=== PATIENT | female | born 1945 | race Caucasian/White ===

== ENCOUNTER → 2016-10-10 | Outpatient (REF) | payer MEDICARE, MEDICAID ==
[~2016-10-10] MED LIST: /ALEN70TA OR; /WARF25TA OR; ACET65TA OR; AMLO2.5T PO; ASPI1TAB PO; ASPI81TA83 OR; CELE40TA OR; CITA40TA4 PO; CRES40TA OR; CRES40TA PO; FOLI1TAB86 PO; IBUP800T23 PO; INFLIXIMAB IV; LEVA750T PO; LISI-538 PO; LOPR50TA OR; MAGN500T2 OR; MILKSUS OR; MIRALEX PO; MULTIVIT OR; NABU500T OR; NITR0.4S SL; NITR4TASL SL; OTEZ1TAB3 PO; PERC5TAB8 OR; PRIL20CA OR; PRIN10TA PO; SENN8.6T5 OR; TAB-TAB PO; TOPR50TA PO; WELCHOL OR; [UNRECOGNIZED DRUG - CODE] OR; [UNRECOGNIZED DRUG - OTHER] TD; [UNRECOGNIZED DRUG - OTHER] TD
[2016-10-10 14:09] LABS: ALBUMIN 3.5 GM/DL (3.2-5.2); ALBUMIN/GLOBULIN RATIO 0.73 (1.00-1.93); ALKALINE PHOSPHATASE 131 U/L (45-117); ALT/SGPT 34 U/L (12-78); ANION GAP 7 MEQ/L (8-16); AST/SGOT 46 U/L (15-37); BILIRUBIN,TOTAL 0.4 MG/DL (0.2-1.0); BLOOD UREA NITROGEN 15 MG/DL (7-18); CALCIUM LEVEL 9.3 MG/DL (8.8-10.2); CARBON DIOXIDE LEVEL 30 MEQ/L (21-32); CHLORIDE LEVEL 106 MEQ/L (98-107); GLOMERULAR FILTRATION RATE > 60.0 (>45); GLUCOSE, FASTING 125 MG/DL (80-110); POTASSIUM SERUM 4.4 MEQ/L (3.5-5.1); SODIUM LEVEL 143 MEQ/L (136-145); TOTAL PROTEIN 8.3 GM/DL (6.4-8.2)
== END ==
LOC: M SFHCPLAZ 10:41
PROVIDERS: ATTEND Family Medicine
DX: R73.01 Impaired fasting glucose (principal)
CPT/HCPCS: 36415; 80053; 82043; 83036; G0463

== ENCOUNTER → 2017-01-14 | Outpatient (REF) | payer MEDICARE, MEDICAID ==
[~2017-01-14] MED LIST changes: +CETI10TA; +IBUP1TAB7 PO; -IBUP800T23 PO; -LEVA750T PO; +LEVA750T7 PO; +PERC5TAB12 PO
== END ==
LOC: M SFHCPLAZ 13:42
PROVIDERS: ATTEND Family Medicine
DX: E11.9 Type 2 diabetes mellitus without complications (principal)

== ENCOUNTER 2017-03-20 13:01 | Emergency (ER) | payer MEDICARE, MEDICAID ==
[~2017-03-20] VITALS: Ht 167.6 cm; Wt 72.7 kg
[~2017-03-20 13:01] MED LIST changes: -CETI10TA; -PERC5TAB12 PO
[2017-03-20] MEDS ORDERED: CETI10TA (13:42)
[2017-03-20] MEDS ORDERED: PERCOCET 5MG/325MG TAB PO ONE (15:00)
--- NOTE | 2017-03-20 15:38 | REP ---
PELVIS AND LEFT HIP: AP view of the pelvis and two additional views of the left hip are performed. There is a compression screw, side plate, and multiple metallic screws in the proximal left femur for an old fracture. No acute fracture or dislocation is seen. Severe arthritic changes are seen at the left hip joint with joint space narrowing, subchondral sclerosis and spurring. IMPRESSION: No acute fracture or dislocation. Old fracture proximal left femur with severe degenerative changes at the left hip joint. Signed by Ho López MD 03/21/2017 05:34 P
[2017-03-20] MEDS ORDERED: PERC5TAB12 PO (17:21)
[2017-03-20 17:29] VITALS: BP 146/84
== END 2017-03-20 17:32 | disposition home or self-care (01) ==
LOC: M ED 13:01
DX: M16.12 Unilateral primary osteoarthritis, left hip (principal); I25.10 Atherosclerotic heart disease of native coronary artery without angina pectoris; I25.2 Old myocardial infarction; I10 Essential (primary) hypertension; R73.03 Prediabetes; F41.9 Anxiety disorder, unspecified; R51 Headache; E78.5 Hyperlipidemia, unspecified; K21.9 Gastro-esophageal reflux disease without esophagitis; K75.81 Nonalcoholic steatohepatitis (NASH); Z95.5 Presence of coronary angioplasty implant and graft; F17.200 Nicotine dependence, unspecified, uncomplicated; Z87.81 Personal history of (healed) traumatic fracture; Z79.82 Long term (current) use of aspirin; Z79.899 Other long term (current) drug therapy

== ENCOUNTER → 2017-10-02 | Outpatient (REF) | payer MEDICARE, MEDICAID ==
[2017-10-02 13:09] LABS: HEMOGLOBIN 13.8 g/dl (12.0-15.5); MEAN CORPUSCULAR HEMOGLOBIN 29.2 pg (27.0-33.0); MEAN CORPUSCULAR HGB CONC 32.1 g/dl (32.0-36.5); MEAN CORPUSCULAR VOLUME 91.1 fl (80.0-96.0); PLATELET COUNT, AUTOMATED 116 10^3/uL (150-450); RED BLOOD COUNT 4.72 10^6/uL (4.00-5.40); RED CELL DISTRIBUTION WIDTH 14.7 % (11.5-14.5); WHITE BLOOD COUNT 6.5 10^3/uL (4.0-10.0)
[2017-10-02 13:32] LABS: TOTAL 25(OH) VITAMIN D 16.5 NG/ML (30.0-100.0)
== END ==
LOC: M SFHCPLAZ 11:06
DX: R45.89 Other symptoms and signs involving emotional state (principal); E55.9 Vitamin D deficiency, unspecified
CPT/HCPCS: 84443

== ENCOUNTER → 2017-10-23 | Outpatient (CLI) | payer MEDICARE, MEDICAID ==
[2017-10-23 10:53] LABS: HEMATOCRIT 42.3 % (36.0-47.0); HEMOGLOBIN 13.6 g/dl (12.0-15.5); MEAN CORPUSCULAR HEMOGLOBIN 29.3 pg (27.0-33.0); MEAN CORPUSCULAR HGB CONC 32.2 g/dl (32.0-36.5); MEAN CORPUSCULAR VOLUME 91.2 fl (80.0-96.0); PLATELET COUNT, AUTOMATED 127 10^3/uL (150-450); RED BLOOD COUNT 4.64 10^6/uL (4.00-5.40); RED CELL DISTRIBUTION WIDTH 14.8 % (11.5-14.5); WHITE BLOOD COUNT 5.1 10^3/uL (4.0-10.0)
[2017-10-23 11:04] LABS: INR 1.16
[2017-10-23 11:14] LABS: ALBUMIN 3.5 GM/DL (3.2-5.2); ALBUMIN/GLOBULIN RATIO 0.69 (1.00-1.93); ALKALINE PHOSPHATASE 123 U/L (45-117); ALT/SGPT 20 U/L (12-78); ANION GAP 6 MEQ/L (8-16); AST/SGOT 36 U/L (7-37); BILIRUBIN,TOTAL 0.5 MG/DL (0.2-1.0); BLOOD UREA NITROGEN 9 MG/DL (7-18); CALCIUM LEVEL 9.1 MG/DL (8.8-10.2); CARBON DIOXIDE LEVEL 27 MEQ/L (21-32); CHLORIDE LEVEL 110 MEQ/L (98-107); CREATININE FOR GFR 0.74 MG/DL (0.55-1.30); GLOMERULAR FILTRATION RATE > 60.0 (>45); GLUCOSE, FASTING 115 MG/DL (70-100); POTASSIUM SERUM 4.2 MEQ/L (3.5-5.1); SODIUM LEVEL 143 MEQ/L (136-145); TOTAL PROTEIN 8.6 GM/DL (6.4-8.2)
[2017-10-23 11:54] LABS: ERYTHROCYTE SEDIMENTATION RATE 65 mm/hr (0-30)
== END ==
LOC: M ADMPAT 09:01
DX: Z01.818 Encounter for other preprocedural examination (principal); M16.12 Unilateral primary osteoarthritis, left hip; E78.00 Pure hypercholesterolemia, unspecified; I10 Essential (primary) hypertension; I51.9 Heart disease, unspecified; F41.9 Anxiety disorder, unspecified; F32.9 Major depressive disorder, single episode, unspecified
CPT/HCPCS: 71046

== ENCOUNTER → 2017-11-11 | Outpatient (REF) | payer MEDICARE, MEDICAID ==
[2017-11-11 15:05] LABS: INR 3.84; PROTHROMBIN TIME 39.7 SECONDS (12.4-14.5)
== END ==
LOC: M SHH 14:34
DX: Z79.01 Long term (current) use of anticoagulants (principal)
CPT/HCPCS: 85610

== ENCOUNTER → 2017-11-14 | Outpatient (REF) | payer MEDICARE, MEDICAID ==
[2017-11-14 15:08] LABS: INR 1.89; PROTHROMBIN TIME 22.3 SECONDS (12.4-14.5)
== END ==
LOC: M SHH 13:12
DX: Z79.01 Long term (current) use of anticoagulants (principal)
CPT/HCPCS: 85610

== ENCOUNTER → 2017-11-18 | Outpatient (REF) | payer MEDICARE, MEDICAID ==
[2017-11-18 13:53] LABS: INR 1.23; PROTHROMBIN TIME 15.7 SECONDS (12.4-14.5)
== END ==
LOC: M SHH 13:18
DX: Z79.01 Long term (current) use of anticoagulants (principal)
CPT/HCPCS: 85610

== ENCOUNTER → 2017-11-21 | Outpatient (REF) | payer MEDICARE, MEDICAID ==
[2017-11-21 11:35] LABS: INR 1.27; PROTHROMBIN TIME 16.2 SECONDS (12.4-14.5)
== END ==
LOC: M SHH 11:05
DX: Z79.01 Long term (current) use of anticoagulants (principal)
CPT/HCPCS: 85610

== ENCOUNTER → 2017-11-26 | Outpatient (REF) | payer MEDICARE, MEDICAID ==
[2017-11-26 11:44] LABS: INR 1.43; PROTHROMBIN TIME 17.8 SECONDS (12.4-14.5)
== END ==
LOC: M SHH 11:18
DX: Z79.01 Long term (current) use of anticoagulants (principal)
CPT/HCPCS: 85610

== ENCOUNTER → 2017-11-28 | Outpatient (REF) | payer MEDICARE, MEDICAID ==
[2017-11-28 15:51] LABS: INR 1.73; PROTHROMBIN TIME 20.8 SECONDS (12.4-14.5)
== END ==
LOC: M SHH 14:38
DX: Z51.81 Encounter for therapeutic drug level monitoring (principal); Z79.01 Long term (current) use of anticoagulants
CPT/HCPCS: 85610

== ENCOUNTER → 2018-01-30 | Outpatient (REF) | payer MEDICARE, MEDICAID ==
[2018-01-30 18:53] LABS: ANION GAP 8 MEQ/L (8-16); BLOOD UREA NITROGEN 9 MG/DL (7-18); CALCIUM LEVEL 9.1 MG/DL (8.8-10.2); CARBON DIOXIDE LEVEL 27 MEQ/L (21-32); CHLORIDE LEVEL 108 MEQ/L (98-107); CREATININE FOR GFR 0.74 MG/DL (0.55-1.30); GLOMERULAR FILTRATION RATE > 60.0 (>39); GLUCOSE, FASTING 116 MG/DL (70-100); POTASSIUM SERUM 3.9 MEQ/L (3.5-5.1); SODIUM LEVEL 143 MEQ/L (136-145)
== END ==
LOC: M SFHCPLAZ 15:14
DX: R63.4 Abnormal weight loss (principal)
CPT/HCPCS: 80048

== ENCOUNTER → 2018-01-30 | Outpatient (REF) | payer MEDICARE, MEDICAID ==
[2018-01-30 19:17] LABS: AMORPHOUS SEDIMENT LARGE (NEGATIVE); APPEARANCE, URINE TURBID (CLEAR); BACTERIA, URINE AUTO NEGATIVE (NEGATIVE); BILIRUBIN, URINE AUTO NEGATIVE (NEGATIVE); BLOOD, URINE BLOOD NEGATIVE (NEGATIVE); CALCIUM OXALATE CRYSTALS MODERATE; COLOR, URINE AMBER (YELLOW); GLUCOSE, URINE (UA) AUTO NEGATIVE (NEGATIVE); KETONE, URINE AUTO NEGATIVE (NEGATIVE); LEUKOCYTE ESTERASE, URINE AUTO 2+ (NEGATIVE); MUCUS, URINE LARGE (NEGATIVE); NITRITE, URINE AUTO NEGATIVE (NEGATIVE); PROTEIN, URINE AUTO NEGATIVE (NEGATIVE); RBC, URINE AUTO 3 /HPF (0-3); SPECIFIC GRAVITY URINE AUTO 1.018 (1.002-1.035); SQUAMOUS EPITHELIAL CELL UR AU 4 /HPF (0-6); WBC, URINE AUTO 8 /HPF (0-3)
== END ==
LOC: M SFHCPLAZ 16:57
DX: M54.5 Low back pain (principal); R63.4 Abnormal weight loss; K21.9 Gastro-esophageal reflux disease without esophagitis; Z79.899 Other long term (current) drug therapy
CPT/HCPCS: 80048; 81001

== ENCOUNTER → 2018-02-06 | Outpatient (CLI) | payer MEDICARE, MEDICAID ==
[~2018-02-06] MED LIST changes: -/ALEN70TA OR; -/WARF25TA OR; -ACET65TA OR; -AMLO2.5T PO; -ASPI1TAB PO; -ASPI81TA83 OR; -CELE40TA OR; -CITA40TA4 PO; -CRES40TA OR; -CRES40TA PO; -FOLI1TAB86 PO; +GASTROGRAFIN SOLUTION 30ML (Q9963) As Ordered; -IBUP1TAB7 PO; -INFLIXIMAB IV; +ISOVUE-370 76% 100ML VIAL (Q9967) As Ordered; -LEVA750T7 PO; -LISI-538 PO; -LOPR50TA OR; -MAGN500T2 OR; -MILKSUS OR; -MIRALEX PO; -MULTIVIT OR; -NABU500T OR; -NITR0.4S SL; -NITR4TASL SL; -OTEZ1TAB3 PO; -PERC5TAB8 OR; -PRIL20CA OR; -PRIN10TA PO; -SENN8.6T5 OR; -TAB-TAB PO; -TOPR50TA PO; -WELCHOL OR; -[UNRECOGNIZED DRUG - CODE] OR; -[UNRECOGNIZED DRUG - OTHER] TD; -[UNRECOGNIZED DRUG - OTHER] TD
== END ==
LOC: M RAD 11:50
DX: M54.5 Low back pain (principal); R63.4 Abnormal weight loss; N28.1 Cyst of kidney, acquired; I77.811 Abdominal aortic ectasia; K74.60 Unspecified cirrhosis of liver; R16.1 Splenomegaly, not elsewhere classified; K44.9 Diaphragmatic hernia without obstruction or gangrene
CPT/HCPCS: Q9963

== ENCOUNTER → 2018-03-07 | Outpatient (CLI) | payer MEDICARE, MEDICAID | LOC: M WHC 11:15 | DX: Z13.820 Encounter for screening for osteoporosis (principal); Z78.0 Asymptomatic menopausal state | CPT/HCPCS: 77080 ==

== ENCOUNTER 2018-04-10 12:43 | Outpatient (RCR) | payer MEDICARE, MEDICAID | END 2018-04-30 | LOC: M PT 12:43 | DX: M54.5 Low back pain (principal) | CPT/HCPCS: G0283 ==

== ENCOUNTER 2018-05-05 22:22 | Emergency (ER) | payer MEDICARE, MEDICAID ==
[2018-05-05] MEDS: ASPIRIN 325 MG TAB PO (23:15)
[2018-05-05 23:19] LABS: BASO % 0.3 % (0.0-1.0); EOS # 0.1 10^3/uL (0.0-0.50); EOS % 3.2 % (0.0-3.0); HEMATOCRIT 27.6 % (36.0-47.0); HEMOGLOBIN 8.4 g/dl (12.0-15.5); IMMATURE GRANULOCYTE % 0.6 % (0-3.0); LYMPH # 1.1 10^3/uL (1.5-4.5); LYMPH % 32.3 % (24.0-44.0); MEAN CORPUSCULAR HEMOGLOBIN 24.2 pg (27.0-33.0); MEAN CORPUSCULAR HGB CONC 30.4 g/dl (32.0-36.5); MEAN CORPUSCULAR VOLUME 79.5 fl (80.0-96.0); MONO # 0.4 10^3/uL (0.0-0.8); MONO % 11.4 % (0.0-5.0); NEUTROPHILS # 1.8 10^3/uL (1.8-7.7); NEUTROPHILS % 52.2 % (36.0-66.0); PLATELET COUNT, AUTOMATED 101 10^3/uL (150-450); RED BLOOD COUNT 3.47 10^6/uL (4.00-5.40); RED CELL DISTRIBUTION WIDTH 17.9 % (11.5-14.5); WHITE BLOOD COUNT 3.4 10^3/uL (4.0-10.0)
[2018-05-05 23:50] LABS: INR 1.28; PARTIAL THROMBOPLASTIN TIME 33.6 SECONDS (25.4-37.6); PROTHROMBIN TIME 16.2 SECONDS (12.1-14.4)
[2018-05-05 23:54] LABS: ANION GAP 7 MEQ/L (8-16); BLOOD UREA NITROGEN 10 MG/DL (7-18); CALCIUM LEVEL 8.7 MG/DL (8.8-10.2); CARBON DIOXIDE LEVEL 28 MEQ/L (21-32); CHLORIDE LEVEL 109 MEQ/L (98-107); CK-MB VALUE MASS < 1.0 NG/ML (<3.6); CPK CREATINE PHOSPHOKINASE 42 U/L (26-192); GLOMERULAR FILTRATION RATE > 60.0 (>39); GLUCOSE, FASTING 113 MG/DL (70-100); MB/CK RELATIVE INDEX 2.38 (< OR =4); POTASSIUM SERUM 3.4 MEQ/L (3.5-5.1); SODIUM LEVEL 144 MEQ/L (136-145); TROPONIN I < 0.02 NG/ML (< 0.10)
[2018-05-06] MEDS ORDERED: ISOVUE-370 76% 100ML VIAL (Q9967) As Ordered (00:12)
[2018-05-06 03:22] LABS: CK-MB VALUE MASS < 1.0 NG/ML (<3.6); CPK CREATINE PHOSPHOKINASE 42 U/L (26-192); MB/CK RELATIVE INDEX 2.38 (< OR =4); TROPONIN I < 0.02 NG/ML (< 0.10)
== END 2018-05-06 03:55 | disposition home or self-care (01) ==
LOC: M ED 05-06 03:55
DX: R07.89 Other chest pain (principal); I10 Essential (primary) hypertension; E78.5 Hyperlipidemia, unspecified; I25.10 Atherosclerotic heart disease of native coronary artery without angina pectoris; K21.9 Gastro-esophageal reflux disease without esophagitis; F33.9 Major depressive disorder, recurrent, unspecified; D64.9 Anemia, unspecified; L40.9 Psoriasis, unspecified; Z79.899 Other long term (current) drug therapy
CPT/HCPCS: Q9967

== ENCOUNTER → 2018-05-07 | Outpatient (CLI) | payer MEDICARE, MEDICAID | LOC: M WHC 12:52 | DX: Z12.31 Encounter for screening mammogram for malignant neoplasm of breast (principal); Z01.419 Encounter for gynecological examination (general) (routine) without abnormal findings (principal); Z78.0 Asymptomatic menopausal state | CPT/HCPCS: 77067 ==

== ENCOUNTER → 2018-05-07 | Outpatient (REF) | payer MEDICARE, MEDICAID ==
[2018-05-09 14:35] LABS: HPV HYBRID CAPTURE II Negative (Negative)
== END ==
LOC: M SFHCWAGY 13:33
DX: Z01.419 Encounter for gynecological examination (general) (routine) without abnormal findings (principal); Z11.51 Encounter for screening for human papillomavirus (HPV); N95.2 Postmenopausal atrophic vaginitis
CPT/HCPCS: G0123

== ENCOUNTER → 2018-05-14 | Outpatient (REF) | payer MEDICARE, MEDICAID ==
[2018-05-14 16:24] LABS: BASO % 0.3 % (0.0-1.0); EOS # 0.1 10^3/uL (0.0-0.50); EOS % 2.6 % (0.0-3.0); HEMATOCRIT 33.9 % (36.0-47.0); HEMOGLOBIN 9.9 g/dl (12.0-15.5); IMMATURE GRANULOCYTE % 0.5 % (0-3.0); LYMPH # 1.2 10^3/uL (1.5-4.5); LYMPH % 30.6 % (24.0-44.0); MEAN CORPUSCULAR HGB CONC 29.2 g/dl (32.0-36.5); MEAN CORPUSCULAR VOLUME 82.1 fl (80.0-96.0); MONO # 0.5 10^3/uL (0.0-0.8); NEUTROPHILS # 2.1 10^3/uL (1.8-7.7); PLATELET COUNT, AUTOMATED 114 10^3/uL (150-450); RED BLOOD COUNT 4.13 10^6/uL (4.00-5.40); RED CELL DISTRIBUTION WIDTH 17.7 % (11.5-14.5); WHITE BLOOD COUNT 3.9 10^3/uL (4.0-10.0)
[2018-05-14 16:25] LABS: C REACTIVE PROTEIN QUANTITATIV 0.43 MG/DL (0.00-0.30)
[2018-05-14 16:25] LABS: RHEUMATOID FACTOR QUANT < 10.0 IU/ML (<15.0)
[2018-05-14 17:58] LABS: ERYTHROCYTE SEDIMENTATION RATE 100 mm/hr (0-30)
[2018-05-17 00:29] LABS: CYCLIC CITRULLINATED PEPTIDE 6 units (0-19)
== END ==
LOC: M SFHCPLAZ 13:02
DX: M25.50 Pain in unspecified joint (principal)
CPT/HCPCS: 86140

== ENCOUNTER → 2018-05-28 | Outpatient (CLI) | payer MEDICARE, MEDICAID ==
[2018-05-28 15:04] LABS: BASO % 0.3 % (0.0-1.0); EOS # 0.1 10^3/uL (0.0-0.50); EOS % 2.8 % (0.0-3.0); HEMATOCRIT 33.4 % (36.0-47.0); IMMATURE GRANULOCYTE % 0.8 % (0-3.0); LYMPH # 1.1 10^3/uL (1.5-4.5); LYMPH % 30.3 % (24.0-44.0); MEAN CORPUSCULAR HEMOGLOBIN 24.9 pg (27.0-33.0); MEAN CORPUSCULAR HGB CONC 29.9 g/dl (32.0-36.5); MEAN CORPUSCULAR VOLUME 83.1 fl (80.0-96.0); MONO # 0.3 10^3/uL (0.0-0.8); MONO % 9.2 % (0.0-5.0); NEUTROPHILS % 56.6 % (36.0-66.0); PLATELET COUNT, AUTOMATED 130 10^3/uL (150-450); RED BLOOD COUNT 4.02 10^6/uL (4.00-5.40); RED CELL DISTRIBUTION WIDTH 18.8 % (11.5-14.5); RETICULOCYTE % 2.8 % (0.5-1.5); WHITE BLOOD COUNT 3.6 10^3/uL (4.0-10.0)
[2018-05-28 15:07] LABS: SLIDE REVIEW Report; SOURCE PERIPHERAL SMEAR
[2018-05-28 15:20] LABS: INR 1.12; PROTHROMBIN TIME 14.6 SECONDS (12.1-14.4)
[2018-05-28 15:28] LABS: ALBUMIN 3.3 GM/DL (3.2-5.2); ALKALINE PHOSPHATASE 93 U/L (45-117); ALT/SGPT 24 U/L (12-78); ANION GAP 6 MEQ/L (8-16); AST/SGOT 35 U/L (7-37); BILIRUBIN,TOTAL 0.3 MG/DL (0.2-1.0); BLOOD UREA NITROGEN 14 MG/DL (7-18); C REACTIVE PROTEIN QUANTITATIV < 0.30 MG/DL (0.00-0.30); CALCIUM LEVEL 8.7 MG/DL (8.8-10.2); CARBON DIOXIDE LEVEL 29 MEQ/L (21-32); CHLORIDE LEVEL 108 MEQ/L (98-107); COMPLEMENT C3 84 MG/DL (90-180); COMPLEMENT C4 10 MG/DL (10-40); CREATININE FOR GFR 0.81 MG/DL (0.55-1.30); FERRITIN 48 NG/ML (8-252); GLOMERULAR FILTRATION RATE > 60.0 (>39); GLUCOSE, FASTING 169 MG/DL (70-100); IRON (FE) 319 UG/DL (50-170); LDH LACTATE DEHYDROGENASE 190 U/L (84-246); PERCENT SATURATION 79.2 % (13.2-45.0); POTASSIUM SERUM 3.7 MEQ/L (3.5-5.1); RHEUMATOID FACTOR QUANT < 10.0 IU/ML (<15.0); SODIUM LEVEL 143 MEQ/L (136-145); TOTAL IRON BINDING CAPACITY 403 UG/DL (250-450); URIC ACID 4.8 MG/DL (2.6-6.0)
[2018-05-28 15:33] LABS: ADD MORPHOLOGY? YES; ERYTHROCYTE SEDIMENTATION RATE 116 mm/hr (0-30); POSITIVE MORPH POS FLAG
[2018-05-28 15:34] LABS: PLATELET ESTIMATE DECREASED (NORMAL)
[2018-05-28 15:36] LABS: POLYCHROMASIA 1+
[2018-05-28 15:38] LABS: HYPOCHROMASIA 1+
[2018-05-31 00:58] LABS: ANA (HEP2) Positive (.); SSA SJOGRENS A <0.2 AI (0.0-0.9); SSB SJOGRENS B <0.2 AI (0.0-0.9); TRANSFERRIN 341 mg/dL (200-370)
== END ==
LOC: M LAB 14:07
DX: M19.041 Primary osteoarthritis, right hand (principal); M19.042 Primary osteoarthritis, left hand
CPT/HCPCS: 73130

== ENCOUNTER → 2018-06-04 | Outpatient (REF) | payer MEDICARE, MEDICAID ==
[2018-06-04 13:07] LABS: FERRITIN 64 NG/ML (8-252); FREE T4 1.31 NG/DL (0.76-1.46); IRON (FE) 51 UG/DL (50-170); PERCENT SATURATION 12.6 % (13.2-45.0); THYROID STIMULATING HORMONE 0.796 uIU/ML (0.358-3.740); TOTAL IRON BINDING CAPACITY 406 UG/DL (250-450); TOTAL PROTEIN 8.3 GM/DL (6.4-8.2)
[2018-06-04 13:09] LABS: TOTAL T3 116.6 NG/DL (60.0-181.0)
[2018-06-04 13:13] LABS: URINE TOTAL PROTEIN 29.2 MG/DL (0-12)
[2018-06-05 10:49] LABS: ALBUMIN 3.81 GM/DL (3.29-5.55); ALBUMIN % 45.9 % (55.8-66.1); ALPHA-1-GLOBULINS 0.33 GM/DL (0.17-0.41); ALPHA-2-GLOBULINS % 10.9 % (7.1-11.8); BETA-1-GLOBULINS 0.52 GM/DL (0.28-0.60); BETA-1-GLOBULINS % 6.3 % (4.7-7.2); BETA-2-GLOBULINS 0.48 GM/DL (0.19-0.55); BETA-2-GLOBULINS % 5.8 % (3.2-6.5); GAMMA GLOBULIN % 27.1 % (11.1-18.8); GAMMA GLOBULINS 2.25 GM/DL (0.65-1.58)
[2018-06-05 14:51] LABS: UPEP INTERPRETATION NO M-SPIKE NOTED; URINE VOLUME RANDOM ML
[2018-06-06 00:30] LABS: ANTI DOUBLE STRAND-DNA AB <1 IU/mL (0-9); CARDIOLIPIN IGA ANTIBODY <9 APL U/mL (0-11); CARDIOLIPIN IGG ANTIBODY <9 GPL U/mL (0-14); CARDIOLIPIN IGM ANTIBODY 128 MPL U/mL (0-12)
== END ==
LOC: M SFHCPLAZ 11:26
DX: R70.0 Elevated erythrocyte sedimentation rate (principal); D64.9 Anemia, unspecified; E04.1 Nontoxic single thyroid nodule
CPT/HCPCS: 83550

== ENCOUNTER → 2018-06-17 | Outpatient (CLI) | payer MEDICARE, MEDICAID ==
[~2018-06-17] MED LIST changes: +/ALEN70TA OR; +/WARF25TA OR; +ACET65TA OR; +AMLO-183 PO; +AMLO2.5T2 PO; +ASPI1TAB PO; +ASPI81TA83 OR; +CALC600T60 PO; +CELE40TA OR; +CETI10TA PO; +CITA40TA4 PO; +COUM2.5T17 PO; +CRES40TA OR; +CRES40TA PO; +FOLI1TAB86 PO; -GASTROGRAFIN SOLUTION 30ML (Q9963) As Ordered; +IBUP1TAB7 PO; +INFLIXIMAB IV; -ISOVUE-370 76% 100ML VIAL (Q9967) As Ordered; +LEVA750T7 PO; +LISI-538 PO; +LOPR50TA OR; +MAGN500T2 OR; +MELO7.5T7 PO; +MILKSUS OR; +MIRALEX PO; +MULTIVIT OR; +NABU500T OR; +NITR0.4S SL; +NITR4TASL SL; +OTEZ1TAB3 PO; +PERC5TAB12 PO; +PERC5TAB8 OR; +PRIL20CA OR; +PRIN10TA PO; +SENN8.6T5 OR; +TAB-TAB PO; +TOPR50TA23 PO; +TRAM50TA2 PO; +TYLE500T78 PO; +VITA2000 PO; +WELCHOL OR; +[UNRECOGNIZED DRUG - CODE] OR; +[UNRECOGNIZED DRUG - OTHER] TD; +[UNRECOGNIZED DRUG - OTHER] TD
--- NOTE | 2018-06-17 16:56 | REP ---
Thyroid sonography: History: Thyroid nodule. Comparison CT study of the chest is from May 06, 2018 . Findings: The thyroid isthmus is normal measuring 0.2 cm. Right thyroid dimensions are 4.9 x 1.5 x 2.0 cm. Left lobe measures 4.0 x 1.3 x 1.5 cm. There are numerous benign-appearing cystic and solid nodules in each lobe of the thyroid. The largest in the right gland is a predominately cystic nodule 1.2 cm in greatest diameter. The largest in the left gland measures 0.6 cm in greatest diameter. None of these appears more suspicious than any other. There are at least 12-13 different small nodules. Impression: Multinodular thyroid. No one nodule appears more suspicious than any other.
== END ==
LOC: M WHC 13:04
PROVIDERS: ATTEND Family Medicine
DX: E04.1 Nontoxic single thyroid nodule (principal)

== ENCOUNTER → 2018-07-16 | Outpatient (REF) | payer MEDICARE, MEDICAID ==
[~2018-07-16] MED LIST changes: -AMLO2.5T2 PO; +AMLO2.5T3 PO; +CELE1CAP4 PO; +IBUP200T45 PO
[2018-07-18 11:05] LABS: HEPATITIS B SURFACE ANTIBODY NEGATIVE (POSITIVE); HEPATITIS B SURFACE ANTIGEN NEGATIVE (NEGATIVE); HEPATITIS C VIRUS ABY INDEX 0.1 INDEX (<0.8)
== END ==
LOC: M SFHCPLAZ 15:02
PROVIDERS: ATTEND Family Medicine
DX: M25.50 Pain in unspecified joint (principal)

== ENCOUNTER → 2018-07-16 | Outpatient (REF) | payer MEDICARE, MEDICAID ==
[2018-07-16 18:51] LABS: BASO % 0.5 % (0.0-1.0); EOS # 0.1 10^3/uL (0.0-0.50); EOS % 2.3 % (0.0-3.0); HEMOGLOBIN 11.3 g/dl (12.0-15.5); LYMPH # 1.2 10^3/uL (1.5-4.5); LYMPH % 30.5 % (24.0-44.0); MEAN CORPUSCULAR HEMOGLOBIN 25.9 pg (27.0-33.0); MEAN CORPUSCULAR HGB CONC 30.5 g/dl (32.0-36.5); MEAN CORPUSCULAR VOLUME 84.9 fl (80.0-96.0); MONO # 0.4 10^3/uL (0.0-0.8); NEUTROPHILS # 2.2 10^3/uL (1.8-7.7); NEUTROPHILS % 57.2 % (36.0-66.0); RED BLOOD COUNT 4.36 10^6/uL (4.00-5.40); WHITE BLOOD COUNT 3.9 10^3/uL (4.0-10.0)
[2018-07-16 19:13] LABS: ALBUMIN 3.2 GM/DL (3.2-5.2); ALT/SGPT 19 U/L (12-78); BILIRUBIN,DIRECT 0.1 MG/DL (0.0-0.2); BILIRUBIN,TOTAL 0.3 MG/DL (0.2-1.0); BLOOD UREA NITROGEN 24 MG/DL (7-18); CREATININE FOR GFR 0.75 MG/DL (0.55-1.30); FERRITIN 16 NG/ML (8-252); GLOMERULAR FILTRATION RATE > 60.0 (>39); IRON (FE) 58 UG/DL (50-170); PERCENT SATURATION 14.3 % (13.2-45.0); TOTAL IRON BINDING CAPACITY 406 UG/DL (250-450)
[2018-07-16 19:14] LABS: VITAMIN B12 LEVEL 120 PG/ML
[2018-07-16 19:15] LABS: FOLATE 14.6 NG/ML; HEPATITIS B SURFACE ANTIBODY NEGATIVE (POSITIVE)
[2018-07-18 09:52] LABS: HEPATITIS B SURFACE ANTIGEN NEGATIVE (NEGATIVE)
[2018-07-18 10:19] LABS: HEPATITIS C VIRUS ABY INDEX 0.1 INDEX (<0.8)
[2018-07-22 00:07] LABS: ANCA-ATYPICAL <1:20 titer (Neg:<1:20); ANTI-MITOCHONDRIAL ANTIBODY 5.9 Units (0.0-20.0); ANTI-SMOOTH MUSCLE ANTIBODY 10 Units (0-19); ANTINUCLEAR ANTIBODIES DIRECT Negative (Negative); CYTOPLASMIC NEUTROP AB ANCA-C <1:20 titer (Neg:<1:20); HEPATITIS A IgG TOTAL Positive (Negative); PERINUCLEAR AB ANCA-P <1:20 titer (Neg:<1:20)
== END ==
LOC: M LABDRAWP 17:56
PROVIDERS: ATTEND Internal Medicine Gastroenterology
DX: D62 Acute posthemorrhagic anemia (principal); R93.3 Abnormal findings on diagnostic imaging of other parts of digestive tract; M25.50 Pain in unspecified joint

== ENCOUNTER → 2018-07-22 | Outpatient (REF) | payer MEDICARE, MEDICAID ==
[~2018-07-22] MED LIST changes: +B121000T PO
[2018-07-22 13:31] LABS: APPEARANCE, URINE CLEAR (CLEAR); BACTERIA, URINE AUTO NEGATIVE (NEGATIVE); BILIRUBIN, URINE AUTO NEGATIVE (NEGATIVE); BLOOD, URINE BLOOD NEGATIVE (NEGATIVE); COLOR, URINE AMBER (YELLOW); GLUCOSE, URINE (UA) AUTO NEGATIVE (NEGATIVE); KETONE, URINE AUTO NEGATIVE (NEGATIVE); LEUKOCYTE ESTERASE, URINE AUTO 1+ (NEGATIVE); MUCUS, URINE SMALL (NEGATIVE); NITRITE, URINE AUTO NEGATIVE (NEGATIVE); PROTEIN, URINE AUTO 1+ mg/dL (NEGATIVE); RBC, URINE AUTO 2 /HPF (0-3); SPECIFIC GRAVITY URINE AUTO 1.023 (1.002-1.035); SQUAMOUS EPITHELIAL CELL UR AU 4 /HPF (0-6); WBC, URINE AUTO 9 /HPF (0-3)
[2018-07-22 14:42] LABS: COMPLEMENT C3 106 MG/DL (90-180); COMPLEMENT C4 12 MG/DL (10-40); IMMUNOGLOBULIN G 871 MG/DL (681-1648); RHEUMATOID FACTOR QUANT < 10.0 IU/ML (<15.0)
[2018-07-23 09:10] LABS: TOTAL PROTEIN,RANDOM URINE 33.2 MG/DL (0.0-12.0)
[2018-07-25 14:43] LABS: ANA (HEP2) Positive (.); ANTI DOUBLE STRAND-DNA AB 1 IU/mL (0-9); CYCLIC CITRULLINATED PEPTIDE 6 units (0-19); HLA-B27 Negative (.); RNP ANTIBODY < 0.2 AI (0.0-0.9); SMITHS ANTIBODY < 0.2 AI (0.0-0.9); SSA SJOGRENS A <0.2 AI (0.0-0.9); SSB SJOGRENS B <0.2 AI (0.0-0.9)
[2018-07-29 10:34] LABS: DRVV SCREEN 44.3 SEC
[2018-07-29 10:35] LABS: PTT LUPUS TYPE ANTICOAG SCREEN 1.1 (0-1.2)
== END ==
LOC: M SFHCPLAZ 10:45
PROVIDERS: ATTEND Internal Medicine Rheumatology
DX: M25.50 Pain in unspecified joint (principal); D61.818 Other pancytopenia
CPT/HCPCS: 36415; 81001; 81374; 82570; 82784; 84156; 85652; 85730; 86038; 86140; 86160; 86200; 86225; 86235; 86255; 86431; 96372; G0463; J3420

== ENCOUNTER 2018-07-31 07:04 | Day surgery (SDC) | payer MEDICARE, MEDICAID ==
[~2018-07-31] VITALS: Ht 167.6 cm; Wt 72.6 kg
[~2018-07-31 07:04] MED LIST changes: -B121000T PO; +LIDOCAINE 2% INJ 100 MG/5 ML SDV (FOR ANES.) As Ordered ONE; +NS 1,000 ML IV ONE; +PROPOFOL 500 MG/50 ML VIAL As Ordered ONE
[2018-07-31] MEDS ORDERED: PROPOFOL 200 MG/20 ML VIAL As Ordered ONE (09:01)
--- NOTE | 2018-07-31 09:21 | ROOR ---
Patient Name: Shira Yuen Procedure Date: 07/31/2018 8:10 AM Date of : 1945 Age: 72 Room: [facility] Gender: Female Note Status: Finalized Procedure: Upper GI endoscopy Indications: Acute post hemorrhagic anemia, Cirrhosis rule out esophageal varices Providers: Surjit Donaldson MD Referring MD: Ramon Guerra DO Requesting Provider: Medicines: Monitored Anesthesia Care Complications: No immediate complications. Procedure: Pre-Anesthesia Assessment: - Prior to the procedure, a History and Physical was performed, and patient medications and allergies were reviewed. The patient is competent. The risks and benefits of the procedure and the sedation options and risks were discussed with the patient. All questions were answered and informed consent was obtained. Patient identification and proposed procedure were verified by the physician, the nurse and the anesthesiologist in the procedure room. Mental Status Examination: alert and oriented. Airway Examination: normal oropharyngeal airway and neck mobility. Respiratory Examination: clear to auscultation. CV Examination: normal. Prophylactic Antibiotics: The patient does not require prophylactic antibiotics. Prior Anticoagulants: The patient has taken no previous anticoagulant or antiplatelet agents. ASA Grade Assessment: III - A patient with severe systemic disease. After reviewing the risks and benefits, the patient was deemed in satisfactory condition to undergo the procedure. The anesthesia plan was to use monitored anesthesia care (MAC). Immediately prior to administration of medications, the patient was re-assessed for adequacy to receive sedatives. The heart rate, respiratory rate, oxygen saturations, blood pressure, adequacy of pulmonary ventilation, and response to care were monitored throughout the procedure. The physical status of the patient was re-assessed after the procedure. The Endoscope was introduced through the mouth, and advanced to the second part of duodenum. The upper GI endoscopy was accomplished without difficulty. The patient tolerated the procedure well. Findings: Three columns of non-bleeding grade II, small (< 5 mm) varices were found in the lower third of the esophagus,. No stigmata of recent bleeding were evident and no red amador signs were present. A large hiatal hernia was present. Diffuse severe inflammation characterized by congestion (edema), erythema, granularity and linear erosions was found in the gastric body and in the gastric antrum. Biopsies were taken with a cold forceps for Helicobacter pylori testing. Verification of patient identification for the specimen was done by the physician and nurse using the patient's name, date and medical record number. Estimated blood loss was minimal. Two 8 mm sessile polyps with no bleeding and no stigmata of recent bleeding were found in the gastric antrum. Biopsies were taken with a cold forceps for histology. No gross lesions were noted in the duodenal bulb and in the second portion of the duodenum. Biopsies for histology were taken with a cold forceps for evaluation of celiac disease. Impression: - Non-bleeding grade II and small (< 5 mm) esophageal varices. - Large hiatal hernia. - Gastritis. Biopsied. - Two gastric polyps. Biopsied. - No gross lesions in the duodenal bulb and in the second portion of the duodenum. Biopsied. Recommendation: - Patient has a contact number available for emergencies. The signs and symptoms of potential delayed complications were discussed with the patient. Return to normal activities tomorrow. Written discharge instructions were provided to the patient. - Low sodium diet. - Follow an antireflux regimen. - Continue present medications. - Use Protonix (pantoprazole) 40 mg PO twice daily - to be taken in morning (1/2 hour before breakfast) and at bedtime ( atleast 3 hours after last meal) for 8 weeks. - Await pathology results. - Based on the biopsy results you will receive a phone call from GI clinic in 2-3 weeks to review the pathology results AND/OR your results will be faxed to your Primary care physician. - Return to primary care physician. Surjit Donaldson MD Surjit Donaldson MD 07/31/2018 9:20:36 AM This report has been signed electronically. Number of Addenda: 0 Note Initiated On: 07/31/2018 8:10 AM Estimated Blood Loss: Estimated blood loss: none.
[2018-07-31 09:40] VITALS: BP 145/97
--- NOTE | 2018-07-31 09:57 | ROOR ---
Patient Name: Shira Yuen Procedure Date: 07/31/2018 8:11 AM Date of : 1945 Age: 72 Room: [facility] Gender: Female Note Status: Finalized Procedure: Colonoscopy Indications: Acute post hemorrhagic anemia Providers: Surjit Donaldson MD Referring MD: Ramon Guerra DO Requestamanda Provider: Medicines: Monitored Anesthesia Care Complications: No immediate complications. Procedure: Pre-Anesthesia Assessment: - Prior to the procedure, a History and Physical was performed, and patient medications and allergies were reviewed. The patient is competent. The risks and benefits of the procedure and the sedation options and risks were discussed with the patient. All questions were answered and informed consent was obtained. Patient identification and proposed procedure were verified by the physician, the nurse and the anesthesiologist in the procedure room. Mental Status Examination: alert and oriented. Airway Examination: normal oropharyngeal airway and neck mobility. Respiratory Examination: clear to auscultation. CV Examination: normal. Prophylactic Antibiotics: The patient does not require prophylactic antibiotics. Prior Anticoagulants: The patient has taken no previous anticoagulant or antiplatelet agents. ASA Grade Assessment: III - A patient with severe systemic disease. After reviewing the risks and benefits, the patient was deemed in satisfactory condition to undergo the procedure. The anesthesia plan was to use monitored anesthesia care (MAC). Immediately prior to administration of medications, the patient was re-assessed for adequacy to receive sedatives. The heart rate, respiratory rate, oxygen saturations, blood pressure, adequacy of pulmonary ventilation, and response to care were monitored throughout the procedure. The physical status of the patient was re-assessed after the procedure. The Colonoscope was introduced through the anus and advanced to the terminal ileum, with identification of the appendiceal orifice and IC valve. The colonoscopy was performed without difficulty. The patient tolerated the procedure well. The quality of the bowel preparation was poor and not adequate to identify polyps 6 mm and larger in size. The ileocecal valve, appendiceal orifice, and rectum were photographed. Scope insertion time was 4 minutes. Scope withdrawal time was 12 minutes. The total duration of the procedure was 16 minutes. Findings: The perianal and digital rectal examinations were normal. Four sessile polyps were found in the ascending colon. The polyps were 3 to 6 mm in size. These polyps were removed with a cold biopsy forceps. Resection and retrieval were complete. Verification of patient identification for the specimen was done by the physician and nurse using the patient's name, date and medical record number. Estimated blood loss was minimal. A 10 mm polyp was found in the transverse colon. The polyp was sessile. The polyp was removed with a cold snare. Resection and retrieval were complete. A few sessile polyps were found in the recto-sigmoid colon. The polyps were 3 to 6 mm in size. These polyps were removed with a jumbo cold forceps. Resection and retrieval were complete. Many small and large-mouthed diverticula were found from sigmoid to descending colon. There was no evidence of diverticular bleeding. Non-bleeding external and internal hemorrhoids were found during retroflexion. The hemorrhoids were medium-sized. Impression: - Preparation of the colon was poor. - Preparation of the colon was inadequate. - Four 3 to 6 mm polyps in the ascending colon, removed with a cold biopsy forceps. Resected and retrieved. - One 10 mm polyp in the transverse colon, removed with a cold snare. Resected and retrieved. - A few 3 to 6 mm polyps at the recto-sigmoid colon, removed with a jumbo cold forceps. Resected and retrieved. - Moderate diverticulosis from sigmoid to descending colon. There was no evidence of diverticular bleeding. - Non-bleeding external and internal hemorrhoids. Recommendation: - Patient has a contact number available for emergencies. The signs and symptoms of potential delayed complications were discussed with the patient. Return to normal activities tomorrow. Written discharge instructions were provided to the patient. - High fiber diet. - Continue present medications. - Await pathology results. - Repeat colonoscopy in 1 year because the bowel preparation was suboptimal and for surveillance based on pathology results. - Based on the biopsy results you will receive a phone call from GI clinic in 2-3 weeks to review the pathology results AND/OR your results will be faxed to your Primary care physician. - Return to primary care physician. Surjit Donaldson MD Surjit Donaldson MD 07/31/2018 9:57:24 AM This report has been signed electronically. Number of Addenda: 0 Note Initiated On: 07/31/2018 8:11 AM Estimated Blood Loss: Estimated blood loss was minimal.
== END 2018-07-31 10:09 | disposition home or self-care (01) ==
LOC: M OPP 07:04
PROVIDERS: ATTEND Internal Medicine Gastroenterology
DX: D62 Acute posthemorrhagic anemia (principal); D12.2 Benign neoplasm of ascending colon; D12.3 Benign neoplasm of transverse colon; D12.7 Benign neoplasm of rectosigmoid junction; K64.8 Other hemorrhoids; K57.30 Diverticulosis of large intestine without perforation or abscess without bleeding; K74.60 Unspecified cirrhosis of liver; I85.10 Secondary esophageal varices without bleeding; K44.9 Diaphragmatic hernia without obstruction or gangrene; K29.70 Gastritis, unspecified, without bleeding; K31.7 Polyp of stomach and duodenum

== ENCOUNTER → 2018-08-11 | Outpatient (REF) | payer MEDICARE, MEDICAID ==
[~2018-08-11] MED LIST changes: +B121000T PO; -LIDOCAINE 2% INJ 100 MG/5 ML SDV (FOR ANES.) As Ordered ONE; -NS 1,000 ML IV ONE; -PROPOFOL 500 MG/50 ML VIAL As Ordered ONE
== END ==
LOC: M SFHCPLAZ 13:34
PROVIDERS: ATTEND Family Medicine
DX: E53.8 Deficiency of other specified B group vitamins (principal)

== ENCOUNTER → 2018-08-27 | Outpatient (CLI) | payer MEDICARE, MEDICAID ==
[~2018-08-27] MED LIST changes: +CALCTAB89 PO; +FERR325T3 PO; +PANT40TA3 PO; +VITA500T PO
--- NOTE | 2018-08-27 13:52 | REP ---
Clinical: Knee pain. Technique: AP, lateral, bilateral oblique views of the right and left knee. Findings: Generalized age-related degenerative changes are appreciated bilaterally. No overt osteoarthritic degenerative changes are identified. No acute fracture dislocation. Impression: Generalized age-related degenerative changes. Electronically Signed by Sherman Cantu MD 08/27/2018 01:43 P
--- NOTE | 2018-08-27 15:25 | REP ---
Clinical: Pain. Technique: AP weightbearing view of the right and left knee. Findings: Left knee appears rotated. Minimal medial joint space narrowing is suggested bilaterally. Impression: Minimal medial joint space narrowing. Electronically Signed by Sherman Cantu MD 08/27/2018 03:17 P
== END ==
LOC: M WUC 13:07
PROVIDERS: ATTEND Internal Medicine Rheumatology
DX: M25.569 Pain in unspecified knee (principal)

== ENCOUNTER → 2018-09-16 | Outpatient (CLI) | payer MEDICARE, MEDICAID ==
[~2018-09-16] MED LIST changes: +ALPR2TAB3 PO; +CETI10CH PO; +PROP40TA62 PO
--- NOTE | 2018-09-16 13:38 | REP ---
Complete abdominal sonography: History: Hepatic cirrhosis. Evaluate for ascites and hepatocellular carcinoma. Assess spleen. Comparison sonography is from July 15, 2015. Comparison CT study February 06, 2018. Sonographic findings: Scanning through right upper quadrant of the abdomen demonstrates coarse liver texture with somewhat scalloped borders. There are multiple granulomatous foci casting acoustic shadowing corresponding with the CT findings. No hepatic mass lesion is seen. Common bile duct measures 0.8 cm in greatest diameter which is borderline. Scanning over the gallbladder shows folds in the gallbladder wall but no stone or polyp. No tenderness is seen. Spleen is mildly enlarged measuring 13.8 cm in greatest dimension. It also contains granulomatous calcifications. No focal splenic lesion is seen. There is no evidence of ascites. Normal caliber aorta is seen with some atherosclerotic change. There are bilateral renal cysts. The largest cyst on the right measures 2.8 cm in greatest diameter. The largest left renal cyst measures 3.9 cm in greatest diameter. The left kidney measures 12.6 x 4.6 x 5.2 cm. Right renal dimensions are 13.3 x 5.0 x 5.4 cm. No hydronephrosis is seen. There is no visible ascites. Renal cortical echogenicity pattern is normal. Impression: Splenomegaly. Hepatic and splenic granulomatous calcifications. No liver mass lesion. Coarse liver texture and scalp borders consistent with cirrhosis. There is no evidence of ascites. Bilateral renal cortical cysts are observed. Electronically Signed by Donnie Kwan MD 09/16/2018 07:47 P
== END ==
LOC: M RAD 07:31
PROVIDERS: ATTEND Internal Medicine Gastroenterology
DX: K74.60 Unspecified cirrhosis of liver (principal)

== ENCOUNTER → 2018-09-29 | Outpatient (CLI) | payer MEDICARE, MEDICAID ==
[~2018-09-29] MED LIST changes: +GASTROGRAFIN SOLUTION 30ML (Q9963) As Ordered ONE; +ISOVUE-370 76% 125ML VIAL (Q9967 PER ML) As Ordered ONE
--- NOTE | 2018-09-29 14:26 | REP ---
CT chest with IV contrast: History: Splenomegaly. Gammopathy. Rule out lymphoma. Comparison chest CT study: May 06, 2018. CT contrast dose: 100 mL of intravenous Isovue 370. CT findings: Preliminary digital junior loan processor radiograph shows a left hip prosthesis. Bowel gas pattern is normal. The lung bases demonstrate subsegmental atelectatic change in the lingula at the left lung base. No nodule is seen. There is a small to moderate size hiatal hernia. The spleen is enlarged and contains multiple granulomatous calcifications. Spleen measures 15.5 cm in greatest diameter, unchanged from the May 06, 2018 prior study. There is a macronodular contour to the liver. There are granulomatous calcifications scattered about the liver as well. The liver parenchymal pattern suggests cirrhosis. No adrenal lesion is seen. No pleural or pericardial effusion is noted. There is coronary artery vascular calcification versus stents. Scattered pretracheal normal-sized mediastinal lymph nodes are noted unchanged. The largest mediastinal lymph node is in the subcarinal region measuring 8.1 cm in short axis dimension. No definite adenopathy is seen. No bony abnormality is appreciated. Impression: Splenomegaly persists unchanged. Normal sized mediastinal lymph nodes. Hiatal hernia. Evidence of cirrhosis. Electronically Signed by Donnie Kwan MD 09/29/2018 02:43 P
--- NOTE | 2018-09-29 14:50 | REP ---
CT abdomen and pelvis with IV and oral contrast: History: Splenomegaly. Gammopathy. Rule out lymphoma. Comparison CT study February 06, 2018. CT contrast dose: 100 mL of intravenous Isovue 370. CT findings: There is mild to moderate splenomegaly again noted. The spleen measures up to 15.5 cm in greatest transverse dimension. A macro nodular liver contour is seen consistent with cirrhosis. Both the liver and the spleen contain granulomatous calcifications. Sliding-type hiatal hernia is again noted. No focal hepatic or splenic lesion is seen. A normal accessory splenule is noted. No pancreatic mass is seen. There are renal cortical cysts noted, the largest of which is at the lower pole of the left kidney measuring 3.4 cm in greatest diameter. This is unchanged. The abdominal aorta is somewhat ectatic unchanged. Small and large intestinal bowel loops are normal in appearance. There is no evidence of retroperitoneal adenopathy or mass lesion. No pelvic adenopathy is seen. No uterine or ovarian abnormality is observed. Left hip is replaced and cast some spray artifact on pelvic images. Impression: Evidence of cirrhosis. Splenomegaly. Bilateral renal cysts. No significant change from the comparison study of February 06, 2018. Electronically Signed by Donnie Kwan MD 09/29/2018 03:04 P
== END ==
LOC: M RAD 11:43
PROVIDERS: ATTEND Internal Medicine Medical Oncology
DX: R16.1 Splenomegaly, not elsewhere classified (principal); D47.2 Monoclonal gammopathy; K74.60 Unspecified cirrhosis of liver; N28.1 Cyst of kidney, acquired; K44.9 Diaphragmatic hernia without obstruction or gangrene
CPT/HCPCS: 71260; 74177; Q9963; Q9967

== ENCOUNTER → 2018-11-08 | Outpatient (CLI) | payer MEDICARE, MEDICAID ==
[~2018-11-08] MED LIST changes: -/WARF25TA OR; -ASPI1TAB PO; +ASPI81TA26 PO; +COUM1TAB18 OR; -GASTROGRAFIN SOLUTION 30ML (Q9963) As Ordered ONE; -ISOVUE-370 76% 125ML VIAL (Q9967 PER ML) As Ordered ONE; +TOPR50TA PO; -TOPR50TA23 PO
[2018-11-08 14:02] LABS: BASO % 0.4 % (0.0-1.0); EOS # 0.3 10^3/uL (0.0-0.50); EOS % 3.5 % (0.0-3.0); HEMATOCRIT 31.1 % (36.0-47.0); HEMOGLOBIN 9.4 g/dl (12.0-15.5); LYMPH # 1.2 10^3/uL (1.5-4.5); LYMPH % 16.3 % (24.0-44.0); MEAN CORPUSCULAR HEMOGLOBIN 29.7 pg (27.0-33.0); MEAN CORPUSCULAR HGB CONC 30.2 g/dl (32.0-36.5); MEAN CORPUSCULAR VOLUME 98.1 fl (80.0-96.0); MONO # 0.6 10^3/uL (0.0-0.8); MONO % 7.8 % (0.0-5.0); NEUTROPHILS # 5.1 10^3/uL (1.8-7.7); NEUTROPHILS % 70.9 % (36.0-66.0); PLATELET COUNT, AUTOMATED 299 10^3/uL (150-450); RED BLOOD COUNT 3.17 10^6/uL (4.00-5.40); WHITE BLOOD COUNT 7.2 10^3/uL (4.0-10.0)
--- NOTE | 2018-11-08 14:38 | REP ---
CHEST X-RAY: TWO VIEWS. HISTORY: Low grade fever. COMPARISON CHEST X-RAY: October 23, 2017 FINDINGS: In the interval since the prior study, the patient has undergone median sternotomy. There is platelike atelectasis versus linear fibrosis in the left base. There is no evidence of infiltrate or free pleural effusion. There are mild degenerative changes in the thoracic spine. Old healed rib fractures are noted on the left as before. Pulmonary vasculature is not increased. IMPRESSION: Linear platelike atelectasis versus fibrosis left base. Prior median sternotomy. Otherwise no acute disease. Electronically Signed by Donnie Kwan MD 11/08/2018 03:33 P
== END ==
LOC: M LAB 13:43
PROVIDERS: ATTEND Family Medicine
DX: R91.8 Other nonspecific abnormal finding of lung field (principal)

== ENCOUNTER → 2018-11-11 | Outpatient (REF) ==
--- NOTE | 2018-11-11 11:50 | REP ---
LEFT SHOULDER, TWO VIEWS: HISTORY: Shoulder pain. There is an old healed fracture of the proximal humerus. There is no acute fracture or dislocation. There is mild narrowing of the joint spaces. IMPRESSION: Degenerative change as described above. Electronically Signed by Ramon Olivo MD 11/11/2018 12:24 P
--- NOTE | 2018-11-11 11:51 | REP ---
LEFT SCAPULA, TWO VIEWS: HISTORY: Pain. There is an old healed fracture of the proximal humerus. There is no acute fracture or dislocation. There is mild narrowing of the joint spaces. IMPRESSION: Degenerative change as described above. Electronically Signed by Ramon Olivo MD 11/11/2018 12:24 P
== END ==
LOC: SKLAB7 10:58
PROVIDERS: ATTEND Family Medicine
DX: M25.512 Pain in left shoulder (principal)

== ENCOUNTER → 2018-12-03 | Outpatient (CLI) | payer MEDICARE, MEDICAID ==
[~2018-12-03] MED LIST changes: +ASPI1TAB20 PO; +B-1100TA2 PO; +DOCU100C16 PO; +MELA3TAB49 PO
--- NOTE | 2018-12-03 16:58 | REP ---
Right lower extremity duplex veins History: Leg pain There are no filling defects in the deep venous system. The deep venous system is patent. Impression: There is no deep venous thrombosis. Electronically Signed by Ramon Olivo MD 12/03/2018 04:49 P
== END ==
LOC: M RAD 15:50
PROVIDERS: ATTEND Nurse Practitioner
DX: M79.604 Pain in right leg (principal)

== ENCOUNTER → 2018-12-31 | Outpatient (CLI) | payer MEDICARE, MEDICAID ==
[~2018-12-31] MED LIST changes: +ASPI-524 PO; -ASPI1TAB20 PO
[2018-12-31 09:58] LABS: BASO % 0.6 % (0.0-1.0); EOS # 0.2 10^3/uL (0.0-0.50); EOS % 3.3 % (0.0-3.0); HEMATOCRIT 38.3 % (36.0-47.0); HEMOGLOBIN 12.2 g/dl (12.0-15.5); LYMPH # 1.1 10^3/uL (1.5-4.5); LYMPH % 21.7 % (24.0-44.0); MEAN CORPUSCULAR HEMOGLOBIN 30.4 pg (27.0-33.0); MEAN CORPUSCULAR HGB CONC 31.9 g/dl (32.0-36.5); MEAN CORPUSCULAR VOLUME 95.5 fl (80.0-96.0); MONO # 0.3 10^3/uL (0.0-0.8); MONO % 6.7 % (0.0-5.0); NEUTROPHILS # 3.4 10^3/uL (1.8-7.7); NEUTROPHILS % 67.3 % (36.0-66.0); PLATELET COUNT, AUTOMATED 111 10^3/uL (150-450); RED BLOOD COUNT 4.01 10^6/uL (4.00-5.40); WHITE BLOOD COUNT 5.1 10^3/uL (4.0-10.0)
[2018-12-31 10:04] LABS: INR 1.18; PROTHROMBIN TIME 14.7 SECONDS (11.8-14.0)
[2018-12-31 10:23] LABS: ALBUMIN 3.2 GM/DL (3.2-5.2); BILIRUBIN,DIRECT 0.1 MG/DL (0.0-0.2); BILIRUBIN,TOTAL 0.3 MG/DL (0.2-1.0); PERCENT SATURATION 34.5 % (13.2-45.0); TOTAL PROTEIN 7.8 GM/DL (6.4-8.2)
== END ==
LOC: M LAB 09:01
PROVIDERS: ATTEND Internal Medicine Gastroenterology
DX: K74.60 Unspecified cirrhosis of liver (principal)

== ENCOUNTER → 2019-03-31 | Outpatient (REF) | payer MEDICARE, MEDICAID ==
[~2019-03-31] MED LIST changes: -ASPI-524 PO; +ASPI325T57 PO; +CARB25TA18 PO
== END ==
LOC: M SFHCPLAZ 15:41
PROVIDERS: ATTEND Family Medicine
DX: R35.0 Frequency of micturition (principal); Z53.8 Procedure and treatment not carried out for other reasons

== ENCOUNTER → 2019-04-03 | Outpatient (CLI) | payer MEDICARE, MEDICAID ==
--- NOTE | 2019-04-03 14:15 | REP ---
REASON FOR EXAM: Hypoxia. COMPARISON: Multiple, the latest 11/08/2018. The curvilinear opacity seen previously in the left lower lobe has cleared. Note is again made of the previous median sternotomy and small hiatal hernia status quo. There is no significant change in the osseous structures. IMPRESSION: Cleared curvilinear left lower lobe opacity. No evidence of acute cardiopulmonary disease. Electronically Signed by Leandro Pisano DO 04/03/2019 04:31 P
== END ==
LOC: M RAD 11:39
PROVIDERS: ATTEND Family Medicine
DX: R09.02 Hypoxemia (principal); R35.0 Frequency of micturition

== ENCOUNTER → 2019-06-15 | Outpatient (REF) | payer MEDICARE, MEDICAID | LOC: M LAB REF 11:44 | PROVIDERS: ATTEND Internal Medicine Rheumatology | DX: L40.9 Psoriasis, unspecified (principal) ==

== ENCOUNTER → 2019-08-06 | Outpatient (CLI) | payer MEDICARE, MEDICAID ==
[~2019-08-06] MED LIST changes: +LISI-542 PO
[2019-08-06 14:52] LABS: HEMOGLOBIN A1c 9.7 %
[2019-08-06 15:15] LABS: BLOOD UREA NITROGEN 12 MG/DL (7-18); CALCIUM LEVEL 9.8 MG/DL (8.8-10.2); CARBON DIOXIDE LEVEL 29 MEQ/L (21-32); CHLORIDE LEVEL 106 MEQ/L (98-107); CHOLESTEROL LEVEL 120 MG/DL (<200); CHOLESTEROL RISK RATIO 3.529 (<5); CREATININE FOR GFR 0.95 MG/DL (0.55-1.30); FREE T4 1.51 NG/DL (0.76-1.46); GLOMERULAR FILTRATION RATE > 60.0 (>39); GLUCOSE, FASTING 196 MG/DL (70-100); HDL CHOLESTEROL 34 MG/DL (>40); LDL CHOLESTEROL 62 MG/DL (<100); NON-HDL-C 86 MG/DL; POTASSIUM SERUM 4.5 MEQ/L (3.5-5.1); SODIUM LEVEL 139 MEQ/L (136-145); THYROID STIMULATING HORMONE 0.897 uIU/ML (0.358-3.740); TRIGLYCERIDES LEVEL 119 MG/DL (<150)
[2019-08-07 11:27] LABS: VITAMIN B12 LEVEL 421 PG/ML (247-911)
== END ==
LOC: M PLALAB 10:27
PROVIDERS: ATTEND Family Medicine
DX: E11.9 Type 2 diabetes mellitus without complications (principal); E04.1 Nontoxic single thyroid nodule; E53.8 Deficiency of other specified B group vitamins; Z12.31 Encounter for screening mammogram for malignant neoplasm of breast

== ENCOUNTER → 2019-08-06 | Outpatient (CLI) | payer MEDICARE, MEDICAID ==
--- NOTE | 2019-08-06 10:36 | REPMRS ---
Patient History The patient states she has not had a clinical breast exam in over a year. No known family history of cancer. No Hormone Replacement Therapy Digital Woman Screen Mammo: August 06, 2019 - Exam #: [id number] Bilateral CC and MLO view(s) were taken. Technologist: Antoinette Brito, Technologist Prior study comparison: May 07, 2018, bilateral digital woman screen mammo performed at [facility]. February 18, 2015, digital woman screen mammo performed at [facility]. October 01, 2012, digital woman screen mammo performed at [facility]. FINDINGS: The breast tissue is heterogeneously dense. This may lower the sensitivity of mammography. There is a moderate amount of heterogeneously dense fibroglandular tissue which is fairly symmetric. There is no interval development of dominant mass, architectural distortion, or grouped microcalcification typical of malignancy. There has been no change in the appearance of the mammogram from the prior studies. 3-D tomosynthesis shows no additional findings. Assessment: BI-RADS/ACR category 1 mammogram. Negative Mammogram. Recommendation Routine screening mammogram of both breasts in 1 year (for women over age 40). This patient's Lifetime Breast Cancer RIsk is estimated at 3.3 %. This mammogram was interpreted with the aid of an FDA-approved computer-aided dectection system. Electronically Signed By: Cullen Kwan MD 08/06/19 8075
== END ==
LOC: M WHC 09:54
PROVIDERS: ATTEND Family Medicine
DX: Z12.31 Encounter for screening mammogram for malignant neoplasm of breast (principal)

== ENCOUNTER → 2019-10-26 | Outpatient (REF) | payer MEDICARE, MEDICAID ==
[~2019-10-26] MED LIST changes: +VITA-243 PO; -VITA500T PO
[2019-10-26 15:51] LABS: BLOOD UREA NITROGEN 17 MG/DL (7-18); CALCIUM LEVEL 9.2 MG/DL (8.8-10.2); CARBON DIOXIDE LEVEL 27 MEQ/L (21-32); CHLORIDE LEVEL 105 MEQ/L (98-107); GLOMERULAR FILTRATION RATE > 60.0 (>39); GLUCOSE, FASTING 341 MG/DL (70-100); POTASSIUM SERUM 4.5 MEQ/L (3.5-5.1); SODIUM LEVEL 139 MEQ/L (136-145)
[2019-10-26 17:43] LABS: APPEARANCE, URINE HAZY (CLEAR); BACTERIA, URINE AUTO NEGATIVE (NEGATIVE); BILIRUBIN, URINE AUTO NEGATIVE (NEGATIVE); BLOOD, URINE BLOOD NEGATIVE (NEGATIVE); COLOR, URINE YELLOW (YELLOW); GLUCOSE, URINE (UA) AUTO 3+ mg/dL (NEGATIVE); KETONE, URINE AUTO TRACE mg/dL (NEGATIVE); LEUKOCYTE ESTERASE, URINE AUTO 2+ (NEGATIVE); MUCUS, URINE SMALL (NEGATIVE); NITRITE, URINE AUTO NEGATIVE (NEGATIVE); PROTEIN, URINE AUTO NEGATIVE (NEGATIVE); RBC, URINE AUTO 1 /HPF (0-3); SPECIFIC GRAVITY URINE AUTO 1.031 (1.002-1.035); SQUAMOUS EPITHELIAL CELL UR AU 6 /HPF (0-6); WBC, URINE AUTO 18 /HPF (0-3)
== END ==
LOC: M SFHCPLAZ 14:08
PROVIDERS: ATTEND Family Medicine
DX: R39.9 Unspecified symptoms and signs involving the genitourinary system (principal); E11.9 Type 2 diabetes mellitus without complications
CPT/HCPCS: 36415; 80048; 81001; 83036; 87086; G0463

== ENCOUNTER → 2020-03-03 | Outpatient (CLI) | payer MEDICARE, MEDICAID ==
[~2020-03-03] MED LIST changes: +PANT40TA29 PO; -PANT40TA3 PO; -TAB-TAB PO; +TAB-TAB2 PO
[2020-03-03 16:04] LABS: BASO % 0.5 % (0.0-1.0); EOS # 0.1 10^3/uL (0.0-0.5); EOS % 1.4 % (0.0-3.0); HEMATOCRIT 40.3 % (36.0-47.0); HEMOGLOBIN 12.7 g/dl (12.0-15.5); LYMPH # 0.9 10^3/uL (1.5-5.0); MEAN CORPUSCULAR HEMOGLOBIN 29.3 pg (27.0-33.0); MEAN CORPUSCULAR HGB CONC 31.5 g/dl (32.0-36.5); MEAN CORPUSCULAR VOLUME 93.1 fl (80.0-96.0); MONO # 0.4 10^3/uL (0.0-0.8); MONO % 9.2 % (0.0-5.0); NEUTROPHILS # 2.8 10^3/uL (1.5-8.5); NEUTROPHILS % 66.7 % (36.0-66.0); RED BLOOD COUNT 4.33 10^6/uL (4.00-5.40); WHITE BLOOD COUNT 4.2 10^3/uL (4.0-10.0)
[2020-03-03 16:19] LABS: INR 1.23; PROTHROMBIN TIME 15.8 SECONDS (11.8-14.0)
[2020-03-03 16:27] LABS: ALBUMIN 4.2 GM/DL (3.2-5.2); CALCIUM LEVEL 9.6 MG/DL (8.8-10.2); CHOLESTEROL RISK RATIO 4.64 (<5); CREATININE FOR GFR 1.07 MG/DL (0.55-1.30); GLOMERULAR FILTRATION RATE 53.7 (>39); PERCENT SATURATION 28.9 % (13.2-45.0); POTASSIUM SERUM 4.6 MEQ/L (3.5-5.1); TOTAL PROTEIN 8.5 GM/DL (6.4-8.2)
[2020-03-03 17:00] LABS: PLATELET COUNT, AUTOMATED 98 10^3/uL (150-450)
[2020-03-03 18:49] LABS: APPEARANCE, URINE HAZY (CLEAR); BACTERIA, URINE AUTO NEGATIVE (NEGATIVE); BILIRUBIN, URINE AUTO NEGATIVE (NEGATIVE); BLOOD, URINE BLOOD NEGATIVE (NEGATIVE); COLOR, URINE YELLOW (YELLOW); GLUCOSE, URINE (UA) AUTO 3+ mg/dL (NEGATIVE); KETONE, URINE AUTO TRACE mg/dL (NEGATIVE); LEUKOCYTE ESTERASE, URINE AUTO NEGATIVE (NEGATIVE); MUCUS, URINE SMALL (NEGATIVE); NITRITE, URINE AUTO NEGATIVE (NEGATIVE); PROTEIN, URINE AUTO NEGATIVE (NEGATIVE); RBC, URINE AUTO 2 /HPF (0-3); SPECIFIC GRAVITY URINE AUTO 1.028 (1.002-1.035); SQUAMOUS EPITHELIAL CELL UR AU 3 /HPF (0-6); WBC, URINE AUTO 6 /HPF (0-3)
== END ==
LOC: M PLALAB 14:05
PROVIDERS: ATTEND Internal Medicine
DX: Z00.00 Encounter for general adult medical examination without abnormal findings (principal)

== ENCOUNTER → 2020-05-24 | Outpatient (REF) | payer MEDICARE, MEDICAID | LOC: M SFHCPLAZ 15:21 | PROVIDERS: ATTEND Family Medicine | DX: E11.9 Type 2 diabetes mellitus without complications (principal) ==

== ENCOUNTER → 2020-07-06 | Outpatient (REF) | payer MEDICARE, MEDICAID ==
[2020-07-06 14:00] LABS: HEMATOCRIT 40.8 % (36.0-47.0); HEMOGLOBIN 12.9 g/dl (12.0-15.5); MEAN CORPUSCULAR HEMOGLOBIN 29.7 pg (27.0-33.0); MEAN CORPUSCULAR HGB CONC 31.6 g/dl (32.0-36.5); RED BLOOD COUNT 4.34 10^6/uL (4.00-5.40); WHITE BLOOD COUNT 4.6 10^3/uL (4.0-10.0)
[2020-07-06 14:17] LABS: INR 1.17; PROTHROMBIN TIME 15.2 SECONDS (12.5-14.3)
[2020-07-06 14:18] LABS: HEMOGLOBIN A1c 9.1 %; PARTIAL THROMBOPLASTIN TIME 40.1 SECONDS (24.2-38.5)
[2020-07-06 14:20] LABS: PLATELET COUNT, AUTOMATED 77 10^3/uL (150-450)
[2020-07-06 14:36] LABS: ALBUMIN 3.5 GM/DL (3.2-5.2); ALT/SGPT 8 U/L (12-78); BILIRUBIN,TOTAL 0.9 MG/DL (0.2-1.0); BLOOD UREA NITROGEN 18 MG/DL (7-18); CALCIUM LEVEL 9.4 MG/DL (8.8-10.2); CARBON DIOXIDE LEVEL 26 MEQ/L (21-32); CHLORIDE LEVEL 110 MEQ/L (98-107); CREATININE FOR GFR 1.01 MG/DL (0.55-1.30); GLOMERULAR FILTRATION RATE 57.4 (>39); GLUCOSE, FASTING 147 MG/DL (70-100); MAU/CREAT RATIO 126.8 MCG/MG (0.0-30.0); POTASSIUM SERUM 4.5 MEQ/L (3.5-5.1); SODIUM LEVEL 141 MEQ/L (136-145); TOTAL PROTEIN 8.1 GM/DL (6.4-8.2)
[2020-07-06 15:15] LABS: HEPATITIS A ANTIBODY IGM NEGATIVE (NEGATIVE)
== END ==
LOC: M SFHCPLAZ 09:20
PROVIDERS: ATTEND Family Medicine
DX: K74.60 Unspecified cirrhosis of liver (principal); E11.9 Type 2 diabetes mellitus without complications

== ENCOUNTER 2020-07-14 13:57 | Emergency (ER) | payer MEDICARE, MEDICAID ==
[~2020-07-14] VITALS: Ht 167.6 cm; Wt 77.7 kg
[~2020-07-14 13:57] MED LIST changes: -LISI-538 PO; -LISI-542 PO; +LISI-898 PO; +LISI20TA33 PO
--- OUTSIDE RECORDS SUMMARY | 2020-07-14 14:11 | CCD | Continuity of Care Document ---
Author Author Ans/VSShira Organization Unknown Address [address] [place] [address] Phone [phone] Care Team Providers Care Stamps Or Coins Salesperson Name Role Phone Micheal MartinM [phone] Problems Active Problems Provider Date Tremor Blanca Lai M.D. Onset: 12/23/2018 Parkinson's disease Blanca Lai M.D. Onset: 07/16/2019 Social History Type Date Description Comments Sex Unknown Tobacco Use Start: Unknown End: Unknown Patient is a former smoker Allergies, Adverse Reactions, Alerts Description No Known Drug Allergies Medications Active Medications SIG Qnty Indications Ordering Provide r Date Carbidopa-Levodopa 25-100mg Tablet s take 1.5 tabs by mouth three times a day 5 hours apart 135tabs Blanca Lai M.D. 12/23/2018 Immunizations Description No Information Available Vital Signs Date Vital Result Comment 02/22/2020 1:46pm Respiratory Rate 12 /min Height 66 inches 5'6" Weight 155.00 lb BMI (Body Mass Index) 25.0 kg/m2 [place] Body Weight 130 lb 11/17/2019 10:43am Respiratory Rate 12 /min Height 66 inches 5'6" Weight 155.00 lb BMI (Body Mass Index) 25.0 kg/m2 [place] Body Weight 130 lb Results Description No Information Available Procedures Description No Information Available Medical Devices Description No Information Available Encounters Type Date Location Provider Dx Diagnosis Office Visit 02/22/2020 12:45p Main office - [place] Blanca hightower M.D. G20 Parkinson's disease Assessments Date Code Description Provider 02/22/2020 G20 Parkinson's disease Blanca hightower M.D. Plan of Treatment Future Appointment(s):* 06/02/2020 11:15 am - Blanca Lai M.D. at Main [facility] Functional Status Description No Information Available Mental Status Description No Information Available Referrals Refer to Dr Reason for Referral Status Appt Date Blanca Lai M.D. Created [address] [place] [address] [phone]
--- OUTSIDE RECORDS SUMMARY | 2020-07-14 14:11 | CCD | Continuity of Care Document ---
Author Author Ans/VSShira Organization Unknown Address [address] [place] [id number] Phone [phone] Care Team Providers Care Behavior Interventionist Name Role Phone Mciheal MartinM [phone] Problems Active Problems Provider Date Tremor Blanca [...] lb BMI (Body Mass Index) 25.0 kg/m2 [place] Body Weight 130 lb 11/17/2019 10:43am Respiratory Rate 12 /min Height 66 inches 5'6" Weight 155.00 lb BMI (Body Mass Index) 25.0 kg/m2 [place] Body Weight 130 lb Results Description No Information Available Procedures Date Code Description Status 05/25/2020 38733 Sympathetic Skin Responses Compl eted 05/25/2020 41464 Sympathetic Skin Responses Compl eted 05/25/2020 27322 Test Autonomic Nervous System, C ardiovagal Innervation Completed 05/25/2020 84100 Test Autonomic Nervous System, C ardiovagal Innervation Completed Medical Devices Description No Information Available Encounters Type Date Location Provider Dx Diagnosis Office Visit 02/22/2020 12:45p [facility] Blanca hightower M.D. G20 Parkinson's disease Assessments Date Code Description Provider 05/25/2020 G20 Parkinson's disease Blanca hightower M.D. 05/25/2020 G20 Parkinson's disease Ans/VS 02/22/2020 G20 Parkinson's disease Blanca hightower M.D. Plan of Treatment Future Appointment(s):* 06/02/2020 11:15 am - Blanca Lai M.D. at [facility] Functional Status Description No Information Available Mental Status Description No Information Available Referrals Refer to Dr Reason for Referral Status Appt Date Blanca Lai M.D. Created [address] [place] [address] [phone]
--- OUTSIDE RECORDS SUMMARY | 2020-07-14 14:11 | CCD ---
Author Author [facility] Organization [facility] Address Unknown Phone Unavailable Care Team Providers Care Web Search Evaluator Name Role Phone Micheal Martin Unavailable PROBLEMS Type Condition ICD9-CM Code [id number] Code Onset Dates Condition S tatus SNOMED Code Notes Problem Dysthymia F34.1 Active 30780258 Problem Macroglobulinemia C88.0 Active 090360898 Problem Other cirrhosis of liver K74.69 Active 5682573 7 Problem Age-related osteoporosis without current pathological fracture M81.0 Active 93584784 Problem History of alcohol abuse Z87.898 Active 3758584 05 Problem Parkinsons G20 Active 58928640 Problem Polyarthralgia M25.50 Active 02604911 Problem Pancytopenia D61.818 Active 975097521 Problem Vitamin D deficiency E55.9 Active 74376643 Problem Gastroesophageal reflux disease without esophagitis K21.9 Active 043890611 Problem Constipation, unspecified constipation type K59.00 Active 54398068 Problem Tobacco use disorder F17.200 Active 316107332 Problem Coronary artery disease, ang amaury presence unspecified, unspecified vessel or lesion type, unspecified whether elem or transplanted heart I25.10 Active 27274983 Problem Allergic rhinitis, unspecified seasonality, unspecifie d trigger J30.9 Active 25831077 Problem Other sinusitis, unspecified chronicity J32.9 Active 42208682 Problem Thyroid nodule E04.1 Active 710111325 Problem Skipped beats I45.9 Active 697997491 Problem Primary osteoarthritis of left knee M17.12 Acti ve [id number] Problem Primary osteoarthritis of right knee M17.11 Act miguel angel [id number] Problem Cirrhosis of liver without ascites, unsp ecified hepatic cirrhosis type K74.60 Active 85423225 Problem Essential (primary) hypertension I10 Active 34241913 Problem Osteoarthritis of both knees, unspecified osteoarthritis t ype M17.0 Active 678695856276465 Problem Psoriasis L40.9 Active 3919011 Problem Hypercholesterolemia E78.00 Active 90796993 Problem Antiphospholipid antibody positive R76.0 Activ e 532151658 Problem Cigarette nicotine dependence without complication F17.210 Active 95780250 Problem Mild depression F32.0 Active 016225826 Problem Type 2 diabetes mellitus wit hout complication, without long-term current use of insulin E11.9 Active 204294579 ALLERGIES No Known Allergies ENCOUNTERS from 1945 to 2020-07-09 Encounter Location Date Provider Diagnosis [address] [address] Jul, Micheal Martin IMMUNIZATIONS Vaccine Route Administration Date Status Influenza (18 yrs & older) Flublok IM Intramuscular Mar 31, 2019 Administered Vitamin B-12 1000mcg/1mL (Cyanocobalamin) IM Intramuscular Jul 022018 Administered Influenza (18 yrs & older) Flublok IM Intramuscular May 14, 2018 Administered Vitamin B-12 1000mcg/1mL (Cyanocobalamin) IM Intramuscular Aug Administered Influenza (6mo & up) Fluzone IM Intramuscular Jun 17, 2012 Ad ministered Influenza (High Dose 65 & up) Unknown May 01, 2017 Ad ministered Influenza (High Dose 65 & up) IM Intramuscular Apr 22, 2015 A dministered Influenza (High Dose 65 & up) IM Intramuscular May 07, 2014 A dministered Pneumococcal Adult 0.5mL (Pneumovax 23) IM Intramuscular Jul 07, 2012 Administered TDAP IM Intramuscular January 27, 2014 Administered Pneumococcal 0.5mL (Prevnar 13) IM Intramuscular Mar 31, 2019 Administered TD Adult 0.5mL (Tetanus) Unknown January 27, 2014 Pending Influenza (6mo & up) Fluzone IM Intramuscular May 04, 2013 Ad ministered SOCIAL HISTORY Tobacco Use: Social History Observation Description Date Details (start date - stop date) Former Smoker Sex Assigned At : Social History Observation Description Sex Assigned At Unknown Education: Question Answer Notes Level of Education: High School Audit Question Answer Notes Total Score: 0 Interpretation: Alcohol Education Language: Question Answer Notes Languages spoken: Yi Sexual Hx: Question Answer Notes Had sex in the last 12 months (vaginal, oral, or anal)? No LMP: post menopause Have you ever had an STD? No Drug and Alcohol Question Answer Notes Total Score: 0 Interpretation: No problems reported Alcohol Screening: Question Answer Notes Did you have a drink containing alcohol in the past year? No Points 0 Interpretation Negative BMI Care Goal Follow-Up Question Answer Notes Above Normal BMI Follow-Up Dietary management educatio n, guidance, and counseling Tobacco Use: Question Answer Notes Are you a: former smoker How long has it been since you last smoked? 6-12 months REASON FOR REFERRAL No Information VITAL SIGNS No information MEDICATIONS Medication SIG (Take, Route, Frequency, Duration) Notes Start Da te End Date Status Vitamin M72-Xttgy Acid 500-400 MCG 1 tab Orally Daily Active Carbidopa-Levodopa 25-100 MG 1.5 Orally three times a day Active Impoyz 0.025 % 1 application Externally Twice a day for 14 day( s) October, Active Propranolol HCl 40 MG 1 tablet on an empty stomach Orally twice daily Active [place]-Smoothe/FS Scalp 0.01 % 1 application to affecte d area Externally Daily to scalp at night with shower cap over top for 30 Active Vitamin B-1 100 MG 1 tablet Orally Once a day for 30 day(s) Active Otezla 30 MG 1 tab Orally bid for 90 Active Rosuvastatin Calcium 40 MG TAKE ONE TABLET BY MOUTH EVERY DAY Oral fo 30 Active Lisinopril 5 MG 1 tablet Orally Once a day for 30 Active Pantoprazole Sodium 40 MG TAKE ONE TABLET BY MOUTH TAIWO MORNING 1 2 HOUR BEFORE BREAKFAST Oral for 90 Active Vitamin B12 1000 MCG 1 tablet Orally Once a day Jul, Active Vitamin D3 2000 UNIT 1 capsule Orally Once a day Active SM Aspirin Adult Low Strength 81 MG TAKE ONE TABLET BY MOUTH TAIWO DAY for 30 Not-Taking Triamcinolone Acetonide 0.05 % 1 application Externally Twice a day for 10 Active Betamethasone Dipropionate Aug 0.05 % 1 application to affected area Externally Twice a day to areas on body with psoriasis for 30 day(s) Active Bactrim DS 800-160 MG 1 tablet Orally Twice a day for 3 days Mar, Not-Taking Quad Cane - as directed Dx=M05.9 , R26.86 , I25.10 , Z95.1 October, Not-Taking Aspirin 81 81 MG 1 tablet Orally Once a day for 90 days Not-Taking Taclonex 0.005-0.064 % 1 application Externally bid for 28 day(s) Active Iron 325 (65 Fe) MG 1 tablet Orally Once a day Active Nitroglycerin 0.4 MG 1 tablet under the tongue Sublingual every 5 min x 3 Active MetFORMIN HCl ER 500 MG 4 tablet with evening meal O rally Once a day for 30 day(s) October, Active Calcium 600 MG 1 tablet with meals Orally bid Active Cetirizine HCl 10 MG 1 tablet Orally Once a day Not-Taking Crestor 40 MG 1 tablet Orally Once a day for 30 Not-Taking Vitamin C 250 MG 1 tablet Orally Once a day for 30 day(s) October, Active Acetaminophen 500 MG 2 tablets Orally every 6 hours as needed (MDD 3000 mg) Active PROCEDURES No Information RESULTS No Results REASON FOR VISIT calcipotriene-betameth dip oint MEDICAL (GENERAL) HISTORY Type Description Date Medical History [place] in 1999 Medical History HTN, goal 140/90 Medical History Hyperlipidemia Medical History Depression Medical History Psoriasis Medical History Left ankle, broken Medical History CAD, stent x1 Medical History Parkinsons 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, oncology Medical History quadruple bypass 2018 Medical History DM, diet controlled Surgical History Stent placement after [place] 1999 Surgical History Hip fx repair 05/2010 Surgical History 8 pins 1 plate, left ankle 07/08/2013 Surgical History hardware removal L hip 05/2017 Surgical History Lt hip replacement 10/2017 Surgical History colonoscopy 07/20/2014 Surgical History upper and lower GI 08/2018 Surgical History quadruple bypass 10/24/18 Hospitalization History above surgeries Hospitalization History [facility] [place] 10/24/2018 quad Bypass Goals Section No Information Health Concerns No Information MEDICAL EQUIPMENT No Information MENTAL STATUS No Information FUNCTIONAL STATUS No Information ASSESSMENTS No Information PLAN OF TREATMENT Medication Medication Name Sig Start Date Stop Date [place]-Smoothe/FS Scalp 0.01 % 1 application to affecte d area Externally Daily to scalp at night with shower cap over top for 30 MetFORMIN HCl ER 500 MG 4 tablet with evening meal O rally Once a day for 30 day(s) October, Propranolol HCl 40 MG 1 tablet on an empty stomach Orally twice daily Taclonex 0.005-0.064 % 1 application Externally bid for 28 day(s ) Next Appt Details Provider Name:Micheal Martin, 2020-07-26 02 :45:00 PM, [address] [facility], [place], [address], Insurance Providers Payer Name Payer Address Payer Phone Insured Name Patient Relati onship to Insured Coverage Start Date Coverage End Date MEDICARE Part A and B [address] [facility] [address] [employer] [employer] self MEDICAID [employer] [address] [facility] [address] [place] self
--- OUTSIDE RECORDS SUMMARY | 2020-07-14 14:11 | CCD ---
Author Author [facility] Organization [facility] Address Unknown Phone Unavailable Care Team Providers Care Cook Frozen Dessert Name Role Phone Micheal Martin Unavailable PROBLEMS Type Condition ICD9-CM Code [id number] Code Onset Dates Condition S tatus SNOMED Code Notes Problem Dysthymia F34.1 Active 61270997 Problem Macroglobulinemia C88.0 Active 771467941 Problem Other cirrhosis of liver K74.69 Active 2654547 7 Problem Age-related osteoporosis without current pathological fracture M81.0 Active 08401946 Problem History of alcohol abuse Z87.898 Active 3543768 05 Problem Parkinsons G20 Active 76187434 Problem Polyarthralgia M25.50 Active 90140075 Problem Pancytopenia D61.818 Active 644080069 Problem Vitamin D deficiency E55.9 Active 22715131 Problem Gastroesophageal reflux disease without esophagitis K21.9 Active 650675077 Problem Constipation, unspecified constipation type K59.00 Active 22556585 Problem Tobacco use disorder F17.200 Active 016956072 Problem Coronary artery disease, ang amaury presence unspecified, unspecified vessel or lesion type, unspecified whether [place] or transplanted heart I25.10 Active 80714862 Problem Allergic rhinitis, unspecified seasonality, unspecifie d trigger J30.9 Active 31872025 Problem Other sinusitis, unspecified chronicity J32.9 Active 80647463 Problem Thyroid nodule E04.1 Active 930620569 Problem Skipped beats I45.9 Active 881214402 Problem Primary osteoarthritis of left knee M17.12 Acti ve 763344992511335 Problem Primary osteoarthritis of right knee M17.11 Act miguel angel 864228013303243 Problem Cirrhosis of liver without ascites, unsp ecified hepatic cirrhosis type K74.60 Active 25069241 Problem Essential (primary) hypertension I10 Active 47805101 Problem Osteoarthritis of both knees, unspecified osteoarthritis t ype M17.0 Active 664171380847699 Problem Psoriasis L40.9 Active 0307234 Problem Hypercholesterolemia E78.00 Active 90343033 Problem Antiphospholipid antibody positive R76.0 Activ e 967599623 Problem Cigarette nicotine dependence without complication F17.210 Active 49796511 Problem Mild depression F32.0 Active 991277277 Problem Type 2 diabetes mellitus wit hout complication, without long-term current use of insulin E11.9 Active 820247659 ALLERGIES No Known Allergies ENCOUNTERS from 1945 to 2020-05-31 Encounter Location Date Provider Diagnosis [address] [address] May, Micheal Martin IMMUNIZATIONS Vaccine Route Administration Date Status Influenza (18 yrs & older) Flublok IM Intramuscular Mar 31, 2019 Administered Influenza (18 yrs & older) Flublok IM Intramuscular May 14, 2018 Administered Vitamin B-12 1000mcg/1mL (Cyanocobalamin) IM Intramuscular Aug Administered Vitamin B-12 1000mcg/1mL (Cyanocobalamin) IM Intramuscular Jul 022018 Administered Influenza (6mo & up) Fluzone IM Intramuscular Jun 17, 2012 Ad ministered Influenza (High Dose 65 & up) IM Intramuscular Apr 22, 2015 A dministered Influenza (High Dose 65 & up) IM Intramuscular May 07, 2014 A dministered Pneumococcal Adult 0.5mL (Pneumovax 23) IM Intramuscular Jul 07, 2012 Administered Influenza (High Dose 65 & up) Unknown May 01, 2017 Ad ministered TDAP IM Intramuscular January 27, 2014 Administered [...] Education Language: Question Answer Notes Languages spoken: Kazakh Sexual Hx: Question Answer Notes Had sex [...] Notes Start Da te End Date Status Crestor 40 MG 1 tablet Orally Once a day for 30 Not-Taking Vitamin B-1 100 MG 1 tablet Orally Once a day for 30 day(s) Active Vitamin D3 2000 UNIT 1 capsule Orally Once a day Active Pantoprazole Sodium 40 MG TAKE ONE TABLET BY MOUTH TAIWO MORNING 1 2 HOUR BEFORE BREAKFAST Oral for 90 Active Acetaminophen 500 MG 2 tablets Orally every 6 hours as needed (MDD 3000 mg) Active Vitamin C 250 MG 1 tablet Orally Once a day for 30 day(s) October, Active Taclonex 0.005-0.064 % 1 application Externally bid for 28 day(s ) May, Active Cetirizine HCl 10 MG 1 tablet Orally Once a day Active Betamethasone Dipropionate Aug 0.05 % 1 application to affected area Externally Twice a day to areas on body with psoriasis for 30 day(s) Active Propranolol HCl 40 MG 1 tablet on an empty stomach Orally twice daily for 90 day(s) Active Aspirin 81 81 MG 1 tablet Orally Once a day for 90 days Active MetFORMIN HCl ER 500 MG 1 tablet with breakfast for 2 weeks, then 2 tablets for 2 weeks, then 3 tablets for 2 weeks, then 4 tablets Orally Once a day for 30 days October, Active Vitamin B12 1000 MCG 1 tablet Orally Once a day Jul, Active Lisinopril 5 MG 1 tablet Orally Once a day for 30 Active Triamcinolone Acetonide 0.05 % 1 application Externally Twice a day for 10 Active Nitroglycerin 0.4 MG 1 tablet under the tongue Sublingual every 5 min x 3 Active Rosuvastatin Calcium 40 MG TAKE ONE TABLET BY MOUTH EVERY DAY Oral fo r 30 Active Impoyz 0.025 % 1 application Externally Twice a day for 14 day( s) October, Active Iron 325 (65 Fe) MG 1 tablet Orally Once a day Active Carbidopa-Levodopa 25-100 MG 1.5 Orally three times a day Active Calcium 600 MG 1 tablet with meals Orally bid Active [place]-Smoothe/FS Scalp 0.01 % 1 application to affecte d area Externally Daily to scalp at night with shower cap over top for 30 Active Bactrim DS 800-160 MG 1 tablet Orally Twice a day for 3 days Mar, Not-Taking MetFORMIN HCl ER 500 MG 4 tablet with evening meal O rally Once a day for 30 day(s) October, Active Calcipotriene 0.005 % 1 application Externally Twice a day for 3 0 days May, Active Quad Cane - as directed Dx=M05.9 , R26.86 , I25.10 , Z95.1 October, Active Otezla 30 MG 1 tab Orally bid for 90 Active SM Aspirin Adult Low Strength 81 MG TAKE ONE TABLET BY MOUTH TAIWO RY DAY for 30 Not-Taking Vitamin G67-Qejgr Acid 500-400 MCG 1 tab Orally Daily Active PROCEDURES No Information RESULTS No Results REASON FOR VISIT Hold on Taclonex 0.005 MEDICAL (GENERAL) HISTORY Type Description Date Medical History [place] in 1999 Medical History HTN, goal 140/90 Medical History Hyperlipidemia Medical History Depression Medical History Psoriasis Medical History Left ankle, broken Medical History CAD, stent x1 Medical History Parkinsons 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, oncology Medical History quadruple bypass 2018 Medical History DM, diet controlled Surgical History Stent placement after [place] 1999 Surgical History Hip fx repair 05/2010 Surgical History 8 pins 1 plate, left ankle 07/08/2013 Surgical History hardware removal L hip 05/2017 Surgical History Lt hip replacement 10/2017 Surgical History colonoscopy 07/20/2014 Surgical History upper and lower GI 08/2018 Surgical History quadruple bypass 10/24/18 Hospitalization History above surgeries Hospitalization History [facility] [employer] 10/24/2018 quad Bypass Goals Section No Information Health Concerns No Information MEDICAL EQUIPMENT No Information MENTAL STATUS No Information FUNCTIONAL STATUS No Information ASSESSMENTS No Information PLAN OF TREATMENT Medication Medication Name Sig Start Date Stop Date Taclonex 0.005-0.064 % 1 application Externally bid for 28 day(s ) May, Calcipotriene 0.005 % 1 application Externally Twice a day f or 30 days 30 Nov, 2020 Next Appt Details Provider Name:Micheal Martin, 2020-06-28 02 :30:00 PM, [address] [facility], [place], [address], Insurance Providers Payer Name Payer Address Payer Phone Insured Name Patient Relati onship to Insured Coverage Start Date Coverage End Date MEDICARE Part A and B [address] [facility] [id number] [place] [employer] self MEDICAID [employer] [address] [facility] [id number] [place] [employer] self
--- OUTSIDE RECORDS SUMMARY | 2020-07-14 14:11 | CCD ---
Author Author [facility] Organization [facility] Address Unknown Phone Unavailable Care Team Providers Care Maintenance Electrician Name Role Phone Micheal Martin Unavailable PROBLEMS Type Condition ICD9-CM Code [id number] Code Onset Dates Condition S tatus SNOMED Code Notes Problem Dysthymia F34.1 Active 77624302 Problem Macroglobulinemia C88.0 Active 732396266 Problem Other cirrhosis of liver K74.69 Active 7052547 7 Problem Age-related osteoporosis without current pathological fracture M81.0 Active 69050232 Problem History of alcohol abuse Z87.898 Active 7572520 05 Problem Parkinsons G20 Active 60404833 Problem Polyarthralgia M25.50 Active 36172035 Problem Pancytopenia D61.818 Active 699892435 Problem Vitamin D deficiency E55.9 Active 08985302 Problem Gastroesophageal reflux disease without esophagitis K21.9 Active 312923709 Problem Constipation, unspecified constipation type K59.00 Active 94914820 Problem Tobacco use disorder F17.200 Active 889010598 Problem Coronary artery disease, ang amaury presence unspecified, unspecified vessel or lesion type, unspecified whether [place] or transplanted heart I25.10 Active 03499844 Problem Allergic rhinitis, unspecified seasonality, unspecifie d trigger J30.9 Active 52054179 Problem Other sinusitis, unspecified chronicity J32.9 Active 84386300 Problem Thyroid nodule E04.1 Active 828641004 Problem Skipped beats I45.9 Active 143300432 Problem Primary osteoarthritis of left knee M17.12 Acti ve 668191849190892 Problem Primary osteoarthritis of right knee M17.11 Act miguel angel [id number] Problem Cirrhosis of liver without ascites, unsp ecified hepatic cirrhosis type K74.60 Active 00968378 Problem Essential (primary) hypertension I10 Active 74832661 Problem Osteoarthritis of both knees, unspecified osteoarthritis t ype M17.0 Active 207076453445552 Problem Psoriasis L40.9 Active 8083699 Problem Hypercholesterolemia E78.00 Active 87138221 Problem Antiphospholipid antibody positive R76.0 Activ e 075099957 Problem Cigarette nicotine dependence without complication F17.210 Active 61738647 Problem Mild depression F32.0 Active 444474484 Problem Type 2 diabetes mellitus wit hout complication, without long-term current use of insulin E11.9 Active 866529541 ALLERGIES No Known Allergies ENCOUNTERS from 1945 to 2020-06-01 Encounter Location Date Provider Diagnosis [address] [address] May, Micheal Martin IMMUNIZATIONS Vaccine Route Administration [...] Education Language: Question Answer Notes Languages spoken: Mongolian Sexual Hx: Question Answer Notes Had sex [...] 1 tablet with meals Orally bid Active [place]-Smoothe/FS Scalp 0.01 % 1 application to affecte [...] BY MOUTH TAIWO DAY for 30 Not-Taking Vitamin U40-Fiaxq Acid 500-400 MCG 1 tab Orally Daily Active PROCEDURES No Information RESULTS No Results REASON FOR VISIT PA Calcipotriene 0.005% ointment MEDICAL (GENERAL) HISTORY Type Description Date Medical History [place] in 1999 Medical History HTN, goal 140/90 Medical History Hyperlipidemia Medical History Depression Medical History Psoriasis Medical History Left ankle, broken Medical History CAD, stent x1 Medical History Parkinsons 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, oncology Medical History quadruple bypass 2018 Medical History DM, diet controlled Surgical History Stent placement after [place] 1999 Surgical History Hip fx repair 05/2010 Surgical History 8 pins 1 plate, left ankle 07/08/2013 Surgical History hardware removal L hip 05/2017 Surgical History Lt hip replacement 10/2017 Surgical History colonoscopy 07/20/2014 Surgical History upper and lower GI 08/2018 Surgical History quadruple bypass 10/24/18 Hospitalization History above surgeries Hospitalization History [facility] [place] 10/24/2018 quad Bypass Goals Section No Information Health Concerns No Information MEDICAL EQUIPMENT No Information MENTAL STATUS No Information FUNCTIONAL STATUS No Information ASSESSMENTS No Information PLAN OF TREATMENT Medication Medication Name Sig Start Date Stop Date Taclonex 0.005-0.064 % 1 application Externally bid for 28 day(s ) May, Calcipotriene 0.005 % 1 application Externally Twice a day f or 30 days May, Next Appt Details Provider Name:Micheal Martin, 2020-06-28 02 :30:00 PM, [address] [place], [address], Insurance Providers Payer Name Payer Address Payer Phone Insured Name Patient Relati onship to Insured Coverage Start Date Coverage End Date MEDICARE Part A and B [address] [facility] [address] [place] [employer] self MEDICAID [facility] [address] [facility] [id number] [phone] [place] [employer] self
--- OUTSIDE RECORDS SUMMARY | 2020-07-14 14:11 | CCD ---
Author Author [facility] Organization [facility] Address Unknown Phone Unavailable Care Team Providers Care Floor Person Name Role Phone Micheal Martin Unavailable PROBLEMS Type Condition ICD9-CM Code [id number] Code Onset Dates Condition S tatus SNOMED Code Notes Problem Dysthymia F34.1 Active 74716925 Problem Macroglobulinemia C88.0 Active 635415248 Problem Other cirrhosis of liver K74.69 Active 8261148 7 Problem Age-related osteoporosis without current pathological fracture M81.0 Active 21560878 Problem History of alcohol abuse Z87.898 Active 3553115 05 Problem Parkinsons G20 Active 87477616 Problem Polyarthralgia M25.50 Active 95685790 Problem Pancytopenia D61.818 Active 332266056 Problem Vitamin D deficiency E55.9 Active 14449896 Problem Gastroesophageal reflux disease without esophagitis K21.9 Active 769735541 Problem Constipation, unspecified constipation type K59.00 Active 11834271 Problem Tobacco use disorder F17.200 Active 741945890 Problem Coronary artery disease, ang amaury presence unspecified, unspecified vessel or lesion type, unspecified whether [place] or transplanted heart I25.10 Active 74664179 Problem Allergic rhinitis, unspecified seasonality, unspecifie d trigger J30.9 Active 88206713 Problem Other sinusitis, unspecified chronicity J32.9 Active 45694626 Problem Thyroid nodule E04.1 Active 759807783 Problem Skipped beats I45.9 Active 764581683 Problem Primary osteoarthritis of left knee M17.12 Acti ve 511609702083700 Problem Primary osteoarthritis of right knee M17.11 Act miguel angel [id number] Problem Cirrhosis of liver without ascites, unsp ecified hepatic cirrhosis type K74.60 Active 17504030 Problem Essential (primary) hypertension I10 Active 90407007 Problem Osteoarthritis of both knees, unspecified osteoarthritis t ype M17.0 Active 785283067300614 Problem Psoriasis L40.9 Active 8703757 Problem Hypercholesterolemia E78.00 Active 28402969 Problem Antiphospholipid antibody positive R76.0 Activ e 558417866 Problem Cigarette nicotine dependence without complication F17.210 Active 48276232 Problem Mild depression F32.0 Active 771327477 Problem Type 2 diabetes mellitus wit hout complication, without long-term current use of insulin E11.9 Active 264620734 ALLERGIES No Known Allergies ENCOUNTERS from 1945 to 2020-07-04 Encounter Location Date Provider [place] [facility] [place] [address] [place] [address] May, Micheal Barkin Psoriasis L40.9 ; Type 2 jamir betes mellitus without complication, without long-term current use of insulin E11.9 ; Cirrhosis of liver without ascites, unspecified hepatic cirrhosis type K74.60 and Osteoa rthritis of both knees, unspecified osteoarthritis type M17.0 IMMUNIZATIONS Vaccine Route Administration Date Status Influenza [...] IM Intramuscular May 07, 2014 A dministered TDAP IM Intramuscular January 27, 2014 Administered Pneumococcal Adult 0.5mL (Pneumovax 23) IM Intramuscular Jul 07, 2012 Administered Influenza (High Dose 65 & up) Unknown May 01, 2017 Ad ministered Pneumococcal 0.5mL (Prevnar 13) IM Intramuscular Mar [...] Education Language: Question Answer Notes Languages spoken: Czech Sexual Hx: Question Answer Notes Had sex [...] REASON FOR REFERRAL No Information VITAL SIGNS Weight 168 lbs May, Height 65 in May, BMI 27.95 kg/m2 May, Heart Rate 72 /min May, Respiratory Rate 17 /min May, Temperature 98.2 degrees Fahrenheit May, Oximetry 93 May, Blood pressure systolic 110 mm Hg May, Blood pressure diastolic 58 mm Hg May, MEDICATIONS Medication SIG (Take, Route, Frequency, Duration) Notes Start Da te End Date Status Vitamin Y59-Wlnys Acid 500-400 MCG 1 tab Orally Daily Active Carbidopa-Levodopa 25-100 MG 1.5 Orally three times a day Active Impoyz 0.025 % 1 application Externally Twice a day for 14 day( s) October, Active Propranolol HCl 40 MG 1 tablet on an empty stomach Orally twice daily Active [place]-Smoothe/FS Scalp 0.01 % 1 application to affecte d area Externally Daily to scalp at night with shower cap over top for 30 Active Vitamin B-1 100 MG 1 tablet Orally Once a day for 30 day(s) Active Otezla 30 MG 1 tab Orally bid for 90 Active Rosuvastatin Calcium 40 MG TAKE ONE TABLET BY MOUTH EVERY DAY Oral fo r 30 Active Lisinopril 5 MG 1 tablet Orally Once a day for 30 Active Pantoprazole Sodium 40 MG TAKE ONE TABLET BY MOUTH TAIWO RY MORNING 1 2 HOUR BEFORE BREAKFAST Oral [...] Information RESULTS No Results REASON FOR VISIT refills on medications, psoriasis, covid vaccine questions MEDICAL (GENERAL) HISTORY Type Description Date Medical History [place] in 1999 Medical History HTN, goal 140/90 Medical History Hyperlipidemia Medical History Depression Medical History Psoriasis Medical History Left ankle, broken Medical History CAD, stent x1 Medical History Parkinsons 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, oncology Medical History quadruple bypass 2018 Medical History DM, diet controlled Surgical History Stent placement after [place] 1999 Surgical History Hip fx repair 05/2010 Surgical History 8 pins 1 plate, left ankle 07/08/2013 Surgical History hardware removal L hip 05/2017 Surgical History Lt hip replacement 10/2017 Surgical History colonoscopy 07/20/2014 Surgical History upper and lower GI 08/2018 Surgical History quadruple bypass 10/24/18 Hospitalization History above surgeries Hospitalization History [facility] 10/24/2018 quad Bypass Goals Section No Information Health Concerns No Information MEDICAL EQUIPMENT No Information MENTAL STATUS No Information FUNCTIONAL STATUS No Information ASSESSMENTS Encounter Date Diagnosis Assessment Notes Treatment Notes Treatm ent Clinical Notes May, Psoriasis (ICD-10 - L40.9) Calcipotriene ointment made little difference with her psoriasis, will attempt to prescribe taclonex again to see if it is covered. She has previsously been on betamethasone dipropionate aug ointment, [place]-Smooth/FS scalp oil, triamcinolone acetonide ointment, Otezla, clobetasol propionate gel, fluocinonide cream, Humira (failed), Enbrel (immunogenicity), Clobeta cream kit, Clobeta ointment kit, clobetasol propionate emulsion foam, Hydroxyura, halobetasol ointment, Impoyz cream, Olux, methotrexate, OTC aloe vera, OTC tree oil and OTC epsom salts. Patient was AGAIN advised to call and set up appointments with both rheumatology and dermatology. She stated she would do so as soon as she left and stated she would get the lab work done later this week. May, Type 2 diabetes mellitus wit hout complication, without long-term current use of insulin (ICD-10 - E11.9) Patient reports compliance with metformin, her diagnosis of diabetes is relatively recent and she is only slightly overweight this is somewhat of a strange presentation for type 2, will check ROSALINO-65 for type 1 diabetes. We discussed that given her last A1C she should BEGIN insulin therapy, but she would still like to wait and see what the blood work shows prior to proceeding with insulin therapy treatment. She seems VERY resistant to initiating therapy at this time. Advised her of the risks of not doing so including DKA, poor wound healing, kidney disease, neuropathy, limb amputation, increased risk of heart attacks/strokes and . May, Cirrhosis of liver without a scites, unspecified hepatic cirrhosis type (ICD-10 - K74.60) Patient previously with a heavy drinking history but states that she currently only drinks 2-3 beers/month and has done this for the last several years. Was again advised to not drink as she had known liver dysfunction and known esophageal varices that did not require banding at the time, will repeat RUQ U/S to look for advancements, will order labwork to assess risk and rule out possible other causes of her cirrhosis. CTA abdomen/pelvis from 07/2015 demonstrated first sign of liver cirrhosis CT abdomen/pelvis from 09/2018 showing, "macronodular liver consistent with cirrhosis". Other CT's showing evidence of portal hypertension. 07/2018- Dr. Donaldson performs EGD/colonoscopy demonstrated grade II esophageal varices. Patient already on propranolol. Patient is Hepatitis B and C negative. Checking hep A. Anti-AMA, Anti-smooth muscle Ab also negative Ferritin levels normal. Ordering [place] fibrosure as well as patient has previously had fatty liver infiltration on imaging as well. May, Osteoarthritis of both knees , unspecified osteoarthritis type (ICD- 10 - M17.0) Will defer knee injection of R-knee to 4 weeks from now. Patient in agreement with plan moving forward. She has a history of bilateral knee osteoarthiritis treated to good effect with knee injections with Dr. Marcos in the past. PLAN OF TREATMENT Medication Medication Name Sig Start Date Stop Date [place]-Smoothe/FS Scalp 0.01 % 1 application to affecte [...] application Externally bid for 28 day(s ) Treatment Notes Assessment Notes Clinical Notes Psoriasis Calcipotriene ointme nt made little difference with her psoriasis, will attempt to prescribe taclonex again to see if it is covered. She has previsously been on betamethasone dipropionate aug ointment, [place]-Smooth/FS scalp oil, triamcinolone acetonide ointment, Otezla, clobetasol propionate gel, fluocinonide cream, Humira (failed), Enbrel (immunogenicity), Clobeta cream kit, Clobeta ointment kit, clobetasol propionate emulsion foam, Hydroxyura, halobetasol ointment, Impoyz cream, Olux, methotrexate, OTC aloe vera, OTC tree oil and OTC epsom salts.Patient was AGAIN advised to call and set up appointm ents with both rheumatology and dermatology. She stated she would do so as soon as she left and stated she would get the lab work done later this week. Type 2 diabetes mellitus without complic ation, without long-term current use of insulin Patient reports compliance w ith metformin, her diagnosis of diabetes is relatively recent and she is only slightly overweight this is somewhat of a strange presentation for type 2, will check ROSALINO-65 for type 1 diabetes. We discussed that given her last A1C she should BEGIN insulin therapy, but she would still like to wait and see what the blood work shows prior to proceeding with insulin therapy treatment. She seems VERY resistant to initiating therapy at this time. Advised her of the risks of not doing so including DKA, poor wound healing, kidney disease, neuropathy, limb amputation, increased risk of heart attacks/strokes and . Cirrhosis of liver without ascites, unspecified hepatic cirr hosis type Patient previously with a heavy drinking history but states that she currently only drinks 2-3 beers/month and has done this for the last several years. Was again advised to not drink as she had known liver dysfunction and known esophageal varices that did not require banding at the time, will repeat RUQ U/S to look for advancements, will order labwork to assess risk and rule out possible other causes of her cirrhosis.CTA abdomen/pelvis from 07/2015 demonstrated first sign of liver cirrhosisCT abdomen/pelvis from 09/2018 showing, "macronodular liver consistent with cirrhosis". Other CT's showing evidence of portal hypertension.07/2018- Dr. Donaldson performs EGD/colonoscopy demonstrated grade II esophageal varices. Patient already on propranolol.Patient is Hepatitis B and C negative. Checking hep A.Anti-AMA, Anti-smooth muscle Ab also negativeFerritin levels normal.Ordering [place] fibrosure as well as patient has previously had fatty liver infiltration on imaging as well. Osteoarthritis of both knees, unspecified osteoarthritis typ e Will defer knee injection of R-knee to 4 weeks from now. Patient in agreement with plan moving forward. She has a history of bilateral knee osteoarthiritis treated to good effect with knee injections with Dr. Marcos in the past. Treatment Notes Test Name Order Date HEPATITIS A ANTIBODY IGM 2020-07-04 CBC - Complete Blood Count 2020-07-04 Comprehensive Metabolic Profile (CMP) 2020-07-04 INSULIN FREE & TOTAL 2020-07-04 OH Fibrosure [id number] 2020-07-04 PT & APTT 2020-07-04 Islet Cell Antibodies 2020-07-04 CERULOPLASMIN 2020-07-04 SMC LIVER US 2020-07-04 HEMOGLOBIN A1c 2020-07-04 MICROALBUMIN RANDOM 2020-07-04 ROSALINO-65 AUTOANTIBODY 2020-07-04 Next Appt Details 2 weeks R-knee injection, 4 weeks for la b work Reason:knee injection Provider Name:Micheal Martin, 2020-07-26 02 :45:00 PM, [address] [place], [address], Follow Up:2 weeks R-knee injection, 4 weeks for lab workknee injection Insurance Providers Payer Name Payer Address Payer Phone Insured Name Patient Relati onship to Insured Coverage Start Date Coverage End Date MEDICARE Part A and B [address] [facility] [id number] [place] self MEDICAID [facility] Tele[employer]arm [address] [facility] [id number] [place] self
--- OUTSIDE RECORDS SUMMARY | 2020-07-14 14:11 | CCD ---
Author Author [facility] Organization [facility] Address Unknown Phone Unavailable Care Team Providers Care Ball Assembler Name Role Phone Micheal Martin Unavailable PROBLEMS Type Condition ICD9-CM Code [id number] Code Onset Dates Condition S tatus SNOMED Code Notes Problem Dysthymia F34.1 Active 63782431 Problem Macroglobulinemia C88.0 Active 645436032 Problem Other cirrhosis of liver K74.69 Active 5214203 7 Problem Age-related osteoporosis without current pathological fracture M81.0 Active 02605992 Problem Thyroid nodule E04.1 Active 338774063 Problem Other sinusitis, unspecified chronicity J32.9 Active 95623635 Problem Hypercholesterolemia E78.00 Active 38272324 Problem Essential (primary) hypertension I10 Active 14686549 Problem Vitamin D deficiency E55.9 Active 79660167 Problem Gastroesophageal reflux disease without esophagitis K21.9 Active 559382375 Problem Constipation, unspecified constipation type K59.00 Active 77180537 Problem Tobacco use disorder F17.200 Active 595258782 Problem Allergic rhinitis, unspecified seasonality, unspecifie d trigger J30.9 Active 90966928 Problem Coronary artery disease, ang amaury presence unspecified, unspecified vessel or lesion type, unspecified whether [place] or transplanted heart I25.10 Active 18788329 Problem Pancytopenia D61.818 Active 060166511 Problem Polyarthralgia M25.50 Active 97696830 Problem Skipped beats I45.9 Active 029306731 Problem Mild depression F32.0 Active 310650001 Problem History of alcohol abuse Z87.898 Active 0425930 05 Problem Type 2 diabetes mellitus wit hout complication, without long-term current use of insulin E11.9 Active 500080066 Problem Parkinsons G20 Active 81451783 Problem Psoriasis L40.9 Active 6796578 Problem Primary osteoarthritis of left knee M17.12 Acti ve 698436259155891 Problem Primary osteoarthritis of right knee M17.11 Act miguel angel 690537469823355 Problem Antiphospholipid antibody positive R76.0 Activ e 859241593 Problem Cigarette nicotine dependence without complication F17.210 Active 46857896 ALLERGIES No Known Allergies ENCOUNTERS from 1945 to 2020-04-28 Encounter Location Date Provider Diagnosis [facility] [place] Resident [address] [facility] [place] [address] Mar, Micheal Nonaesmer IMMUNIZATIONS Vaccine Route Administration Date Status Influenza [...] Education Language: Question Answer Notes Languages spoken: Ukrainian Sexual Hx: Question Answer Notes Had sex [...] MEDICATIONS Medication SIG (Take, Route, Frequency, Duration) Start Date En d Date Status Calcium 600 MG 1 tablet with meals Orally bid Active Aspirin 81 81 MG 1 tablet Orally Once a day for 90 days Active Crestor 40 MG 1 tablet Orally Once a day for 30 Not-Taking Vitamin C 250 MG 1 tablet Orally Once a day for 30 day(s) October, 019 Active Rosuvastatin Calcium 40 MG TAKE ONE TABLET BY MOUTH EVERY DAY Oral for 30 Active Betamethasone Dipropionate Aug 0.05 % 1 application to affected area Externally Twice a day to areas on body with psoriasis for 30 day(s) Active Cetirizine HCl 10 MG 1 tablet Orally Once a day Active Triamcinolone Acetonide 0.05 % 1 application Externally Twic e a day for 14 days Sep, Active Pantoprazole Sodium 40 MG TAKE ONE TABLET BY MOUTH MORNING 1 2 HOUR BEFORE BREAKFAST Oral for 90 Active Otezla 30 MG 1 tab Orally bid for 90 Acti ve MetFORMIN HCl ER 500 MG 4 tablet with evening meal O rally Once a day for 30 day(s) October, Active Lisinopril 5 MG 1 tablet Orally Once a day for 30 Active Bactrim DS 800-160 MG 1 tablet Orally Twice a day for 3 days Mar Not-Taking Iron 325 (65 Fe) MG 1 tablet Orally Once a day Active Propranolol HCl 40 MG 1 tablet on an empty stomach Orally twice daily for 90 day(s) Active SM Aspirin Adult Low Strength 81 MG TAKE ONE TABLET BY MOUTH TAIWO DAY for 30 Not-Taking Acetaminophen 500 MG 2 tablets Orally every 6 hours as needed (MDD 3000 mg) Active Carbidopa-Levodopa 25-100 MG 1.5 Orally three times a day Active Vitamin B-1 100 MG 1 tablet Orally Once a day for 30 day(s) Active Nitroglycerin 0.4 MG 1 tablet under the tongue Sublingual every 5 m in x 3 Active Vitamin B12 1000 MCG 1 tablet Orally Once a day Jul, Active MetFORMIN HCl ER 500 MG 1 tablet with breakfast for 2 weeks, then 2 tablets for 2 weeks, then 3 tablets for 2 weeks, then 4 tablets Orally Once a day for 30 days October, Active Vitamin D3 2000 UNIT 1 capsule Orally Once a day Active Vitamin Y07-Xjzzb Acid 500-400 MCG 1 tab Orally Daily Active [place]-Smoothe/FS Scalp 0.01 % 1 application to affecte d area Externally Daily to scalp at night with shower cap over top for 30 Active Impoyz 0.025 % 1 application Externally Twice a day for 14 day( s) October, Active Quad Cane - as directed Dx=M05.9 , R26.86 , I25.10 , Z95.1 October, Active PROCEDURES No Information RESULTS No Results REASON FOR VISIT refill MEDICAL (GENERAL) HISTORY Type Description Date Medical History [place] in 1999 Medical History HTN, goal 140/90 Medical History Hyperlipidemia Medical History Depression Medical History Psoriasis Medical History Left ankle, broken Medical History CAD, stent x1 Medical History Parkinsons 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, oncology Medical History quadruple bypass 2018 Medical History DM, diet controlled Surgical History Stent placement after [place] 1999 Surgical History Hip fx repair 05/2010 Surgical History 8 pins 1 plate, left ankle 07/08/2013 Surgical History hardware removal L hip 05/2017 Surgical History Lt hip replacement 10/2017 Surgical History colonoscopy 07/20/2014 Surgical History upper and lower GI 08/2018 Surgical History quadruple bypass 10/24/18 Hospitalization History above surgeries Hospitalization History [facility] 10/24/2018 quad Bypass Goals Section No Information Health Concerns No Information MEDICAL EQUIPMENT No Information MENTAL STATUS No Information FUNCTIONAL STATUS No Information ASSESSMENTS No Information PLAN OF TREATMENT Medication Medication Name Sig Start Date Stop Date Otezla 30 MG 1 tab Orally bid for 90 Next Appt Details Provider Name:Micheal Martin 2020-05-24 03 :00:00 PM, [address] [facility], [place], [address], Insurance Providers Payer Name Payer Address Payer Phone Insured Name Patient Relati onship to Insured Coverage Start Date Coverage End Date MEDICAID [employer] [address] [facility] [id number] [place] self MEDICARE Part A and B [address] [facility] [id number] [phone] [place] self
--- OUTSIDE RECORDS SUMMARY | 2020-07-14 14:11 | CCD | Continuity of Care Document ---
Author Author Shira REAGAN M.D. Organization Unknown Address [address] [place] [address] Phone [phone] Care Team Providers Care Production Support Engineer Name Role Phone Micheal Martin DO AUTM [phone] Problems Active Problems Provider Date Tremor Blanca Reagan M.D. Onset: 12/23/2018 Parkinson's disease Blanca Reagan M.D. Onset: 07/16/2019 Social History Type Date Description Comments Sex Unknown Tobacco Use Start: Unknown End: Unknown Patient is a former smoker Allergies, Adverse Reactions, Alerts Description No Known Drug Allergies Medications Active Medications SIG Qnty Indications Ordering Provide r Date Carbidopa-Levodopa 25-100mg Tablet s take 1.5 tabs by mouth three times a day 5 hours apart 135tabs Blanca Reagan M.D. 12/23/2018 Immunizations Description No Information Available Vital Signs Date Vital Result Comment 06/02/2020 12:06pm Respiratory Rate 12 /min Height 66 inches 5'6" Weight 155.00 lb BMI (Body Mass Index) 25.0 kg/m2 [place] Body Weight 130 lb 02/22/2020 1:46pm Respiratory Rate 12 /min Height 66 inches 5'6" Weight 155.00 lb BMI (Body Mass Index) 25.0 kg/m2 [place] Body Weight 130 lb Results Description No Information Available Procedures Date Code Description Status 05/25/2020 85596 Sympathetic Skin Responses Compl eted 05/25/2020 39354 Sympathetic Skin Responses Compl eted 05/25/2020 46256 Test Autonomic Nervous System, C ardiovagal Innervation Completed 05/25/2020 24921 Test Autonomic Nervous System, C ardiovagal Innervation Completed Medical Devices Description No Information Available Encounters Type Date Location Provider Dx Diagnosis Office Visit 06/02/2020 11:15a Main office - [place] Blanca hightower M.D. G20 Parkinson's disease Office Visit 02/22/2020 12:45p [place] M.[place]. G20 Parkinson's disease Assessments Date Code Description Provider 06/02/2020 G20 Parkinson's disease Blanca hightower M.D. 05/25/2020 G20 Parkinson's disease Blanca hightower M.D. 05/25/2020 G20 Parkinson's disease Ans/VS 02/22/2020 G20 Parkinson's disease Blanca hightower M.D. Plan of Treatment No Information Available Functional Status Description No Information Available Mental Status Description No Information Available Referrals Refer to Reason for Referral Status Appt Date Blanca Reagan M.D. [facility] [address] [place] [address] [phone]
--- OUTSIDE RECORDS SUMMARY | 2020-07-14 14:12 | CCD ---
Author Author [facility] Organization [facility] Address Unknown Phone Unavailable Care Team Providers Care Bill Distributor Name Role Phone Cassidy Galvin MD Unavailable Unavailable Cassidy Galvin MD Unavailable Unavailable Cassidy Galvin MD Unavailable Unavailable Cassidy Galvin MD Unavailable Unavailable Cassidy Galvin MD Unavailable Unavailable Cassidy Galvin MD Unavailable Unavailable Cassidy Galvin MD Unavailable Unavailable Cassidy Galvin MD Unavailable Unavailable Cassidy Galvin MD Unavailable Unavailable Cassidy Galvin MD Unavailable Unavailable Cassidy Galvin MD Unavailable Unavailable Cassidy Galvin MD Unavailable Unavailable Cassidy Galvin MD Unavailable Unavailable Cassidy Galvin MD Unavailable Unavailable Cassidy Galvin MD Unavailable Unavailable Cassidy Galvin MD Unavailable Unavailable Cassidy Galvin MD Unavailable Unavailable Cassidy Galvin MD Unavailable Unavailable Cassidy Galvin MD Unavailable Unavailable Cassidy Galvin MD Unavailable Unavailable Cassidy Galvin MD Unavailable Unavailable Cassidy Galvin MD Unavailable Unavailable Cassidy Galvin MD Unavailable Unavailable Cassidy Galvin MD Unavailable Unavailable Cassidy Galvin MD Unavailable Unavailable Cassidy Galvin MD Unavailable Unavailable Cassidy Galvin MD Unavailable Unavailable Cassidy Galvin MD Unavailable Unavailable Cassidy Galvin MD Unavailable Unavailable Cassidy Galvin MD Unavailable Unavailable Cassidy Galvin MD Unavailable Unavailable SleCassidy smith MD Unavailable Unavailable Cassidy Galvin MD Unavailable Unavailable Cassidy Galvin MD Unavailable Unavailable Cassidy Galvin MD Unavailable Unavailable SleCassidy smith MD Unavailable Unavailable SleCassidy smith MD Unavailable Unavailable SleNabil smithtech Unavailable Unavailable SleCassidy smtih MD Unavailable Unavailable Cassidy Galvin MD Unavailable Unavailable Cassidy Galvin MD Unavailable Unavailable SleCassidy smith MD Unavailable Unavailable SleNabil smithtech Unavailable Unavailable Nabil Galvintech Unavailable Unavailable Cassidy Galvin MD Unavailable Unavailable Cassidy Galvin MD Unavailable Unavailable Cassidy Galvin MD Unavailable Unavailable Cassidy Galvin MD Unavailable Unavailable Cassidy Galvin MD Unavailable Unavailable Cassidy Galvin MD Unavailable Unavailable Cassidy Galvin MD Unavailable Unavailable Cassidy Galvin MD Unavailable Unavailable Cassidy Galvin MD Unavailable Unavailable Cassidy Galvin MD Unavailable Unavailable Cassidy Galvin MD Unavailable Unavailable Cassidy Galvin MD Unavailable Unavailable Cassidy Galvin MD Unavailable Unavailable Katja Lai MD Unavailable Unavailable Katja Lai MD Unavailable Unavailable Katja Lai MD Unavailable Unavailable Katja Lai MD Unavailable Unavailable Katja Lai MD Unavailable Unavailable Katja Lai MD Unavailable Unavailable Katja Lai MD Unavailable Unavailable Katja Lai MD Unavailable Unavailable Katja Lai MD Unavailable Unavailable Katja Lai MD Unavailable Unavailable Katja Lai MD Unavailable Unavailable Katja Lai MD Unavailable Unavailable Katja Lai MD Unavailable Unavailable Katja Lai MD Unavailable Unavailable Katja Lai MD Unavailable Unavailable Katja Lai MD Unavailable Unavailable Katja Lai MD Unavailable Unavailable Katja Lai MD Unavailable Unavailable Katja Lai MD Unavailable Unavailable Katja Lai MD Unavailable Unavailable Katja Lai MD Unavailable Unavailable Katja Lai MD Unavailable Unavailable Katja Lai MD Unavailable Unavailable Katja Lai MD Unavailable Unavailable Katja Lai MD Unavailable Unavailable Katja Lai MD Unavailable Unavailable Katja Lai MD Unavailable Unavailable Katja Lai MD Unavailable Unavailable Katja Lai MD Unavailable Unavailable Katja Lai MD Unavailable Unavailable Katja Lai MD Unavailable Unavailable Katja Lai MD Unavailable Unavailable Katja Lai MD Unavailable Unavailable Katja Lai MD Unavailable Unavailable Katja Lai MD Unavailable Unavailable Katja Lai MD Unavailable Unavailable Katja Lai MD Unavailable Unavailable Katja Lai MD Unavailable Unavailable Katja Lai MD Unavailable Unavailable Katja Lai MD Unavailable Unavailable Katja Lai MD Unavailable Unavailable Katja Lai MD Unavailable Unavailable Katja Lai MD Unavailable Unavailable Katja Lai MD Unavailable Unavailable Katja Lai MD Unavailable Unavailable Katja Lai MD Unavailable Unavailable Katja Lai MD Unavailable Unavailable Katja Lai MD Unavailable Unavailable Katja Lai MD Unavailable Unavailable Katja Lai MD Unavailable Unavailable Katja Lai MD Unavailable Unavailable Katja Lai MD Unavailable Unavailable Katja Lai MD Unavailable Unavailable Katja Lai MD Unavailable Unavailable Katja Lai MD Unavailable Unavailable Katja Lai MD Unavailable Unavailable Katja Lai MD Unavailable Unavailable Katja Lai MD Unavailable Unavailable Katja Lai MD Unavailable Unavailable Katja Lai MD Unavailable Unavailable Katja Lai MD Unavailable Unavailable Katja Lai MD Unavailable Unavailable Katja Lai MD Unavailable Unavailable Katja Lai MD Unavailable Unavailable Katja Lai MD Unavailable Unavailable Joelle, O Samah MD Unavailable Unavailable Joelle, O Samah MD Unavailable Unavailable Joelle, O Samah MD Unavailable Unavailable Joelle, O Samah MD Unavailable Unavailable Joelle, O Samah MD Unavailable Unavailable Joelle, O Samah MD Unavailable Unavailable Joelle, O Samah MD Unavailable Unavailable Joelle, O Samah MD Unavailable Unavailable Joelle, O Samah MD Unavailable Unavailable Joelle, O Samah MD Unavailable Unavailable Re-disclosure Warning The records that you are about to access may contain information from federally-assisted alcohol or drug abuse programs. If such information is present, then the following federally mandated warning applies: This information has been disclosed to you from records protected by federal confidentiality rules (42 CFR part 2). The federal rules prohibit you from making any further disclosure of this information unless further disclosure is expressly permitted by the written consent of the person to whom it pertains or as otherwise permitted by 42 CFR part 2. A general authorization for the release of medical or other information is NOT sufficient for this purpose. The Federal rules restrict any use of the information to criminally investigate or prosecute any alcohol or drug abuse patient.The records that you are about to access may contain highly sensitive health information, the redisclosure of which is protected by Article 27-F of the [facility] Public Health law. If you continue you may have access to information: Regarding HIV / AIDS; Provided by facilities licensed or operated by the [facility] Office of Mental Health; or Provided by the [facility] Office for People With Developmental Disabilities. If such information is present, then the following [facility] mandated warning applies: This information has been disclosed to you from confidential records which are protected by state law. State law prohibits you from making any further disclosure of this information without the specific written consent of the person to whom it pertains, or as otherwise permitted by law. Any unauthorized further disclosure in violation of state law may result in a fine or mcc sentence or both. A general authorization for the release of medical or other information is NOT sufficient authorization for further disc losure. Family History Family Member Name Family Member Gender Family Member Status Date o f Status Description Data Source(s) Unknown Unknown [facility] Unknown Unknown Problem [facility] ([facility]) Unknown Unknown Problem [facility] ([facility] Encounters Encounter Providers Location Date Indications Data Source(s ) Unknown [address] [facility] [place] [address] 07/04/2020 12:00:00 AM EST eCW1 ([facility]) Outpatient [address] [facility] [place] [address] 06/28/2020 12:00:00 AM EST eCW1 ([facility]) Office Visit Attender: Blanca Lai MD [facility] office - [facility] 06/02/2020 10:15:00 AM EST MEDENT ([facility]) Unknown [address] [facility] [place] [address] 05/30/2020 12:00:00 AM EST eCW1 ([facility]) Unknown [address] [facility] [place] [address] 05/25/2020 12:00:00 AM EST eCW1 ([facility]) Unknown [address] [facility] [place] [address] 04/27/2020 12:00:00 AM EDT eCW1 ([facility]) Office Visit Attender: Blanca Lai MD [facility] 02/22/2020 12:45:00 PM EDT MEDENT ([facility]) [facility] Dermatology [address] [place] [address] 01/20/2020 12:00:00 AM EDT eCW1 ([facility]) [facility] Rheumatology [address] [place] [address] 12/15/2019 12:00:00 AM EDT eCW1 ([facility]) [facility] Rheumatology Center [address] [place] [phone] 12/14/2019 12:00:00 AM EDT eCW1 ([facility] [address] [facility] [address] 11/10/2019 12:00:00 AM EDT eCW1 ([facility]) [facility] [address] [place] [address] 11/09/2019 12:00:00 AM EDT eCW1 (Critical access hospital) [facility] Res[facility] [address] [place] [address] 10/26/2019 12:00:00 AM EDT eCW1 (Critical access hospital) [facility] [address] [facility] [address] 09/07/2019 12:00:00 AM EDT eCW1 (Critical access hospital) [facility] [address] [place] [address] 09/04/2019 12:00:00 AM EST eCW1 (Critical access hospital) Outpatient 08/13/2019 12:19:00 PM EST [facility] Resident [address] [place] [phone] 07/21/2019 12:00:00 AM EST eCW1 (Critical access hospital) Outpatient Attender: Blanca Lai MD Main office - [facility] 07/16/2019 12:30:00 PM EST MEDENT ([facility], ) Outpatient Attender: Cassidy Galvin MD [email or web address] 07/01 12:00:00 AM EST [facility] Rheumatology [address] [place] [address] 06/15/2019 12:00:00 AM EST eCW1 (Critical access hospital) [facility] Resident [address] [place] [phone] 06/05/2019 12:00:00 AM EST eCW1 (Critical access hospital) Immunizations Vaccine Date Status Description Data Source(s) INFLUENZA VACCINE QUADRIVALENT 2019- (65 YR UP)/MF59 C.1/PF 03/30/2020 12:00:00 AM EDT completed [facility] Medications Medication Brand Name Start Date Product Form Dose Route Admi nistrative Instructions Pharmacy Instructions Status Indications Reaction Description Data Source(s) 25-100 mg 07/02/2020 12:00:00 AM EST tablet 135 TAKE 1 & 1/2 TABLETS BY MOUTH THREE TIMES A DAY 5 HOURS APART TAKE 1 & 1/2 TABLETS BY MOUTH THREE TIME S A DAY 5 HOURS APART SOLD: 07/04/2020 [facility] 0.01 % 06/30/2020 12:00:00 AM EST oil 118 APPLY TO AFFECTED AREA DAILY TO THE SCALP AT NIGHT WITH SHOWER CAP OVER TOP APPLY TO AFFECTED AREA DAILY TO THE SCALP AT NIGHT WITH SHOWER CAP OVER TOP SOLD: 06/30/2020 [facility] 500 mg 06/30/2020 12:00:00 AM EST tablet extended release 24 hr 120 TAKE 4 TABLET BY MOUTH WITH EVENING MEAL TAKE 4 TABLET BY MOUTH WITH EVENING MEAL SOLD: 06/30/2020 [facility] 0.005 % 05/31/2020 12:00:00 AM EST ointment 120 APPLY TO AFFECTED AREA(S) TWO TIMES A DAY APPLY TO AFFECTED AREA(S) TWO TIMES A DAY SOLD: 06/02/2020 [facility] calcipotriene 0.09008 MG/MG Topical Ointment Calcipotr iene 0.005 % Calcipotriene 0.005 % 05/30/2020 12:00:00 AM EST 1.0 {application} active Calcipotriene 0.005 % eCW1 ([facility]) calcipotriene 0.57931 MG/MG Topical Ointment Calcipotr iene 0.005 % Calcipotriene 0.005 % 05/30/2020 12:00:00 AM EST 1.0 {application} active Calcipotriene 0.005 % eCW1 ([facility]) Betamethasone 0.0005 MG/MG / calcipotrie ne 0.40018 MG/MG Topical Ointment [Taclonex] Taclonex 0.005-0.064 % Taclonex 0.005-0.064 % 05/24/2020 12:00:00 AM EST 1.0 {application} active Taclon ex 0.005-0.064 % eCW1 ([facility]) Betamethasone 0.0005 MG/MG / calcipotrie ne 0.51035 MG/MG Topical Ointment [Taclonex] Taclonex 0.005-0.064 % Taclonex 0.005-0.064 % 05/24/2020 12:00:00 AM EST 1.0 {application} active Taclon ex 0.005-0.064 % eCW1 ([facility]) 0.5 % 05/14/2020 12:00:00 AM EST ointment 15 APPLY TWO TIMES A DAY EXTERNALLY APPLY TWO TIMES A DAY EXTERNALLY SOLD: 05/15/2020 [facility] 40 mg 03/24/2020 12:00:00 AM EDT tablet 30 TAKE ONE TABLET BY MOUTH EVERY DAY DIRECTED TAKE ONE TABLET BY MOUTH EVERY DAY DIRECTED SOLD: 020 [facility] Rosuvastatin calcium 40 MG Oral Tablet ROSUVASTATIN CALCIUM 03/24/2020 12:00:00 AM EDT tablet 90 TAKE ONE TABLET BY MOUTH TAIWO DAY TAKE ONE TABLET BY MOUTH EVERY DAY SOLD: 03/27/2020 [facility] 25-100 mg 03/16/2020 12:00:00 AM EDT tablet 135 TAKE 1 & 1/2 TABLETS BY MOUTH THREE TIMES A DAY 5 HOURS APART TAKE 1 & 1/2 TABLETS BY MOUTH THREE TIME S A DAY 5 HOURS APART SOLD: 05/15/2020 [facility] 25-100 mg 03/16/2020 12:00:00 AM EDT tablet 135 TAKE 1 & 1/2 TABLETS BY MOUTH THREE TIMES A DAY 5 HOURS APART TAKE 1 & 1/2 TABLETS BY MOUTH THREE TIME S A DAY 5 HOURS APART SOLD: 06/11/2020 [facility] 25-100 mg 03/16/2020 12:00:00 AM EDT tablet 135 TAKE 1 & 1/2 TABLETS BY MOUTH THREE TIMES A DAY 5 HOURS APART TAKE 1 & 1/2 TABLETS BY MOUTH THREE TIME S A DAY 5 HOURS APART SOLD: 03/18/2020 [facility] 25-100 mg 03/16/2020 12:00:00 AM EDT tablet 135 TAKE 1 & 1/2 TABLETS BY MOUTH THREE TIMES A DAY 5 HOURS APART TAKE 1 & 1/2 TABLETS BY MOUTH THREE TIME S A DAY 5 HOURS APART SOLD: 04/16/2020 [facility] pantoprazole 40 MG Delayed Release Oral Tablet PANTOPRAZOLE SODIUM 02/14/2020 12:00:00 AM EDT tablet,delayed release (DR/EC) 90 T DI ONE TABLET BY MOUTH EVERY MORNING 1/2 HOUR BEFORE BREAKFAST TAKE ONE TABLET BY MOUTH EVERY MORNING 1/2 HOUR BEFORE BREAKFAST SOLD: 06/30/2020 [facility] pantoprazole 40 MG Delayed Release Oral Tablet PANTOPRAZOLE SODIUM 02/14/2020 12:00:00 AM EDT tablet,delayed release (DR/EC) 90 T DI ONE TABLET BY MOUTH EVERY MORNING 1/2 HOUR BEFORE BREAKFAST TAKE ONE TABLET BY MOUTH EVERY MORNING 1/2 HOUR BEFORE BREAKFAST SOLD: 02/15/2020 [facility] 5 mg 01/04/2020 12:00:00 AM EDT tablet 30 TAKE ONE TABLET BY MOUTH EVERY DAY TAKE ONE TABLET BY MOUTH EVERY DAY SOLD: 01/07/2020 [facility] 5 mg 01/04/2020 12:00:00 AM EDT tablet 30 TAKE ONE TABLET BY MOUTH EVERY DAY TAKE ONE TABLET BY MOUTH EVERY DAY SOLD: 03/27/2020 [facility] 0.01 % 01/04/2020 12:00:00 AM EDT oil 118 APPLY TO AFFECTED AREA(S) DAILY TO SCALP EVERY EVENING WITH SHOWER CAP OVER TOP APPLY TO AFFECTED AREA(S) DAILY TO SCALP EVERY EVENING WITH SHOWER CAP OVER TOP SOLD: 01/07/2020 [facility] 0.025 % 01/04/2020 12:00:00 AM EDT cream 100 USE 1 APPLICATION TWICE A DAY USE EXTERNALLY FOR 14 DAYS USE 1 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 SOLD: 01/07/2020 [facility] 5 mg 01/04/2020 12:00:00 AM EDT tablet 30 TAKE ONE TABLET BY MOUTH EVERY DAY TAKE ONE TABLET BY MOUTH EVERY DAY SOLD: 07/04/2020 [facility] 5 mg 01/04/2020 12:00:00 AM EDT tablet 30 TAKE ONE TABLET BY MOUTH EVERY DAY TAKE ONE TABLET BY MOUTH EVERY DAY SOLD: 06/11/2020 [facility] 5 mg 01/04/2020 12:00:00 AM EDT tablet 30 TAKE ONE TABLET BY MOUTH EVERY DAY TAKE ONE TABLET BY MOUTH EVERY DAY SOLD: 03/03/2020 [facility] 25-100 mg 11/16/2019 12:00:00 AM EDT tablet 135 TAKE 1 & 1/2 TABLETS BY MOUTH THREE TIMES A DAY 5 HOURS APART TAKE 1 & 1/2 TABLETS BY MOUTH THREE TIME S A DAY 5 HOURS APART SOLD: 02/15/2020 [facility] 25-100 mg 11/16/2019 12:00:00 AM EDT tablet 135 TAKE 1 & 1/2 TABLETS BY MOUTH THREE TIMES A DAY 5 HOURS APART TAKE 1 & 1/2 TABLETS BY MOUTH THREE TIME S A DAY 5 HOURS APART SOLD: 12/12/2019 [facility] 25-100 mg 11/16/2019 12:00:00 AM EDT tablet 135 TAKE 1 & 1/2 TABLETS BY MOUTH THREE TIMES A DAY 5 HOURS APART TAKE 1 & 1/2 TABLETS BY MOUTH THREE TIME S A DAY 5 HOURS APART SOLD: 11/16/2019 [facility] 25-100 mg 11/16/2019 12:00:00 AM EDT tablet 135 TAKE 1 & 1/2 TABLETS BY MOUTH THREE TIMES A DAY 5 HOURS APART TAKE 1 & 1/2 TABLETS BY MOUTH THREE TIME S A DAY 5 HOURS APART SOLD: 01/13/2020 [facility] 0.025 % 11/11/2019 12:00:00 AM EDT cream 100 APPLY TO AFFECTED AREA(S) TWO TIMES A DAY FOR 14 DAYS APPLY TO AFFECTED AREA(S) TWO TIMES A DAY FOR 14 DAYS SOLD: 11/11/2019 [facility] Impoyz 0.025 % [facility]oy[facility] 0.025 % 11/09/2019 12:00:00 AM EDT 1.0 {application} active Impoyz 0.025 % eCW1 ([facility]) MetFORMIN HCl ER 500 MG MetFORMIN HCl ER 500 MG 11/09/2019 12:00:00 A M EDT active MetFORMIN HCl ER 500 MG eCW1 ([facility]) Impoyz 0.025 % [facility] 0.025 % 11/09/2019 12:00:00 AM EDT 1.0 {application} active Impoyz 0.025 % eCW1 ([facility]) 500 mg 11/09/2019 12:00:00 AM EDT tablet extended release 24 hr 140 TAKE ONE TABLET BY MOUTH EVERY MORNING WITH BREAKFAST FOR 2 WEEKS THEN 2 ONCE DAILY FOR 2 WEEKS THEN 3 ONCE DAILY FOR 2 WEEKS THEN 4 ONCE DAILY TAKE ONE TABLET BY MOUTH EVERY MORNING WITH BREAKFAST FOR 2 WEEKS THEN 2 ONCE DAILY FOR 2 WEEKS THEN 3 ONCE DAILY FOR 2 WEEKS THEN 4 ONCE DAILY SOLD: 11/11/2019 [facility] MetFORMIN HCl ER 500 MG MetFORMIN HCl ER 500 MG 11/09/2019 12:00:00 A M EDT active 4 tablet with evenin g meal eCW1 ([facility]) Impoyz 0.025 % [facility] 0.025 % 11/09/2019 12:00:00 AM EDT 1.0 {application} active Impoyz 0.025 % eCW1 ([facility]) 24 HR Metformin hydrochloride 500 MG Ext ended Release Oral Tablet MetFORMIN HCl ER 500 MG MetFORMIN HCl ER 500 MG 11/09/2019 12:00:00 AM EDT active MetFORMIN HCl ER 500 MG eCW1 ([facility]) 24 HR Metformin hydrochloride 500 MG Ext ended Release Oral Tablet MetFORMIN HCl ER 500 MG MetFORMIN HCl ER 500 MG 11/09/2019 12:00:00 AM EDT active MetFORMIN HCl ER 500 MG eCW1 (Critical access hospital) Impoyz 0.025 % [facility] 0.025 % 11/09/2019 12:00:00 AM EDT active 1 application eCW1 ([facility]) 24 HR Metformin hydrochloride 500 MG Ext ended Release Oral Tablet MetFORMIN HCl ER 500 MG MetFORMIN HCl ER 500 MG 11/09/2019 12:00:00 AM EDT 4.0 {tablet_with_evening_meal} active MetFO RMIN HCl ER 500 MG eCW1 ([facility]) Impoyz 0.025 % [facility] 0.025 % 11/09/2019 12:00:00 AM EDT 1.0 {application} active Impoyz 0.025 % eCW1 ([facility]) Impoyz 0.025 % [facility] 0.025 % 11/09/2019 12:00:00 AM EDT 1.0 {application} active Impoyz 0.025 % eCW1 ([facility]) 24 HR Metformin hydrochloride 500 MG Ext ended Release Oral Tablet MetFORMIN HCl ER 500 MG MetFORMIN HCl ER 500 MG 11/09/2019 12:00:00 AM EDT 4.0 {tablet_with_evening_meal} active MetFO RMIN HCl ER 500 MG eCW1 ([facility]) 24 HR Metformin hydrochloride 500 MG Ext ended Release Oral Tablet MetFORMIN HCl ER 500 MG MetFORMIN HCl ER 500 MG 11/09/2019 12:00:00 AM EDT 4.0 {tablet_with_evening_meal} active MetFO RMIN HCl ER 500 MG eCW1 ([facility]) MetFORMIN HCl ER 500 MG MetFORMIN HCl ER 500 MG 11/09/2019 12:00:00 A M EDT active 1 tablet with breakfast for 2 weeks, then 2 tablets for 2 weeks, then 3 tablets for 2 weeks, then 4 tablets eCW1 ([facility]) 24 HR Metformin hydrochloride 500 MG Ext ended Release Oral Tablet MetFORMIN HCl ER 500 MG MetFORMIN HCl ER 500 MG 11/09/2019 12:00:00 AM EDT 4.0 {tablet_with_evening_meal} active MetFO RMIN HCl ER 500 MG eCW1 ([facility]) MetFORMIN HCl ER 500 MG MetFORMIN HCl ER 500 MG 11/09/2019 12:00:00 AM EDT 4.0 {tablet_with_evening_meal} active MetF ORMIN HCl ER 500 MG eCW1 ([facility]) 800-160 mg 10/27/2019 12:00:00 AM EDT tablet 10 TAKE ONE TABLET BY MOUTH TWICE A DAY FOR 5 DAYS TAKE ONE TABLET BY MOUTH TWICE A DAY FOR 5 DAYS SOLD: 10/27/2019 [facility] 0.01 % 10/27/2019 12:00:00 AM EDT oil 118 APPLY TO AFFECTED AREA(S) ON SCALP AT NIGHT WITH SHOWER CAP OVER TOP DIRECTED APPLY TO AFFECTED AREA(S) ON SCALP AT NIGHT WITH SHOWER CAP OVER TOP DIRECTED SOLD: 10/27/2019 [facility] 0.5 % 10/27/2019 12:00:00 AM EDT ointment 15 APPLY TO AFFECTED AREA(S) TWO TIMES A DAY FOR 14 DAYS APPLY TO AFFECTED AREA(S) TWO TIMES A DAY FOR 14 DAYS SOLD: 10/27/2019 [facility] 0.05 % 10/27/2019 12:00:00 AM EDT ointment 90 APPLY TO AFFECTED AREA(S) OF PSORIASIS TWO TIMES A DAY APPLY TO AFFECTED AREA(S) OF PSORIASIS T WO TIMES A DAY SOLD: 10/27/2019 [facility] 0.05 % 10/27/2019 12:00:00 AM EDT ointment 45 APPLY TO AFFECTED AREA(S) OF PSORIASIS TWO TIMES A DAY APPLY TO AFFECTED AREA(S) OF PSORIASIS T WO TIMES A DAY SOLD: 05/21/2020 [facility] Sulfamethoxazole 800 MG / Trimethoprim 1 60 MG Oral Tablet [Bactrim] Bactrim DS 800-160 MG Bactrim DS 800-160 MG 10/26/2019 12:00:00 AM EDT active 1 tablet eCW1 (Critical access hospital) Triamcinolone Acetonide 0.0005 MG/MG Top ical Ointment Triamcinolone Acetonide 0.05 % Triamcinolone Acetonide 0.05 % 10/26/2019 12:00:00 AM EDT active 1 application eCW1 ([facility]) Triamcinolone Acetonide 0.0005 MG/MG Top ical Ointment Triamcinolone Acetonide 0.05 % Triamcinolone Acetonide 0.05 % 10/26/2019 12:00:00 AM EDT active 1 application eCW1 ([facility]) Triamcinolone Acetonide 0.0005 MG/MG Top ical Ointment Triamcinolone Acetonide 0.05 % Triamcinolone Acetonide 0.05 % 10/26/2019 12:00:00 AM EDT 1.0 {application} active Triamcinolone Acet onide 0.05 % eCW1 ([facility]) 81 mg 10/16/2019 12:00:00 AM EDT tablet,delayed release (DR/EC) 90 TAKE ONE TABLET BY MOUTH EVERY DAY TAKE ONE TABLET BY MOUTH EVERY DAY SOLD: 10/19/2019 [facility] 81 mg 10/16/2019 12:00:00 AM EDT tablet,delayed release (DR/EC) 90 TAKE ONE TABLET BY MOUTH EVERY DAY TAKE ONE TABLET BY MOUTH EVERY DAY SOLD: 02/15/2020 [facility] 81 mg 09/09/2019 12:00:00 AM EDT tablet,delayed release (DR/EC) 30 TAKE ONE TABLET BY MOUTH EVERY DAY TAKE ONE TABLET BY MOUTH EVERY DAY SOLD: 09/09/2019 [facility] 25-100 mg 07/17/2019 12:00:00 AM EST tablet 135 TAKE ONE AND ONE-HALF TABLETS BY MOUTH THREE TIMES A DAY 5 HOURS APART TAKE ONE AND ONE-HALF TABLETS BY MOUTH THREE TIMES A DAY 5 HOURS APART SOLD: 08/17/2019 [facility] 25-100 mg 07/17/2019 12:00:00 AM EST tablet 135 TAKE ONE AND ONE-HALF TABLETS BY MOUTH THREE TIMES A DAY 5 HOURS APART TAKE ONE AND ONE-HALF TABLETS BY MOUTH THREE TIMES A DAY 5 HOURS APART SOLD: 09/15/2019 [facility] 25-100 mg 07/17/2019 12:00:00 AM EST tablet 135 TAKE ONE AND ONE-HALF TABLETS BY MOUTH THREE TIMES A DAY 5 HOURS APART TAKE ONE AND ONE-HALF TABLETS BY MOUTH THREE TIMES A DAY 5 HOURS APART SOLD: 07/17/2019 [facility] 81 mg 06/19/2019 12:00:00 AM EST tablet,delayed release (DR/EC) 30 TAKE ONE TABLET BY MOUTH EVERY DAY TAKE ONE TABLET BY MOUTH EVERY DAY SOLD: 06/21/2019 [facility] 81 mg 06/19/2019 12:00:00 AM EST tablet,delayed release (DR/EC) 30 TAKE ONE TABLET BY MOUTH EVERY DAY TAKE ONE TABLET BY MOUTH EVERY DAY SOLD: 07/24/2019 [facility] 40 mg 06/16/2019 12:00:00 AM EST tablet 30 TAKE ONE TABLET BY MOUTH EVERY DAY TAKE ONE TABLET BY MOUTH EVERY DAY SOLD: 01/07/2020 [facility] 40 mg 06/16/2019 12:00:00 AM EST tablet 30 TAKE ONE TABLET BY MOUTH EVERY DAY TAKE ONE TABLET BY MOUTH EVERY DAY SOLD: 09/04/2019 [facility] 40 mg 06/16/2019 12:00:00 AM EST tablet 30 TAKE ONE TABLET BY MOUTH EVERY DAY TAKE ONE TABLET BY MOUTH EVERY DAY SOLD: 06/17/2019 [facility] 40 mg 06/16/2019 12:00:00 AM EST tablet 30 TAKE ONE TABLET BY MOUTH EVERY DAY TAKE ONE TABLET BY MOUTH EVERY DAY SOLD: 12/12/2019 [facility] 40 mg 06/16/2019 12:00:00 AM EST tablet 30 TAKE ONE TABLET BY MOUTH EVERY DAY TAKE ONE TABLET BY MOUTH EVERY DAY SOLD: 10/19/2019 [facility] 40 mg 06/16/2019 12:00:00 AM EST tablet 30 TAKE ONE TABLET BY MOUTH EVERY DAY TAKE ONE TABLET BY MOUTH EVERY DAY SOLD: 07/24/2019 [facility] 40 mg 05/15/2019 12:00:00 AM EST tablet,delayed release (DR/EC) 90 TAKE ONE TABLET BY MOUTH EVERY MORNING 1/2 HOUR BEFORE BREAKFAST TAKE ONE TABLET BY MOUTH EVERY MORNING 1/2 HOUR BEFORE BREAKFAST SOLD: 09/04/2019 [facility] 40 mg 05/15/2019 12:00:00 AM EST tablet,delayed release (DR/EC) 90 TAKE ONE TABLET BY MOUTH EVERY MORNING 1/2 HOUR BEFORE BREAKFAST TAKE ONE TABLET BY MOUTH EVERY MORNING 1/2 HOUR BEFORE BREAKFAST SOLD: 05/17/2019 [facility] 5 mg 05/13/2019 12:00:00 AM EST tablet 30 TAKE ONE TABLET BY MOUTH EVERY DAY TAKE ONE TABLET BY MOUTH EVERY DAY SOLD: 07/24/2019 [facility] 5 mg 05/13/2019 12:00:00 AM EST tablet 30 TAKE ONE TABLET BY MOUTH EVERY DAY TAKE ONE TABLET BY MOUTH EVERY DAY SOLD: 05/15/2019 [facility] 5 mg 05/13/2019 12:00:00 AM EST tablet 30 TAKE ONE TABLET BY MOUTH EVERY DAY TAKE ONE TABLET BY MOUTH EVERY DAY SOLD: 12/12/2019 [facility] 5 mg 05/13/2019 12:00:00 AM EST tablet 30 TAKE ONE TABLET BY MOUTH EVERY DAY TAKE ONE TABLET BY MOUTH EVERY DAY SOLD: 09/04/2019 [facility] 5 mg 05/13/2019 12:00:00 AM EST tablet 30 TAKE ONE TABLET BY MOUTH EVERY DAY TAKE ONE TABLET BY MOUTH EVERY DAY SOLD: 06/17/2019 [facility] 5 mg 05/13/2019 12:00:00 AM EST tablet 30 TAKE ONE TABLET BY MOUTH EVERY DAY TAKE ONE TABLET BY MOUTH EVERY DAY SOLD: 10/19/2019 [facility] 81 mg 03/21/2019 12:00:00 AM EDT tablet,delayed release (DR/EC) 30 TAKE ONE TABLET BY MOUTH EVERY DAY TAKE ONE TABLET BY MOUTH EVERY DAY SOLD: 05/15/2019 [facility] 25-100 mg 03/11/2019 12:00:00 AM EDT tablet 135 TAKE 1 & 1/2 TABLETS BY MOUTH THREE TIMES A DAY 4 HOURS APART TAKE 1 & 1/2 TABLETS BY MOUTH THREE TIME S A DAY 4 HOURS APART SOLD: 06/17/2019 [facility] 25-100 mg 03/11/2019 12:00:00 AM EDT tablet 135 TAKE 1 & 1/2 TABLETS BY MOUTH THREE TIMES A DAY 4 HOURS APART TAKE 1 & 1/2 TABLETS BY MOUTH THREE TIME S A DAY 4 HOURS APART SOLD: 05/15/2019 [facility] 40 mg 02/12/2019 12:00:00 AM EDT tablet 180 TAKE ONE TABLET BY MOUTH TWICE A DAY TAKE ONE TABLET BY MOUTH TWICE A DAY SOLD: 09/04/2019 [facility] 40 mg 11/07/2018 12:00:00 AM EDT tablet 30 TAKE ONE TABLET BY MOUTH EVERY DAY TAKE ONE TABLET BY MOUTH EVERY DAY SOLD: 05/15/2019 [facility] Insurance Providers Payer name Policy type / Coverage type Policy ID Covered constitution party ID Covered constitution party's relationship to lopez Policy Lopez Plan Information EMEDNY [id number] SP [id number] MEDICARE [id number] SP [id number] EMEDNY [id number] SP [id number] MEDICARE [id number] SP [id number] MEDICAID [id number] SP [id number] MEDICARE C [id number] S [id number] MEDICAID [id number] S [id number] MEDICAID [id number] SP [id number] MEDICAID [id number] Latisha [id number] MEDICARE [id number] Latisha [id number] Y40 MEDICAID [id number] SP [id number] ANSI-Medicaid [id number] ANSI-Medicare Part B [id number] [place] [id number] Self [id number] [place] Primary [id number] Self [id number] ANSI-Medicaid [id number] ANSI-Medicare Part B [id number] ANSI-Medicaid [id number] ANSI-Medicare Part B [id number] SELF PAY ANSI-Medicaid [id number] ANSI-Medicare Part B [id number] [place] [id number] Self [id number] [place] Primary [id number] Self [id number] ANSI-Medicaid [id number] ANSI-Medicare Part B [id number] ANSI-Medicare Part B [id number] ANSI-Medicaid [id number] ANSI-Medicaid [id number] ANSI-Medicare Part B [id number] ANSI-Medicare Part B [id number] ANSI-Medicaid [id number] MEDICAID [id number] Latisha [id number] MEDICARE [id number] Latisha [id number] [id number] ANSI-Medicaid [id number] ANSI-Medicare Part B [id number] ANSI-Medicaid [id number] ANSI-Medicare Part B [id number] ANSI-Medicare Part B [id number] ANSI-Medicaid [id number] MEDICARE PI PI MEDICAID PI PI ANSI-Medicare Part B [id number] ANSI-Medicaid [id number] [place] [id number] Self [id number] [place] Primary [id number] Self [id number] MEDICAID M [id number] Self [id number] MEDICARE A [id number] Self [id number] ANSI-Medicaid [id number] ANSI-Medicare Part B [id number] ANSI-Medicaid [id number] ANSI-Medicare Part B [id number] ANSI-Medicare Part B [id number] ANSI-Medicaid [id number] ANSI-Medicaid [id number] ANSI-Medicare Part B [id number] ANSI-Medicaid [id number] ANSI-Medicare Part B [id number] [place] [id number] Self [id number] Medicare [facility] Medicare Primary [id number] Self [id number] ANSI-Medicare Part B [id number] ANSI-Medicaid [id number] ANSI-Medicaid [id number] ANSI-Medicare Part B [id number] ANSI-Medicare Part B [id number] ANSI-Medicaid [id number] ANSI-Medicaid [id number] ANSI-Medicare Part B [id number] ANSI-Medicaid [id number] ANSI-Medicare Part B [id number] MEDICAID [id number] ANSI-Medicaid [id number] ANSI-Medicare Part B [id number] ANSI-Medicare Part B [id number] ANSI-Medicaid [id number] ANSI-Medicare Part B [id number] ANSI-Medicaid [id number] ANSI-Medicare Part B [id number] ANSI-Medicaid [id number] ANSI-Medicaid [id number] ANSI-Medicare Part B [id number] ANSI-Medicare Part B [id number] ANSI-Medicaid [id number] ANSI-Medicaid [id number] ANSI-Medicare Part B [id number] [place] [id number] Self [id number] [place] [id number] Self [id number] [place] [id number] Self [id number] [place] Medicare Primary [id number] Self [id number] ANSI-Medicaid [id number] ANSI-Medicare Part B [id number] ANSI-Medicare Part B [id number] ANSI-Medicaid [id number] MEDICAID [id number] ANSI-Medicare Part B [id number] ANSI-Medicaid [id number] ANSI-Medicaid [id number] ANSI-Medicare Part B [id number] ANSI-Medicare Part B [id number] ANSI-Medicaid [id number] ANSI-Medicaid [id number] ANSI-Medicare Part B [id number] ANSI-Medicaid [id number] ANSI-Medicare Part B [id number] [place] PART B C [id number] ANSI-Medicaid [id number] ANSI-Medicare Part B [id number] ANSI-Medicaid [id number] ANSI-Medicare Part B [id number] MEDICARE [id number] ANSI-Medicaid [id number] ANSI-Medicare Part B [id number] ANSI-Medicare Part B [id number] ANSI-Medicaid [id number] ANSI-Medicare Part B [id number] ANSI-Medicaid [id number] ANSI-Medicare Part B [id number] ANSI-Medicaid [id number] ANS-Medicare Part B [id number] ANSI-Medicaid [id number] MEDICARE [id number] SP [id number] MEDICAID [id number] SP [id number] ANS-Medicare Part B [id number] ANSI-Medicaid [id number] ANSI-Medicare Part B [id number] ANSI-Medicaid [id number] [place] [id number] Self [id number] [place] Primary [id number] Self [id number] MEDICARE [id number] S [id number] [place] Primary [id number] Self [id number] [place] Primary [id number] Self [id number] [place] Primary [id number] Self [id number] [place] Primary [id number] Self [id number] [place] Primary [id number] Self [id number] MEDICAID UNAVAILABLE UNA[place] BLE [place] Self [place] Self [place] Primary Self [id number] Problems, Conditions, and Diagnoses Code Display Name Description Problem Type Effective Dates Data Source(s) M17.0 [id number] Osteoarthritis of winter th knees, unspecified osteoarthritis type Problem 05/24/2020 12:00:00 AM EST eCW1 ([facility]) K74.60 [id number] Cirrhosis of liver w [facility] ascites, unspecified hepatic cirrhosis type Problem 05/24/2020 12:00:00 AM EST eCW1 ([facility]) E11.9 955094933 Type 2 diabetes cristiana itus without complication, without long-term current use of insulin Problem 09/04/2019 12:00:00 AM EST eCW1 ([facility]) E11.9 546011723 Type 2 diabetes cristiana itus without complication, without long-term current use of insulin Problem 09/04/2019 12:00:00 AM EST eCW1 ([facility]) 39576946 Parkinson's disease Parkinson's disease Problem 0 07/16/2019 12:00:00 AM EST MEDENT ([facility], ) F32.0 680907899 Mild depression Problem 06/05/2019 12:00:00 AM EST eCW1 ([facility]) F32.0 [id number] Mild depression Problem 06/05/2019 12:00:00 AM EST eCW1 ([facility]) D64.9 Anemia, unspecified Anemia, unspecified Diagnosis 0 07/13/2019 10:32:34 AM EST [facility] F17.200 Nicotine dependence, unspecified, uncomp licated Nicotine dependence, unspecified, uncomp Diagnosis 07/13/2019 10:32:34 AM EST [facility] 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 Occlusion and stenosis of bilateral bailey Diagnosis 07/13/2019 10:32:34 AM EST [facility] E78.2 Mixed hyperlipidemia Mixed hyperlipidemia Diagnosis 07/13/2019 10:32:34 AM EST [facility] I10 Essential (primary) hypertension Essential (primary) h ypertension Diagnosis 07/13/2019 10:32:34 AM EST [facility] I25.10 Atherosclerotic heart diseas e of [place] coronary artery without angina pectoris Atherosclerotic heart disease of [place] Diagnosis 07/13/2019 10:32:34 AM EST [facility] Surgeries/Procedures Procedure Description Date Indications Data Source(s) TSTG ANS FUNCJ CARDIOVAGAL INNERVAJ PARASYMP 0 12:00:00 AM EST MEDENT ([facility], ) TSTG ANS FUNCJ CARDIOVAGAL INNERVAJ PARASYMP 0 12:00:00 AM EST [facility] ([facility], ) TESTING AUTONOMIC NERVOUS SYSTEM FUNCTION 05/25/2020 1 2:00:00 AM EST [facility] ([facility], ) TESTING AUTONOMIC NERVOUS SYSTEM FUNCTION 05/25/2020 1 2:00:00 AM EST MED[facility] ([facility], ) Office Visit, Est Pt., Level 3 PC 11/09/2019 12:00:00 AM EDT eCW1 ([facility]) Office Visit, Est Pt., Level 2 FC 11/09/2019 12:00:00 AM EDT eCW1 ([facility]) Results ID Date Data Source UA URINALYSIS 10/26/2019 12:00:00 AM EDT eCW1 ([facility]) Name Value Range Interpretation Code Description Data Kamilla rce(s) Supporting Document(s) Laboratory studies (set) UA URINALYS IS eCW1 ([facility]) URINALYSIS eCW1 ([facility]) 5 PH eCW1 (Pending sale to [facility]) trace LEUKOCYTE ESTERASE eCW1 ([facility]) 1.020 SPECIFIC GRAVITY URINE eCW1 ([facility]) UAP eCW1 (Pending sale to [facility]) 2+ KETONE eCW1 (Pending sale to [facility]) 1000 GLUCOSE eCW1 (Pending sale to [facility]) neg PROTEIN eCW1 (Pending sale to [facility]) neg NITRITE eCW1 (Pending sale to [facility]) neg BLOOD URINE eCW1 ([facility]) 2+ BILIRUBIN URINE eCW1 (Pending sale to [facility]) 8 UROBILINOGEN eCW1 ([facility]) RBC, URINE eCW1 ([facility]) WBC, URINE eCW1 ([facility]) MICROSCOPIC, URINE AUTO eCW1 ( [facility]) hazy APPEARANCE eCW1 ([facility]) dark COLOR URINE eCW1 ([facility]) HYALINE CAST eCW1 ([facility]) BACTERIA eCW1 (Pending sale to [facility]) SQUAMOUS CELLS eCW1 ([facility]) Procedure Social History Code Duration Value Status Description Data Source(s ) Smoking 06/30/2020 12:00:00 AM EST Former Smoker completed Former Smoker eCW1 ([facility]) Smoking 06/30/2020 12:00:00 AM EST Former Smoker completed Former Smoker eCW1 ([facility]) Smoking 05/24/2020 12:00:00 AM EST Former Smoker completed Former Smoker eCW1 ([facility]) Smoking 05/24/2020 12:00:00 AM EST Former Smoker completed Former Smoker eCW1 ([facility]) Smoking 04/20/2020 12:00:00 AM EDT Former Smoker completed Former Smoker eCW1 ([facility]) Vital Signs ID Date Data Source UNK Name Value Range Interpretation Code Description Data Source(s) Diastolic blood pressure 58 mm[Hg] 58 mm[Hg] eCW1 ([facility]) Systolic blood pressure 110 mm[Hg] 110 mm[Hg] e CW1 ([facility]) Body temperature 98.2 [degF] 98.2 [degF] eCW1 ( [facility]) Respiratory rate 17 /min 17 /min eCW1 ([facility]) Heart rate 72 /min 72 /min eCW1 (Pending sale to [facility]) Body mass index (BMI) [Ratio] 27.95 kg/m2 27.95 kg/m2 eCW1 ([facility]) Body height 65 [in_i] 65 [in_i] eCW1 ([facility]) Body weight 168 [lb_av] 168 [lb_av] eCW1 ([facility]) [place] body weight 130 [lb_av] 130 [lb_av] MEDEN T ([facility]) Body mass index (BMI) [Ratio] 25.0 kg/m2 25.0 k g/m2 MEDENT ([facility], ) Body weight 155.00 [lb_av] 155.00 [lb_av] MEDEN T ([facility]) Body height 66 [in_i] 66 [in_i] MEDENT ([facility], ) 5'6" Respiratory rate 12 /min 12 /min MEDENT ( [facility]) [place] body weight 130 [lb_av] 130 [lb_av] MEDEN T ([facility], ) Body mass index (BMI) [Ratio] 25.0 kg/m2 25.0 k g/m2 MEDENT ([facility], ) Body weight 155.00 [lb_av] 155.00 [lb_av] MEDEN T ([facility]) Body height 66 [in_i] 66 [in_i] MEDENT ([facility], ) 5'6" Respiratory rate 12 /min 12 /min MEDENT ( [facility], ) [place] body weight 130 [lb_av] 130 [lb_av] MEDEN T ([facility]) Body mass index (BMI) [Ratio] 25.0 kg/m2 25.0 k g/m2 MEDENT ([facility]) Body weight 155.00 [lb_av] 155.00 [lb_av] MEDEN T ([facility]) Body height 66 [in_i] 66 [in_i] MEDENT ([facility]) 5'6" Respiratory rate 12 /min 12 /min MEDENT ( [facility]) Diastolic blood pressure 72 mm[Hg] 72 mm[Hg] eCW1 ([facility]) Systolic blood pressure 114 mm[Hg] 114 mm[Hg] e CW1 ([facility]) Body temperature 99.2 [degF] 99.2 [degF] eCW1 ( [facility]) Respiratory rate 20 /min 20 /min eCW1 ([facility]) Heart rate 71 /min 71 /min eCW1 ([facility]ending sale to [facility]) Body mass index (BMI) [Ratio] 28.35 kg/m2 28.35 kg/m2 eCW1 ([facility]) Body height 65 [in_us] 65 [in_us] eCW1 ([facility]) Body weight Measured 170.4 [lb_av] 170.4 [lb_av ] eCW1 ([facility]) Diastolic blood pressure 72 mm[Hg] 72 mm[Hg] eCW1 ([facility]) Systolic blood pressure 126 mm[Hg] 126 mm[Hg] e CW1 ([facility]) Body temperature 98.5 [degF] 98.5 [degF] eCW1 ( [facility]) Respiratory rate 20 /min 20 /min eCW1 ([facility]) Heart rate 71 /min 71 /min eCW1 ([facility]ending [facility] to [facility]) Body mass index (BMI) [Ratio] 28.15 kg/m2 28.15 kg/m2 eCW1 ([facility]) Body height 65 [in_us] 65 [in_us] eCW1 ([facility]) Body weight Measured 169.2 [lb_av] 169.2 [lb_av ] eCW1 ([facility]) Body mass index (BMI) [Ratio] 28.19 kg/m2 28.19 kg/m2 eCW1 ([facility]) Body height 65 [in_us] 65 [in_us] eCW1 ([facility]) Body weight Measured 169.4 [lb_av] 169.4 [lb_av ] eCW1 ([facility]) Diastolic blood pressure 74 mm[Hg] 74 mm[Hg] eCW1 ([facility]) Systolic blood pressure 120 mm[Hg] 120 mm[Hg] e CW1 ([facility]) Body temperature 98.1 [degF] 98.1 [degF] eCW1 ( [facility]) Respiratory rate 18 /min 18 /min eCW1 ([facility]) Heart rate 70 /min 70 /min eCW1 (Pending sale to [facility]) Body mass index (BMI) [Ratio] 25.0 kg/m2 25.0 k g/m2 MEDENT ([facility], ) Body weight 155.00 [lb_av] 155.00 [lb_av] MEDEN T ([facility], ) Body height 66 [in_i] 66 [in_i] MEDENT ([facility], ) 5'6" Respiratory rate 12 /min 12 /min MEDENT ( [facility], ) Heart rate 64 /min 64 /min MEDENT ([facility], ) Diastolic blood pressure 72 mm[Hg] 72 mm[Hg] MEDENT ([facility], ) Systolic blood pressure 110 mm[Hg] 110 mm[Hg] M EDENT ([facility], ) Diastolic blood pressure 64 mm[Hg] 64 mm[Hg] eCW1 ([facility]) Systolic blood pressure 116 mm[Hg] 116 mm[Hg] e CW1 ([facility]) Body temperature 98.4 [degF] 98.4 [degF] eCW1 ( [facility]) Respiratory rate 18 /min 18 /min eCW1 ([facility]) Heart rate 73 /min 73 /min eCW1 (Pending sale to [facility]) Body mass index (BMI) [Ratio] 27.69 kg/m2 27.69 kg/m2 eCW1 ([facility]) Body height 65 [in_us] 65 [in_us] eCW1 ([facility]) Body weight Measured 166.4 [lb_av] 166.4 [lb_av ] eCW1 ([facility]) Diastolic blood pressure 80 mm[Hg] 80 mm[Hg] eCW1 ([facility]) Systolic blood pressure 130 mm[Hg] 130 mm[Hg] e CW1 ([facility]) Body temperature 97.5 [degF] 97.5 [degF] eCW1 ( [facility]) Respiratory rate 20 /min 20 /min eCW1 ([facility]) Heart rate 70 /min 70 /min eCW1 (Pending sale to [facility]) Body mass index (BMI) [Ratio] 27.79 kg/m2 27.79 kg/m2 eCW1 ([facility]) Body height 65 [in_us] 65 [in_us] eCW1 ([facility]) Body weight Measured 167 [lb_av] 167 [lb_av] eC W1 ([facility]) Patient Treatment Plan of Care Planned Activity Planned Date Details Description Data Source (s) calcipotriene 0.83364 MG/MG Topical Ointment 05/30/2020 12:00:00 AM EST eCW1 ([facility]) calcipotriene 0.72319 MG/MG Topical Ointment 05/30/2020 12:00:00 AM EST eCW1 ([facility]) Betamethasone 0.0005 MG/MG / calcipotrie ne 0.71237 MG/MG Topical Ointment [Taclonex] 05/24/2020 12:00:00 AM EST eCW1 ([facility]) Betamethasone 0.0005 MG/MG / calcipotrie ne 0.31359 MG/MG Topical Ointment [Taclonex] 05/24/2020 12:00:00 AM EST eCW1 ([facility]) 24 HR Metformin hydrochloride 500 MG Extended Release Oral Tablet 11/09/2019 12:00:00 AM EDT eCW1 ([facility]ending sale to [facility]) 24 HR Metformin hydrochloride 500 MG Extended Release Oral Tablet 11/09/2019 12:00:00 AM EDT eCW1 (Pending sale to [facility]) MetFORMIN HCl ER 500 MG 11/09/2019 12:00:00 AM EDT eCW1 ([facility]) Impoyz 0.025 % 11/09/2019 12:00:00 AM EDT eCW1 ([facility]) MetFORMIN HCl ER 500 MG 11/09/2019 12:00:00 AM EDT eCW1 ([facility]) Triamcinolone Acetonide 0.0005 MG/MG Topical Ointment 10/26/2019 12:00:00 AM EDT eCW1 (Pending sale to [facility]) Sulfamethoxazole 800 MG / Trimethoprim 160 MG Oral Tab let [Bactrim] 10/26/2019 12:00:00 AM EDT eCW1 (Pending sale to [facility])
--- NOTE | 2020-07-14 15:23 | REP ---
INDICATION: CHEST PAIN COMPARISON: 04/03/2019 TECHNIQUE: Portable AP view of the chest FINDINGS: Mediastinum and cardiac silhouette stable with sternotomy and CABG again noted. Lung castro demonstrate chronic appearing interstitial changes. No focal consolidation, effusion, or pneumothorax. Skeletal structures intact. IMPRESSION: Chronic stable changes. No obvious acute process. <Electronically signed by Sherman Cantu > 07/14/20 0706
[2020-07-14 15:55] LABS: BASO % 0.4 % (0.0-1.0); EOS # 0.1 10^3/uL (0.0-0.5); EOS % 1.6 % (0.0-3.0); HEMATOCRIT 41.7 % (36.0-47.0); HEMOGLOBIN 13.1 g/dl (12.0-15.5); LYMPH # 1.1 10^3/uL (1.5-5.0); LYMPH % 23.5 % (24.0-44.0); MEAN CORPUSCULAR HEMOGLOBIN 29.8 pg (27.0-33.0); MEAN CORPUSCULAR HGB CONC 31.4 g/dl (32.0-36.5); MEAN CORPUSCULAR VOLUME 94.8 fl (80.0-96.0); MONO # 0.5 10^3/uL (0.0-0.8); MONO % 11.2 % (0.0-5.0); NEUTROPHILS # 2.8 10^3/uL (1.5-8.5); NEUTROPHILS % 62.9 % (36.0-66.0); WHITE BLOOD COUNT 4.5 10^3/uL (4.0-10.0)
[2020-07-14 15:56] LABS: PLATELET COUNT, AUTOMATED 99 10^3/uL (150-450)
[2020-07-14 16:42] LABS: ALBUMIN 3.4 GM/DL (3.2-5.2); BILIRUBIN,DIRECT 0.2 MG/DL (0.0-0.2); BILIRUBIN,TOTAL 0.7 MG/DL (0.2-1.0); THYROID STIMULATING HORMONE 0.852 uIU/ML (0.358-3.740); TOTAL PROTEIN 8.2 GM/DL (6.4-8.2)
--- NOTE | 2020-07-14 16:45 | ECGEPIP ---
[facility] - ED Test Date: 2020-07-14 Pat Name: LISSETT EUCEDA Department: Room: - Gender: Female [employer] Feeder: robbin : 1945 Requested By: Dorothea Kenny Order Number: [id number] Reading MD: Mervin Burger Measurements Intervals [place] Rate: 77 P: 42 DC: 175 QRS: 3 QRSD: 89 T: 32 QT: 411 QTc: 467 Interpretive Statements SINUS RHYTHM POSSIBLE LEFT ATRIAL ENLARGEMENT INFERIOR MYOCARDIAL INFARCTION, PROBABLY OLD SIMILAR TO 05/06/18 Electronically Signed on 07-14-2020 16:44:51 EST by Mervin Burger
[2020-07-14 17:30] VITALS: BP 174/84
== END 2020-07-14 17:38 | disposition home or self-care (01) ==
LOC: M ED 13:57
DX: R53.1 Weakness (principal); R51.9 Headache, unspecified; M79.10 Myalgia, unspecified site; R53.81 Other malaise; I25.10 Atherosclerotic heart disease of native coronary artery without angina pectoris; E11.9 Type 2 diabetes mellitus without complications; I10 Essential (primary) hypertension; I25.2 Old myocardial infarction; E78.5 Hyperlipidemia, unspecified; Z95.5 Presence of coronary angioplasty implant and graft; G20 Parkinson's disease; L40.9 Psoriasis, unspecified; F33.9 Major depressive disorder, recurrent, unspecified; Z87.891 Personal history of nicotine dependence; Z79.899 Other long term (current) drug therapy

== ENCOUNTER → 2020-07-27 | Outpatient (CLI) | payer MEDICARE, MEDICAID ==
[~2020-07-27] MED LIST changes: +LISI-538 PO; +LISI-542 PO; -LISI-898 PO; -LISI20TA33 PO
--- NOTE | 2020-07-27 09:57 | REP ---
INDICATION: CIRRHOSIS OF LIVER W/O ASCITES COMPARISON: 09/16/2018 TECHNIQUE: Real time mcdowell scale ultrasound examination using curved array transducer. FINDINGS: Liver demonstrates coarsened heterogeneous echotexture and measures 18.7 cm in craniocaudal length. No focal hepatic lesion identified. The pancreas is incompletely evaluated due to interposed bowel gas but visualized portions appear normal. The gallbladder is is mildly distended but without wall thickening, pericholecystic fluid, or cholelithiasis. No biliary ductal dilatation is appreciated and the common bile duct measures 6 mm diameter. Right kidney is normal in reniform shape without hydronephrosis and measures 12.7 x 5.0 x 6.8 cm with a 3.8 x 2.7 x 2.4 cm complex anechoic lesion in the midpole essentially unchanged when compared with CT dated 09/29/2018 and consistent with complex cyst. No ascites in the visualized right upper quadrant. IMPRESSION: 1. Heterogeneous liver consistent with cirrhosis. No focal hepatic lesion. <Electronically signed by Sherman Cantu > 07/27/20 0954
== END ==
LOC: M RAD 08:43
PROVIDERS: ATTEND Family Medicine
DX: K74.60 Unspecified cirrhosis of liver (principal)

== ENCOUNTER → 2020-08-23 | Outpatient (REF) | payer MEDICARE, MEDICAID ==
[~2020-08-23] MED LIST changes: -LISI-538 PO; -LISI-542 PO; +LISI-898 PO; +LISI20TA33 PO
== END ==
LOC: M SFHCPLAZ 09:45
PROVIDERS: ATTEND Family Medicine
DX: M17.12 Unilateral primary osteoarthritis, left knee (principal)

== ENCOUNTER → 2020-09-01 | Outpatient (REF) | payer MEDICARE, MEDICAID ==
[2020-09-01 13:46] LABS: HEMOGLOBIN 12.8 g/dl (12.0-15.5); MEAN CORPUSCULAR HEMOGLOBIN 29.9 pg (27.0-33.0); MEAN CORPUSCULAR HGB CONC 31.2 g/dl (32.0-36.5); MEAN CORPUSCULAR VOLUME 95.8 fl (80.0-96.0); PLATELET COUNT, AUTOMATED 103 10^3/uL (150-450); RED BLOOD COUNT 4.28 10^6/uL (4.00-5.40); WHITE BLOOD COUNT 5.8 10^3/uL (4.0-10.0)
== END ==
LOC: M SFHCPLAZ 11:01
PROVIDERS: ATTEND Family Medicine
DX: M17.12 Unilateral primary osteoarthritis, left knee (principal)

== ENCOUNTER → 2020-09-06 | Outpatient (REF) | payer MEDICARE, MEDICAID | LOC: M SFHCPLAZ 15:14 | PROVIDERS: ATTEND Family Medicine | DX: E11.9 Type 2 diabetes mellitus without complications (principal) ==

== ENCOUNTER → 2020-09-27 | Outpatient (REF) | payer MEDICARE, MEDICAID ==
[2020-09-27 13:12] LABS: HEMOGLOBIN A1c 7.1 %
[2020-09-27 13:24] LABS: BLOOD UREA NITROGEN 16 MG/DL (7-18); CALCIUM LEVEL 9.4 MG/DL (8.8-10.2); CARBON DIOXIDE LEVEL 28 MEQ/L (21-32); CHLORIDE LEVEL 111 MEQ/L (98-107); CHOLESTEROL LEVEL 171 MG/DL (<200); CHOLESTEROL RISK RATIO 3.638 (<5); CREATININE FOR GFR 0.89 MG/DL (0.55-1.30); GLOMERULAR FILTRATION RATE > 60.0 (>39); GLUCOSE, FASTING 145 MG/DL (70-100); HDL CHOLESTEROL 47 MG/DL (>40); LDL CHOLESTEROL 99 MG/DL (<100); NON-HDL-C 124 MG/DL; POTASSIUM SERUM 4.5 MEQ/L (3.5-5.1); SODIUM LEVEL 142 MEQ/L (136-145); TRIGLYCERIDES LEVEL 123 MG/DL (<150)
== END ==
LOC: M SFHCPLAZ 09:31
PROVIDERS: ATTEND Family Medicine
DX: E11.9 Type 2 diabetes mellitus without complications (principal)

== ENCOUNTER → 2020-12-22 | Outpatient (CLI) | payer MEDICARE, MEDICAID ==
[~2020-12-22] MED LIST changes: +CARB25TA16; +CYCL-707 PO; +JARD1TAB; +NAPR-885 PO
== END ==
LOC: M LABSMTC 10:59
PROVIDERS: ATTEND Anesthesiology
DX: Z01.818 Encounter for other preprocedural examination (principal); Z11.52 Encounter for screening for COVID-19

== ENCOUNTER 2020-12-27 09:07 | Day surgery (SDC) | payer MEDICARE, MEDICAID ==
[~2020-12-27] VITALS: Ht 167.6 cm; Wt 68.5 kg
[~2020-12-27 09:07] MED LIST changes: +NS 1,000 ML IV ONE
[2020-12-27] MEDS ORDERED: CALCCHW4 PO (10:05)
[2020-12-27] MEDS ORDERED: NOXI1TAB PO (10:05)
[2020-12-27] MEDS ORDERED: NITR4TASL SL (10:05)
[2020-12-27] MEDS ORDERED: CETI10CH PO (10:05)
[2020-12-27] MEDS ORDERED: LIDOCAINE 2% 100MG/5ML SDV (FOR ANES.) As Ordered ONE (10:52)
[2020-12-27] MEDS ORDERED: propofoL 200 MG/20 ML VIAL As Ordered ONE ×2 (10:52→11:59)
[2020-12-27] MEDS ORDERED: fentaNYL 100 MCG/2 ML INJECTION (J3010) As Ordered ONE (10:52)
[2020-12-27] MEDS ORDERED: ONDANSETRON 4MG/2ML VIAL As Ordered ONE (12:07)
--- NOTE | 2020-12-27 12:22 | ROOR ---
Patient Name: Shira Yuen Procedure Date: 12/27/2020 11:05 AM Date of : 1945 Age: 75 Room: [facility] Gender: Female Note Status: Finalized Procedure: Upper GI endoscopy Indications: For therapy of esophageal varices Providers: Surjit Donaldson MD Referring MD: Micheal Martin Do Requesting Provider: Medicines: Monitored Anesthesia Care Complications: No immediate complications. Procedure: Pre-Anesthesia Assessment: - Prior to the procedure, a History and Physical was performed, and patient medications and allergies were reviewed. The patient is competent. The risks and benefits of the procedure and the sedation options and risks were discussed with the patient. All questions were answered and informed consent was obtained. Patient identification and proposed procedure were verified by the physician, the nurse and the anesthesiologist in the procedure room. Mental Status Examination: alert and oriented. Airway Examination: normal oropharyngeal airway and neck mobility. Respiratory Examination: clear to auscultation. CV Examination: normal. Prophylactic Antibiotics: The patient does not require prophylactic antibiotics. Prior Anticoagulants: The patient has taken no previous anticoagulant or antiplatelet agents. ASA Grade Assessment: III - A patient with severe systemic disease. After reviewing the risks and benefits, the patient was deemed in satisfactory condition to undergo the procedure. The anesthesia plan was to use monitored anesthesia care (MAC). Immediately prior to administration of medications, the patient was re-assessed for adequacy to receive sedatives. The heart rate, respiratory rate, oxygen saturations, blood pressure, adequacy of pulmonary ventilation, and response to care were monitored throughout the procedure. The physical status of the patient was re-assessed after the procedure. The Endoscope was introduced through the mouth, and advanced to the second part of duodenum. The upper GI endoscopy was accomplished without difficulty. The patient tolerated the procedure well. Findings: Grade II, large (> 5 mm) varices were found in the middle third of the esophagus and in the lower third of the esophagus. Four bands were successfully placed with incomplete eradication of varices. There was no bleeding during and at the end of the procedure. A medium-sized hiatal hernia was present. Severe portal hypertensive gastropathy was found in the gastric body and in the gastric antrum. Biopsies were taken with a cold forceps for Helicobacter pylori testing. Verification of patient identification for the specimen was done by the physician and nurse using the patient's name, date and medical record number. Estimated blood loss was minimal. The duodenal bulb and second portion of the duodenum were normal. Impression: - Grade II and large (> 5 mm) esophageal varices. Incompletely eradicated. Banded. - Medium-sized hiatal hernia. - Portal hypertensive gastropathy. Biopsied. - Normal duodenal bulb and second portion of the duodenum. Recommendation: - Patient has a contact number available for emergencies. The signs and symptoms of potential delayed complications were discussed with the patient. Return to normal activities tomorrow. Written discharge instructions were provided to the patient. - Clear liquid diet for 1 day, then advance as tolerated to mechanical soft diet, high fiber diet and low sodium diet. - Continue present medications. - Await pathology results. - Repeat upper endoscopy in 3 months to evaluate the response to therapy and for retreatment. - Return to GI clinic in [facility] (address [address], [address], [place] [address]) in 4 -- 6 weeks. Please call GI clinic @ [phone] for apppointment date and time. - Return to primary care physician. Procedure Code(s): --- Professional --- 99169, Esophagogastroduodenoscopy, flexible, transoral; with band ligation of esophageal/gastric varices 40301, Esophagogastroduodenoscopy, flexible, transoral; with biopsy, single or multiple Diagnosis Code(s): --- Professional --- I85.00, Esophageal varices without bleeding K44.9, Diaphragmatic hernia without obstruction or gangrene K76.6, Portal hypertension K31.89, Other diseases of stomach and duodenum CPT copyright 2019 [employer]. All rights reserved. The codes documented in this report are preliminary and upon hims coder review may be revised to meet current compliance requirements. Surjit Donaldson MD Surjit Donaldson MD 12/27/2020 12:21:39 PM Electronically signed by Surjit Donaldson MD Number of Addenda: 0 Note Initiated On: 12/27/2020 11:05 AM Estimated Blood Loss: Estimated blood loss was minimal.
--- NOTE | 2020-12-27 12:26 | ROOR ---
Patient Name: Shira Yuen Procedure Date: 12/27/2020 11:06 AM Date of : 1945 Age: 75 Room: [facility] Gender: Female Note Status: Finalized Procedure: Colonoscopy Indications: High risk colon cancer surveillance: Personal history of colonic polyps Providers: Surjit Donaldson MD Referring MD: Micheal Martin Do Requesting Provider: Medicines: Monitored Anesthesia Care Complications: No immediate complications. Procedure: Pre-Anesthesia Assessment: - Prior to the procedure, a History and Physical was performed, and patient medications and allergies were reviewed. The patient is competent. The risks and benefits of the procedure and the sedation options and risks were discussed with the patient. All questions were answered and informed consent was obtained. Patient identification and proposed procedure were verified by the physician, the nurse and the anesthesiologist in the procedure room. Mental Status Examination: alert and oriented. Airway Examination: normal oropharyngeal airway and neck mobility. Respiratory Examination: clear to auscultation. CV Examination: normal. Prophylactic Antibiotics: The patient does not require prophylactic antibiotics. Prior Anticoagulants: The patient has taken no previous anticoagulant or antiplatelet agents. ASA Grade Assessment: III - A patient with severe systemic disease. After reviewing the risks and benefits, the patient was deemed in satisfactory condition to undergo the procedure. The anesthesia plan was to use monitored anesthesia care (MAC). Immediately prior to administration of medications, the patient was re-assessed for adequacy to receive sedatives. The heart rate, respiratory rate, oxygen saturations, blood pressure, adequacy of pulmonary ventilation, and response to care were monitored throughout the procedure. The physical status of the patient was re-assessed after the procedure. The Colonoscope was introduced through the anus and advanced to the terminal ileum, with identification of the appendiceal orifice and IC valve. The colonoscopy was performed without difficulty. The patient tolerated the procedure well. The quality of the bowel preparation was good. The terminal ileum, ileocecal valve, appendiceal orifice, and rectum were photographed. Scope insertion time was 2 minutes. Scope withdrawal time was 9 minutes. The total duration of the procedure was 12 minutes. Findings: The perianal and digital rectal examinations were normal. Five sessile polyps were found in the sigmoid colon, transverse colon and ascending colon. The polyps were 5 to 15 mm in size. These polyps were removed with a hot snare. Resection and retrieval were complete. To close a defect after polypectomy, three hemostatic clips were successfully placed. There was no bleeding at the end of the procedure. Non-bleeding external and internal hemorrhoids were found during retroflexion. The hemorrhoids were medium-sized. An area of significantly congested mucosa was found in the entire colon. ( likely from portal hypertension). Impression: - Five 5 to 15 mm polyps in the sigmoid colon, in the transverse colon and in the ascending colon, removed with a hot snare. Resected and retrieved. Clips were placed. - Non-bleeding external and internal hemorrhoids. - Congested mucosa in the entire examined colon. Recommendation: - Patient has a contact number available for emergencies. The signs and symptoms of potential delayed complications were discussed with the patient. Return to normal activities tomorrow. Written discharge instructions were provided to the patient. - Clear liquid diet for 1 day, then advance as tolerated to mechanical soft diet, high fiber diet and low sodium diet. - Continue present medications. - Await pathology results. - Repeat colonoscopy in 3 - 5 years for surveillance based on pathology results. - Return to GI clinic in [facility] (address [address], [address], [place] [address]) in 4 -- 6 weeks. Please call GI clinic @ [phone] for apppointment date and time. - Return to primary care physician. Procedure Code(s): --- Professional --- 43800, Colonoscopy, flexible; with removal of tumor(s), polyp(s), or other lesion(s) by snare technique Diagnosis Code(s): --- Professional --- Z86.010, Personal history of colonic polyps K63.5, Polyp of colon K64.8, Other hemorrhoids K63.89, Other specified diseases of intestine CPT copyright 2019 [employer]. All rights reserved. The codes documented in this report are preliminary and upon shirt presser review may be revised to meet current compliance requirements. Surjit Donaldson MD Surjit Donaldson MD 12/27/2020 12:25:59 PM Electronically signed by Surjit Doanldson MD Number of Addenda: 0 Note Initiated On: 12/27/2020 11:06 AM Estimated Blood Loss: Estimated blood loss was minimal.
[2020-12-27 12:40] VITALS: BP 174/93
== END 2020-12-27 12:44 | disposition home or self-care (01) ==
LOC: M OPP 09:07
PROVIDERS: ATTEND Internal Medicine Gastroenterology
DX: Z12.11 Encounter for screening for malignant neoplasm of colon (principal); Z86.010 Personal history of colon polyps; K63.5 Polyp of colon; K64.8 Other hemorrhoids; K63.89 Other specified diseases of intestine; I85.00 Esophageal varices without bleeding; K76.6 Portal hypertension; K31.89 Other diseases of stomach and duodenum; K44.9 Diaphragmatic hernia without obstruction or gangrene; Z79.84 Long term (current) use of oral hypoglycemic drugs; Z79.899 Other long term (current) drug therapy; Z95.5 Presence of coronary angioplasty implant and graft
CPT/HCPCS: 43239; 43244; 45385; 88305; J2405; J3010

== ENCOUNTER → 2021-01-16 | Outpatient (CLI) | payer MEDICARE, MEDICAID ==
[~2021-01-16] MED LIST changes: +CALCCHW4 PO; +NOXI1TAB PO; -NS 1,000 ML IV ONE
--- NOTE | 2021-01-16 11:34 | REP ---
INDICATION: ASCITES. COMPARISON: 07/27/2020. TECHNIQUE: Real-time sonographic evaluation of right upper quadrant performed. FINDINGS: There is a gallstone in the gallbladder without gallbladder wall thickening or pericholecystic fluid.. There is no intrahepatic or extrahepatic biliary dilatation, common bile duct measures 7 mm in maximum diameter. The liver demonstrates homogeneous echotexture with no gross mass. The visualized pancreas is grossly unremarkable, not well seen due to overlying bowel gas. The right kidney demonstrates no hydronephrosis, with a normal size of 13.7 cm in length. There is a cyst of the right kidney 2.6 x 3.3 x 2.0 cm.No free fluid is seen. IMPRESSION: Gallstone in the gallbladder. No gallbladder wall thickening, pericholecystic fluid or biliary dilatation. No liver mass. Right renal cyst. <Electronically signed by Ho López > 01/16/21 [id number]
== END ==
LOC: M RAD 09:36
PROVIDERS: ATTEND Internal Medicine Gastroenterology
DX: K70.30 Alcoholic cirrhosis of liver without ascites (principal); K80.20 Calculus of gallbladder without cholecystitis without obstruction; N28.1 Cyst of kidney, acquired

== ENCOUNTER 2021-01-29 12:09 | Observation (INO) | payer MEDICARE, MEDICAID ==
[~2021-01-29] VITALS: Ht 167.6 cm; Wt 64.9 kg
[~2021-01-29 12:09] MED LIST changes: -CARB25TA16; +CARB25TA16 PO; -CITA40TA4 PO; +CITA40TA7 PO; -IBUP200T45 PO; +IBUP200T46 PO; -JARD1TAB; +JARD1TAB PO; -LISI-898 PO; +LISI5TAB11 PO
[2021-01-29] MEDS ORDERED: SINEMET 25-100 MG TAB PO STA ×2 (13:00→17:46)
[2021-01-29 13:20] LABS: VENOUS BASE EXCESS -5.6 (-2.0-2.0); VENOUS HCO3 19.7 MEQ/L (23.0-27.0); VENOUS O2 SATURATION 86.6 % (60.0-80.0); VENOUS PARTIAL PRESSURE CO2 38.2 mmHg (38.0-50.0); VENOUS PH 7.331 UNITS (7.330-7.430); VENOUS STANDARD HCO3 19.7 MEQ/L; VENOUS TOTAL CO2 20.9 MEQ/L (24.0-28.0)
[2021-01-29 13:26] LABS: BASO % 0.6 % (0.0-1.0); EOS # 0.1 10^3/uL (0.0-0.5); EOS % 1.2 % (0.0-3.0); HEMOGLOBIN 15.3 g/dl (12.0-15.5); LYMPH # 1.5 10^3/uL (1.5-5.0); MEAN CORPUSCULAR HEMOGLOBIN 30.2 pg (27.0-33.0); MEAN CORPUSCULAR HGB CONC 32.6 g/dl (32.0-36.5); MEAN CORPUSCULAR VOLUME 92.7 fl (80.0-96.0); MONO # 0.6 10^3/uL (0.0-0.8); MONO % 8.6 % (2.0-8.0); NEUTROPHILS # 4.7 10^3/uL (1.5-8.5); PLATELET COUNT, AUTOMATED 171 10^3/uL (150-450); RED BLOOD COUNT 5.07 10^6/uL (4.00-5.40)
[2021-01-29 13:53] LABS: OSMOLALITY SERUM 292 MOSM/KG (280-301)
[2021-01-29 14:08] LABS: ALBUMIN 3.7 GM/DL (3.2-5.2); ALT/SGPT 9 U/L (12-78); BILIRUBIN,DIRECT 0.3 MG/DL (0.0-0.2); BILIRUBIN,TOTAL 0.8 MG/DL (0.2-1.0); BLOOD UREA NITROGEN 26 MG/DL (7-18); CALCIUM LEVEL 9.8 MG/DL (8.8-10.2); CARBON DIOXIDE LEVEL 21 MEQ/L (21-32); CHLORIDE LEVEL 106 MEQ/L (98-107); CK-MB VALUE MASS < 1.0 NG/ML (<3.6); CPK CREATINE PHOSPHOKINASE 52 U/L (26-192); CREATININE FOR GFR 0.97 MG/DL (0.55-1.30); GLOMERULAR FILTRATION RATE 59.9 (>39); GLUCOSE, FASTING 96 MG/DL (70-100); MB/CK RELATIVE INDEX 1.92 (< OR =4); POTASSIUM SERUM 3.8 MEQ/L (3.5-5.1); SODIUM LEVEL 137 MEQ/L (136-145); THYROID STIMULATING HORMONE 0.881 uIU/ML (0.358-3.740); TOTAL PROTEIN 8.5 GM/DL (6.4-8.2); TROPONIN I < 0.02 NG/ML (< 0.10)
[2021-01-29] MEDS ORDERED: NS 500 ML IV ONE ×2 (15:30→18:25)
[2021-01-29] MEDS ORDERED: ONDANSETRON 4MG/2ML VIAL IV PRN (16:30)
[2021-01-29] MEDS ORDERED: DEXTROSE 50% 50 ML SYRINGE IV PRN (16:30)
[2021-01-29] MEDS ORDERED: GLUCAGON INJ 1MG VIAL SC PRN (16:30)
[2021-01-29] MEDS ORDERED: GLUCOSE 4GM CHEW TABLET PO PRN (16:30)
[2021-01-29] MEDS ORDERED: DONE10TA90 PO (16:37)
[2021-01-29] MEDS ORDERED: ZONI25CA13 PO (16:37)
[2021-01-29 16:51] LABS: RSV AMPLIFICATION NEGATIVE (NEGATIVE)
[2021-01-29] MEDS ORDERED: D31000TA2 PO (17:38)
[2021-01-29] MEDS ORDERED: LORA-674 PO (17:39)
[2021-01-29] MEDS ORDERED: HOME MED LIST COMPLETE! XX SCH (17:40)
[2021-01-29] MEDS ORDERED: CYCLOBENZAPRINE 10MG TABLET PO PRN (18:15)
[2021-01-29] MEDS ORDERED: NITROGLYCERIN 0.4 MG SUBL TABLET SL PRN (18:15)
[2021-01-29] MEDS: SUCRALFATE SUSP 1GM/10ML UD PO SCH ×2 (20:22→21:00)
[2021-01-29] MEDS: HumaLOG INSULIN (NovoLOG) PER UNIT SC SCH (20:23)
[2021-01-29] MEDS: DONEPEZIL 5 MG TAB PO SCH (21:00)
[2021-01-29] MEDS ORDERED: SINEMET**CR** 25/100 TABCR PO SCH (21:00)
[2021-01-29] MEDS ORDERED: HumaLOG INSULIN (NovoLOG) PER UNIT SC SCH (21:00)
[2021-01-29 21:10] VITALS: BP 119/65
[2021-01-30] MEDS: DONEPEZIL 5 MG TAB PO SCH (02:12)
[2021-01-30 06:00] VITALS: BP 120/78
[2021-01-30 06:08] LABS: HEMATOCRIT 41.9 % (36.0-47.0); HEMOGLOBIN 13.8 g/dl (12.0-15.5); MEAN CORPUSCULAR HEMOGLOBIN 30.1 pg (27.0-33.0); MEAN CORPUSCULAR HGB CONC 32.9 g/dl (32.0-36.5); MEAN CORPUSCULAR VOLUME 91.3 fl (80.0-96.0); PLATELET COUNT, AUTOMATED 125 10^3/uL (150-450); RED BLOOD COUNT 4.59 10^6/uL (4.00-5.40)
[2021-01-30 06:24] LABS: BLOOD UREA NITROGEN 16 MG/DL (7-18); CALCIUM LEVEL 9.4 MG/DL (8.8-10.2); CARBON DIOXIDE LEVEL 22 MEQ/L (21-32); CHLORIDE LEVEL 112 MEQ/L (98-107); CREATININE FOR GFR 0.78 MG/DL (0.55-1.30); GLOMERULAR FILTRATION RATE > 60.0 (>39); GLUCOSE, FASTING 93 MG/DL (70-100); POTASSIUM SERUM 3.2 MEQ/L (3.5-5.1); SODIUM LEVEL 142 MEQ/L (136-145)
[2021-01-30] MEDS: HumaLOG INSULIN (NovoLOG) PER UNIT SC SCH ×2 (07:30→11:58)
[2021-01-30] MEDS ORDERED: POTASSIUM CHLORIDE 10MEQ SR TABLET PO ONE (08:00)
[2021-01-30 08:15] VITALS: BP 120/78
[2021-01-30] MEDS: SUCRALFATE SUSP 1GM/10ML UD PO SCH ×2 (08:15→11:58)
[2021-01-30] MEDS: SINEMET 25-100 MG TAB PO SCH ×3 (08:15→14:37)
[2021-01-30] MEDS ORDERED: LORATADINE 10 MG TAB PO SCH (09:00)
[2021-01-30] MEDS ORDERED: VITAMIN D 1,000 INTERNATIONAL UNITS TABLET PO SCH (09:00)
[2021-01-30] MEDS ORDERED: PANTOPRAZOLE 40MG TAB (PROTONIX) PO SCH (09:00)
[2021-01-30] MEDS ORDERED: lisinopriL 5 MG TAB PO SCH (09:00)
[2021-01-30] MEDS ORDERED: ENOXAPARIN 40MG/0.4ML SYRINGE (J1650 PER 10MG) SC SCH (09:00)
[2021-03-07] MEDS ORDERED: CARB25TA9 PO (08:04)
== END 2021-01-30 15:16 | disposition home or self-care (01) ==
LOC: M ED 12:09 → M ED INP 16:28 → ENRESERVTM 19:40 → ENRESERVDT 19:40 → M MSPAV 21:10
PROVIDERS: ADMIT Internal Medicine; ATTEND Internal Medicine
DX: E86.0 Dehydration (principal); T50.905A Adverse effect of unspecified drugs, medicaments and biological substances, initial encounter; G20 Parkinson's disease; I10 Essential (primary) hypertension; E11.9 Type 2 diabetes mellitus without complications; R53.83 Other fatigue; M62.81 Muscle weakness (generalized); N39.0 Urinary tract infection, site not specified; I25.10 Atherosclerotic heart disease of native coronary artery without angina pectoris; Z95.1 Presence of aortocoronary bypass graft; Z98.61 Coronary angioplasty status; L40.8 Other psoriasis; K70.30 Alcoholic cirrhosis of liver without ascites; Z87.891 Personal history of nicotine dependence; K21.9 Gastro-esophageal reflux disease without esophagitis; F32.9 Major depressive disorder, single episode, unspecified; C88.0 Waldenstrom macroglobulinemia
CPT/HCPCS: 36415; 70450; 71045; 80048; 80076; 81001; 82140; 82550; 82553; 82803; 83930; 84443; 84484; 85025; 85027; 87186; 87631; 93005; 93041; 96360; 96361; 97161; 97165; 97530; 99285; G0378

== ENCOUNTER → 2021-02-15 | Outpatient (REF) | payer MEDICARE, MEDICAID ==
[~2021-02-15] MED LIST changes: +CARB25TA9; +CITA40TA4 PO; -CITA40TA7 PO; +D31000TA2 PO; +DONE10TA90 PO; +IBUP200T45 PO; -IBUP200T46 PO; +LASI20TA3 PO; +LISI-898 PO; -LISI5TAB11 PO; +LORA-674 PO; +ZONI25CA13 PO
== END ==
LOC: M SFHCPLAZ 10:42
PROVIDERS: ATTEND Internal Medicine
DX: R53.83 Other fatigue (principal)
CPT/HCPCS: 93005; G0463

== ENCOUNTER → 2021-02-21 | Outpatient (REF) | payer MEDICARE, MEDICAID ==
[~2021-02-21] MED LIST changes: -CARB25TA9; -LASI20TA3 PO
[2021-02-21 15:19] LABS: APPEARANCE, URINE HAZY (CLEAR); BACTERIA, URINE AUTO NEGATIVE (NEGATIVE); BILIRUBIN, URINE AUTO NEGATIVE (NEGATIVE); BLOOD, URINE BLOOD NEGATIVE (NEGATIVE); COLOR, URINE YELLOW (YELLOW); GLUCOSE, URINE (UA) AUTO 3+ mg/dL (NEGATIVE); KETONE, URINE AUTO NEGATIVE (NEGATIVE); LEUKOCYTE ESTERASE, URINE AUTO NEGATIVE (NEGATIVE); NITRITE, URINE AUTO NEGATIVE (NEGATIVE); PROTEIN, URINE AUTO 1+ mg/dL (NEGATIVE); RBC, URINE AUTO 1 /HPF (0-3); SPECIFIC GRAVITY URINE AUTO 1.026 (1.002-1.035); SQUAMOUS EPITHELIAL CELL UR AU 0 /HPF (0-6); WBC, URINE AUTO 2 /HPF (0-3)
[2021-02-21 15:58] LABS: FREE T4 1.77 NG/DL (0.76-1.46); THYROID STIMULATING HORMONE 0.461 uIU/ML (0.358-3.740)
[2021-02-21 16:22] LABS: HEMOGLOBIN A1c 5.9 %
== END ==
LOC: M SHH 14:37
PROVIDERS: ATTEND Student in an Organized Health Care Education/Training Program
DX: R53.83 Other fatigue (principal); R30.0 Dysuria

== ENCOUNTER → 2021-03-01 | Outpatient (REF) | payer MEDICARE, MEDICAID ==
[~2021-03-01] MED LIST changes: +CARB25TA9; +LASI20TA3 PO
[2021-03-01 13:36] LABS: BASO % 0.6 % (0.0-1.0); EOS # 0.1 10^3/uL (0.0-0.5); HEMATOCRIT 48.3 % (36.0-47.0); HEMOGLOBIN 15.3 g/dl (12.0-15.5); LYMPH % 20.3 % (24.0-44.0); MEAN CORPUSCULAR HEMOGLOBIN 30.6 pg (27.0-33.0); MEAN CORPUSCULAR HGB CONC 31.7 g/dl (32.0-36.5); MEAN CORPUSCULAR VOLUME 96.6 fl (80.0-96.0); MONO # 0.6 10^3/uL (0.0-0.8); MONO % 11.6 % (2.0-8.0); NEUTROPHILS # 3.2 10^3/uL (1.5-8.5); NEUTROPHILS % 65.7 % (36.0-66.0); WHITE BLOOD COUNT 4.8 10^3/uL (4.0-10.0)
[2021-03-01 13:47] LABS: PLATELET COUNT, AUTOMATED 93 10^3/uL (150-450)
[2021-03-01 14:36] LABS: ALBUMIN 3.5 GM/DL (3.2-5.2); ALT/SGPT 11 U/L (12-78); BILIRUBIN,DIRECT 0.2 MG/DL (0.0-0.2); BILIRUBIN,TOTAL 0.8 MG/DL (0.2-1.0); BLOOD UREA NITROGEN 15 MG/DL (7-18); CALCIUM LEVEL 9.6 MG/DL (8.8-10.2); CARBON DIOXIDE LEVEL 25 MEQ/L (21-32); CHLORIDE LEVEL 109 MEQ/L (98-107); CREATININE FOR GFR 0.74 MG/DL (0.55-1.30); GLOMERULAR FILTRATION RATE > 60.0 (>39); GLUCOSE, FASTING 87 MG/DL (70-100); IRON (FE) 88 UG/DL (50-170); PERCENT SATURATION 24.8 % (13.2-45.0); POTASSIUM SERUM 3.7 MEQ/L (3.5-5.1); SODIUM LEVEL 142 MEQ/L (136-145); TOTAL IRON BINDING CAPACITY 355 UG/DL (250-450)
== END ==
LOC: M SHH 13:06
PROVIDERS: ATTEND Internal Medicine Gastroenterology
DX: K70.30 Alcoholic cirrhosis of liver without ascites (principal); I85.00 Esophageal varices without bleeding; Z79.899 Other long term (current) drug therapy; R53.83 Other fatigue

== ENCOUNTER → 2021-03-01 | Outpatient (REF) | payer MEDICARE, MEDICAID ==
[2021-03-01 14:41] LABS: FREE T4 1.85 NG/DL (0.76-1.46); THYROID STIMULATING HORMONE 1.16 uIU/ML (0.358-3.740)
[2021-03-01 15:16] LABS: HEMOGLOBIN A1c 5.9 %
== END ==
LOC: M SHH 13:09
PROVIDERS: ATTEND Student in an Organized Health Care Education/Training Program
DX: R53.83 Other fatigue (principal)

== ENCOUNTER 2021-03-07 05:14 | Emergency (ER) | payer MEDICARE, MEDICAID ==
[~2021-03-07] VITALS: Ht 167.6 cm; Wt 61.8 kg
[~2021-03-07 05:14] MED LIST changes: -CARB25TA9; -LASI20TA3 PO
[2021-03-07 06:13] LABS: BASO % 0.6 % (0.0-1.0); EOS # 0.1 10^3/uL (0.0-0.5); EOS % 1.7 % (0.0-3.0); HEMATOCRIT 46.9 % (36.0-47.0); HEMOGLOBIN 15.4 g/dl (12.0-15.5); LYMPH # 0.9 10^3/uL (1.5-5.0); LYMPH % 23.7 % (24.0-44.0); MEAN CORPUSCULAR HGB CONC 32.8 g/dl (32.0-36.5); MEAN CORPUSCULAR VOLUME 94.6 fl (80.0-96.0); MONO # 0.4 10^3/uL (0.0-0.8); MONO % 11.4 % (2.0-8.0); NEUTROPHILS # 2.2 10^3/uL (1.5-8.5); NEUTROPHILS % 62.3 % (36.0-66.0); PLATELET COUNT, AUTOMATED 98 10^3/uL (150-450); RED BLOOD COUNT 4.96 10^6/uL (4.00-5.40); WHITE BLOOD COUNT 3.6 10^3/uL (4.0-10.0)
--- NOTE | 2021-03-07 06:17 | REPVR ---
PROCEDURE INFORMATION: Exam: XR Chest Exam date and time: 03/07/2021 5:55 AM Age: 75 years old Clinical indication: Cough and dyspnea; Additional info: Dyspnea/cough TECHNIQUE: Imaging protocol: XR of the chest. Views: 1 view. COMPARISON: CR Chest, 1 view 01/29/2021 1:06 PM FINDINGS: Tubes, catheters and devices: The patient is status post sternotomy with grossly intact sternal wires. Lungs: There is subtle prominent interstitial markings. Pleural spaces: Unremarkable. No pleural effusion. No pneumothorax. Heart/Mediastinum: Unremarkable. No cardiomegaly. Bones/joints: Old left proximal humeral shaft fracture seen. Old left-sided rib fracture seen. IMPRESSION: No focal consolidation. Nonspecific subtle prominent interstitial markings possibly exacerbated by the portable technique. Underlying subtle interstitial process cannot be completely excluded. Electronically signed by: Teja Lucas On 03/07/2021 06:16:31 AM
[2021-03-07 06:48] LABS: ALBUMIN 3.3 GM/DL (3.2-5.2); ALT/SGPT 11 U/L (12-78); BILIRUBIN,DIRECT < 0.1 MG/DL (0.0-0.2); BILIRUBIN,TOTAL 0.7 MG/DL (0.2-1.0); BLOOD UREA NITROGEN 13 MG/DL (7-18); CALCIUM LEVEL 9.5 MG/DL (8.8-10.2); CARBON DIOXIDE LEVEL 25 MEQ/L (21-32); CHLORIDE LEVEL 109 MEQ/L (98-107); CK-MB VALUE MASS < 1.0 NG/ML (<3.6); CPK CREATINE PHOSPHOKINASE 107 U/L (26-192); CREATININE FOR GFR 0.74 MG/DL (0.55-1.30); GLOMERULAR FILTRATION RATE > 60.0 (>39); GLUCOSE, FASTING 99 MG/DL (70-100); MB/CK RELATIVE INDEX 0.93 (< OR =4); POTASSIUM SERUM 5.6 MEQ/L (3.5-5.1); SODIUM LEVEL 140 MEQ/L (136-145); TOTAL PROTEIN 8.2 GM/DL (6.4-8.2); TROPONIN I < 0.02 NG/ML (< 0.10)
[2021-03-07 07:22] LABS: NT-PRO BNP 194 PG/ML (<125)
[2021-03-07] MEDS ORDERED: FUROSEMIDE 20MG/2ML VIAL (J1940) IV ONE (07:30)
[2021-03-07] MEDS ORDERED: CARB25TA9 (08:04)
[2021-03-07] MEDS ORDERED: LASI20TA3 PO (10:15)
[2021-03-07 10:49] VITALS: BP 153/86
--- NOTE | 2021-03-07 17:55 | ECGEPIP ---
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
== END 2021-03-07 11:01 | disposition home or self-care (01) ==
LOC: M ED 05:14
DX: R06.01 Orthopnea (principal); E87.6 Hypokalemia
CPT/HCPCS: 71045; 80048; 80076; 82550; 82553; 83880; 84484; 85025; 85049; 85055; 87798; 93005; 93041; 94760; 96374; 99285; J1940

== ENCOUNTER → 2021-03-13 | Outpatient (REF) | payer MEDICARE, MEDICAID ==
[~2021-03-13] MED LIST changes: +CARB25TA9; +LASI20TA3 PO
[2021-03-13 16:54] LABS: ALBUMIN 3.3 GM/DL (3.2-5.2); ALT/SGPT 15 U/L (12-78); BILIRUBIN,TOTAL 0.6 MG/DL (0.2-1.0); BLOOD UREA NITROGEN 10 MG/DL (7-18); CARBON DIOXIDE LEVEL 26 MEQ/L (21-32); CHLORIDE LEVEL 108 MEQ/L (98-107); CREATININE FOR GFR 0.64 MG/DL (0.55-1.30); GLOMERULAR FILTRATION RATE > 60.0 (>39); GLUCOSE, FASTING 66 MG/DL (70-100); POTASSIUM SERUM 3.6 MEQ/L (3.5-5.1); SODIUM LEVEL 143 MEQ/L (136-145); TOTAL PROTEIN 7.4 GM/DL (6.4-8.2)
== END ==
LOC: M SHH 15:33
PROVIDERS: ATTEND Physician Assistant Medical
DX: E87.5 Hyperkalemia (principal)

== ENCOUNTER → 2021-04-06 | Outpatient (CLI) | payer MEDICARE, MEDICAID | LOC: M LABSMTC 10:31 | PROVIDERS: ATTEND Anesthesiology | DX: Z01.818 Encounter for other preprocedural examination (principal); Z11.52 Encounter for screening for COVID-19 ==

== ENCOUNTER → 2021-05-16 | Outpatient (CLI) | payer MEDICARE, MEDICAID ==
[~2021-05-16] MED LIST changes: -IBUP200T45 PO; +IBUP200T46 PO
[2021-05-16 13:50] LABS: BASO % 0.2 % (0.0-1.0); EOS # 0.1 10^3/uL (0.0-0.5); EOS % 1.9 % (0.0-3.0); HEMATOCRIT 39.4 % (36.0-47.0); HEMOGLOBIN 12.3 g/dl (12.0-15.5); LYMPH % 23.5 % (24.0-44.0); MEAN CORPUSCULAR HEMOGLOBIN 30.8 pg (27.0-33.0); MEAN CORPUSCULAR HGB CONC 31.2 g/dl (32.0-36.5); MEAN CORPUSCULAR VOLUME 98.5 fl (80.0-96.0); MONO # 0.4 10^3/uL (0.0-0.8); MONO % 9.2 % (2.0-8.0); NEUTROPHILS # 2.7 10^3/uL (1.5-8.5); NEUTROPHILS % 64.5 % (36.0-66.0); WHITE BLOOD COUNT 4.1 10^3/uL (4.0-10.0)
[2021-05-16 13:57] LABS: PLATELET COUNT, AUTOMATED 87 10^3/uL (150-450)
[2021-05-16 14:14] LABS: ALBUMIN 3.1 GM/DL (3.2-5.2); ALT/SGPT 12 U/L (12-78); BILIRUBIN,DIRECT 0.2 MG/DL (0.0-0.2); BILIRUBIN,TOTAL 0.6 MG/DL (0.2-1.0); BLOOD UREA NITROGEN 18 MG/DL (7-18); CALCIUM LEVEL 9.4 MG/DL (8.8-10.2); CARBON DIOXIDE LEVEL 24 MEQ/L (21-32); CHLORIDE LEVEL 113 MEQ/L (98-107); CREATININE FOR GFR 0.79 MG/DL (0.55-1.30); GLOMERULAR FILTRATION RATE > 60.0 (>39); GLUCOSE, FASTING 149 MG/DL (70-100); POTASSIUM SERUM 4.1 MEQ/L (3.5-5.1); SODIUM LEVEL 145 MEQ/L (136-145); TOTAL PROTEIN 7.3 GM/DL (6.4-8.2)
== END ==
LOC: M WUC 10:30
PROVIDERS: ATTEND Internal Medicine Gastroenterology
DX: K70.30 Alcoholic cirrhosis of liver without ascites (principal); I85.00 Esophageal varices without bleeding

== ENCOUNTER → 2021-05-24 | Outpatient (CLI) | payer MEDICARE, MEDICAID ==
--- NOTE | 2021-05-24 10:27 | REP ---
INDICATION: CIRRHOSIS EVAL FOR CYST, HCC COMPARISON: None. TECHNIQUE: Real time mcdowell scale ultrasound examination using curved array transducer. FINDINGS: Liver demonstrates nodular contour and coarsened echotexture. Small chronic appearing parenchymal calcification is identified in the right lobe and is insignificant. Color Doppler evaluation demonstrates dilated main portal vein to 18.5 mm with normal flow characteristics and direction. Pancreas is incompletely evaluated due to interposed bowel gas. The gallbladder includes small echogenic focus without shadowing suggesting 5 mm polyp. No gallstones or wall thickening. No biliary ductal dilatation is appreciated and the common bile duct measures 7.4 mm diameter. Right kidney is normal in reniform shape without hydronephrosis and measures 12.9 x 5.7 x 4.0 cm including 1.3 cm, 3.8 cm, and 1.2 cm cysts. No ascites in the visualized right upper quadrant. IMPRESSION: 1. Cirrhosis. 2. Small benign appearing gallbladder polyp. 3. Relatively benign appearing renal cysts. <Electronically signed by Sherman Cantu > 05/24/21 102
== END ==
LOC: M RAD 09:15
PROVIDERS: ATTEND Internal Medicine Gastroenterology
DX: K70.30 Alcoholic cirrhosis of liver without ascites (principal); I85.00 Esophageal varices without bleeding; K76.6 Portal hypertension

== ENCOUNTER 2021-06-09 11:59 | Emergency (ER) | payer MEDICARE, MEDICAID ==
[~2021-06-09] VITALS: Ht 167.6 cm; Wt 71.7 kg
[2021-06-09 12:04] VITALS: BP 150/71
--- OUTSIDE RECORDS SUMMARY | 2021-06-09 12:13 | CCD ---
Author Author [facility] Organization [facility] Address Unknown Phone Unavailable Care Team Providers Care Physical Therapist Name Role Phone Micheal Martin Unavailable PROBLEMS Type Condition ICD9-CM Code SZQ50-RO Code Onset Dates Condition S tatus W/U Status Risk SNOMED Code Notes Problem Constipation, unspecified constipation type K59.00 Active confirmed 89871293 Problem Allergic rhinitis, unspecified seasonality, unspecifie d trigger J30.9 Active confirmed 20062124 Problem Coronary artery disease, ang amaury presence unspecified, unspecified vessel or lesion type, unspecified whether lummi or transplanted heart I25.10 Active confirmed 31587272 Problem Other sinusitis, unspecified chronicity J32.9 Active confirmed 78531866 Problem Thyroid nodule E04.1 Active confirmed 38496 5005 Problem Polyarthralgia M25.50 Active confirmed 36430 005 Problem Pancytopenia D61.818 Active confirmed 806287 005 Problem 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 Active confirmed 64496 01 Problem Hypercholesterolemia E78.00 Active confirmed 17086422 Problem Melanocytic nevus of right lower extremity D22.71 Active confirmed 034101554353297 Problem Psoriasis L40.9 Active confirmed 2373387 Problem Vitamin D deficiency E55.9 Active confirmed 46184534 Problem Gastroesophageal reflux disease without esophagitis K21.9 Active confirmed 601248878 Problem Cigarette nicotine dependence without complication F17.210 Active confirmed 33030367 Problem Antiphospholipid antibody positive R76.0 Activ e confirmed 408888530 Problem Type 2 diabetes mellitus wit hout complication, without long-term current use of insulin E11.9 Active confirmed 506574594 Problem Macroglobulinemia C88.0 Active confirmed 19 9686212 Problem Mild depression F32.0 Active confirmed 3104 93725 Problem History of alcohol abuse Z87.898 Active confirmed 216068179 Problem Cirrhosis of liver without ascites, unsp ecified hepatic cirrhosis type K74.60 Active confirmed 80379751 Problem Age-related osteoporosis without current pathological fracture M81.0 Active confirmed 66546417 Problem Osteoarthritis of both knees, unspecified osteoarthritis t ype M17.0 Active confirmed 558607888817304 Problem Dysthymia F34.1 Active confirmed 70146224 Problem Melanocytic nevus of left lower extremity D22.72 Active confirmed 179532880431489 Problem Essential (primary) hypertension I10 Active conf irmed 45969658 Problem Pitting of nails L60.8 Active confirmed 897 51856 Problem Other cirrhosis of liver K74.69 Active confirmed 33515309 Problem Lentigines L81.4 Active confirmed 344300123 Problem Melanocytic nevi of trunk D22.5 Active confirmed 201489120 Problem Seborrheic keratoses L82.1 Active confirmed 363388617 Problem Migraine without aura and without status migrain osus, not intractable G43.009 Active confirmed 659308329 Problem Primary osteoarthritis of left knee M17.12 Acti ve confirmed 437561422055989 Problem Depression, unspecified depression type F32.9 Active confirmed 45089348 Problem Skipped beats I45.9 Active confirmed 797011 008 Problem Primary osteoarthritis of right knee M17.11 Act miguel angel confirmed 448140336102098 Problem Melanocytic nevi of face D22.30 Active confirmed 730165538 Problem Smoking F17.200 Active confirmed 64863223 Problem Parkinsons G20 Active confirmed 35881836 Problem Osteoarthritis of knee, unilateral M17.10 Activ e confirmed 458466543 Problem Other chronic pain G89.29 Active confirmed 8 5298084 ALLERGIES No Known Allergies ENCOUNTERS from 1945 to 2021-04-20 Encounter Location Date Provider Diagnosis [place] [id number] [facility] [phone] [place] [address] Mar, Micheal Love G20 IMMUNIZATIONS Vaccine Route Administration Date Status Influenza 18 yrs & older Flublok IM Intramuscular Mar 31, 2019 Administered Vitamin B-12 1000mcg/1mL Cyanocobalamin IM Intramuscular Jul 22, 2018 Administered Vitamin B-12 1000mcg/1mL Cyanocobalamin IM Intramuscular Aug 05, 2018 Administered Influenza 18 yrs & older Flublok IM Intramuscular May 14, 2018 Administered Influenza 6mo & up Fluzone IM Intramuscular Jun 17, 2012 Admi nistered Influenza (High Dose 65 & up) Unknown May 01, 2017 Ad ministered Influenza (High Dose 65 & up) IM Intramuscular Apr 22, 2015 A dministered Influenza (High Dose 65 & up) IM Intramuscular May 07, 2014 A dministered Pneumococcal Adult 0.5mL Pneumovax 23 IM Intramuscular Jul 07 013 Administered TDAP IM Intramuscular January 27, 2014 Administered Pneumococcal 0.5mL Prevnar 13 IM Intramuscular Mar 31, 2019 A dministered TD PED 0.5mL Tetanus Unknown January 27, 2014 Pending Influenza 6mo & up Fluzone IM Intramuscular May 04, 2013 Admi nistered SOCIAL HISTORY Tobacco Use: Social History Observation Description Date Details (start date - stop date) Former Smoker Sex Assigned At : Social History Observation Description Sex Assigned At Unknown Education: Question Answer Notes Level of Education: High School Audit Question Answer Notes Total Score: 0 Interpretation: Alcohol Education Language: Question Answer Notes Languages spoken: Croatian Sexual Hx: Question Answer Notes Had sex [...] has it been since you last smoked? 1-5 years REASON FOR REFERRAL No Information VITAL SIGNS No information MEDICATIONS Medication SIG (Take, Route, Frequency, Duration) Notes Start Da te End Date Status Otezla 30 MG 1 tab Orally bid for 30 days Active Lisinopril 5 MG 1 tablet Orally Once a day for 30 days Active Pantoprazole Sodium 40 MG TAKE ONE TABLET BY MOUTH TAIWO RY MORNING 1 2 HOUR BEFORE BREAKFAST Oral Daily for 30 days Active OneTouch Verio - as directed In Vitro two times daily bef ore meals for 30 days Mar, Active Jardiance 10 MG 1 tablet Orally Once a day for 30 day(s) Active Glucometer as directed _ bid for 999 days Aug, Active Ramelteon 8 MG 1 tablet at bedtime as neede d Orally 1 hour before bed for 30 days Jan, Not-Taking Rosuvastatin Calcium 40 MG TAKE ONE TABLET BY MOUTH EV ERASMO DAY Oral Once a day for 90 day(s) Active Loratadine 10 MG 1 tablet Orally Once a day/prn Not-Taking Propranolol HCl 40 MG 1 tablet on an empty stomach Orally twice daily for 30 days Active Advocate Lancets - as directed subcutaneously t wo times daily before meals for 30 days Mar, Active Acetaminophen 500 MG 2 tablets Orally every 6 hours as needed (M DD 3000 mg) PRN Active Clobetasol Propionate 0.05 % 1 application to scalp Ex ternally Daily in the morning for 30 Days Active Donepezil HCl 10 MG 1 tablet at bedtime Orally Once a day for 30 day( s) Active [facility] Glucose Meter Test Strips - as directed In Vitro t wice daily before meals for 30 days Aug, Active Carbidopa-Levodopa 25-100 MG 1 tablet Orally qid 3 candelario rs apart, 0800, 1100, 1400, 1700 and 1 tab HS for 30 days Active Nitroglycerin 0.4 MG 1 tablet under the tongue Beltran blingual every 5 min x 3 for 30 days Active Cholecalciferol 25 MCG (1000 UT) 1 capsule Orally Once a day for 30 day(s) Active PROCEDURES No Information RESULTS No Results REASON FOR VISIT med clarification MEDICAL (GENERAL) HISTORY Type Description Date Medical History [place] in 1999 Medical History HTN, goal 140/90 Medical History Hyperlipidemia Medical History Depression Medical History Psoriasis Medical History Left ankle, broken Medical History CAD, stent x1 Medical History Parkinsons 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, oncology Medical History quadruple bypass 2018 Medical History DM, diet controlled Surgical History Stent placement after [place] 1999 Surgical History Hip fx repair 05/2010 Surgical History 8 pins 1 plate, left ankle 07/08/2013 Surgical History hardware removal L hip 05/2017 Surgical History Lt hip replacement 10/2017 Surgical History colonoscopy 07/20/2014 Surgical History upper and lower GI 08/2018 Surgical History quadruple bypass 10/24/18 Hospitalization History above surgeries Hospitalization History [facility] 10/24/2018 quad Bypass Hospitalization History fatiue 12/2020 Goals Section No Information Health Concerns No Information MEDICAL EQUIPMENT No Information MENTAL STATUS No Information FUNCTIONAL STATUS No Information ASSESSMENTS Encounter Date Diagnosis Assessment Notes Treatment Notes Treatm ent Clinical Notes Mar, Parkinsons (ICD-10 - G20) PLAN OF TREATMENT Medication Medication Name Sig Start Date Stop Date Rosuvastatin Calcium 40 MG TAKE ONE TABLET BY MOUTH EV ERASMO DAY Oral Once a day for 90 day(s) Carbidopa-Levodopa 25-100 MG 1 tablet Orally qid 3 candelario rs apart, 0800, 1100, 1400, 1700 and 1 tab HS for 30 days OneTouch Verio - as directed In Vitro two times daily bef ore meals for 30 days Mar, Donepezil HCl 10 MG 1 tablet at bedtime Orally Once a day for 30 day(s) Clobetasol Propionate 0.05 % 1 application to scalp Ex ternally Daily in the morning for 30 Days Advocate Lancets - as directed subcutaneously t wo times daily before meals for 30 days Mar, Jardiance 10 MG 1 tablet Orally Once a day for 30 day(s) Lisinopril 5 MG 1 tablet Orally Once a day for 30 days Next Appt Details Provider Name:Patricia Jeffries, 2021-04-20 01:00:00 PM, [address] [place] [address], , [place], [place], [facility], Insurance Providers Payer Name Payer Address Payer Phone Insured Name Patient Relati onship to Insured Coverage Start Date Coverage End Date MEDICARE Part A and B [address] [facility] [phone] [place] [employer] [facility] WalkMe [address] [facility] [address] [place]
--- OUTSIDE RECORDS SUMMARY | 2021-06-09 12:13 | CCD ---
Author Author [facility] Organization [facility] Address Unknown Phone Unavailable Care Team Providers Care Diplomatic Officer Name Role Phone Micheal Martin Unavailable PROBLEMS Type Condition ICD9-CM Code AHQ15-EY Code Onset Dates Condition S tatus W/U Status Risk SNOMED Code Notes Problem Constipation, unspecified constipation type K59.00 Active confirmed 46279812 Problem Allergic rhinitis, unspecified seasonality, unspecifie d trigger J30.9 Active confirmed 01977017 Problem Coronary artery disease, ang amaury presence unspecified, unspecified vessel or lesion type, unspecified whether marshall or transplanted heart I25.10 Active confirmed 87734719 Problem Other sinusitis, unspecified chronicity J32.9 Active confirmed 53876358 Problem Thyroid nodule E04.1 Active confirmed 01783 5005 Problem Polyarthralgia M25.50 Active confirmed 88054 005 Problem Pancytopenia D61.818 Active confirmed 061233 005 Problem 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 Active confirmed 64742 01 Problem Hypercholesterolemia E78.00 Active confirmed 63726859 Problem Melanocytic nevus of right lower extremity D22.71 Active confirmed 617820404954685 Problem Psoriasis L40.9 Active confirmed 7488485 Problem Vitamin D deficiency E55.9 Active confirmed 70212766 Problem Gastroesophageal reflux disease without esophagitis K21.9 Active confirmed 122680394 Problem Cigarette nicotine dependence without complication F17.210 Active confirmed 65121728 Problem Antiphospholipid antibody positive R76.0 Activ e confirmed 121636538 Problem Type 2 diabetes mellitus wit hout complication, without long-term current use of insulin E11.9 Active confirmed 342364460 Problem Macroglobulinemia C88.0 Active confirmed 19 7526472 Problem Mild depression F32.0 Active confirmed 3104 55133 Problem History of alcohol abuse Z87.898 Active confirmed 709601716 Problem Cirrhosis of liver without ascites, unsp ecified hepatic cirrhosis type K74.60 Active confirmed 25498763 Problem Age-related osteoporosis without current pathological fracture M81.0 Active confirmed 49697080 Problem Osteoarthritis of both knees, unspecified osteoarthritis t ype M17.0 Active confirmed 577298739226596 Problem Dysthymia F34.1 Active confirmed 19246761 Problem Melanocytic nevus of left lower extremity D22.72 Active confirmed 642661430130038 Problem Essential (primary) hypertension I10 Active conf irmed 92957828 Problem Pitting of nails L60.8 Active confirmed 89 57885 Problem Other cirrhosis of liver K74.69 Active confirmed 57538527 Problem Lentigines L81.4 Active confirmed 616019322 Problem Melanocytic nevi of trunk D22.5 Active confirmed 991355941 Problem Seborrheic keratoses L82.1 Active confirmed 649294343 Problem Migraine without aura and without status migrain osus, not intractable G43.009 Active confirmed 950360386 Problem Primary osteoarthritis of left knee M17.12 Acti ve confirmed 101479332903835 Problem Depression, unspecified depression type F32.9 Active confirmed 50269604 Problem Skipped beats I45.9 Active confirmed 482713 008 Problem Primary osteoarthritis of right knee M17.11 Act miguel angel confirmed 851324764021984 Problem Melanocytic nevi of face D22.30 Active confirmed 637504597 Problem Smoking F17.200 Active confirmed 66184719 Problem Parkinsons G20 Active confirmed 05533842 Problem Osteoarthritis of knee, unilateral M17.10 Activ e confirmed 937749598 Problem Other chronic pain G89.29 Active confirmed 8 6681560 ALLERGIES No Known Allergies ENCOUNTERS from 1945 to 2021-04-25 Encounter Location Date Provider Diagnosis [facility] Resident [address] [facility] [address] [phone] [place] [address] Mar, Micheal Martin Type 2 diabetes cristiana itus without complication, without long-term current use of insulin E11.9 ; Psoriasis L40.9 ; Left shoulder pain, unspecified chronicity M25.512 ; Other cirrhosis of liver K74.69 ; Coronary artery disease, angina presence unspecified, unspecified vessel or lesion type, unspecified whether marshall or transplanted heart I25.10 and Immunization due Z23 IMMUNIZATIONS Vaccine Route Administration Date Status Influenza 18 yrs & older Flublok IM Intramuscular Mar 31, 2019 Administered Influenza 18 yrs & older Flublok IM Intramuscular May 14, 2018 Administered Vitamin B-12 1000mcg/1mL Cyanocobalamin IM Intramuscular Aug 05, 2018 Administered Vitamin B-12 1000mcg/1mL Cyanocobalamin IM Intramuscular Jul 22, 2018 Administered Influenza 6mo & up Fluzone IM Intramuscular Jun 17, 2012 Admi nistered Influenza (High Dose 65 & up) IM Intramuscular Apr 22, 2015 A dministered Influenza (High Dose 65 & up) IM Intramuscular May 07, 2014 A dministered Pneumococcal Adult 0.5mL Pneumovax 23 IM Intramuscular Jul 07 013 Administered Influenza (High Dose 65 & up) [...] Education Language: Question Answer Notes Languages spoken: Armenian Sexual Hx: Question Answer Notes Had sex [...] FOR REFERRAL No Information VITAL SIGNS Weight 143 lbs Mar, Weight-kg 64.86 kg Mar, Height 65 in Mar, BMI 23.79 kg/m2 Mar, Heart Rate 75 /min Mar, Respiratory Rate 18 /min Mar, Temperature 4 degrees Fahrenheit Mar, Oximetry 75 Mar, Blood pressure systolic 130 mm Hg Mar, Blood pressure diastolic 70 mm Hg Mar, MEDICATIONS Medication SIG (Take, Route, Frequency, Duration) Notes Start Da te End Date Status [facility] Glucose Meter Test Strips - as directed In Vitro t wice daily before meals for 30 days Aug, Not-Taking Rosuvastatin Calcium 40 MG TAKE ONE TABLET BY MOUTH EV ERASMO DAY Oral Once a day for 90 day(s) Not-Taking OneTouch Verio - as directed In Vitro two times daily bef ore meals for 30 days Mar, Not-Taking Propranolol HCl 40 MG 1 tablet on an empty stomach Orally twice daily for 30 days Active Advocate Lancets - as directed subcutaneously t wo times daily before meals for 30 days Mar, Not-Taking Otezla 30 MG 1 tab Orally bid for 30 days Not-Taking Ramelteon 8 MG 1 tablet at bedtime as neede d Orally 1 hour before bed for 30 days Jan, Not-Taking Acetaminophen 500 MG 2 tablets Orally every 6 hours as needed (M DD 3000 mg) PRN Not-Taking Donepezil HCl 10 MG 1 tablet at bedtime Orally Once a day for 30 day( s) Not-Taking Nitroglycerin 0.4 MG 1 tablet under the tongue Beltran blingual every 5 min x 3 for 30 days Not-Taking Pantoprazole Sodium 40 MG TAKE ONE TABLET BY MOUTH TAIWO RY MORNING 1 2 HOUR BEFORE BREAKFAST Oral Daily for 30 days Active Jardiance 10 MG 1 tablet Orally Once a day for 30 day(s) Not-Taking Vitamin D3 25 MCG (1000 UT) 1 capsule Orally Once a day for 30 day(s) Active Clobetasol Propionate 0.05 % 1 application to scalp Ex ternally Daily in the morning for 30 Days Not-Taking Glucometer as directed _ bid for 999 days Aug, Not-Taking Lisinopril 5 MG 1 tablet Orally Once a day for 30 days Not-Taking Triamcinolone Acetonide 0.1 % 1 application Externally Once a day to psoriasis on trunk and extremities for 14 days Mar, Active Loratadine 10 MG 1 tablet Orally Once a day/prn Not-Taking Lactulose 10 GM 1 packet Orally Once a day for 30 day(s) Active Cholecalciferol 25 MCG (1000 UT) 1 capsule Orally Once a day for 30 day(s) Not-Taking Carbidopa-Levodopa 25-100 MG 1 tablet Orally qid 3 candelario rs apart, 0800, 1100, 1400, 1700 and 1 tab HS for 30 days Active PROCEDURES No Information RESULTS No Results REASON FOR VISIT fu dizziness MEDICAL (GENERAL) HISTORY Type Description Date Medical History [place] in 1999 Medical History HTN, goal 140/90 Medical History Hyperlipidemia Medical History Depression Medical History Psoriasis Medical History Left ankle, broken Medical History CAD, stent x1 Medical History Parkinsons 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, oncology Medical History quadruple bypass 2018 Medical History DM, diet controlled Surgical History Stent placement after [place] 1999 Surgical History Hip fx repair 05/2010 Surgical History 8 pins 1 plate, left ankle 07/08/2013 Surgical History hardware removal L hip 05/2017 Surgical History Lt hip replacement 10/2017 Surgical History colonoscopy 07/20/2014 Surgical History upper and lower GI 08/2018 Surgical History quadruple bypass 10/24/18 Hospitalization History above surgeries Hospitalization History [facility] 10/24/2018 quad Bypass Hospitalization History fatiue 12/2020 Goals Section No Information Health Concerns No Information MEDICAL EQUIPMENT No Information MENTAL STATUS No Information FUNCTIONAL STATUS No Information ASSESSMENTS Encounter Date Diagnosis Assessment Notes Treatment Notes Treatm ent Clinical Notes Mar, Type 2 diabetes mellitus wit hout complication, without long-term current use of insulin (ICD-10 - E11.9) Last A1C 5.9, will have her bring in at least 2 week blood sugar log Am and before last meal of the day, she has stopped the jardiance and I would advise her to continue holding off, I Suspect it was the cause of her symptoms, will defer starting a new treatment for the time being. Patient verbalized understanding and agreement with plan moving forward. Mar, Psoriasis (ICD-10 - L40.9) Stable on medication, no evidence of adverse effects, no contraindications to refill, okay to continue. Patient verbalized understanding and agreement with plan moving forward. Mar, Left shoulder pain, unspecified chronicity (ICD- 10 - M25.512) Suspect OA, patient would like XR, advised ongoing symptomatic treatment with tylenol. Patient verbalized understanding and agreement with plan moving forward. Mar, Other cirrhosis of liver (ICD-10 - K74.69) 2/2 alcohol abuse, scheduled for endoscopy on 04/13. Platelets 98 by last blood work on 03/07. Otezla safe in liver disease. Will schedule patient for twinrix at next visit. Hepatitis negative, hx of HepA ceruloplasmin neg Anti-AMA neg Anti smooth mm Ab neg iron, ferritin WNL SPEP positive-Heme/onc referral, they feel she has IgM gammopathy, but further work up for same has been benign ANCA neg CODI positive-referred to [facility] rheum; they do not believe she has inflammatory disease including psoriatic arthiritis GI has also worked patient up for secondary causes of cirrhosis in the past, requesting records from their office. Mar, Coronary artery disease, ang amaury presence unspecified, unspecified vessel or lesion type, unspecified whether marshall or transplanted heart (ICD-10 - I25.10) Unable to tolerate statin 2/2 myalgias. Unable to tolerate ASA due to hx of GI bleed in the past Mar, Immunization due (ICD-10 - Z23) Patient will need twinrix vaccine as next visit if she has not had this already PLAN OF TREATMENT Medication Medication Name Sig Start Date Stop Date Triamcinolone Acetonide 0.1 % 1 application Externally Once a day to psoriasis on trunk and extremities for 14 days Mar, Treatment Notes Assessment Notes Clinical Notes Type 2 diabetes mellitus without complic ation, without long-term current use of insulin Last A1C 5.9, will have her bring in at least 2 week blood sugar log Am and before last meal of the day, she has stopped the jardiance and I would advise her to continue holding off, I Suspect it was the cause of her symptoms, will defer starting a new treatment for the time being. Patient verbalized understanding and agreement with plan moving forward. Psoriasis Stable on medication , no evidence of adverse effects, no contraindications to refill, okay to continue. Patient verbalized understanding and agreement with plan moving forward. Left shoulder pain, unspecified chronicity Suspect OA, patient would like XR, advised ongoing symptomatic treatment with tylenol. Patient verbalized understanding and agreement with plan moving forward. Other cirrhosis of liver 2/2 alcohol abu se, scheduled for endoscopy on 04/13. Platelets 98 by last blood work on 03/07. Otezla safe in liver disease. Will schedule patient for twinrix at next visit.Hepatitis negative, hx of HepAc eruloplasmin negAnti-AMA negAnti smooth mm Ab negiron, ferritin WNLSPEP positive-Heme/onc referral, they feel she has IgM gammopathy, but further work up for same has been benignANCA negANA positive-referred to [facility] rheum; they do not believe she has inflammatory disease including psoriatic arthiritisGI has also worked patient up for secondary causes of cirrhosis in the past, requesting records from their office. Coronary artery disease, angina presence unspecified, unspecified vessel or lesion type, unspecified whether marshall or transplanted heart Unable to tolerate statin 2/2 myalgias.Unable to tolerate ASA due to hx of GI bleed in the past Immunization due Patient will need tw inrix vaccine as next visit if she has not had this already Treatment Notes Test Name Order Date PLZ SHOULDER COMPLETE 2021-03-24 Next Appt Details 4 weeks Reason:f/u diabetes Provider Name:Patricia Jeffries, 2021-06-29 01:45:00 PM, [address] [place] [address], , [place], [place], [facility], Follow Up:4 weeksf/u diabetes Insurance Providers Payer Name Payer Address Payer Phone Insured Name Patient Relati onship to Insured Coverage Start Date Coverage End Date MEDICARE Part A and B [address] [facility] [id number] [place] [employer] [address] [facility] [address] [phone] [place]
--- OUTSIDE RECORDS SUMMARY | 2021-06-09 12:13 | CCD ---
Author Author [facility] Organization [facility] Address Unknown Phone Unavailable Care Team Providers Care Customer Support Representative Name Role Phone Patricia Jeffries Unavailable PROBLEMS Type Condition ICD9-CM Code [id number] Code Onset Dates Condition S tatus W/U Status Risk SNOMED Code Notes Problem Constipation, unspecified constipation type K59.00 Active confirmed 35404309 Problem Allergic rhinitis, unspecified seasonality, unspecifie d trigger J30.9 Active confirmed 85775581 Problem Coronary artery disease, ang amaury presence unspecified, unspecified vessel or lesion type, unspecified whether [place] or transplanted heart I25.10 Active confirmed 36385557 Problem Other sinusitis, unspecified chronicity J32.9 Active confirmed 57191306 Problem Thyroid nodule E04.1 Active confirmed 64623 5005 Problem Polyarthralgia M25.50 Active confirmed 37718 005 Problem Pancytopenia D61.818 Active confirmed 939696 005 Problem 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 Active confirmed 60435 01 Problem Hypercholesterolemia E78.00 Active confirmed 30222132 Problem Melanocytic nevus of right lower extremity D22.71 Active confirmed 439149893755868 Problem Psoriasis L40.9 Active confirmed 8735908 Problem Vitamin D deficiency E55.9 Active confirmed 12477597 Problem Gastroesophageal reflux disease without esophagitis K21.9 Active confirmed 072317762 Problem Cigarette nicotine dependence without complication F17.210 Active confirmed 11481763 Problem Antiphospholipid antibody positive R76.0 Activ e confirmed 113680360 Problem Type 2 diabetes mellitus wit hout complication, without long-term current use of insulin E11.9 Active confirmed 116666636 Problem Macroglobulinemia C88.0 Active confirmed 19 8472375 Problem Mild depression F32.0 Active confirmed 3104 27222 Problem History of alcohol abuse Z87.898 Active confirmed 073785344 Problem Cirrhosis of liver without ascites, unsp ecified hepatic cirrhosis type K74.60 Active confirmed 91865382 Problem Age-related osteoporosis without current pathological fracture M81.0 Active confirmed 29294639 Problem Osteoarthritis of both knees, unspecified osteoarthritis t ype M17.0 Active confirmed 547025589480446 Problem Dysthymia F34.1 Active confirmed 06203725 Problem Melanocytic nevus of left lower extremity D22.72 Active confirmed 604797614703785 Problem Essential (primary) hypertension I10 Active conf irmed 31582704 Problem Pitting of nails L60.8 Active confirmed 897 53460 Problem Other cirrhosis of liver K74.69 Active confirmed 52674318 Problem Lentigines L81.4 Active confirmed 292425384 Problem Melanocytic nevi of trunk D22.5 Active confirmed 713800557 Problem Seborrheic keratoses L82.1 Active confirmed 373099066 Problem Migraine without aura and without status migrain osus, not intractable G43.009 Active confirmed 981961643 Problem Primary osteoarthritis of left knee M17.12 Acti ve confirmed 912164050082620 Problem Depression, unspecified depression type F32.9 Active confirmed 92569068 Problem Skipped beats I45.9 Active confirmed 053556 008 Problem Primary osteoarthritis of right knee M17.11 Act miguel angel confirmed 409747339749328 Problem Melanocytic nevi of face D22.30 Active confirmed 335109016 Problem Smoking F17.200 Active confirmed 78102099 Problem Parkinsons G20 Active confirmed 46204922 Problem Osteoarthritis of knee, unilateral M17.10 Activ e confirmed 771224863 Problem Other chronic pain G89.29 Active confirmed 8 [id number] ALLERGIES No Known Allergies ENCOUNTERS from 1945 to 2021-04-25 Encounter Location Date Provider Diagnosis [facility] Dermatology [address] [place] [address] [place] [address] Mar, Patricia Mervin Psoriasis L40.9 IMMUNIZATIONS Vaccine Route Administration Date Status Influenza [...] IM Intramuscular May 07, 2014 A dministered Influenza (High Dose 65 & up) Unknown May 01, 2017 Ad ministered Pneumococcal Adult 0.5mL Pneumovax 23 IM Intramuscular [...] Education Language: Question Answer Notes Languages spoken: Arabic Sexual Hx: Question Answer Notes Had sex [...] FOR REFERRAL No Information VITAL SIGNS Weight 152.6 lbs Mar, Weight-kg 69.22 kg Mar, Height 65 in Mar, BMI 25.39 kg/m2 Mar, Blood pressure systolic 138 mm Hg Mar, Blood pressure diastolic 76 mm Hg Mar, MEDICATIONS Medication SIG (Take, [...] Information RESULTS No Results REASON FOR VISIT psoriasis flare MEDICAL (GENERAL) HISTORY Type Description Date Medical History [place] in 1999 Medical History HTN, goal 140/90 Medical History Hyperlipidemia Medical History Depression Medical History Psoriasis Medical History Left ankle, broken Medical History CAD, stent x1 Medical History Parkinsons 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, oncology Medical History quadruple bypass 2018 Medical History DM, diet controlled Surgical History Stent placement after [place] 1999 Surgical History Hip fx repair 05/2010 Surgical History 8 pins 1 plate, left ankle 07/08/2013 Surgical History hardware removal L hip 05/2017 Surgical History Lt hip replacement 10/2017 Surgical History colonoscopy 07/20/2014 Surgical History upper and lower GI 08/2018 Surgical History quadruple bypass 10/24/18 Hospitalization History above surgeries Hospitalization History [facility] 10/24/2018 quad Bypass Hospitalization History fatiue 12/2020 Goals Section No Information Health Concerns No Information MEDICAL EQUIPMENT No Information MENTAL STATUS No Information FUNCTIONAL STATUS No Information ASSESSMENTS Encounter Date Diagnosis Assessment Notes Treatment Notes Treatm ent Clinical Notes Mar, Psoriasis (ICD-10 - L40.9) Will plan to treat with TMC ointment for now with plans to switch over to calcipotriene at next appointment. PLAN OF TREATMENT Medication Medication Name Sig Start Date Stop Date Triamcinolone Acetonide 0.1 % 1 application Externally Once a day to psoriasis on trunk and extremities for 14 days Mar, Treatment Notes Assessment Notes Clinical Notes Psoriasis Will plan to treat w ith TMC ointment for now with plans to switch over to calcipotriene at next appointment. Next Appt Details 6-8 weeks Reason:psoriasis f/u Provider Name:Patricia Jeffries, 2021-06-29 01:45:00 PM, [address] [place] [address], [place], [address], Follow Up:6-8 weekspsoriasis f/u Insurance Providers Payer Name Payer Address Payer Phone Insured Name Patient Relati onship to Insured Coverage Start Date Coverage End Date MEDICAID [employer] [address] [facility] [address] [place] [employer] MEDICARE Part A and B [address] [facility] [id number] [place] [employer]
--- OUTSIDE RECORDS SUMMARY | 2021-06-09 12:13 | CCD | Continuity of Care Document ---
Author Author Shira REAGAN M.D. Organization Unknown Address [address] [place] [address] Phone [phone] Care Team Providers Care Plate Mill Mill Hand Name Role Phone Micheal Martin DO AUTM [phone] Problems Active Problems Provider Date Tremor Blanca Reagan M.D. Onset: 12/23/2018 Parkinson's disease Blanca Reagan M.D. Onset: 07/16/2019 Social History Type Date Description Comments Sex Unknown Tobacco Use Start: Unknown End: Unknown Patient is a former smoker Allergies and adverse reactions Description No Known Drug Allergies Medications Active Medications SIG Qnty Indications Ordering Provide r Date Carbidopa-Levodopa 25-100mg Tablet s take 1 tab by mouth 5 times a day 3 hours apart at 6Am, 9Am, 12PM, 3PM, 6PM 540sonia Reagan M.D. 12/23/2018 History Medications Donepezil HCL 10mg Tablets Take one tablet by mouth daily. 30tamassiel Reagan M.D. 12/21/2020 - 02/28/2021 Immunizations Description No Information Available Vital Signs Date Vital Result Comment 05/09/2021 1:40pm Respiratory Rate 12 /min Height 66 inches 5'6" Weight 155.00 lb BMI (Body Mass Index) 25.0 kg/m2 [place] Body Weight 130 lb 03/16/2021 10:52am Respiratory Rate 12 /min Height 66 inches 5'6" Weight 155.00 lb BMI (Body Mass Index) 25.0 kg/m2 [place] Body Weight 130 lb Results Description No Information Available Procedures Date Code Description Status 05/09/2021 08552 Office/Outpatient Established Mo d MDM 30-39 Min Completed 03/16/2021 82896 Office/Outpatient Established Mo d MDM 30-39 Min Completed 03/08/2021 25399 EEG Recording Awake & Asleep Com pleted 03/08/2021 01514 EEG Recording Awake & Asleep Com pleted 01/31/2021 83037 Office/Outpatient Established Mo d MDM 30-39 Min Completed 12/21/2020 91056 Office/Outpatient Established Mo d MDM 30-39 Min Completed Medical Devices Description No Information Available Encounters Type Date Location Provider Dx Diagnosis Office Visit 05/09/2021 1:30p Main office - [place] Blanca hightower M.D. G20 Parkinson's disease R41.82 Altered mental status, unspe cified Office Visit 03/16/2021 10:45a Main office - [place] Blanca hightower M.D. G20 Parkinson's disease Office Visit 01/31/2021 2:15p Main office - [place] Blanca hightower M.D. G20 Parkinson's disease Office Visit 12/21/2020 3:00p Main office - [place] Blanca hightower M.D. G20 Parkinson's disease Assessments Date Code Description Provider 05/09/2021 G20 Parkinson's disease Blanca hightower M.D. 05/09/2021 R41.82 Altered mental status, unspecifi ed Blanca Reagan M.D. 03/16/2021 G20 Parkinson's disease Blanca hightower M.D. 03/08/2021 R41.82 Altered mental status, unspecifi ed Jaida Huerta M.D. 03/08/2021 R41.82 Altered mental status, unspecifi ed EEG 01/31/2021 G20 Parkinson's disease Blanca hightower M.D. 12/21/2020 G20 Parkinson's disease Blanca hightower M.D. Plan of Treatment Future Appointment(s):* 08/25/2021 11:00 am - Blanca Reagan M.D. at Main office - [place] Functional Status Description No Information Available Mental Status Description No Information Available Referrals Refer to Reason for Referral Status Appt Date [facility] Movement Disorder PARKINSON'S DISEASE AND EVALUATION REQUEST FOR DBS Created Movement Disorder [address] [place] [address] [phone] [facility] Audiology & Physical Therapy BALANCE AND LE G STRENGTH FOR PHYSICAL THERAPY Created [address] [address] [phone]
--- OUTSIDE RECORDS SUMMARY | 2021-06-09 12:13 | CCD ---
Author Author [facility] Organization [facility] Address Unknown Phone Unavailable Care Team Providers Care Stone Banker Name Role Phone Micheal Martin Unavailable PROBLEMS Type Condition ICD9-CM Code XIC56-SB Code Onset Dates Condition S tatus W/U Status Risk SNOMED Code Notes Problem Constipation, unspecified constipation type K59.00 Active confirmed 44317547 Problem Allergic rhinitis, unspecified seasonality, unspecifie d trigger J30.9 Active confirmed 26293475 Problem Coronary artery disease, ang amaury presence unspecified, unspecified vessel or lesion type, unspecified whether [place] or transplanted heart I25.10 Active confirmed 94960938 Problem Other sinusitis, unspecified chronicity J32.9 Active confirmed 87557421 Problem Thyroid nodule E04.1 Active confirmed 87107 5005 Problem Polyarthralgia M25.50 Active confirmed 07122 005 Problem Pancytopenia D61.818 Active confirmed 130546 005 Problem 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 Active confirmed 89674 01 Problem Hypercholesterolemia E78.00 Active confirmed 07110426 Problem Melanocytic nevus of right lower extremity D22.71 Active confirmed 144725741190949 Problem Psoriasis L40.9 Active confirmed 7358127 Problem Vitamin D deficiency E55.9 Active confirmed 99387695 Problem Gastroesophageal reflux disease without esophagitis K21.9 Active confirmed 785301784 Problem Cigarette nicotine dependence without complication F17.210 Active confirmed 24758595 Problem Antiphospholipid antibody positive R76.0 Activ e confirmed 097645549 Problem Type 2 diabetes mellitus wit hout complication, without long-term current use of insulin E11.9 Active confirmed 565724579 Problem Macroglobulinemia C88.0 Active confirmed 19 8214105 Problem Mild depression F32.0 Active confirmed 3104 24919 Problem History of alcohol abuse Z87.898 Active confirmed 130880107 Problem Cirrhosis of liver without ascites, unsp ecified hepatic cirrhosis type K74.60 Active confirmed 97379866 Problem Age-related osteoporosis without current pathological fracture M81.0 Active confirmed 87962599 Problem Osteoarthritis of both knees, unspecified osteoarthritis t ype M17.0 Active confirmed 264189864870613 Problem Dysthymia F34.1 Active confirmed 37513896 Problem Melanocytic nevus of left lower extremity D22.72 Active confirmed 344474922095163 Problem Essential (primary) hypertension I10 Active conf irmed 56595749 Problem Pitting of nails L60.8 Active confirmed 89 53349 Problem Other cirrhosis of liver K74.69 Active confirmed 71448787 Problem Lentigines L81.4 Active confirmed 959610364 Problem Melanocytic nevi of trunk D22.5 Active confirmed 771257026 Problem Seborrheic keratoses L82.1 Active confirmed 388712651 Problem Migraine without aura and without status migrain osus, not intractable G43.009 Active confirmed 111799264 Problem Primary osteoarthritis of left knee M17.12 Acti ve confirmed 497465422715161 Problem Depression, unspecified depression type F32.9 Active confirmed 80189646 Problem Skipped beats I45.9 Active confirmed 762249 008 Problem Primary osteoarthritis of right knee M17.11 Act miguel angel confirmed 385251628155346 Problem Melanocytic nevi of face D22.30 Active confirmed 195184065 Problem Smoking F17.200 Active confirmed 88943402 Problem Parkinsons G20 Active confirmed 51696928 Problem Osteoarthritis of knee, unilateral M17.10 Activ e confirmed 380416011 Problem Other chronic pain G89.29 Active confirmed 8 0870600 ALLERGIES No Known Allergies ENCOUNTERS from 1945 to 2021-04-28 Encounter Location Date Provider Diagnosis [place] [address] [facility] [phone] [place] [address] Mar, Micheal Martin IMMUNIZATIONS Vaccine Route Administration Date [...] Education Language: Question Answer Notes Languages spoken: Guatemalan Sexual Hx: Question Answer Notes Had sex [...] Information RESULTS No Results REASON FOR VISIT call MEDICAL (GENERAL) HISTORY Type Description Date Medical History [place] in 1999 Medical History HTN, goal 140/90 Medical History Hyperlipidemia Medical History Depression Medical History Psoriasis Medical History Left ankle, broken Medical History CAD, stent x1 Medical History Parkinsons 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, oncology Medical History quadruple bypass 2018 Medical History DM, diet controlled Surgical History Stent placement after [place] 1999 Surgical History Hip fx repair 05/2010 Surgical History 8 pins 1 plate, left ankle 07/08/2013 Surgical History hardware removal L hip 05/2017 Surgical History Lt hip replacement 10/2017 Surgical History colonoscopy 07/20/2014 Surgical History upper and lower GI 08/2018 Surgical History quadruple bypass 10/24/18 Hospitalization History above surgeries Hospitalization History [facility] [place] 10/24/2018 quad Bypass Hospitalization History fatiue 12/2020 Goals Section No Information Health Concerns No Information MEDICAL EQUIPMENT No Information MENTAL STATUS No Information FUNCTIONAL STATUS No Information ASSESSMENTS No Information PLAN OF TREATMENT Medication Medication Name Sig Start Date Stop Date Triamcinolone Acetonide 0.1 % 1 application Externally Once a day to psoriasis on trunk and extremities for 14 days Mar, Next Appt Details Provider Name:Patricia Jeffries, 2021-06-29 01:45:00 PM, [address] [place] [address], [place], [place], [facility], Insurance Providers Payer Name Payer Address Payer Phone Insured Name Patient Relati onship to Insured Coverage Start Date Coverage End Date MEDICAID Your[employer] [address] [facility] [address] [phone] [employer] [employer] MEDICARE Part A and B [address] [facility] [phone] [employer]
--- OUTSIDE RECORDS SUMMARY | 2021-06-09 12:14 | CCD ---
Author Author [facility] Organization [facility] Address Unknown Phone Unavailable Care Team Providers Care Medical Billing Supervisor Name Role Phone Micheal Martin Unavailable PROBLEMS Type Condition ICD9-CM Code QFD16-JT Code Onset Dates Condition S tatus W/U Status Risk SNOMED Code Notes Problem Constipation, unspecified constipation type K59.00 Active confirmed 24338731 Problem Allergic rhinitis, unspecified seasonality, unspecifie d trigger J30.9 Active confirmed 75353971 Problem Coronary artery disease, ang amaury presence unspecified, unspecified vessel or lesion type, unspecified whether [place] or transplanted heart I25.10 Active confirmed 20042574 Problem Other sinusitis, unspecified chronicity J32.9 Active confirmed 20038909 Problem Thyroid nodule E04.1 Active confirmed 28518 5005 Problem Polyarthralgia M25.50 Active confirmed 14731 005 Problem Pancytopenia D61.818 Active confirmed 091613 005 Problem 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 Active confirmed 71845 01 Problem Hypercholesterolemia E78.00 Active confirmed 09434064 Problem Melanocytic nevus of right lower extremity D22.71 Active confirmed 298293113539459 Problem Psoriasis L40.9 Active confirmed 4186058 Problem Vitamin D deficiency E55.9 Active confirmed 39760214 Problem Gastroesophageal reflux disease without esophagitis K21.9 Active confirmed 527146420 Problem Cigarette nicotine dependence without complication F17.210 Active confirmed 48318541 Problem Antiphospholipid antibody positive R76.0 Activ e confirmed 737052631 Problem Type 2 diabetes mellitus wit hout complication, without long-term current use of insulin E11.9 Active confirmed 582835214 Problem Macroglobulinemia C88.0 Active confirmed 19 4674038 Problem Mild depression F32.0 Active confirmed 3104 84518 Problem History of alcohol abuse Z87.898 Active confirmed 963803876 Problem Cirrhosis of liver without ascites, unsp ecified hepatic cirrhosis type K74.60 Active confirmed 89170916 Problem Age-related osteoporosis without current pathological fracture M81.0 Active confirmed 10183794 Problem Osteoarthritis of both knees, unspecified osteoarthritis t ype M17.0 Active confirmed 016393554552078 Problem Dysthymia F34.1 Active confirmed 26914956 Problem Melanocytic nevus of left lower extremity D22.72 Active confirmed 931214945671286 Problem Essential (primary) hypertension I10 Active conf irmed 52355732 Problem Pitting of nails L60.8 Active confirmed 897 15351 Problem Other cirrhosis of liver K74.69 Active confirmed 41080485 Problem Lentigines L81.4 Active confirmed 964417976 Problem Melanocytic nevi of trunk D22.5 Active confirmed 869502418 Problem Seborrheic keratoses L82.1 Active confirmed 038880936 Problem Migraine without aura and without status migrain osus, not intractable G43.009 Active confirmed 607119477 Problem Primary osteoarthritis of left knee M17.12 Acti ve confirmed 595705924333152 Problem Depression, unspecified depression type F32.9 Active confirmed 00903726 Problem Skipped beats I45.9 Active confirmed 477758 008 Problem Primary osteoarthritis of right knee M17.11 Act miguel angel confirmed 912598532039079 Problem Melanocytic nevi of face D22.30 Active confirmed 828245363 Problem Smoking F17.200 Active confirmed 39321769 Problem Parkinsons G20 Active confirmed 21553072 Problem Osteoarthritis of knee, unilateral M17.10 Activ e confirmed 201940729 Problem Other chronic pain G89.29 Active confirmed 8 8455492 ALLERGIES No Known Allergies ENCOUNTERS from 1945 to 2021-04-18 Encounter Location Date Provider Diagnosis [place] [address] [facility] [phone] [place] [address] Mar, Micheal Love G20 IMMUNIZATIONS Vaccine Route [...] Education Language: Question Answer Notes Languages spoken: Argentine Sexual Hx: Question Answer Notes Had sex [...] (GENERAL) HISTORY Type Description Date Medical History [place] in 1999 Medical History HTN, goal 140/90 Medical History Hyperlipidemia Medical History Depression Medical History Psoriasis Medical History Left ankle, broken Medical History CAD, stent x1 Medical History Parkinsons 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, oncology Medical History quadruple bypass 2018 Medical History DM, diet controlled Surgical History Stent placement after [place] 1999 Surgical History Hip fx repair 05/2010 Surgical History 8 pins 1 plate, left ankle 07/08/2013 Surgical History hardware removal L hip 05/2017 Surgical History Lt hip replacement 10/2017 Surgical History colonoscopy 07/20/2014 Surgical History upper and lower GI 08/2018 Surgical History quadruple bypass 10/24/18 Hospitalization History above surgeries Hospitalization History [facility] 10/24/2018 quad Bypass Hospitalization History fatiue 12/2020 [...] Details Provider Name:Patricia Jeffries, 2021-04-20 01:00:00 PM, [address] [place] [address], , [place], [place], [facility], Insurance Providers Payer Name Payer Address Payer Phone Insured Name Patient Relati onship to Insured Coverage Start Date Coverage End Date MEDICARE Part A and B [address] [facility] [address] [place] [employer] [employer] [facility] [address] [facility] [address] [place]
--- OUTSIDE RECORDS SUMMARY | 2021-06-09 12:14 | CCD ---
Author Author [facility] Organization [facility] Address Unknown Phone Unavailable Care Team Providers Care Aluminum Sheet Cutter Name Role Phone Daniel Cabrera Unavailable PROBLEMS Type Condition ICD9-CM Code IMH17-KG Code Onset Dates Condition S tatus W/U Status Risk SNOMED Code Notes Problem Constipation, unspecified constipation type K59.00 Active confirmed 82011189 Problem Allergic rhinitis, unspecified seasonality, unspecifie d trigger J30.9 Active confirmed 01452856 Problem Coronary artery disease, ang amaury presence unspecified, unspecified vessel or lesion type, unspecified whether [place] or transplanted heart I25.10 Active confirmed 18085025 Problem Other sinusitis, unspecified chronicity J32.9 Active confirmed 78084979 Problem Thyroid nodule E04.1 Active confirmed 89586 5005 Problem Polyarthralgia M25.50 Active confirmed 93149 005 Problem Pancytopenia D61.818 Active confirmed 770143 005 Problem 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 Active confirmed 33413 01 Problem Hypercholesterolemia E78.00 Active confirmed 92221613 Problem Melanocytic nevus of right lower extremity D22.71 Active confirmed 879418266930750 Problem Psoriasis L40.9 Active confirmed 7015321 Problem Vitamin D deficiency E55.9 Active confirmed 22952112 Problem Gastroesophageal reflux disease without esophagitis K21.9 Active confirmed 080890958 Problem Cigarette nicotine dependence without complication F17.210 Active confirmed 57756668 Problem Antiphospholipid antibody positive R76.0 Activ e confirmed 073308203 Problem Type 2 diabetes mellitus wit hout complication, without long-term current use of insulin E11.9 Active confirmed 141539107 Problem Macroglobulinemia C88.0 Active confirmed 19 2770230 Problem Mild depression F32.0 Active confirmed 3104 00973 Problem History of alcohol abuse Z87.898 Active confirmed 471346138 Problem Cirrhosis of liver without ascites, unsp ecified hepatic cirrhosis type K74.60 Active confirmed 76349508 Problem Age-related osteoporosis without current pathological fracture M81.0 Active confirmed 42964271 Problem Osteoarthritis of both knees, unspecified osteoarthritis t ype M17.0 Active confirmed 243298096525170 Problem Dysthymia F34.1 Active confirmed 87181956 Problem Melanocytic nevus of left lower extremity D22.72 Active confirmed 634927952351462 Problem Essential (primary) hypertension I10 Active conf irmed 83455006 Problem Pitting of nails L60.8 Active confirmed 897 12476 Problem Other cirrhosis of liver K74.69 Active confirmed 69214122 Problem Lentigines L81.4 Active confirmed 962053764 Problem Melanocytic nevi of trunk D22.5 Active confirmed 089617369 Problem Seborrheic keratoses L82.1 Active confirmed 122943514 Problem Migraine without aura and without status migrain osus, not intractable G43.009 Active confirmed 782675344 Problem Primary osteoarthritis of left knee M17.12 Acti ve confirmed 163242075197697 Problem Depression, unspecified depression type F32.9 Active confirmed 48108419 Problem Skipped beats I45.9 Active confirmed 959323 008 Problem Primary osteoarthritis of right knee M17.11 Act miguel angel confirmed 868758439814610 Problem Melanocytic nevi of face D22.30 Active confirmed 773334010 Problem Smoking F17.200 Active confirmed 47629717 Problem Parkinsons G20 Active confirmed 70522831 Problem Osteoarthritis of knee, unilateral M17.10 Activ e confirmed 862487141 Problem Other chronic pain G89.29 Active confirmed 8 4304235 ALLERGIES No Known Allergies ENCOUNTERS from 1945 to 2021-03-13 Encounter Location Date Provider Diagnosis [facility] Resident [address] [phone] [place] [address] Jan, Daniel Cabrera Depression, unspecif ied depression type F32.9 ; Fatigue, unspecified type R53.83 and Left arm pain M79.602 IMMUNIZATIONS Vaccine Route Administration Date Status Influenza [...] Intramuscular Mar 31, 2019 A dministered TD Adult 0.5mL Tetanus Unknown January 27, 2014 Pending [...] Education Language: Question Answer Notes Languages spoken: Afghan Sexual Hx: Question Answer Notes Had sex [...] FOR REFERRAL No Information VITAL SIGNS Weight 146.8 lbs Jan, Weight-kg 66.59 kg Jan, Height 65 in Jan, BMI 24.43 kg/m2 Jan, Heart Rate 62 /min Jan, Respiratory Rate 18 /min Jan, Temperature 97.5 degrees Fahrenheit Jan, Oximetry 98 Jan, Blood pressure systolic 136 mm Hg Jan, Blood pressure diastolic 86 mm Hg Jan, MEDICATIONS Medication SIG (Take, Route, Frequency, Duration) Notes Start Da te End Date Status Jardiance 10 MG 1 tablet Orally Once a day for 30 day(s) Active Lisinopril 5 MG 1 tablet Orally Once a day for 30 days Active Pantoprazole Sodium 40 MG TAKE ONE TABLET BY MOUTH TAIWO RY MORNING 1 2 HOUR BEFORE BREAKFAST Oral Daily for 30 days Active Clobetasol Propionate 0.05 % 1 application to scalp Ex ternally Daily in the morning for 30 Days Active Propranolol HCl 40 MG 1 tablet on an empty stomach Orally twice daily for 30 days Active Ramelteon 8 MG 1 tablet at bedtime as neede d Orally 1 hour before bed for 30 days Jan, Not-Taking Loratadine 10 MG 1 tablet Orally Once a day/prn Not-Taking [facility] Glucose Meter Test Strips - as directed In Vitro t wice daily before meals for 30 days Aug, Active Donepezil HCl 10 MG 1 tablet at bedtime Orally Once a day for 30 day( s) Active Glucometer as directed _ bid for 999 days Aug, Active Acetaminophen 500 MG 2 tablets Orally every 6 hours as needed (M DD 3000 mg) PRN Active Nitroglycerin 0.4 MG 1 tablet under the tongue Beltran blingual every 5 min x 3 for 30 days Active Cholecalciferol 25 MCG (1000 UT) 1 capsule Orally Once a day for 30 day(s) Active Otezla 30 MG 1 tab Orally bid for 30 days Active Rosuvastatin Calcium 40 MG TAKE ONE TABLET BY MOUTH EV ERASMO DAY Oral Once a day for 90 day(s) Active Carbidopa-Levodopa 25-100 MG 1.5 tablets Orally qid 3 hours apart, 0800, 1100, 1400, 1700 and 1 tab HS for 30 days Active PROCEDURES No Information RESULTS Component Value Reference Range FREE T4 & TSH PANEL Reviewed date:02/27/2021 11:05:10 Interpretation: Performing Lab:[facility], [facility] [id number] , ,[place] [address] THYROID STIMULATING HORMONE 0.461 0.358-3.740 FREE T4 1.77 0.76-1.46 HEMOGLOBIN A1c Reviewed date:02/27/2021 11:05:16 Interpretation: Performing Lab:[facility], [facility] [address] [address] , ,[place] [address] HEMOGLOBIN A1c 5.9 ESTIMATED AVERAGE GLUCOSE 123 60-110 REASON FOR VISIT [facility] d/c 8/ dehydration, fatugue MEDICAL (GENERAL) HISTORY Type Description Date Medical History [place] in 1999 Medical History HTN, goal 140/90 Medical History Hyperlipidemia Medical History Depression Medical History Psoriasis Medical History Left ankle, broken Medical History CAD, stent x1 Medical History Parkinsons 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, oncology Medical History quadruple bypass 2018 Medical History DM, diet controlled Surgical History Stent placement after [place] 1999 Surgical History Hip fx repair 05/2010 Surgical History 8 pins 1 plate, left ankle 07/08/2013 Surgical History hardware removal L hip 05/2017 Surgical History Lt hip replacement 10/2017 Surgical History colonoscopy 07/20/2014 Surgical History upper and lower GI 08/2018 Surgical History quadruple bypass 10/24/18 Hospitalization History above surgeries Hospitalization History [facility] 10/24/2018 quad Bypass Hospitalization History fatiue 12/2020 Goals Section No Information Health Concerns No Information MEDICAL EQUIPMENT No Information MENTAL STATUS No Information FUNCTIONAL STATUS No Information ASSESSMENTS Encounter Date Diagnosis Assessment Notes Treatment Notes Treatm ent Clinical Notes Jan, Depression, unspecified depression type (ICD-10 - F32.9) Patient's PHQ-9 elicits moderately severe depression. This is likely linked to Parkinson's disease. Patient was advised to follow-up with neurology. She was also advised to establish care with behavioral therapy. Patient verbalized understanding. Jan, Fatigue, unspecified type (ICD-10 - R53.83) Likely secondary to depression however organic causes cannot be ruled out at this time. Ordered CBC TSH panel and HbA1c. Patient has already been counseled on seeking behavioral therapy. Patient's fatigue comes in odd cycles including during office visit with talking to me she improved significantly. Jan, Left arm pain (ICD-10 - M79.602) Patient reports that her left arm pain is chronic and unchanged. However due to patient's extensive cardiac history EKG was done in the clinic. EKG did not show any acute changes compared to EKG done on August 05, 2018. PLAN OF TREATMENT Medication Medication Name Sig Start Date Stop Date Propranolol HCl 40 MG 1 tablet on an empty stomach Orally twice daily for 30 days Otezla 30 MG 1 tab Orally bid for 30 days Rosuvastatin Calcium 40 MG TAKE ONE TABLET BY MOUTH EV ERASMO DAY Oral Once a day for 90 day(s) Jardiance 10 MG 1 tablet Orally Once a day for 30 day(s) Clobetasol Propionate 0.05 % 1 application to scalp Ex ternally Daily in the morning for 30 Days Lisinopril 5 MG 1 tablet Orally Once a day for 30 days Carbidopa-Levodopa 25-100 MG 1.5 tablets Orally qid 3 hours apart, 0800, 1100, 1400, 1700 and 1 tab HS for 30 days Donepezil HCl 10 MG 1 tablet at bedtime Orally Once a day for 30 day(s) Pantoprazole Sodium 40 MG TAKE ONE TABLET BY MOUTH TAIWO RY MORNING 1 2 HOUR BEFORE BREAKFAST Oral Daily for 30 days Cholecalciferol 25 MCG (1000 UT) 1 capsule Orally Once a day for 30 day(s) [facility] Glucose Meter Test Strips - as directed In Vitro t wice daily before meals for 30 days Aug, Treatment Notes Assessment Notes Clinical Notes Depression, unspecified depression type Patient's PHQ-9 elicits moderately severe depression. This is likely linked to Parkinson's disease. Patient was advised to follow-up with neurology. She was also advised to establish care with behavioral therapy. Patient verbalized understanding. Fatigue, unspecified type Likely seconda ry to depression however organic causes cannot be ruled out at this time. Ordered CBC TSH panel and HbA1c. Patient has already been counseled on seeking behavioral therapy. Patient's fa tigue comes in odd cycles including during office visit with talking to me she improved significantly. Left arm pain Patient reports that her left arm pain is chronic and unchanged. However due to patient's extensive cardiac history EKG was done in the clinic. EKG did not show any acute changes compared to EKG done on August 05, 2018. Treatment Notes Test Name Order Date CBC - Complete Blood Count 2021-02-15 ELECTROCARDIOGRAM, COMPLETE EKG 2021-02-15 Next Appt Details 4 Weeks Reason:Follow-up with PCP Provider Name:Micheal Martin, 2021-03-24 03 :45:00 PM, [address] , , [place], [address], Provider Name:Patricia Jeffries, 2021-04-20 01:00:00 PM, [address], , [place], [place], [facility], Follow Up:4 WeeksFollow-up with PCP Insurance Providers Payer Name Payer Address Payer Phone Insured Name Patient Relati onship to Insured Coverage Start Date Coverage End Date MEDICARE Part A and B [address] [facility] [id number] [place] self MEDICAID [facility] [address] [facility] [id number] [place] self
--- OUTSIDE RECORDS SUMMARY | 2021-06-09 12:14 | CCD ---
Author Author [facility] Organization [facility] Address Unknown Phone Unavailable Care Team Providers Care Commissions Manager Name Role Phone Micheal Martin Unavailable PROBLEMS Type Condition ICD9-CM Code MDT79-UR Code Onset Dates Condition S tatus W/U Status Risk SNOMED Code Notes Problem Constipation, unspecified constipation type K59.00 Active confirmed 52779671 Problem Allergic rhinitis, unspecified seasonality, unspecifie d trigger J30.9 Active confirmed 96145918 Problem Coronary artery disease, ang amaury presence unspecified, unspecified vessel or lesion type, unspecified whether [place] or transplanted heart I25.10 Active confirmed 80881571 Problem Other sinusitis, unspecified chronicity J32.9 Active confirmed 26791828 Problem Thyroid nodule E04.1 Active confirmed 46852 5005 Problem Polyarthralgia M25.50 Active confirmed 63794 005 Problem Pancytopenia D61.818 Active confirmed 834701 005 Problem 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 Active confirmed 26125 01 Problem Hypercholesterolemia E78.00 Active confirmed 33671634 Problem Melanocytic nevus of right lower extremity D22.71 Active confirmed 523302366144755 Problem Psoriasis L40.9 Active confirmed 7434504 Problem Vitamin D deficiency E55.9 Active confirmed 21656681 Problem Gastroesophageal reflux disease without esophagitis K21.9 Active confirmed 667140352 Problem Cigarette nicotine dependence without complication F17.210 Active confirmed 00825125 Problem Antiphospholipid antibody positive R76.0 Activ e confirmed 922409161 Problem Type 2 diabetes mellitus wit hout complication, without long-term current use of insulin E11.9 Active confirmed 097178086 Problem Macroglobulinemia C88.0 Active confirmed 19 4401542 Problem Mild depression F32.0 Active confirmed 3104 70379 Problem History of alcohol abuse Z87.898 Active confirmed 265484438 Problem Cirrhosis of liver without ascites, unsp ecified hepatic cirrhosis type K74.60 Active confirmed 72829184 Problem Age-related osteoporosis without current pathological fracture M81.0 Active confirmed 79275073 Problem Osteoarthritis of both knees, unspecified osteoarthritis t ype M17.0 Active confirmed 335894385176329 Problem Dysthymia F34.1 Active confirmed 54253156 Problem Melanocytic nevus of left lower extremity D22.72 Active confirmed 724073367677179 Problem Essential (primary) hypertension I10 Active conf irmed 89523507 Problem Pitting of nails L60.8 Active confirmed 89 24262 Problem Other cirrhosis of liver K74.69 Active confirmed 79357609 Problem Lentigines L81.4 Active confirmed 821359445 Problem Melanocytic nevi of trunk D22.5 Active confirmed 030902839 Problem Seborrheic keratoses L82.1 Active confirmed 093398850 Problem Migraine without aura and without status migrain osus, not intractable G43.009 Active confirmed 239341388 Problem Primary osteoarthritis of left knee M17.12 Acti ve confirmed 484517504231603 Problem Depression, unspecified depression type F32.9 Active confirmed 32870295 Problem Skipped beats I45.9 Active confirmed 253511 008 Problem Primary osteoarthritis of right knee M17.11 Act miguel angel confirmed 579496862102731 Problem Melanocytic nevi of face D22.30 Active confirmed 318623262 Problem Smoking F17.200 Active confirmed 49552617 Problem Parkinsons G20 Active confirmed 69784638 Problem Osteoarthritis of knee, unilateral M17.10 Activ e confirmed 698707966 Problem Other chronic pain G89.29 Active confirmed 8 0624613 ALLERGIES No Known Allergies ENCOUNTERS from 1945 to 2021-04-04 Encounter Location Date Provider Diagnosis [address] [phone] [place] [address] Mar, Micheal Martin IMMUNIZATIONS Vaccine Route Administration [...] Education Language: Question Answer Notes Languages spoken: Yakut Sexual Hx: Question Answer Notes Had sex [...] Once a day for 30 days Active Cholecalciferol 25 MCG (1000 UT) 1 capsule Orally Once a day for 30 day(s) Active Propranolol HCl 40 MG 1 tablet on an empty stomach Orally twice daily for 30 days Active Jardiance 10 MG 1 tablet Orally Once a day for 30 day(s) Active Nitroglycerin 0.4 MG 1 tablet under the tongue Beltran blingual every 5 min x 3 for 30 days Active Rosuvastatin Calcium 40 MG TAKE ONE TABLET BY MOUTH EV ERASMO DAY Oral Once a day for 90 day(s) Active Carbidopa-Levodopa 25-100 MG 1.5 tablets Orally qid 3 hours apart, 0800, 1100, 1400, 1700 and 1 tab HS for 30 days Active Ramelteon 8 MG 1 tablet at bedtime as neede d Orally 1 hour before bed for 30 days Jan, Not-Taking OneTouch Verio - as directed In Vitro two times daily bef ore meals for 30 days Mar, Active Donepezil HCl 10 MG 1 tablet at bedtime Orally Once a day for 30 day( s) Active Acetaminophen 500 MG 2 tablets Orally every 6 hours as needed (M DD 3000 mg) PRN Active Clobetasol Propionate 0.05 % 1 application to scalp Ex ternally Daily in the morning for 30 Days Active [facility] Glucose Meter Test Strips - as directed In Vitro t wice daily before meals for 30 days Aug, Active Advocate Lancets - as directed subcutaneously t wo times daily before meals for 30 days Mar, Active Loratadine 10 MG 1 tablet Orally Once a day/prn Not-Taking Glucometer as directed _ bid for 999 days Aug, Active Pantoprazole Sodium 40 MG TAKE ONE TABLET BY MOUTH TAIWO RY MORNING 1 2 HOUR BEFORE BREAKFAST Oral Daily for 30 days Active PROCEDURES No Information RESULTS No Results REASON FOR VISIT clarification MEDICAL (GENERAL) HISTORY Type Description Date Medical History [place] in 1999 Medical History HTN, goal 140/90 Medical History Hyperlipidemia Medical History Depression Medical History Psoriasis Medical History Left ankle, broken Medical History CAD, stent x1 Medical History Parkinsons 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, oncology Medical History quadruple bypass 2018 Medical History DM, diet controlled Surgical History Stent placement after [place] 1999 Surgical History Hip fx repair 05/2010 Surgical History 8 pins 1 plate, left ankle 07/08/2013 Surgical History hardware removal L hip 05/2017 Surgical History Lt hip replacement 10/2017 Surgical History colonoscopy 07/20/2014 Surgical History upper and lower GI 08/2018 Surgical History quadruple bypass 10/24/18 Hospitalization History above surgeries Hospitalization History [facility] 10/24/2018 quad Bypass Hospitalization History fatiue 12/2020 Goals Section No Information Health Concerns No Information MEDICAL EQUIPMENT No Information MENTAL STATUS No Information FUNCTIONAL STATUS No Information ASSESSMENTS No Information PLAN OF TREATMENT Medication Medication Name Sig Start Date Stop Date Donepezil HCl 10 MG 1 tablet at bedtime Orally Once a day for 30 day(s) Rosuvastatin Calcium 40 MG TAKE ONE TABLET BY MOUTH EV ERASMO DAY Oral Once a day for 90 day(s) Advocate Lancets - as directed subcutaneously t wo times daily before meals for 30 days Mar, OneTouch Verio - as directed In Vitro two times daily bef ore meals for 30 days Mar, Lisinopril 5 MG 1 tablet Orally Once a day for 30 days Clobetasol Propionate 0.05 % 1 application to scalp Ex ternally Daily in the morning for 30 Days Jardiance 10 MG 1 tablet Orally Once a day for 30 day(s) Next Appt Details Provider Name:Patricia K Mervin, 2021-04-20 01:00:00 PM, [address] [place] [address], , [place], [place], [facility], Insurance Providers Payer Name Payer Address Payer Phone Insured Name Patient Relati onship to Insured Coverage Start Date Coverage End Date MEDICARE Part A and B [address] [facility] [phone] [place] self [facility] [facility] [employer] [address] [place] [address] [place]
--- OUTSIDE RECORDS SUMMARY | 2021-06-09 12:14 | CCD | Continuity of Care Document ---
Author Author Shira REAGAN M.D. Organization Unknown Address [address] [place] [address] Phone [phone] Care Team Providers Care Mems Process Engineer Name Role Phone Micheal Martin DO AUTM [phone] Problems Active Problems Provider Date Tremor Blanca [...] Available Vital Signs Date Vital Result Comment 03/16/2021 10:52am Respiratory Rate 12 /min Height 66 inches 5'6" Weight 155.00 lb BMI (Body Mass Index) 25.0 kg/m2 [place] Body Weight 130 lb 01/31/2021 2:49pm Respiratory Rate 12 /min Height 66 inches 5'6" Weight 155.00 lb BMI (Body Mass Index) 25.0 kg/m2 [place] Body Weight 130 lb Results Description No Information Available Procedures Date Code Description Status 03/16/2021 89016 Office/Outpatient Established Mo d MDM 30-39 Min Completed 03/08/2021 83076 EEG Recording Awake & Asleep Com pleted 03/08/2021 32713 EEG Recording Awake & Asleep Com pleted 01/31/2021 25908 Office/Outpatient Established Mo d MDM 30-39 Min Completed 12/21/2020 31956 Office/Outpatient Established Mo d MDM 30-39 Min Completed Medical Devices Description No Information Available Encounters Type Date Location Provider Dx Diagnosis Office Visit 03/16/2021 10:45a Main office - [place] Blanca hightower M.D. G20 Parkinson's disease Office Visit 01/31/2021 2:15p Main office - [place] Blanca hightower M.D. G20 Parkinson's disease Office Visit 12/21/2020 3:00p [facility] office - [place] Blanca hightower M.D. G20 Parkinson's disease Assessments Date Code Description Provider 03/16/2021 G20 Parkinson's disease Blanca hightower M.D. 03/08/2021 R41.82 Altered mental status, unspecifi ed Jaida Huerta M.D. 03/08/2021 R41.82 Altered mental status, unspecifi ed EEG 01/31/2021 G20 Parkinson's disease Blanca hightower M.D. 12/21/2020 G20 Parkinson's disease Blanca hightower M.D. Plan of Treatment Future Appointment(s):* 05/09/2021 1:30 pm - Blanca Reagan M.D. at [facility] Functional Status Description No Information Available Mental Status Description No Information Available Referrals Refer to Reason for Referral Status Appt Date [facility] Movement Disorder PARKINSON'S DISEASE AND EVALUATION REQUEST FOR DBS Created Movement Disorder [address] [facility] [address] [place] [address] [phone] [facility] Audiology & Physical Therapy BALANCE AND LE G STRENGTH FOR PHYSICAL THERAPY Created [place] [employer] [address] [address] [phone]
--- OUTSIDE RECORDS SUMMARY | 2021-06-09 12:14 | CCD ---
Author Author [facility] Organization [facility] Address Unknown Phone Unavailable Care Team Providers Care Residence Counselor Name Role Phone Micheal Martin Unavailable PROBLEMS Type Condition ICD9-CM Code [id number] Code Onset Dates Condition S tatus W/U Status Risk SNOMED Code Notes Problem Constipation, unspecified constipation type K59.00 Active confirmed 94958436 Problem Allergic rhinitis, unspecified seasonality, unspecifie d trigger J30.9 Active confirmed 25581763 Problem Coronary artery disease, ang amaury presence unspecified, unspecified vessel or lesion type, unspecified whether [place] or transplanted heart I25.10 Active confirmed 70671290 Problem Other sinusitis, unspecified chronicity J32.9 Active confirmed 58478323 Problem Thyroid nodule E04.1 Active confirmed 08052 5005 Problem Polyarthralgia M25.50 Active confirmed 81687 005 Problem Pancytopenia D61.818 Active confirmed 055509 005 Problem 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 Active confirmed 68189 01 Problem Hypercholesterolemia E78.00 Active confirmed 68780582 Problem Melanocytic nevus of right lower extremity D22.71 Active confirmed 473759715610066 Problem Psoriasis L40.9 Active confirmed 3311250 Problem Vitamin D deficiency E55.9 Active confirmed 34053409 Problem Gastroesophageal reflux disease without esophagitis K21.9 Active confirmed 649158786 Problem Cigarette nicotine dependence without complication F17.210 Active confirmed 43860524 Problem Antiphospholipid antibody positive R76.0 Activ e confirmed 920167978 Problem Type 2 diabetes mellitus wit hout complication, without long-term current use of insulin E11.9 Active confirmed 622104225 Problem Macroglobulinemia C88.0 Active confirmed 19 8027236 Problem Mild depression F32.0 Active confirmed 3104 99479 Problem History of alcohol abuse Z87.898 Active confirmed 274679895 Problem Cirrhosis of liver without ascites, unsp ecified hepatic cirrhosis type K74.60 Active confirmed 98501068 Problem Age-related osteoporosis without current pathological fracture M81.0 Active confirmed 32762019 Problem Osteoarthritis of both knees, unspecified osteoarthritis t ype M17.0 Active confirmed 854365146769473 Problem Dysthymia F34.1 Active confirmed 56451037 Problem Melanocytic nevus of left lower extremity D22.72 Active confirmed 761363879909969 Problem Essential (primary) hypertension I10 Active conf irmed 72113099 Problem Pitting of nails L60.8 Active confirmed 89 63416 Problem Other cirrhosis of liver K74.69 Active confirmed 96589247 Problem Lentigines L81.4 Active confirmed 991660677 Problem Melanocytic nevi of trunk D22.5 Active confirmed 422294854 Problem Seborrheic keratoses L82.1 Active confirmed 629545109 Problem Migraine without aura and without status migrain osus, not intractable G43.009 Active confirmed 238653656 Problem Primary osteoarthritis of left knee M17.12 Acti ve confirmed 887738385069614 Problem Depression, unspecified depression type F32.9 Active confirmed 60479206 Problem Skipped beats I45.9 Active confirmed 713997 008 Problem Primary osteoarthritis of right knee M17.11 Act miguel angel confirmed 577804609069837 Problem Melanocytic nevi of face D22.30 Active confirmed 762790971 Problem Smoking F17.200 Active confirmed 21628765 Problem Parkinsons G20 Active confirmed 62827726 Problem Osteoarthritis of knee, unilateral M17.10 Activ e confirmed 048671552 Problem Other chronic pain G89.29 Active confirmed 8 [id number] ALLERGIES No Known Allergies ENCOUNTERS from 1945 to 2021-04-14 Encounter Location Date Provider Diagnosis [address] [facility] [phone] [place] [address] Mar, Micheal Martin IMMUNIZATIONS Vaccine Route Administration [...] Education Language: Question Answer Notes Languages spoken: Chinese Sexual Hx: Question Answer Notes Had sex [...] Information RESULTS No Results REASON FOR VISIT confusion, weakness MEDICAL (GENERAL) HISTORY Type Description Date Medical History [place] in 1999 Medical History HTN, goal 140/90 Medical History Hyperlipidemia Medical History Depression Medical History Psoriasis Medical History Left ankle, broken Medical History CAD, stent x1 Medical History Parkinsons 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, oncology Medical History quadruple bypass 2018 Medical History DM, diet controlled Surgical History Stent placement after [place] 1999 Surgical History Hip fx repair 05/2010 Surgical History 8 pins 1 plate, left ankle 07/08/2013 Surgical History hardware removal L hip 05/2017 Surgical History Lt hip replacement 10/2017 Surgical History colonoscopy 07/20/2014 Surgical History upper and lower GI 08/2018 Surgical History quadruple bypass 10/24/18 Hospitalization History above surgeries Hospitalization History [facility] 10/24/2018 quad Bypass Hospitalization History fatiue 12/2020 [...] 30 day(s) Next Appt Details Provider Name:Patricia Jeffries, 2021-04-20 01:00:00 PM, [address] [place] [address], [place], [place], [facility], Insurance Providers Payer Name Payer Address Payer Phone Insured Name Patient Relati onship to Insured Coverage Start Date Coverage End Date MEDICARE Part A and B [address] [facility] [phone] [employer] [facility] [address] [place] [id number] [employer]
--- OUTSIDE RECORDS SUMMARY | 2021-06-09 12:14 | CCD ---
Author Author [facility] Organization [facility] Address Unknown Phone Unavailable Care Team Providers Care Motor Mechanic Name Role Phone Micheal Martin Unavailable PROBLEMS Type Condition ICD9-CM Code [id number] Code Onset Dates Condition S tatus W/U Status Risk SNOMED Code Notes Problem Constipation, unspecified constipation type K59.00 Active confirmed 92978155 Problem Allergic rhinitis, unspecified seasonality, unspecifie d trigger J30.9 Active confirmed 21977093 Problem Coronary artery disease, ang amaury presence unspecified, unspecified vessel or lesion type, unspecified whether [place] or transplanted heart I25.10 Active confirmed 52168924 Problem Other sinusitis, unspecified chronicity J32.9 Active confirmed 56648208 Problem Thyroid nodule E04.1 Active confirmed 62351 5005 Problem Polyarthralgia M25.50 Active confirmed 84791 005 Problem Pancytopenia D61.818 Active confirmed 303273 005 Problem 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 Active confirmed 85721 01 Problem Hypercholesterolemia E78.00 Active confirmed 63888146 Problem Melanocytic nevus of right lower extremity D22.71 Active confirmed 343599145981612 Problem Psoriasis L40.9 Active confirmed 9779268 Problem Vitamin D deficiency E55.9 Active confirmed 90705484 Problem Gastroesophageal reflux disease without esophagitis K21.9 Active confirmed 476630709 Problem Cigarette nicotine dependence without complication F17.210 Active confirmed 66957573 Problem Antiphospholipid antibody positive R76.0 Activ e confirmed 651107885 Problem Type 2 diabetes mellitus wit hout complication, without long-term current use of insulin E11.9 Active confirmed 545577696 Problem Macroglobulinemia C88.0 Active confirmed 19 4394800 Problem Mild depression F32.0 Active confirmed 3104 56729 Problem History of alcohol abuse Z87.898 Active confirmed 304295350 Problem Cirrhosis of liver without ascites, unsp ecified hepatic cirrhosis type K74.60 Active confirmed 50661830 Problem Age-related osteoporosis without current pathological fracture M81.0 Active confirmed 16658906 Problem Osteoarthritis of both knees, unspecified osteoarthritis t ype M17.0 Active confirmed 143636472097604 Problem Dysthymia F34.1 Active confirmed 93873295 Problem Melanocytic nevus of left lower extremity D22.72 Active confirmed 355867821469797 Problem Essential (primary) hypertension I10 Active conf irmed 84897098 Problem Pitting of nails L60.8 Active confirmed 897 06227 Problem Other cirrhosis of liver K74.69 Active confirmed 08797720 Problem Lentigines L81.4 Active confirmed 805278698 Problem Melanocytic nevi of trunk D22.5 Active confirmed 227770719 Problem Seborrheic keratoses L82.1 Active confirmed 545757313 Problem Migraine without aura and without status migrain osus, not intractable G43.009 Active confirmed 616553182 Problem Primary osteoarthritis of left knee M17.12 Acti ve confirmed 908038117461340 Problem Depression, unspecified depression type F32.9 Active confirmed 66943230 Problem Skipped beats I45.9 Active confirmed 499075 008 Problem Primary osteoarthritis of right knee M17.11 Act miguel angel confirmed 181599827343332 Problem Melanocytic nevi of face D22.30 Active confirmed 756771126 Problem Smoking F17.200 Active confirmed 85508298 Problem Parkinsons G20 Active confirmed 70972877 Problem Osteoarthritis of knee, unilateral M17.10 Activ e confirmed 133939022 Problem Other chronic pain G89.29 Active confirmed 8 [id number] ALLERGIES No Known Allergies ENCOUNTERS from 1945 to 2021-03-22 Encounter Location Date Provider Diagnosis [place] [address] [facility] [phone] [place] [address] Mar, Micheal Martin Type 2 diabetes mellitus wit hout complication, without long-term current use of insulin E11.9 IMMUNIZATIONS Vaccine Route Administration Date Status Influenza [...] Education Language: Question Answer Notes Languages spoken: Macedonian Sexual Hx: Question Answer Notes Had sex [...] before meals for 30 days Aug, Active Jardiance 10 MG 1 tablet Orally Once a day for 30 day(s) Active Pantoprazole Sodium 40 MG TAKE ONE [...] 1 tablet Orally Once a day/prn Not-Taking Cholecalciferol 25 MCG (1000 UT) 1 capsule Orally Once a day for 30 day(s) Active Donepezil HCl 10 MG 1 tablet at bedtime Orally Once a day for 30 day( s) Active Glucometer as directed _ bid for 999 days Aug, Active Carbidopa-Levodopa 25-100 MG 1.5 tablets Orally qid 3 hours apart, 0800, 1100, 1400, 1700 and 1 tab HS for 30 days Active Nitroglycerin 0.4 MG 1 tablet under the tongue Beltran blingual every 5 min x 3 for 30 days Active Acetaminophen 500 MG 2 tablets Orally every 6 hours as needed (M DD 3000 mg) PRN Active Otezla 30 MG 1 tab Orally bid for 30 days Active Rosuvastatin Calcium 40 MG TAKE ONE TABLET BY MOUTH EV ERASMO DAY Oral Once a day for 90 day(s) Active Lisinopril 5 MG 1 tablet Orally Once a day for 30 days Active PROCEDURES No Information RESULTS No Results REASON FOR VISIT Scripts MEDICAL (GENERAL) HISTORY Type Description Date Medical History [place] in 1999 Medical History HTN, goal 140/90 Medical History Hyperlipidemia Medical History Depression Medical History Psoriasis Medical History Left ankle, broken Medical History CAD, stent x1 Medical History Parkinsons 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, oncology Medical History quadruple bypass 2018 Medical History DM, diet controlled Surgical History Stent placement after [place] 1999 Surgical History Hip fx repair 05/2010 Surgical History 8 pins 1 plate, left ankle 07/08/2013 Surgical History hardware removal L hip 05/2017 Surgical History Lt hip replacement 10/2017 Surgical History colonoscopy 07/20/2014 Surgical History upper and lower GI 08/2018 Surgical History quadruple bypass 10/24/18 Hospitalization History above surgeries Hospitalization History [facility] 10/24/2018 quad Bypass Hospitalization History fatiue 12/2020 Goals Section No Information Health Concerns No Information MEDICAL EQUIPMENT No Information MENTAL STATUS No Information FUNCTIONAL STATUS No Information ASSESSMENTS Encounter Date Diagnosis Assessment Notes Treatment Notes Treatm ent Clinical Notes Mar, Type 2 diabetes mellitus wit hout complication, without long-term current use of insulin (ICD-10 - E11.9) PLAN OF TREATMENT Medication Medication Name Sig Start Date Stop Date Propranolol HCl 40 MG 1 tablet on an empty stomach Orally twice daily for 30 days Otezla 30 MG 1 tab Orally bid for 30 days Rosuvastatin Calcium 40 MG TAKE ONE TABLET BY MOUTH EV ERASMO DAY Oral Once a day for 90 day(s) [facility] Glucose Meter Test Strips - as directed In Vitro t wice daily before meals for 30 days Aug, Clobetasol Propionate 0.05 % 1 application to scalp Ex ternally Daily in the morning for 30 Days Jardiance 10 MG 1 tablet Orally Once a day for 30 day(s) Lisinopril 5 MG 1 tablet Orally Once a day for 30 days Donepezil HCl 10 MG 1 tablet at bedtime Orally Once a day for 30 day(s) Pantoprazole Sodium 40 MG TAKE ONE TABLET BY MOUTH TAIWO RY MORNING 1 2 HOUR BEFORE BREAKFAST Oral Daily for 30 days Carbidopa-Levodopa 25-100 MG 1.5 tablets Orally qid 3 hours apart, 0800, 1100, 1400, 1700 and 1 tab HS for 30 days Cholecalciferol 25 MCG (1000 UT) 1 capsule Orally Once a day for 30 day(s) Next Appt Details Provider Name:Micheal Mario, 2021-03-24 03 :45:00 PM, [address] [facility] [address] , , [place], [address], Provider Name:Patricia Jeffries, 2021-04-20 01:00:00 PM, [address] [facility], , [place], [address], Insurance Providers Payer Name Payer Address Payer Phone Insured Name Patient Relati onship to Insured Coverage Start Date Coverage End Date MEDICAID [employer] [address] [place] [address] [employer] MEDICARE Part A and B [address] [facility] [address] [employer]
--- OUTSIDE RECORDS SUMMARY | 2021-06-09 12:14 | CCD | Continuity of Care Document ---
Author Author Shira REAGAN M.D. Organization Unknown Address [address] [place] [address] Phone [phone] Care Team Providers Care Necktie Turner Name Role Phone Micheal Martin DO AUTM [phone] Problems Active Problems Provider Date Tremor Blanca [...] lb BMI (Body Mass Index) 25.0 kg/m2 [place] Body Weight 130 lb 01/31/2021 2:49pm Respiratory Rate 12 /min Height 66 inches 5'6" Weight 155.00 lb BMI (Body Mass Index) 25.0 kg/m2 [place] Body Weight 130 lb Results Description No Information Available Procedures Date Code Description Status 03/16/2021 50185 Office/Outpatient Established Mo d MDM 30-39 Min Completed 03/08/2021 40708 EEG Recording Awake & Asleep Com pleted 03/08/2021 25225 EEG Recording Awake & Asleep Com pleted 01/31/2021 41311 Office/Outpatient Established Mo d MDM 30-39 Min Completed 12/21/2020 77984 Office/Outpatient Established Mo d MDM 30-39 Min Completed Medical Devices Description No Information Available Encounters Type Date Location Provider Dx Diagnosis Office Visit 03/16/2021 10:45a Main office - [place] Blanca hightower M.D. G20 Parkinson's disease Office Visit 01/31/2021 2:15p Main office - [place] Blanca hightower M.D. G20 Parkinson's disease Office Visit 12/21/2020 3:00p [facility] office - [place] Blanca hightower M.D. G20 Parkinson's disease Assessments Date Code Description Provider 03/16/2021 G20 Parkinson's disease Blanca hightower M.D. 03/08/2021 R41.82 Altered mental status, unspecifi ed Jaida Huerta M.D. 03/08/2021 R41.82 Altered mental status, unspecifi ed EEG 01/31/2021 G20 Parkinson's disease Blanca hightower M.D. 12/21/2020 G20 Parkinson's disease Blanca hightower M.D. Plan of Treatment Future Appointment(s):* 05/09/2021 1:30 pm - Blanca Reagan M.D. at [facility] Functional Status Description No Information Available Mental Status Description No Information Available Referrals Refer to Reason for Referral Status Appt Date [facility] Movement Disorder PARKINSON'S DISEASE AND EVALUATION REQUEST FOR DBS Created Movement Disorder [address] [facility] [address] [place] [address] [phone] Formerly [facility] Audiology & Physical Therapy BALANCE AND LE G STRENGTH FOR PHYSICAL THERAPY Created Deloit [facility] [address] [address] [phone]
--- OUTSIDE RECORDS SUMMARY | 2021-06-09 12:15 | CCD ---
Author Author [facility] Organization [facility] Address Unknown Phone Unavailable Care Team Providers Care Repertoire Manager Name Role Phone Kim, Shahid PA Unavailable Unavailable Kim, Shahid PA Unavailable Unavailable Kim, Shahid PA Unavailable Unavailable Kim, Shahid PA Unavailable Unavailable Kim, Shahid PA Unavailable Unavailable Kim, Shahid PA Unavailable Unavailable Kim, Shahid PA Unavailable Unavailable Kim, Shahid PA Unavailable Unavailable Kim, Shahid PA Unavailable Unavailable Kim, Shahid PA Unavailable Unavailable Kim, Shahid PA Unavailable Unavailable Kim, Shahid PA Unavailable Unavailable Kim, Shhaid PA Unavailable [facility]available [facility] Unavailable Unavailable Barkin, G Micheal DO Unavailable Unavailable Barkin, G Micheal DO Unavailable Unavailable Barkin, G Micheal DO Unavailable Unavailable Barkin, G Micheal DO Unavailable Unavailable Barkin, G Micheal DO Unavailable Unavailable Barkin, G Micheal DO Unavailable Unavailable Barkin, G Micheal DO Unavailable Unavailable Barkin, G Micheal DO Unavailable Unavailable Barkin, G Micheal DO Unavailable Unavailable Barkin, G Micheal DO Unavailable Unavailable Barkin, G Micheal DO Unavailable Unavailable Barkin, G Micheal DO Unavailable Unavailable Barkin, G Micheal DO Unavailable Unavailable Barkin, G Micheal DO Unavailable Unavailable Barkin, G Micheal DO Unavailable Unavailable Barkin, G Micheal DO Unavailable Unavailable Barkin, G Micheal DO Unavailable Unavailable Barkin, G Micheal DO Unavailable Unavailable Barkin, G Micheal DO Unavailable Unavailable Barkin, G Micheal DO Unavailable Unavailable Barkin, G Micheal DO Unavailable Unavailable Barkin, G Micheal DO Unavailable Unavailable Katja Lai MD Unavailable Unavailable Joelle O Blanca OQUENDO Unavailable Unavailable Katja Lai MD Unavailable Unavailable Joelle O Blanca OQUENDO Unavailable Unavailable Joelle O Moiseah Unavailable Unavailable Katja Lai MD Unavailable Unavailable Katja Lai MD Unavailable Unavailable Katja Lai MD Unavailable Unavailable Katja Lai MD Unavailable Unavailable Katja Lai MD Unavailable Unavailable Joelle O Moiseah Unavailable Unavailable Katja Lai MD Unavailable Unavailable [...] Unavailable Katja Lai MD Unavailable Unavailable Katja Laiah Unavailable Unavailable Katja Lai MD Unavailable Unavailable Katja Lai MD Unavailable Unavailable Katja Lai MD Unavailable Unavailable Joelle O Blanca OQUENDO Unavailable Unavailable Katja Lai MD Unavailable Unavailable Ktaja Lai MD Unavailable Unavailable Katja Lai MD [...] Unavailable Joelle, O Samah MD Unavailable Unavailable Joelle O Samah MD Unavailable Unavailable Joelle, O Samah MD Unavailable Unavailable Joelle, O Samah MD Unavailable Unavailable Joelle O Samah MD Unavailable Unavailable Joelle O Samah MD Unavailable Unavailable Joelle O Moiseah MD Unavailable Unavailable Joelle O Samah MD Unavailable Unavailable Joelle O Samah Unavailable Unavailable Joelle, O Samah MD Unavailable Unavailable Joelle O Samah MD Unavailable Unavailable Joelle O Samah Unavailable Unavailable Joelle O Samah Unavailable Unavailable Joelle O Samah Unavailable Unavailable Joelle O Samah Unavailable Unavailable Joelle O Samah MD Unavailable Unavailable Joelle O Samah MD Unavailable Unavailable Joelle O Samah Unavailable Unavailable Joelle O Samah Unavailable Unavailable Jolele O Samah Unavailable Unavailable Joelle, O Samah MD Unavailable Unavailable Joelle, O Samah MD Unavailable Unavailable Joelle, O Samah MD Unavailable Unavailable Joelle, O Samah MD Unavailable Unavailable Olga, N Ramon REFERENCE SERVICES HEAD Unavailable Unavailable Olga, N Ramon REFERENCE SERVICES HEAD Unavailable Unavailable Olga, N Ramon REFERENCE SERVICES HEAD Unavailable Unavailable Golden, N Ramon REFERENCE SERVICES HEAD Unavailable Unavailable Golden, N Ramon REFERENCE SERVICES HEAD Unavailable Unavailable Golden, N Ramon REFERENCE SERVICES HEAD Unavailable Unavailable Olga, N Ramon REFERENCE SERVICES HEAD Unavailable Unavailable Golden, N Ramon REFERENCE SERVICES HEAD Unavailable Unavailable Olga, N Ramon REFERENCE SERVICES HEAD Unavailable Unavailable Golden, N Ramon REFERENCE SERVICES HEAD Unavailable Unavailable Golden, N Ramon REFERENCE SERVICES HEAD Unavailable Unavailable Golden, N Ramon REFERENCE SERVICES HEAD Unavailable Unavailable Olga, N Ramon REFERENCE SERVICES HEAD Unavailable Unavailable Golden, N Ramon REFERENCE SERVICES HEAD Unavailable Unavailable Golden, N Ramon REFERENCE SERVICES HEAD Unavailable Unavailable Golden, N Ramon REFERENCE SERVICES HEAD Unavailable Unavailable Loga, N Ramon REFERENCE SERVICES HEAD Unavailable Unavailable Golden, N Ramon REFERENCE SERVICES HEAD Unavailable Unavailable Olga, N Ramon REFERENCE SERVICES HEAD Unavailable Unavailable Golden, N Ramon REFERENCE SERVICES HEAD Unavailable Unavailable Olga, N Ramon REFERENCE SERVICES HEAD Unavailable Unavailable Golden, N Ramon REFERENCE SERVICES HEAD Unavailable Unavailable Golden, N Ramon REFERENCE SERVICES HEAD Unavailable Unavailable Golden, N Ramon REFERENCE SERVICES HEAD Unavailable Unavailable Golden, N Ramon REFERENCE SERVICES HEAD Unavailable Unavailable Olga, N Ramon REFERENCE SERVICES HEAD Unavailable Unavailable Olga, N Ramon REFERENCE SERVICES HEAD Unavailable Unavailable Olga, N Ramon REFERENCE SERVICES HEAD Unavailable Unavailable Golden, N Ramon REFERENCE SERVICES HEAD Unavailable Unavailable Olga, N Ramon REFERENCE SERVICES HEAD Unavailable Unavailable Golden, N Ramon REFERENCE SERVICES HEAD Unavailable Unavailable Olga, N Ramon REFERENCE SERVICES HEAD Unavailable Unavailable Olga, N Ramon REFERENCE SERVICES HEAD Unavailable Unavailable Cinthia MONDRAGON MD Unavailable Unavailable Cinthia MONDRAGON MD Unavailable Unavailable Cinthia MONDRAGON MD Unavailable Unavailable Cinthia MONDRAGON MD Unavailable Unavailable Cinthia MONDRAGON MD Unavailable Unavailable Cinthia MONDRAGON MD Unavailable Unavailable Cinthia MONDRAGON MD Unavailable Unavailable Cinthia MONDRAGON MD Unavailable Unavailable Cinthia MONDRAGON MD Unavailable Unavailable Cinthia MONDRAGON MD Unavailable Unavailable Cinthia MONDRAGON MD Unavailable Unavailable Cinthia MONDRAGON MD Unavailable Unavailable Cinthia MONDRAGON MD Unavailable Unavailable Cinthia MONDRAGON MD Unavailable Unavailable Cinthia MONDRAGON MD Unavailable Unavailable Cinthia MONDRAGON MD Unavailable Unavailable Cinthia MONDRAGON MD Unavailable Unavailable Cinthia MONDRAGON MD Unavailable Unavailable Cinthia MONDRAGON MD Unavailable Unavailable Cinthia MONDRAGON MD Unavailable Unavailable Cinthia MONDRAGON MD Unavailable Unavailable Cinthia MONDRAGON MD Unavailable Unavailable Cinthia MONDRAGON MD Unavailable Unavailable Cinthia MONDRAGON MD Unavailable Unavailable Cinthia MONDRAGON MD Unavailable Unavailable Cinthia MONDRAGON MD Unavailable Unavailable Cinthia MONDRAGON MD Unavailable Unavailable CHANDRALACinthia MD Unavailable Unavailable CHANDRALA, Cinthia GALARZA MD Unavailable Unavailable CHANDRALA, Cinthia GALARZA MD Unavailable Unavailable CHANDRALA, K MICHELL OQUENDO Unavailable Unavailable CHANDRALA, Cinthia GALARZA MD Unavailable Unavailable CHANDRALA, Cinthia GALARZA MD Unavailable Unavailable CHANDRALA, Cinthia GALARZA MD Unavailable Unavailable Kim, Shahid PA Unavailable Unavailable Kim, Shahid PA Unavailable Unavailable Kim, Shahid PA Unavailable Unavailable Kmi, Shahid PA Unavailable Unavailable Kim, Shahid PA Unavailable Unavailable Kim, Shahid PA Unavailable Unavailable Kim, Shahid PA Unavailable Unavailable Kim, Shahid PA Unavailable Unavailable Kim, Shahid PA Unavailable Unavailable Kim, Shahid PA Unavailable Unavailable Kim, Shahid PA Unavailable Unavailable Kim, Shahid PA Unavailable Unavailable Kim, Shahid PA Unavailable Unavailable Re-disclosure Warning The records that [...] is protected by Article 27-F of the [facility] Public Health law. If you continue you may have access to information: Regarding HIV / AIDS; Provided by facilities licensed or operated by the [facility] Office of Mental Health; or Provided by the [facility] Office for People With Developmental Disabilities. If such information is present, then the following [facility] mandated warning applies: This information has been [...] law may result in a fine or group home sentence or both. A general authorization for the release of medical or other information is NOT sufficient authorization for further disc losure. Family History Family Member Name Family Member Gender Family Member Status Date o f Status Description Data Source(s) Unknown Unknown Problem MEDENT ([facility], ) Unknown Unknown Problem MEDENT ([facility]) Unknown Unknown Problem MEDENT (Satya Osorio MD, ) Encounters Encounter Providers Location Date Indications Data Source(s ) Outpatient Attender: Blanca Lai MD Main office - [facility] 05/09/2021 12:30:00 PM EST MEDENT ([facility]) [place] [address] [facility] [address] 04/27/2021 12:00:00 AM EDT eCW1 ([facility]) [place] [address] [facility] [address] 04/20/2021 12:00:00 AM EDT eCW1 ([facility]) [place] [address] [facility] [address] 04/19/2021 12:00:00 AM EDT eCW1 ([facility]) [place] [address] [facility] [address] 04/18/2021 12:00:00 AM EDT eCW1 ([facility]) Outpatient Attender: Shahid Kim PAC[facility]ultant: [facility] [id number] 04/14/2021 05:20:00 PM EDT [facility] Emergency Attender: Shahid Kim PAReferrer: Micheal Martin EMERGENCY ROOM-ER 04/14/2021 03:47:00 PM EDT - 04/15/2021 12:22:00 PM EDT [facility] Patient discharged. [place] [address] [facility] [address] 04/14/2021 12:00:00 AM EDT eCW1 ([facility]) [place] [address] [facility] [address] 03/27/2021 12:00:00 AM EDT eCW1 ([facility]) [place] [address] [facility] [address] 03/24/2021 12:00:00 AM EDT [facility]CW1 ([facility]) [place] [address] [facility] [address] 03/20/2021 12:00:00 AM EDT [facility]) Outpatient Attender: Blanca Lai MD Main office [facility] 03/16/2021 10:45:00 AM EDT MEDENT ([facility], ) Outpatient Attender: Ramon WATERSP.[email or web address] 021 12:00:00 AM EDT - 03/14/2021 01:31:41 PM EDT [facility] [place] [address] [facility] [address] 03/08/2021 12:00:00 AM EDT [facility]CW1 ([facility]) [place] [address] [facility] [address] 03/08/2021 12:00:00 AM EDT eCW1 ([facility]) Outpatient Attender: Ramon Espinoza NP SJP.RAS-[email or web address].RAS 021 12:00:00 AM EDT - 02/28/2021 09:17:18 AM EDT [facility] [place] [address] [facility] [address] 02/28/2021 12:00:00 AM EDT [facility] [place] [address] [facility] [address] 02/27/2021 12:00:00 AM EDT eCW1 [facility]) Outpatient Attender: MICHELL Winkler/Sirena/Jasvir figueroa/Kelby 02/20/2021 02:10:00 PM EDT MEDENT ([facility]) [place] [address] [facility] [address] 02/20/2021 12:00:00 AM EDT eCW1 ([facility]) [place] [address] [facility] [address] 02/20/2021 12:00:00 AM EDT eCW1 ([facility]) (TCM) Transition of Care Visit [address] [place] [address] 02/15/2021 12:00:00 AM EDT eCW1 ([facility]) [place] [address] [facility] [address] 02/15/2021 12:00:00 AM EDT eCW1 ([facility]) Unknown [address] [facility] [address] 02/13/2021 12:00:00 AM EDT eCW1 ([facility]) [place] [address] [facility] [address] 02/09/2021 12:00:00 AM EDT eCW1 ([facility]) [place] [address] [facility] [address] 02/08/2021 12:00:00 AM EDT eCW1 ([facility]) Unknown [address] [facility] [address] 02/03/2021 12:00:00 AM EDT eCW1 ([facility]) Outpatient Attender: Blanca Lai MD [facility] office - [facility] 01/31/2021 02:15:00 PM EDT MEDENT ([facility]) [place] [address] [facility] [address] 01/31/2021 12:00:00 AM EDT eCW1 ([facility]) Outpatient [address] [facility] [place] [address] 01/24/2021 12:00:00 AM EDT eCW1 ([facility]) Outpatient Attender: Blanca Lai MD Main office [facility] 12/21/2020 03:00:00 PM EDT MEDENT ([facility]) [place] [address] [facility] [address] 12/14/2020 12:00:00 AM EDT [facility]) [place] [address] [facility] [address] 12/08/2020 12:00:00 AM EDT [facility]CW1 ([facility]) [place] [address] [facility] [address] 12/02/2020 12:00:00 AM EDT [facility]) [place] [address] [facility] [address] 11/14/2020 12:00:00 AM EDT eCW1 ([facility]) Outpatient Attender: MICHELL Winkler/Sirena/Jasvir figueroa/Kelby 11/10/2020 09:40:00 AM EDT MEDENT ([facility], ) [place] [address] [facility] [address] 10/11/2020 12:00:00 AM EDT eCW1 ([facility]) [place] [address] [facility] [address] 09/27/2020 12:00:00 AM EDT eCW1 ([facility]) [place] [address] [facility] [address] 09/23/2020 12:00:00 AM EDT eCW1 ([facility]) Office Visit Attender: Blanca Lai MD Main office - [facility] 09/06/2020 09:15:00 AM EST MEDENT ([facility], ) [place] [address] [facility] [address] 09/06/2020 12:00:00 AM EST eCW1 ([facility]) Office Visit, Est Pt., Level 4 [address] [place] [address] 08/25/2020 12:00:00 AM EST eCW1 ([facility]) [place] [address] [facility] [address] 08/23/2020 12:00:00 AM EST [facility]CW1 [facility] [place] [address] [facility] [address] 08/09/2020 12:00:00 AM EST [facility]CW1 ([facility]) [place] [address] [facility] [address] 08/04/2020 12:00:00 AM EST [facility]CW1 ([facility]) [place] [address] [facility] [address] 07/29/2020 12:00:00 AM EST [facility]CW1 ([facility]) [place] [address] [facility] [address] 07/04/2020 12:00:00 AM EST [facility]CW1 ([facility]) [place] [address] [facility] [address] 06/28/2020 12:00:00 AM EST eCW1 ([facility]) Office Visit Attender: Blanca Lai MD Main office - [facility] 06/02/2020 10:15:00 AM EST MEDENT ([facility]) [place] [address] [facility] [address] 05/30/2020 12:00:00 AM EST eCW1 ([facility]) [place] [address] [facility] [address] 05/25/2020 12:00:00 AM EST eCW1 ([facility]) [place] [address] [facility] [address] 04/27/2020 12:00:00 AM EDT eCW1 ([facility]) Immunizations Vaccine Date Status Description Data Source(s) COVID-19 VACCINE Moderna 08/29/2020 12:00:00 AM EST completed [facility] Vaccine Series Complete: YESThis Data wa s Submitted to [facility] Via [facility]. COVID-19 VACCINE Moderna 08/01/2020 12:00:00 AM EST completed [facility] Vaccine Series Complete: NOThis Data was Submitted to [facility] Via [employer]. Medications Medication Brand Name Start Date Product Form Dose Route Admi nistrative Instructions Pharmacy Instructions Status Indications Reaction Description Data Source(s) Triamcinolone Acetonide 0.001 MG/MG Topi demetris Ointment Triamcinolone Acetonide 0.1 % Triamcinolone Acetonide 0.1 % 04/20/2021 12:00:00 AM EDT 1.0 {application} active Triamcinolone Aceton logan 0.1 % eCW1 ([facility]) Triamcinolone Acetonide 0.001 MG/MG Topi demetris Ointment Triamcinolone Acetonide 0.1 % Triamcinolone Acetonide 0.1 % 04/20/2021 12:00:00 AM EDT 1.0 {application} active Triamcinolone Aceton logan 0.1 % eCW1 ([facility]) Triamcinolone Acetonide 0.001 MG/MG Topi demetris Ointment Triamcinolone Acetonide 0.1 % Triamcinolone Acetonide 0.1 % 04/20/2021 12:00:00 AM EDT 1.0 {application} active Triamcinolone Aceton logan 0.1 % eCW1 ([facility]) Ciprofloxacin 250 MG Oral Tablet CIPROFLOXACIN HCL 04/19/2021 12 :00:00 AM EDT tablet 14 TAKE ONE TABLET BY MOUTH TWO SINGH ES A DAY TAKE ONE TABLET BY MOUTH TWO TIMES A DAY SOLD: 04/19/2021 [facility] 10 gram/15 mL 04/15/2021 12:00:00 AM EDT solution 300 TAKE 15 ML BY MOUTH TWO TIMES A DAY TAKE 15 ML BY MOUTH TWO TIMES A DAY SOLD: 04/15/2021 [facility] Advocate Lancets - Advocate Lancets - 03/24/2021 12:00:00 AM EDT active Advocate Lancets - eCW1 ([facility]) OneTouch Verio - OneTouch Verio - 03/24/2021 12:00:00 AM EDT active OneTouch Verio - eCW1 ([facility]) Advocate Lancets - Advocate Lancets - 03/24/2021 12:00:00 AM EDT active Advocate Lancets - eCW1 ([facility]) Advocate Lancets - Advocate Lancets - 03/24/2021 12:00:00 AM EDT suspended Advocate Lancets - eCW1 ([facility]) Advocate Lancets - Advocate Lancets - 03/24/2021 12:00:00 AM EDT suspended Advocate Lancets - eCW1 ([facility]) OneTouch Verio - OneTouch Verio - 03/24/2021 12:00:00 AM EDT active OneTouch Verio - eCW1 ([facility]) Advocate Lancets - Advocate Lancets - 03/24/2021 12:00:00 AM EDT active Advocate Lancets - eCW1 ([facility]) Advocate Lancets - Advocate Lancets - 03/24/2021 12:00:00 AM EDT active Advocate Lancets - eCW1 ([facility]) OneTouch Verio - OneTouch Verio - 03/24/2021 12:00:00 AM EDT active OneTouch Verio - eCW1 ([facility]) OneTouch Verio - OneTouch Verio - 03/24/2021 12:00:00 AM EDT suspended OneTouch Verio - eCW1 ([facility]) OneTouch Verio - OneTouch Verio - 03/24/2021 12:00:00 AM EDT active OneTouch Verio - eCW1 ([facility]) OneTouch Verio - OneTouch Verio - 03/24/2021 12:00:00 AM EDT suspended OneTouch Verio - eCW1 ([facility]) Advocate Lancets - Advocate Lancets - 03/24/2021 12:00:00 AM EDT suspended Advocate Lancets - eCW1 ([facility]) OneTouch Verio - OneTouch Verio - 03/24/2021 12:00:00 AM EDT suspended OneTouch Verio - eCW1 ([facility]) 100 mg/mL 03/19/2021 12:00:00 AM EDT suspension 1260 TAKE 10ML BY MOUTH THREE TIMES A DAY 1/2 HOUR BEFORE MEALS AND AT BEDTIME TAKE 10ML BY MOUTH THREE TIMES A DAY 1/2 HOUR BEFORE MEALS AND AT BEDTIME SOLD: 03/21/2021 [facility] empagliflozin 10 MG Oral Tablet [Jardiance] Jardiance 10 MG TABS Jardiance 10 MG TABS 02/26/2021 12:00:[address] [facility] pantoprazole 40 MG Delayed Release Oral Tablet pantoprazole (PROTONIX) 40 MG tablet pantoprazole (PROTONIX) 40 MG tablet 02/22/2021 12:00:00 AM EDT active TAKE ONE TABLET BY MOUTH @8A M [facility] 10 gram/15 mL 02/20/2021 12:00:00 AM EDT solution 474 TAKE 15ML-30ML BY MOUTH ONCE DAILY IN THE MORNING OR AT NIGHT ADJUST TO HAVE AT LEAST 1 BOWEL MOVEMNT DAILY TAKE 15ML-30ML BY MOUTH ONCE DAILY IN E MORNING OR AT NIGHT ADJUST TO HAVE AT LEAST 1 BOWEL MOVEMNT DAILY SOLD: 02/21/2021 [facility] Lactulose 667 MG/ML Oral Solution [Constulose] Constul ose 10 GM/15ML solution Constulose 10 GM/15ML solution 02/20/2021 12:00:00 AM EDT active TAKE 15ML 30ML BY MOUTH ONCE DAILY IN THE MORNING OR AT NIGHT ADJUST TO HAVE AT LEAST [address] [facility] 10 gram/15 mL 02/20/2021 12:00:00 AM EDT solution 473 TAKE 15ML-30ML BY MOUTH ONCE DAILY IN THE MORNING OR AT NIGHT ADJUST TO HAVE AT LEAST 1 BOWEL MOVEMNT DAILY TAKE 15ML-30ML BY MOUTH ONCE DAILY IN TH E MORNING OR AT NIGHT ADJUST TO HAVE AT LEAST 1 BOWEL MOVEMNT DAILY SOLD: 05/26/2021 [facility] Lactulose 667 MG/ML Oral Solution Lactulose 02/20/2021 12:00:00 AM EDT ORAL active MEDENT ([facility]) 10 gram/15 mL 02/20/2021 12:00:00 AM EDT solution 473 TAKE 15ML-30ML BY MOUTH ONCE DAILY IN THE MORNING OR AT NIGHT ADJUST TO HAVE AT LEAST 1 BOWEL MOVEMNT DAILY TAKE 15ML-30ML BY MOUTH ONCE DAILY IN TH E MORNING OR AT NIGHT ADJUST TO HAVE AT LEAST 1 BOWEL MOVEMNT DAILY SOLD: 04/26/2021 [facility] ramelteon 8 MG Oral Tablet Ramelteon 8 MG Ramelteon 8 MG 02/10/2021 12:00:00 AM EDT 1.0 {tablet_at_bedtime_as_needed} suspended Ramelteon 8 MG eCW1 ([facility]) ramelteon 8 MG Oral Tablet Ramelteon 8 MG Ramelteon 8 MG 02/10/2021 12:00:00 AM EDT 1.0 {tablet_at_bedtime_as_needed} active Ramelteon 8 MG eCW1 ([facility]) ramelteon 8 MG Oral Tablet Ramelteon 8 MG Ramelteon 8 MG 02/10/2021 12:00:00 AM EDT 1.0 {tablet_at_bedtime_as_needed} active Ramelteon 8 MG eCW1 ([facility]) ramelteon 8 MG Oral Tablet Ramelteon 8 MG Ramelteon 8 MG 02/10/2021 12:00:00 AM EDT 1.0 {tablet_at_bedtime_as_needed} suspended Ramelteon 8 MG eCW1 ([facility]) ramelteon 8 MG Oral Tablet Ramelteon 8 MG Ramelteon 8 MG 02/10/2021 12:00:00 AM EDT 1.0 {tablet_at_bedtime_as_needed} suspended Ramelteon 8 MG eCW1 ([facility]) ramelteon 8 MG Oral Tablet Ramelteon 8 MG Ramelteon 8 MG 02/10/2021 12:00:00 AM EDT 1.0 {tablet_at_bedtime_as_needed} suspended Ramelteon 8 MG eCW1 ([facility]) ramelteon 8 MG Oral Tablet Ramelteon 8 MG Ramelteon 8 MG 02/10/2021 12:00:00 AM EDT 1.0 {tablet_at_bedtime_as_needed} suspended Ramelteon 8 MG eCW1 ([facility]) ramelteon 8 MG Oral Tablet Ramelteon 8 MG Ramelteon 8 MG 02/10/2021 12:00:00 AM EDT 1.0 {tablet_at_bedtime_as_needed} suspended Ramelteon 8 MG eCW1 ([facility]) ramelteon 8 MG Oral Tablet Ramelteon 8 MG Ramelteon 8 MG 02/10/2021 12:00:00 AM EDT 1.0 {tablet_at_bedtime_as_needed} suspended Ramelteon 8 MG eCW1 ([facility]) ramelteon 8 MG Oral Tablet Ramelteon 8 MG Ramelteon 8 MG 02/10/2021 12:00:00 AM EDT 1.0 {tablet_at_bedtime_as_needed} suspended Ramelteon 8 MG eCW1 ([facility]) ramelteon 8 MG Oral Tablet Ramelteon 8 MG Ramelteon 8 MG 02/10/2021 12:00:00 AM EDT 1.0 {tablet_at_bedtime_as_needed} active Ramelteon 8 MG eCW1 ([facility]) ramelteon 8 MG Oral Tablet Ramelteon 8 MG Ramelteon 8 MG 02/10/2021 12:00:00 AM EDT 1.0 {tablet_at_bedtime_as_needed} suspended Ramelteon 8 MG eCW1 ([facility]) ramelteon 8 MG Oral Tablet Ramelteon 8 MG Ramelteon 8 MG 02/10/2021 12:00:00 AM EDT 1.0 {tablet_at_bedtime_as_needed} suspended Ramelteon 8 MG eCW1 ([facility]) ramelteon 8 MG Oral Tablet Ramelteon 8 MG Ramelteon 8 MG 02/10/2021 12:00:00 AM EDT 1.0 {tablet_at_bedtime_as_needed} suspended Ramelteon 8 MG eCW1 ([facility]) ramelteon 8 MG Oral Tablet Ramelteon 8 MG Ramelteon 8 MG 02/10/2021 12:00:00 AM EDT 1.0 {tablet_at_bedtime_as_needed} suspended Ramelteon 8 MG eCW1 ([facility]) ramelteon 8 MG Oral Tablet Ramelteon 8 MG Ramelteon 8 MG 02/10/2021 12:00:00 AM EDT 1.0 {tablet_at_bedtime_as_needed} suspended Ramelteon 8 MG eCW1 ([facility]) ramelteon 8 MG Oral Tablet Ramelteon 8 MG Ramelteon 8 MG 02/10/2021 12:00:00 AM EDT 1.0 {tablet_at_bedtime_as_needed} suspended Ramelteon 8 MG eCW1 ([facility]) ramelteon 8 MG Oral Tablet Ramelteon 8 MG Ramelteon 8 MG 02/10/2021 12:00:00 AM EDT 1.0 {tablet_at_bedtime_as_needed} suspended Ramelteon 8 MG eCW1 ([facility]) ramelteon 8 MG Oral Tablet Ramelteon 8 MG Ramelteon 8 MG 02/10/2021 12:00:00 AM EDT 1.0 {tablet_at_bedtime_as_needed} suspended Ramelteon 8 MG eCW1 ([facility]) ramelteon 8 MG Oral Tablet Ramelteon 8 MG Ramelteon 8 MG 02/10/2021 12:00:00 AM EDT 1.0 {tablet_at_bedtime_as_needed} suspended Ramelteon 8 MG eCW1 ([facility]) Donepezil hydrochloride 10 MG Oral Tablet donepezil (A RICEPT) 10 MG tablet donepezil (ARICEPT) 10 MG tablet 02/08/2021 12:00:00 AM EDT active TAKE ONE HALF TABLET BY MOUTH AT BEDTIME FOR 2 WEEKS THEN INCREASE TO [address] [facility] [place] 40 mg 02/03/2021 12:00:00 AM EDT tablet 30 TAKE ONE TABLET BY MOUTH EVERY DAY DIRECTED TAKE ONE TABLET BY MOUTH EVERY DAY DIRECTED SOLD: 021 [facility] Nitroglycerin 0.4 MG Sublingual Tablet n itroglycerin (NITROSTAT) 0.4 MG SL tablet nitroglycerin (NITROSTAT) 0.4 MG SL tablet 02/01/2021 12:00:00 A M EDT active PLACE ONE TABLET UNDER THE TONGUE EVERY 5 MINUTES FOR UP TO 3 DOSES NEEDED FOR CHEST PAIN. IF CHEST PAIN STILL PERSISTS CONTACT [address] [facility] [place] 0.4 mg 02/01/2021 12:00:00 AM EDT tablet, sublingual 25 PLACE ONE TABLET UNDER THE TONGUE EVERY 5 MINUTES FOR UP TO 3 DOSES NEEDED FOR CHEST PAIN. IF CHEST PAIN STILL PERSISTS CONTACT [address] ONE TABLET UNDER THE TONGUE EVERY 5 MINUTES FOR UP TO 3 DOSES NEEDED FOR CHEST PAIN. IF CHEST PAIN STILL PERSISTS CONTACT 911 SOLD: 02/03/2021 [facility] 25 mg 01/25/2021 12:00:00 AM EDT capsule 120 TAKE TWO CAPSULES BY MOUTH TWICE A DAY TAKE TWO CAPSULES BY MOUTH TWICE A DAY SOLD: 01/25/2021 [facility] 25-100 mg 12/22/2020 12:00:00 AM EDT tablet 180 TAKE ONE AND ONE-HALF TABLETS BY MOUTH FOUR TIMES A DAY 3 HOURS APART (8AM, 11AM, 2'PM, AND 5PM) TAKE ONE AND ONE-HALF TABLETS BY MOUTH FOUR TIMES A DAY 3 HOURS APART (8AM, 11AM, 2'PM, AND 5PM) SOLD: 12/23/2020 [facility] 25-100 mg 12/22/2020 12:00:00 AM EDT tablet 180 TAKE ONE AND ONE-HALF TABLETS BY MOUTH FOUR TIMES A DAY 3 HOURS APART (8AM, 11AM, 2'PM, AND 5PM) TAKE ONE AND ONE-HALF TABLETS BY MOUTH FOUR TIMES A DAY 3 HOURS APART (8AM, 11AM, 2'PM, AND 5PM) SOLD: 02/06/2021 [facility] 10 mg 12/22/2020 12:00:00 AM EDT tablet 30 TAKE ONE-HALF TABLET BY MOUTH AT BEDTIME FOR 2 WEEKS THEN INCREASE TO 1 TABLET ONCE DAILY TAKE ONE-HALF TABLET BY MOUTH AT BEDTIME FOR 2 WEEKS THEN INCREASE TO 1 TABLET ONCE DAILY SOLD: 12/23/2020 [facility] 10 mg 12/22/2020 12:00:00 AM EDT tablet 30 TAKE ONE-HALF TABLET BY MOUTH AT BEDTIME FOR 2 WEEKS THEN INCREASE TO 1 TABLET ONCE DAILY TAKE ONE-HALF TABLET BY MOUTH AT BEDTIME FOR 2 WEEKS THEN INCREASE TO 1 TABLET ONCE DAILY SOLD: 02/09/2021 [facility] Donepezil hydrochloride 10 MG Oral Tablet Donepezil HCL 12/21/2020 12:00:00 AM EDT ORAL completed MEDENT ([facility]) 500 mg 12/20/2020 12:00:00 AM EDT tablet 14 TAKE ONE TABLET BY MOUTH EVERY 12 HOURS FOR 7 DAYS TAKE ONE TABLET BY MOUTH EVERY 12 HOURS FOR 7 DAYS AMAIRANI [facility] Nystatin [id number] UNT/ML Topical Cream nystatin (MYCOSTA TIN) cream nystatin (MYCOSTATIN) cream 12/20/2020 12:00:00 AM EDT active APPLY TO AFFECTED AREA S TWICE A DAY FOR [address] [facility] [place] 100,000 unit/gram 12/20/2020 12:00:00 AM EDT cream 30 APPLY TO AFFECTED AREA(S) TWICE A DAY FOR 7 DAYS APPLY TO AFFECTED AREA(S) TWICE A DAY FOR 7 DAYS SOLD: 12/20/2020 [facility] Cyclobenzaprine hydrochloride 10 MG Oral Tablet CYCLOBENZAPR INE HCL 12/20/2020 12:00:00 AM EDT tablet 21 TAKE ONE TABLET BY MOUTH THREE TIMES A DAY FOR 7 DAYS TAKE ONE TABLET BY MOUTH THREE TIMES A DAY FOR 7 DAYS SOLD: [facility] Rosuvastatin calcium 40 MG Oral Tablet ROSUVASTATIN CALCIUM 12/10/2020 12:00:00 AM EDT tablet 90 TAKE ONE TABLET BY MOUTH TAIWO TAKE ONE TABLET BY MOUTH EVERY DAY SOLD: 12/10/2020 [facility] 10 mg 12/03/2020 12:00:00 AM EDT tablet 30 TAKE ONE TABLET BY MOUTH EVERY DAY TAKE ONE TABLET BY MOUTH EVERY DAY SOLD: 12/03/2020 [facility] 10 mg 12/03/2020 12:00:00 AM EDT tablet 30 TAKE ONE TABLET BY MOUTH EVERY DAY TAKE ONE TABLET BY MOUTH EVERY DAY SOLD: 01/01/2021 [facility] 10 mg 12/03/2020 12:00:00 AM EDT tablet 30 TAKE ONE TABLET BY MOUTH EVERY DAY TAKE ONE TABLET BY MOUTH EVERY DAY SOLD: 02/03/2021 [facility] POLYETHYLENE GLYCOL 3350 105 MG/ML / Pot assium Chloride 0.44933 MEQ/ML / Sodium Bicarbonate 0.017 MEQ/ML / Sodium Chloride 0.0479 MEQ/ML Oral Solution [GaviLyte-N] Gavilyte-N With Flavor Pack 11/30/2020 12:00:00 AM EDT completed MEDENT ([facility] ) Clenpiq Clenpiq 11/30/2020 12:00:00 AM EDT complet ed MEDENT ([facility], ) Bisacodyl 5 MG Delayed Release Oral Tablet [Dulcolax] Dulcol ax 11/30/2020 12:00:00 AM EDT completed MEDENT ([facility], ) Sutab Sutab 11/30/2020 12:00:00 AM EDT completed MEDENT ([facility], ) 17 gram/dose 11/10/2020 12:00:00 AM EDT powder 238 USE 17 GM MIXED WITH 8 OUNCES OF WATER OR FLUID AND TO BE TAKEN 1-2 TIMES A DAY HOLD OR DECREASE DOSE IF HAVING DIARRHEA USE 17 GM MIXED WITH 8 OUNCES OF WATER O R FLUID AND TO BE TAKEN 1-2 TIMES A DAY HOLD OR DECREASE DOSE IF HAVING DIARRHEA SOLD: 12/07/2020 [facility] POLYETHYLENE GLYCOL 3350 142 MG/ML Oral Solution [Miralax] M iralax 11/10/2020 12:00:00 AM EDT active M EDENT ([facility], ) 17 gram/dose 11/10/2020 12:00:00 AM EDT powder 238 USE 17 GM MIXED WITH 8 OUNCES OF WATER OR FLUID AND TO BE TAKEN 1-2 TIMES A DAY HOLD OR DECREASE DOSE IF HAVING DIARRHEA USE 17 GM MIXED WITH 8 OUNCES OF WATER O R FLUID AND TO BE TAKEN 1-2 TIMES A DAY HOLD OR DECREASE DOSE IF HAVING DIARRHEA SOLD: 03/17/2021 [facility] 25-100 mg 10/26/2020 12:00:00 AM EDT tablet 135 TAKE 1 & 1/2 TABLETS BY MOUTH THREE TIMES A DAY 4 HOURS APART TAKE 1 & 1/2 TABLETS BY MOUTH THREE TIME S A DAY 4 HOURS APART SOLD: 11/21/2020 [facility] pantoprazole 40 MG Delayed Release Oral Tablet PANTOPRAZOLE SODIUM 10/12/2020 12:00:00 AM EDT tablet,delayed release (DR/EC) 90 T DI ONE TABLET BY MOUTH EVERY MORNING 1/2 HOUR BEFORE BREAKFAST TAKE ONE TABLET BY MOUTH EVERY MORNING 1/2 HOUR BEFORE BREAKFAST SOLD: 10/12/2020 [facility] 5 mg 10/12/2020 12:00:00 AM EDT tablet 30 TAKE ONE TABLET BY MOUTH EVERY DAY TAKE ONE TABLET BY MOUTH EVERY DAY SOLD: 11/21/2020 [facility] 5 mg 10/12/2020 12:00:00 AM EDT tablet 30 TAKE ONE TABLET BY MOUTH EVERY DAY TAKE ONE TABLET BY MOUTH EVERY DAY SOLD: 10/14/2020 [facility] 5 mg 10/12/2020 12:00:00 AM EDT tablet 30 TAKE ONE TABLET BY MOUTH EVERY DAY TAKE ONE TABLET BY MOUTH EVERY DAY SOLD: 01/25/2021 [facility] 5 mg 10/12/2020 12:00:00 AM EDT tablet 30 TAKE ONE TABLET BY MOUTH EVERY DAY TAKE ONE TABLET BY MOUTH EVERY DAY SOLD: 12/28/2020 [facility] empagliflozin 10 MG Oral Tablet [Jardiance] Jardiance 10 MG Jardiance 10 MG 09/27/2020 12:00:00 AM EDT 1.0 {tablet} active Jardiance 10 MG eCW1 ([facility]) 10 mg 09/27/2020 12:00:00 AM EDT tablet 30 TAKE ONE TABLET BY MOUTH EVERY DAY TAKE ONE TABLET BY MOUTH EVERY DAY SOLD: 09/28/2020 [facility] empagliflozin 10 MG Oral Tablet [Jardiance] Jardiance 10 MG Jardiance 10 MG 09/27/2020 12:00:00 AM EDT 1.0 {tablet} active Jardiance 10 MG eCW1 ([facility]) empagliflozin 10 MG Oral Tablet [Jardiance] Jardiance 10 MG Jardiance 10 MG 09/27/2020 12:00:00 AM EDT 1.0 {tablet} active Jardiance 10 MG eCW1 ([facility]) empagliflozin 10 MG Oral Tablet [Jardiance] Jardiance 10 MG Jardiance 10 MG 09/27/2020 12:00:00 AM EDT 1.0 {tablet} active Jardiance 10 MG eCW1 ([facility]) 25-100 mg 09/09/2020 12:00:00 AM EST tablet 135 TAKE ONE AND ONE-HALF TABLETS BY MOUTH THREE TIMES A DAY 5 HOURS APART TAKE ONE AND ONE-HALF TABLETS BY MOUTH THREE TIMES A DAY 5 HOURS APART SOLD: 09/09/2020 [facility] 25-100 mg 09/06/2020 12:00:00 AM EST tablet extended release 30 TAKE ONE TABLET BY MOUTH AT BEDTIME TAKE ONE TABLET BY MOUTH AT BEDTIME SOLD: 12/26/2020 [facility] 25-100 mg 09/06/2020 12:00:00 AM EST tablet extended release 30 TAKE ONE TABLET BY MOUTH AT BEDTIME TAKE ONE TABLET BY MOUTH AT BEDTIME SOLD: 12/02/2020 [facility] Carbidopa 25 MG / Levodopa 100 MG Extended Release Ora l Tablet Carbidopa- Levodopa ER 09/06/2020 12:00:00 AM EST ORAL completed MEDENT ([facility]) 25-100 mg 09/06/2020 12:00:00 AM EST tablet extended release 30 TAKE ONE TABLET BY MOUTH AT BEDTIME TAKE ONE TABLET BY MOUTH AT BEDTIME SOLD: 09/09/2020 [facility] 25-100 mg 09/06/2020 12:00:00 AM EST tablet extended release 30 TAKE ONE TABLET BY MOUTH AT BEDTIME TAKE ONE TABLET BY MOUTH AT BEDTIME SOLD: 10/05/2020 [facility] Clobetasol Propionate 0.5 MG/ML Topical Solution Clobe tasol Propionate 0.05 % Clobetasol Propionate 0.05 % 08/25/2020 12:00:00 AM EST 1.0 {application_to_scalp} active Clobetaso l Propionate 0.05 % eCW1 ([facility]) BLOOD SUGAR DIAGNOSTIC 08/25/2020 12:00:00 AM EST strip 50 USE DIRECTED TWO TIMES A DAY BEFORE MEALS USE DIRECTED TWO TIMES A DAY BEFORE MEALS SOLD: 08/27/2020 [facility] Clobetasol Propionate 0.5 MG/ML Topical Solution Clobe tasol Propionate 0.05 % Clobetasol Propionate 0.05 % 08/25/2020 12:00:00 AM EST 1.0 {application_to_scalp} active Clobetaso l Propionate 0.05 % eCW1 ([facility]) 0.05 % 08/25/2020 12:00:00 AM EST solution 25 APPLY TO SCALP ONCE DAILY IN THE MORNING APPLY TO SCALP ONCE DAILY IN THE MORNING SOLD: 08/27/2020 [facility] Dermasmoothe/FS 0.01% UNK 08/25/2020 12:00:00 AM EST active Dermasmoothe/FS 0.01% eCW1 ([facility]) Clobetasol Propionate 0.5 MG/ML Topical Solution Clobe tasol Propionate 0.05 % Clobetasol Propionate 0.05 % 08/25/2020 12:00:00 AM EST 1.0 {application_to_scalp} active Clobetaso l Propionate 0.05 % eCW1 ([facility]) Clobetasol Propionate 0.5 MG/ML Topical Solution Clobe tasol Propionate 0.05 % Clobetasol Propionate 0.05 % 08/25/2020 12:00:00 AM EST 1.0 {application_to_scalp} active Clobetaso l Propionate 0.05 % eCW1 ([facility]) Dermasmoothe/FS 0.01% UNK 08/25/2020 12:00:00 AM EST active Dermasmoothe/FS 0.01% eCW1 ([facility]) Clobetasol Propionate 0.5 MG/ML Topical Solution Clobe tasol Propionate 0.05 % Clobetasol Propionate 0.05 % 08/25/2020 12:00:00 AM EST 1.0 {application_to_scalp} active Clobetaso l Propionate 0.05 % eCW1 ([facility]) Dermasmoothe/FS 0.01% UNK 08/25/2020 12:00:00 AM EST active Dermasmoothe/FS 0.01% eCW1 ([facility]) Clobetasol Propionate 0.5 MG/ML Topical Solution Clobe tasol Propionate 0.05 % Clobetasol Propionate 0.05 % 08/25/2020 12:00:00 AM EST 1.0 {application_to_scalp} active Clobetaso l Propionate 0.05 % eCW1 ([facility]) Dermasmoothe/FS 0.01% UNK 08/25/2020 12:00:00 AM EST active Dermasmoothe/FS 0.01% eCW1 ([facility]) Dermasmoothe/FS 0.01% UNK 08/25/2020 12:00:00 AM EST active Dermasmoothe/FS 0.01% eCW1 ([facility]) Dermasmoothe/FS 0.01% UNK 08/25/2020 12:00:00 AM EST active Dermasmoothe/FS 0.01% eCW1 ([facility]) Dermasmoothe/FS 0.01% UNK 08/25/2020 12:00:00 AM EST active Dermasmoothe/FS 0.01% eCW1 ([facility]) BLOOD SUGAR DIAGNOSTIC 08/25/2020 12:00:00 AM EST strip 50 USE DIRECTED TWO TIMES A DAY BEFORE MEALS USE DIRECTED TWO TIMES A DAY BEFORE MEALS SOLD: 02/21/2021 [facility] Clobetasol Propionate 0.5 MG/ML Topical Solution Clobe tasol Propionate 0.05 % Clobetasol Propionate 0.05 % 08/25/2020 12:00:00 AM EST 1.0 {application_to_scalp} active Clobetaso l Propionate 0.05 % eCW1 ([facility]) Dermasmoothe/FS 0.01% UNK 08/25/2020 12:00:00 AM EST active Dermasmoothe/FS 0.01% eCW1 ([facility]) Clobetasol Propionate 0.5 MG/ML Topical Solution Clobe tasol Propionate 0.05 % Clobetasol Propionate 0.05 % 08/25/2020 12:00:00 AM EST 1.0 {application_to_scalp} active Clobetaso l Propionate 0.05 % eCW1 ([facility]) Clobetasol Propionate 0.5 MG/ML Topical Solution Clobe tasol Propionate 0.05 % Clobetasol Propionate 0.05 % 08/25/2020 12:00:00 AM EST 1.0 {application_to_scalp} active Clobetaso l Propionate 0.05 % eCW1 ([facility]) BLOOD-GLUCOSE METER 08/25/2020 12:00:00 AM EST misc 1 USE DIRECTED TWO TIMES A DAY USE DIRECTED TWO TIMES A DAY SOLD: 08/27/2020 [facility] Dermasmoothe/FS 0.01% UNK 08/25/2020 12:00:00 AM EST active Dermasmoothe/FS 0.01% eCW1 ([facility]) Glucometer UNK 08/24/2020 12:00:00 AM EST active Glucometer eCW1 ([facility]) [facility] Glucose Meter Test Strips - [facility] Glucose Meter Test Strip s 08/24/2020 12:00:00 AM EST active [facility] Gluc ose Meter Test Strips - eCW1 ([facility]) [facility] Glucose Meter Test Strips - [facility] Glucose Meter Test Strip s 08/24/2020 12:00:00 AM EST active [facility] Gluc ose Meter Test Strips - eCW1 ([facility]) Glucometer UNK 08/24/2020 12:00:00 AM EST active Glucometer eCW1 ([facility]) Glucometer UNK 08/24/2020 12:00:00 AM EST active Glucometer eCW1 ([facility]) Glucometer UNK 08/24/2020 12:00:00 AM EST active Glucometer eCW1 ([facility]) Glucometer UNK 08/24/2020 12:00:00 AM EST active Glucometer eCW1 ([facility]) [facility] Glucose Meter Test Strips - [facility] Glucose Meter Test Strip s 08/24/2020 12:00:00 AM EST active [facility]S Gluc ose Meter Test Strips - eCW1 ([facility]) Glucometer UNK 08/24/2020 12:00:00 AM EST active Glucometer eCW1 ([facility]) [facility] Glucose Meter Test Strips - [facility] Glucose Meter Test Strip s 08/24/2020 12:00:00 AM EST active [facility]S Gluc ose Meter Test Strips - eCW1 ([facility]) [facility] Glucose Meter Test Strips - [facility] Glucose Meter Test Strip s 08/24/2020 12:00:00 AM EST active [facility]S Gluc ose Meter Test Strips - eCW1 ([facility]) Glucometer UNK 08/24/2020 12:00:00 AM EST active Glucometer eCW1 ([facility]) [facility] Glucose Meter Test Strips - [facility] Glucose Meter Test Strip s 08/24/2020 12:00:00 AM EST active [facility]S Gluc ose Meter Test Strips - eCW1 ([facility]) [facility] Glucose Meter Test Strips - [facility] Glucose Meter Test Strip s 08/24/2020 12:00:00 AM EST active [facility]S Gluc ose Meter Test Strips - eCW1 ([facility]) Glucometer UNK 08/24/2020 12:00:00 AM EST active Glucometer eCW1 ([facility]) [facility] Glucose Meter Test Strips - [facility] Glucose Meter Test Strip s 08/24/2020 12:00:00 AM EST active [facility]S Gluc ose Meter Test Strips - eCW1 ([facility]) Glucometer UNK 08/24/2020 12:00:00 AM EST active Glucometer eCW1 ([facility]) [facility] Glucose Meter Test Strips - [facility] Glucose Meter Test Strip 08/24/2020 12:00:00 AM EST active [facility]S Gluc ose Meter Test Strips - eCW1 ([facility]) [facility] Glucose Meter Test Strips - [facility] Glucose Meter Test Strip 08/24/2020 12:00:00 AM EST active [facility]S Gluc ose Meter Test Strips - eCW1 ([facility]) [facility] Glucose Meter Test Strips - [facility] Glucose Meter Test Strip s 08/24/2020 12:00:00 AM EST active [facility]S Gluc ose Meter Test Strips - eCW1 ([facility]) [facility] Glucose Meter Test Strips - [facility] Glucose Meter Test Strip s 08/24/2020 12:00:00 AM EST active [facility]S Gluc ose Meter Test Strips - eCW1 ([facility]) [facility] Glucose Meter Test Strips - [facility] Glucose Meter Test Strip s 08/24/2020 12:00:00 AM EST active [facility]S Gluc ose Meter Test Strips - eCW1 ([facility]) Glucometer UNK 08/24/2020 12:00:00 AM EST active Glucometer eCW1 ([facility]) [facility] Glucose Meter Test Strips - [facility] Glucose Meter Test Strip 08/24/2020 12:00:00 AM EST active [facility]S Gluc ose Meter Test Strips - eCW1 ([facility]) [facility] Glucose Meter Test Strips - [facility] Glucose Meter Test Strip s 08/24/2020 12:00:00 AM EST suspended [facility] G lucose Meter Test Strips - eCW1 ([facility]) [facility] Glucose Meter Test Strips - [facility] Glucose Meter Test Strip 08/24/2020 12:00:00 AM EST active [facility]S Gluc ose Meter Test Strips - eCW1 ([facility]) [facility] Glucose Meter Test Strips - [facility] Glucose Meter Test Strip 08/24/2020 12:00:00 AM EST suspended [facility]S G lucose Meter Test Strips - eCW1 ([facility]) [facility] Glucose Meter Test Strips - [facility] Glucose Meter Test Strip 08/24/2020 12:00:00 AM EST active [facility]S Gluc ose Meter Test Strips - eCW1 ([facility]) Glucometer UNK 08/24/2020 12:00:00 AM EST active Glucometer eCW1 ([facility]) [facility] Glucose Meter Test Strips - [facility] Glucose Meter Test Strip 08/24/2020 12:00:00 AM EST active [facility]S Gluc ose Meter Test Strips - eCW1 ([facility]) [facility] Glucose Meter Test Strips - [facility] Glucose Meter Test Strip 08/24/2020 12:00:00 AM EST active [facility]S Gluc ose Meter Test Strips - eCW1 ([facility]) Glucometer UNK 08/24/2020 12:00:00 AM EST active Glucometer eCW1 ([facility]) Glucometer UNK 08/24/2020 12:00:00 AM EST active Glucometer eCW1 ([facility]) Glucometer UNK 08/24/2020 12:00:00 AM EST active Glucometer eCW1 ([facility]) Glucometer UNK 08/24/2020 12:00:00 AM EST active Glucometer eCW1 ([facility]) [facility]S Glucose Meter Test Strips - [facility] Glucose Meter Test Strip 08/24/2020 12:00:00 AM EST active [facility]S Gluc ose Meter Test Strips - eCW1 ([facility]) [facility]S Glucose Meter Test Strips - [facility] Glucose Meter Test Strip s - 08/24/2020 12:00:00 AM EST active [facility]S Gluc ose Meter Test Strips - eCW1 ([facility]) [facility]S Glucose Meter Test Strips - [facility] Glucose Meter Test Strip s - 08/24/2020 12:00:00 AM EST active [facility]S Gluc ose Meter Test Strips - eCW1 ([facility]) [facility]S Glucose Meter Test Strips - [facility] Glucose Meter Test Strip s - 08/24/2020 12:00:00 AM EST active [facility]S Gluc ose Meter Test Strips - eCW1 ([facility]) Glucometer UNK 08/24/2020 12:00:00 AM EST active Glucometer eCW1 ([facility]) Glucometer UNK 08/24/2020 12:00:00 AM EST active Glucometer eCW1 ([facility]) Glucometer UNK 08/24/2020 12:00:00 AM EST active Glucometer eCW1 ([facility]) Glucometer UNK 08/24/2020 12:00:00 AM EST active Glucometer eCW1 ([facility]) Glucometer UNK 08/24/2020 12:00:00 AM EST active Glucometer eCW1 ([facility]) Glucometer UNK 08/24/2020 12:00:00 AM EST active Glucometer eCW1 ([facility]) [facility]S Glucose Meter Test Strips - [facility] Glucose Meter Test Strip s 08/24/2020 12:00:00 AM EST active [facility]S Gluc ose Meter Test Strips - eCW1 ([facility]) Glucometer UNK 08/24/2020 12:00:00 AM EST active Glucometer eCW1 ([facility]) Glucometer UNK 08/24/2020 12:00:00 AM EST suspend ed Glucometer eCW1 ([facility]) Glucometer UNK 08/24/2020 12:00:00 AM EST active Glucometer eCW1 ([facility]) Glucometer UNK 08/24/2020 12:00:00 AM EST suspend ed Glucometer eCW1 ([facility]) [facility]S Glucose Meter Test Strips - [facility] Glucose Meter Test Strip s 08/24/2020 12:00:00 AM EST active [facility]S Gluc ose Meter Test Strips - eCW1 ([facility]) [facility]S Glucose Meter Test Strips - [facility] Glucose Meter Test Strip s 08/24/2020 12:00:00 AM EST active [facility]S Gluc ose Meter Test Strips - eCW1 ([facility]) [facility]S Glucose Meter Test Strips - [facility] Glucose Meter Test Strip s 08/24/2020 12:00:00 AM EST active [facility]S Gluc ose Meter Test Strips - eCW1 ([facility]) [facility]S Glucose Meter Test Strips - [facility] Glucose Meter Test Strip 08/24/2020 12:00:00 AM EST active [facility]S Gluc ose Meter Test Strips - eCW1 ([facility]) [facility]S Glucose Meter Test Strips - [facility] Glucose Meter Test Strip 08/24/2020 12:00:00 AM EST suspended [facility]S G lucose Meter Test Strips - eCW1 ([facility]) [facility]S Glucose Meter Test Strips - [facility] Glucose Meter Test Strip s 08/24/2020 12:00:00 AM EST active [facility]S Gluc ose Meter Test Strips - eCW1 ([facility]) Glucometer UNK 08/24/2020 12:00:00 AM EST active Glucometer eCW1 ([facility]) [facility]S Glucose Meter Test Strips - [facility] Glucose Meter Test Strip s 08/24/2020 12:00:00 AM EST active [facility]S Gluc ose Meter Test Strips - eCW1 ([facility]) Glucometer UNK 08/24/2020 12:00:00 AM EST active Glucometer eCW1 ([facility]) Glucometer UNK 08/24/2020 12:00:00 AM EST active Glucometer eCW1 ([facility]) Glucometer UNK 08/24/2020 12:00:00 AM EST active Glucometer eCW1 ([facility]) Glucometer UNK 08/24/2020 12:00:00 AM EST active Glucometer eCW1 ([facility]) Glucometer UNK 08/24/2020 12:00:00 AM EST active Glucometer eCW1 ([facility]) Glucometer UNK 08/24/2020 12:00:00 AM EST active Glucometer eCW1 ([facility]) Glucometer UNK 08/24/2020 12:00:00 AM EST active Glucometer eCW1 ([facility]) CVS Glucose Meter Test Strips - [facility] Glucose Meter Test Strip s - 08/24/2020 12:00:00 AM EST active [facility]S Gluc ose Meter Test Strips - eCW1 ([facility]) [facility]S Glucose Meter Test Strips - [facility] Glucose Meter Test Strip s - 08/24/2020 12:00:00 AM EST active [facility]S Gluc ose Meter Test Strips - eCW1 ([facility]) Glucometer UNK 08/24/2020 12:00:00 AM EST suspend ed Glucometer eCW1 ([facility]) 25-100 mg 07/02/2020 12:00:00 AM EST tablet 135 TAKE 1 & 1/2 TABLETS BY MOUTH THREE TIMES A DAY 5 HOURS APART TAKE 1 & 1/2 TABLETS BY MOUTH THREE TIME S A DAY 5 HOURS APART SOLD: 07/04/2020 [facility] 25-100 mg 07/02/2020 12:00:00 AM EST tablet 135 TAKE 1 & 1/2 TABLETS BY MOUTH THREE TIMES A DAY 5 HOURS APART TAKE 1 & 1/2 TABLETS BY MOUTH THREE TIME S A DAY 5 HOURS APART SOLD: 08/18/2020 [facility] 25-100 mg 07/02/2020 12:00:00 AM EST tablet 135 TAKE 1 & 1/2 TABLETS BY MOUTH THREE TIMES A DAY 5 HOURS APART TAKE 1 & 1/2 TABLETS BY MOUTH THREE TIME S A DAY 5 HOURS APART SOLD: 07/26/2020 [facility] 25-100 mg 07/02/2020 12:00:00 AM EST tablet 135 TAKE 1 & 1/2 TABLETS BY MOUTH THREE TIMES A DAY 5 HOURS APART TAKE 1 & 1/2 TABLETS BY MOUTH THREE TIME S A DAY 5 HOURS APART SOLD: 10/03/2020 [facility] 500 mg 06/30/2020 12:00:00 AM EST tablet extended release 24 hr 120 TAKE 4 TABLET BY MOUTH WITH EVENING MEAL TAKE 4 TABLET BY MOUTH WITH EVENING MEAL SOLD: 08/25/2020 [facility] 500 mg 06/30/2020 12:00:00 AM EST tablet extended release 24 hr 120 TAKE 4 TABLET BY MOUTH WITH EVENING MEAL TAKE 4 TABLET BY MOUTH WITH EVENING MEAL SOLD: 06/30/2020 [facility] 0.01 % 06/30/2020 12:00:00 AM EST oil 118 APPLY TO AFFECTED AREA DAILY TO THE SCALP AT NIGHT WITH SHOWER CAP OVER TOP APPLY TO AFFECTED AREA DAILY TO THE SCALP AT NIGHT WITH SHOWER CAP OVER TOP SOLD: 06/30/2020 [facility] 0.005 % 05/31/2020 12:00:00 AM EST ointment 120 APPLY TO AFFECTED AREA(S) TWO TIMES A DAY APPLY TO AFFECTED AREA(S) TWO TIMES A DAY SOLD: 06/02/2020 [facility] calcipotriene 0.17673 MG/MG Topical Ointment Calcipotr iene 0.005 % Calcipotriene 0.005 % 05/30/2020 12:00:00 AM EST 1.0 {application} active Calcipotriene 0.005 % eCW1 ([facility]) calcipotriene 0.07354 MG/MG Topical Ointment Calcipotr iene 0.005 % Calcipotriene 0.005 % 05/30/2020 12:00:00 AM EST 1.0 {application} active Calcipotriene 0.005 % eCW1 ([facility]) Betamethasone 0.0005 MG/MG / calcipotrie ne 0.34904 MG/MG Topical Ointment [Taclonex] Taclonex 0.005-0.064 % Taclonex 0.005-0.064 % 05/24/2020 12:00:00 AM EST 1.0 {application} active Taclon ex 0.005-0.064 % eCW1 ([facility]) Betamethasone 0.0005 MG/MG / calcipotrie ne 0.09910 MG/MG Topical Ointment [Taclonex] Taclonex 0.005-0.064 % Taclonex 0.005-0.064 % 05/24/2020 12:00:00 AM EST 1.0 {application} active Taclon ex 0.005-0.064 % eCW1 ([facility]) 0.5 % 05/14/2020 12:00:00 AM EST ointment 15 APPLY TWO TIMES A DAY EXTERNALLY APPLY TWO TIMES A DAY EXTERNALLY SOLD: 05/15/2020 [facility] 40 mg 03/24/2020 12:00:00 AM EDT tablet 30 TAKE ONE TABLET BY MOUTH EVERY DAY DIRECTED TAKE ONE TABLET BY MOUTH EVERY DAY DIRECTED SOLD: [facility] Rosuvastatin calcium 40 MG Oral Tablet ROSUVASTATIN CALCIUM 03/24/2020 12:00:00 AM EDT tablet 90 TAKE ONE TABLET BY MOUTH TAIWO TAKE ONE TABLET BY MOUTH EVERY DAY SOLD: 08/18/2020 [facility] 40 mg 03/24/2020 12:00:00 AM EDT tablet 30 TAKE ONE TABLET BY MOUTH EVERY DAY DIRECTED TAKE ONE TABLET BY MOUTH EVERY DAY DIRECTED SOLD: [facility] 40 mg 03/24/2020 12:00:00 AM EDT tablet 30 TAKE ONE TABLET BY MOUTH EVERY DAY DIRECTED TAKE ONE TABLET BY MOUTH EVERY DAY DIRECTED SOLD: [facility] 25-100 mg 03/16/2020 12:00:00 AM EDT [...] A DAY 5 HOURS APART SOLD: 05/15/2020 [facility] 25-100 mg 03/16/2020 12:00:00 AM EDT tablet 135 TAKE 1 & 1/2 TABLETS BY MOUTH THREE TIMES A DAY 5 HOURS APART TAKE 1 & 1/2 TABLETS BY MOUTH THREE TIME S A DAY 5 HOURS APART SOLD: 04/16/2020 [facility] pantoprazole 40 MG Delayed Release Oral Tablet PANTOPRAZOLE SODIUM 02/14/2020 12:00:00 AM EDT tablet,delayed release (DR/EC) 90 T DI ONE TABLET BY MOUTH EVERY MORNING 1/2 HOUR BEFORE BREAKFAST TAKE ONE TABLET BY MOUTH EVERY MORNING 1/2 HOUR BEFORE BREAKFAST SOLD: 06/30/2020 [facility] 5 mg 01/04/2020 12:00:00 AM EDT tablet 30 TAKE ONE TABLET BY MOUTH EVERY DAY TAKE ONE TABLET BY MOUTH EVERY DAY SOLD: 09/09/2020 [facility] 5 mg 01/04/2020 12:00:00 AM EDT tablet 30 TAKE ONE TABLET BY MOUTH EVERY DAY TAKE ONE TABLET BY MOUTH EVERY DAY SOLD: 07/04/2020 [facility] 5 mg 01/04/2020 12:00:00 AM EDT tablet 30 TAKE ONE TABLET BY MOUTH EVERY DAY TAKE ONE TABLET BY MOUTH EVERY DAY SOLD: 06/11/2020 [facility] 0.01 % 10/27/2019 12:00:00 AM EDT oil 118 APPLY TO AFFECTED AREA(S) ON SCALP AT NIGHT WITH SHOWER CAP OVER TOP DIRECTED APPLY TO AFFECTED AREA(S) ON SCALP AT NIGHT WITH SHOWER CAP OVER TOP DIRECTED SOLD: 09/02/2020 [facility] 0.05 % 10/27/2019 12:00:00 AM EDT ointment 90 APPLY TO AFFECTED AREA(S) OF PSORIASIS TWO TIMES A DAY APPLY TO AFFECTED AREA(S) OF PSORIASIS T WO TIMES A DAY SOLD: 08/25/2020 [facility] 0.05 % 10/27/2019 12:00:00 AM EDT ointment 45 APPLY TO AFFECTED AREA(S) OF PSORIASIS TWO TIMES A DAY APPLY TO AFFECTED AREA(S) OF PSORIASIS T WO TIMES A DAY SOLD: 05/21/2020 [facility] Ascorbic Acid 100 MG Oral Tablet Ascorbic Acid (VITAMI N C) 100 MG tablet Ascorbic Acid (VITAMIN C) 100 MG tablet 500 mg Oral aborted Take 500 [address] mouth [address] [facility] [place] Cholecalciferol 2000 UNT Oral Tablet Cho lecalciferol (VITAMIN D3) 2000 units TABS Cholecalciferol (VITAMIN D3) 2000 units TABS 2000 U Oral aborted Take 2,000 Units by mouth daily [facility] FERROUS SULFATE PO drug or medication 65 mg Oral aborted Take 65 mg by mouth daily with breakfast [facility] [place] Calcium Carbonate (CALCIUM 600 PO) drug or medication 1 {tbl} Oral aborted Take 1 tablet by mouth daily [facility] Vitamin B 12 0.5 MG Oral Tablet vitamin B-12 (CYANOCOB ALAMIN) 500 MCG tablet vitamin B-12 (CYANOCOBALAMIN) 500 MCG tablet 500 ug Oral aborted Take 500 mcg by mouth 2 (two) times a day [facility] [place] Insurance Providers Payer name Policy type / Coverage type Policy ID Covered alliance party ID Covered alliance party's relationship to hough Policy Hough Plan Information MEDICARE [id number] Latisha [id number] Y40 [employer] [employer] [id number] S [id number] MEDICARE A [id number] Self [id number] MEDICARE [id number] MEDICARE [id number] SP [id number] MEDICARE [place] [id number] S [id number] MEDICARE [id number] SP [id number] MEDICARE [id number] Latisha [id number] [place] [id number] Self [id number] Medicare [place] Medicare [place] [id number] Self [id number] [place] [id number] Self [id number] [place] Medicare Primary [id number] Self [id number] [place] Primary [id number] Self [id number] [place] Primary [id number] Self [id number] [place] Primary [id number] Self [id number] [place] Medicare Primary [id number] Self [id number] Medicare [place] Medicare Primary [id number] Self [id number] MEDICAID [id number] SP [id number] MEDICAID [id number] SP [id number] MEDICAID [id number] SP [id number] MEDICAID [id number] SP [id number] EMED[place] [id number] SP [id number] MEDICAID [id number] MEDICAID [id number] Latisha [id number] MEDICAID [id number] Latisha [id number] MEDICAID M [id number] Self [id number] ANS-Medicaid [id number] ANS-Medicaid [id number] ANS-Medicare Part B [id number] ANS-Medicare Part B [id number] ANS-Medicaid [id number] [facility] [place]-Medicaid [id number] [facility]-Medicare Part B [id number] ANSI-Medicaid [id number] ANSI-Medicare Part [place] [id number] ANSI-Medicare Part B [id number] ANSI-Medicaid [id number] MEDICARE PI PI MEDICAID PI PI ANSI-Medicare Part B [id number] ANSI-Medicaid [id number] [place] [id number] [id number] Self [id number] Medicare [place] Medicare Primary [id number] Self [id number] ANSI-Medicaid [id number] ANSI-Medicare Part B [id number] ANSI-Medicaid [id number] ANSI-Medicare Part B [id number] ANSI-Medicare Part B [id number] ANSI-Medicaid [id number] ANSI-Medicaid [id number] ANSI-Medicare Part B [id number] ANSI-Medicaid [id number] ANSI-Medicare Part B [id number] [place] [id number] .8646.389669.0 Self [id number] [place] Primary [id number] Self [id number] ANSI-Medicare Part B [id number] ANSI-Medicaid [id number] ANSI-Medicaid [id number] ANSI-Medicare Part B [id number] ANSI-Medicare Part B [id number] ANSI-Medicaid [id number] ANSI-Medicaid [id number] ANSI-Medicare Part B [id number] ANSI-Medicaid [id number] ANSI-Medicare Part B [id number] ANSI-Medicaid [id number] ANSI-Medicare Part B [id number] ANSI-Medicare Part B [id number] ANSI-Medicaid [id number] ANSI-Medicare Part B [id number] ANSI-Medicaid [id number] ANSI-Medicare Part B [id number] ANSI-Medicaid [id number] ANSI-Medicaid [id number] ANSI-Medicare Part B [id number] ANSI-Medicare Part B [id number] ANSI-Medicaid [id number] ANSI-Medicaid [id number] ANSI-Medicare Part B [id number] [place] [id number] .[id number] Self [id number] Medicare [place]/[facility] Medicare Primary [id number] Self [id number] ANSI-Medicaid [id number] ANSI-Medicare Part B [id number] ANSI-Medicare Part B [id number] ANSI-Medicaid [id number] ANSI-Medicare Part B [id number] ANSI-Medicaid [id number] ANSI-Medicaid [id number] ANSI-Medicare Part B [id number] ANSI-Medicare Part B [id number] ANSI-Medicaid [id number] ANSI-Medicaid [id number] ANSI-Medicare Part B [id number] ANSI-Medicaid [id number] ANSI-Medicare Part B [id number] [place] PART B C [id number] S [id number] ANSI-Medicaid [id number] ANSI-Medicare Part B [id number] ANSI-Medicaid [id number] ANSI-Medicare Part B [id number] MEDICARE [id number] SP [id number] ANSI-Medicaid [id number] ANSI-Medicare Part B [id number] ANSI-Medicare Part B [id number] ANSI-Medicaid [id number] ANSI-Medicare Part B [id number] ANSI-Medicaid [id number] ANSI-Medicare Part B [id number] ANSI-Medicaid [id number] ANS-Medicare Part B [id number] ANS-Medicaid [id number] ANS-Medicare Part B [id number] [facility] [place]-Medicaid [id number] [facility] [place]-Medicare Part B [id number] ANS-Medicaid [id number] MEDICARE C [id number] S [id number] MEDICAID UNAVAILABLE UNA[place]LE [place] [id number] Self [place] [id number] [place] Med[place] Part B [id number] Self [place] [id number] [place] [id number] SP [id number] MEDICARE [id number] SP [id number] [place]ICAID [id number] S [id number] [place] [id number] SP [id number] EMEDNY [id number] SP [id number] MEDICAID [id number] SP [id number] MEDICARE C [id number] S [id number] MEDICAID M [id number] S [id number] MEDICAID [id number] SP [id number] ANSI-Medicaid [id number] ANSI-Medicare Part B [id number] [place] [id number] Self [id number] Medicare [place]/[facility] Medicare Primary [id number] Self [id number] ANSI-Medicaid [id number] ANSI-Medicare Part B [id number] ANSI-Medicaid [id number] ANSI-Medicare Part B [id number] SELF PAY ANSI-Medicaid [id number] ANSI-Medicare Part B [id number] Medicaid [place] [facility] Part B [id number] Self [id number] Medicare [place]/[facility] Medicare Primary [id number] Self [id number] ANS-Medicaid [id number] ANSI-Medicare Part B [id number] ANSI-Medicare Part B [id number] Problems, Conditions, and Diagnoses Code Display Name Description Problem Type Effective Dates Data Source(s) Z87.891 Personal history of nicotine dependence PERSONAL HISTORY OF NICOTINE DEPENDENCE Diagnosis 04/14/2021 03:47:00 PM [facility] Z79.899 Other longterm (current) drug therapy O THER [facility] (CURRENT) DRUG THERAPY Diagnosis 04/14/2021 03:47:00 PM [facility] G20 Parkinson's disease PARKINSON'S DISEASE Diagnosis 1 03:47:00 PM [facility] I10 Essential (primary) hypertension ESSENTIAL (PRIMARY) H YPERTENSION Diagnosis 04/14/2021 03:47:00 PM [facility] K72.00 Acute and subacute hepatic failure witho ut coma ACUTE AND SUBACUTE HEPATIC FAILURE WITHOUT COMA Diagnosis 04/14/2021 03:47:00 PM [facility] I25.10 Atherosclerotic heart diseas e of [place] coronary artery without angina pectoris ATHSCL HEART DISEASE OF [place] CORONARY ARTERY W/O Diagnosis 04/14/2021 03:47:00 PM [facility] K74.60 Unspecified cirrhosis of liver UNSPECIFIED CIRRHOSIS O F LIVER Diagnosis 04/14/2021 03:47:00 PM [facility] N30.90 Cystitis, unspecified without hematuria CYSTITIS, UNSPECIFIED WITHOUT HEMATURIA Diagnosis 04/14/2021 03:47:00 PM [facility] R41.82 Altered mental status, unspecified ALTERED MENTA L STATUS, UNSPECIFIED Diagnosis 04/14/2021 03:47:00 PM [facility] I10 Essential (primary) hypertension Essential (primary) h ypertension Diagnosis 03/14/2021 01:00:[address] [facility] [place] E78.2 Mixed hyperlipidemia Mixed hyperlipidemia Diagnosis 03/14/2021 01:00:[address] [facility] [place] I25.10 Atherosclerotic heart diseas e of black[place] coronary artery without angina pectoris Atherosclerotic heart disease of blackfeet Diagnosis 03/14/2021 01:00:[address] [facility] [place] R06.00 Dyspnea, unspecified Dyspnea, unspecified Diagnosis 03/14/2021 01:00:[address] [facility] [place] R06.00 Shortness of breath Shortness of breath [id number] 0 03/14/2021 12:00:[address] [facility] [place] F32.9 [id number] Depression, unspecified depression type P roblem 02/15/2021 12:00:00 AM EDT [facility] ([facility]) G43.009 [id number] Migraine without aur a and without status migrainosus, not intractable Problem 01/24/2021 12:00:00 AM EDT eCW1 ([facility]) G89.29 [id number] Other chronic pain Problem 10/02/2020 12:00: 00 AM EDT eCW1 ([facility]) D22.30 [id number] Melanocytic nevi of face Problem 08/25/2020 12:00:00 AM EST eCW1 ([facility]) L82.1 [id number] Seborrheic keratoses Problem 08/25/2020 12:0 0:00 AM EST eCW1 ([facility]) D22.5 [id number] Melanocytic nevi of trunk Problem 08/25/2020 12:00:00 AM EST eCW1 ([facility]) L81.4 [id number] Lentigines Problem 08/25/2020 12:00:00 AM ES T eCW1 ([facility]) L60.8 52847156 Pitting of nails Problem 08/25/2020 12:00:00 AM EST eCW1 ([facility]) D22.72 [id number] Melanocytic nevus of left lower extrem ity Problem 08/25/2020 12:00:00 AM EST eCW1 ([facility]) D22.71 [id number] Melanocytic nevus of right lower extre mity Problem 08/25/2020 12:00:00 AM EST eCW1 ([facility]) D18.01 4149634 Pots angioma Problem 08/25/2020 12:00:00 A M EST eCW1 ([facility]) M17.10 [id number] Osteoarthritis of knee, unilateral Proble m 08/04/2020 12:00:00 AM EST eCW1 ([facility]) F17.200 37195845 Smoking Problem 07/29/2020 12:00:00 AM ES T eCW1 ([facility]) M17.0 [id number] Osteoarthritis of winter th knees, unspecified osteoarthritis type Problem 05/24/2020 12:00:00 AM EST eCW1 ([facility]) K74.60 [id number] Cirrhosis of liver w [facility] ascites, unspecified hepatic cirrhosis type Problem 05/24/2020 12:00:00 AM EST eCW1 ([facility]) Surgeries/Procedures Procedure Description Date Indications Data Source(s) OFFICE OUTPATIENT VISIT 25 MINUTES 05/09/2021 12:00:00 AM EST [facility] ([facility], ) OFFICE OUTPATIENT VISIT 25 MINUTES 03/16/2021 12:00:00 AM EDT [facility] ([facility], ) ELECTROENCEPHALOGRAM W/REC AWAKE&ASLEEP 03/08/2021 12: 00:00 AM EDT [facility] ([facility], ) ELECTROENCEPHALOGRAM W/REC AWAKE&ASLEEP 03/08/2021 12: 00:00 AM EDT [facility] ([facility], ) POCT AMB EKG <td>POCT AMB EKG</td><td>Rou milad</td><td>02/28/2021 8:48 AM EDT</td><td> Coronary artery disease involving blackfeet coronary artery of blackfeet heart without angina pectoris</td><td> </td> 02/28/2021 08:48:00 AM EDT Coronary artery disease involving blackfeet coronary artery of blackfeet heart without angina pectoris [facility] [place] Coronary artery disease involving blackfeet coronary artery of blackfeet heart without angina pectoris OFFICE OUTPATIENT VISIT 25 MINUTES 02/20/2021 12:00:00 AM EDT [facility] ([facility], ) OFFICE OUTPATIENT VISIT 25 MINUTES 01/31/2021 12:00:00 AM EDT [facility] ([facility], ) Endoscopy Upper GI Biopsy 12/27/2020 12:00:00 AM EDT [facility] ([facility], ) Endoscopy Upper GI W/Band Ligation Of Varices 12/28/19 12:00:00 AM EDT [facility] ([facility], ) Colonoscopy W/ Poly 12/27/2020 12:00:00 AM EDT [facility] ([facility], ) OFFICE OUTPATIENT VISIT 25 MINUTES 12/21/2020 12:00:00 AM EDT [facility] ([facility], ) OFFICE OUTPATIENT VISIT 25 MINUTES 11/10/2020 12:00:00 AM EDT [facility] ([facility], ) PHYSICIAN TELEPHONE EVALUATION 11-20 MIN 09/06/2020 12 :00:00 AM EST [facility] ([facility], ) Med: Rheum Kenalog 40mg/1mL IA Triamcinolone 12:00:00 AM EST eCW1 ([facility]) Medication: 1% Lidocaine Dilutent (xylocaine) 09/07/19 12:00:00 AM EST eCW1 ([facility]) Medication: 1% Lidocaine Dilutent (xylocaine) 02/04/20 21 12:00:00 AM EST eCW1 ([facility]) Medication: Kenalog 40mg/1mL IA (Triamcinolone) 2020 12:00:00 AM EST eCW1 ([facility]) Medication: Ethyl Chloride 100% topical spray 021 12:00:00 AM EST eCW1 ([facility]) TSTG ANS FUNCJ CARDIOVAGAL INNERVAJ PARASYMP 0 12:00:00 AM EST [facility] ([facility]) TSTG ANS FUNCJ CARDIOVAGAL INNERVAJ PARASYMP 0 12:00:00 AM EST [facility] ([facility] ) TESTING AUTONOMIC NERVOUS SYSTEM FUNCTION 05/25/2020 1 2:00:00 AM EST [facility] ([facility], ) TESTING AUTONOMIC NERVOUS SYSTEM FUNCTION 05/25/2020 1 2:00:00 AM EST [facility] ([facility], ) Results ID Date Data Source [id number] 04/15/2021 06:44:00 AM EDT [facility] l TSYSORDER [id number] Name Value Range Interpretation Code Description Data Kamilla rce(s) Supporting Document(s) GLUCOSE 107 mg/dL 74-106 H [facility] BLOOD UREA NITROGEN 9 mg/dL 7-18 [facility] CREATININE 0.63 mg/dl 0.55-1.02 [facility] SODIUM 146 mmol/L 136-145 H [facility] POTASSIUM 3.7 mmol/L 3.5-5.1 [facility] CHLORIDE 109 mmol/L 98-107 H [facility] CO2 25 mmol/L 21-32 [facility] CALCIUM 8.9 mg/dL 8.5-10.1 [facility] ANION GAP 12.0 mmol/L 5-12 [facility] GLOMERULAR FILTRATION RATE >90 mL/min [facility] GFR IS CALCULATED IN mL/min/1.73m2 JET L FUNCTION: >90MILDLY DECREASED: 60-89MILDY TO MODERATELY DECREASED: 45-59 MODERATELY TO SEVERELY DECREASED: 30-44SEVERELY DECREASED: 15-29RENAL FAILURE: <15 AST 23 U/L 15-37 [facility] ALT 28 U/L 14-59 [facility] ALKALINE PHOSPHATASE 71 U/L 46-116 [facility] pital TOTAL BILIRUBIN 0.7 mg/dL 0.2-1.0 [facility] TOTAL PROTEIN 7.8 g/dL 6.4-8.2 [facility] ALBUMIN 3.2 gm/dL 3.4-5.0 [facility] ID Date Data Source [id number] 04/14/2021 05:40:00 PM T [facility] DATE OF EXAMINATION: 04/14/2021 15:33 ED T CHEST 2 VIEWS HISTORY: Altered mental status TECHNIQUE: PA and lateral radiographs of the chest COMPARISON: None. FINDINGS: Mediastinum and cardiac silhouette are within normal limits. Evidence for priorsternotomy. Lung castro demonstrate diffuse increased interstitial markings withpulmonary vascular prominence raising the possibility of interstitial edema andCHF. No focal consolidation or effusion. No pneumothorax. Skeletal structuresare intact. IMPRESSION: Cannot exclude CHF/interstitial edema.No focal consolidation or effusion. Electronically signed in [id number] by: Sherman Cantu M.D. 04/14/2021 17:34 EDT Name Value Range Interpretation Code Description Data Kamilla rce(s) Supporting Document(s) ID Date Data Source [id number] 04/14/2021 05:35:00 PM T [facility] DATE OF EXAMINATION: 04/14/2021 15:33 E DT BRAIN W/O CONTRAST HISTORY: Altered mental status TECHNIQUE: This CT exam was performed using the following dose reduction techniques:automatic exposure control, adjustment of mA and/or kV according to thepatient's size, and use of iterative reconstruction technique. Standard contiguous axial spiral imaging was obtained from the skull basethrough the vertex without contrast administration and with coronalreformatting. FINDINGS: BRAIN: Basilar cisterns and ventricles appear normal. No space occupyinglesions, intracerebral edema, or any signs of mass effects are noted. Base ofthe skull appears normal. Age-related atrophic changes noted. IMPRESSION: No acute intracranial pathology or trauma/injury. Electronically signed in [id number] by: Sherman Cantu M.D. 04/14/2021 17:30 EDT Name Value Range Interpretation Code Description Data Kamilla rce(s) Supporting Document(s) ID Date Data Source [id number] 04/14/2021 05:11:00 PM EDT [facility] TSYSORDER [id number] Name Value Range Interpretation Code Description Data Kamilla rce(s) Supporting Document(s) URINE RBC 1-3 /hpf 0-3 [facility] URINE WBC 10-15 /hpf 0-5 H [facility] URINE EPITHELIAL CELLS 1+ /hpf 0 [facility] URINE TRANSITIONAL EPI CELLS 1+ /hpf R [facility] URINE BACTERIA 1+ NONE SEEN H [facility] URINE MUCUS 1+ NEGATIVE H [facility] ID Date Data Source [id number] 04/14/2021 05:11:00 PM EDT [facility] TSYSORDER [id number] Name Value Range Interpretation Code Description Data Kamilla rce(s) Supporting Document(s) URINE COLOR. [facility] URINE APPEARANCE CLEAR [facility] l URINE GLUCOSE (UA) NEGATIVE mg/dL NEGATIVE [facility] URINE BILIRUBIN NEGATIVE NEGATIVE [facility] URINE KETONE NEGATIVE mg/dL [facility]IVE [facility] SPECIFIC GRAVITY,URINE 1.020 1.005-1.030 [facility] URINE BLOOD NEGATIVE NEGATIVE [facility] PH,URINE 7.5 5.0-9.0 [facility] URINE PROTEIN NEGATIVE mg/dL NEGATIVE [facility] UR[facility] UROBILINOGEN 8 mg/dL 0-1 H [facility] sandrita URINE NITRATE NEGATIVE NEGATIVE [facility] URINE LEUKOCYTE ESTERASE 2+(MODERATE) NEGATIVE H [facility] ID Date Data Source [id number] 04/14/2021 05:07:00 PM EDT [facility] l TSYSORDER [id number] Name Value Range Interpretation Code Description Data Kamilla rce(s) Supporting Document(s) URINE AMPHETAMINES NEGATIVE <1000 ng/mL [facility] pital COCAINE, URINE NEGATIVE <300 ng/mL [facility] THC,URINE NEGATIVE <50 ng/mL [facility] URINE BENZODIAZEPINES NEGATIVE <300 ng/mL [facility] URINE,TCA NEGATIVE <1000 ng/mL [facility] IF A NEGATIVE RESULT IS OBTAINED AND ING ESTION OF TRICYCLICANTIDEPRESSANTS IS SUSPECTED, A SERUM SAMPLE SHOULD BEOBTAINED AND TESTED USING AN APPROPRIATE METHOD. URINE BARBITURATES NEGATIVE <300 ng/mL [facility] MDMA NEGATIVE <500 ng/mL [facility] URINE,OPIATES NEGATIVE <300 ng/mL [facility] PCP,URINE NEGATIVE <25 ng/mL [facility] OXYCODONE URINE NEGATIVE <100 ng/mL [facility] l PROPOXYPHENE NEGATIVE <300 ng/mL [facility] THESE TESTS ARE PERFORMED USING AN [employer] NOASSAY FOR THEQUALITATIVE DETERMINATION OF THE PRESENCE OF THE MAJORMETABOLITES OF DRUGS OF ABUSE. THESE TESTS ARE ONLY ASCREENING AND NOT CONFIRMATORY. CLINICAL CONSIDERATION ANDPROFESSIONAL JUDGMENT MUST BE APPLIED TO ANY DRUG OF ABUSETEST RESULT. ID Date Data Source [id number] 04/14/2021 05:49:00 PM EDT [facility] TSYSORDER [id number] Name Value Range Interpretation Code Description Data Kamilla rce(s) Supporting Document(s) ACETAMINOPHEN LEVEL < 2.0 mcg/mL 10-30 L [facility] ospital ID Date Data Source [id number] 04/14/2021 04:15:00 PM EDT [facility] l TSYSORDER [id number] Name Value Range Interpretation Code Description Data Kamilla rce(s) Supporting Document(s) AMMONIA 108 umol/L 11-32 H [facility] ID Date Data Source [id number] 04/14/2021 04:15:00 PM EDT [facility] [id number] Name Value Range Interpretation Code Description Data Kamilla rce(s) Supporting Document(s) TROPONIN-HIGH SENSITIVITY 7.4 ng/L 0-60.4 [facility] ID Date Data Source [id number] 04/14/2021 04:15:00 PM EDT [facility] l TSYSORDER [id number] Name Value Range Interpretation Code Description Data Kamilla rce(s) Supporting Document(s) GLUCOSE 86 mg/dL 74-106 [facility] BLOOD UREA NITROGEN 13 mg/dL 7-18 [facility] CREATININE 0.78 mg/dl 0.55-1.02 [facility] SODIUM 146 mmol/L 136-145 H [facility] POTASSIUM 3.5 mmol/L 3.5-5.1 [facility] CHLORIDE 110 mmol/L 98-107 H [facility] CO2 26 mmol/L 21-32 [facility] CALCIUM 9.0 mg/dL 8.5-10.1 [facility] ANION GAP 10.0 mmol/L 5-12 [facility] GLOMERULAR FILTRATION RATE 72 mL/min [facility] GFR IS CALCULATED IN mL/min/1.73m2 JET L FUNCTION: >90MILDLY DECREASED: 60-89MILDY TO MODERATELY DECREASED: 45-59 MODERATELY TO SEVERELY DECREASED: 30-44SEVERELY DECREASED: 15-29RENAL FAILURE: <15 AST 22 U/L 15-37 [facility] ALT 15 U/L 14-59 [facility] ALKALINE PHOSPHATASE 70 U/L 46-116 [facility] TOTAL BILIRUBIN 0.6 mg/dL 0.2-1.0 [facility] TOTAL PROTEIN 7.6 g/dL 6.4-8.2 [facility] ALBUMIN 3.2 gm/dL 3.4-5.0 L [facility] ID Date Data Source [id number] 04/14/2021 03:52:00 PM EDT [facility] TSYSORDER [id number] Name Value Range Interpretation Code Description Data Kamilla rce(s) Supporting Document(s) WHITE BLOOD COUNT 4.7 K/mm3 4.0-10.0 [facility] RED BLOOD COUNT 4.03 M/mm3 4.00-5.50 [facility] HEMOGLOBIN 12.6 gm/dL 12.0-16.0 [facility] HEMATOCRIT 37.4 % 36.0-48.8 [facility] MEAN CELL VOLUME 92.8 fl 80-96 [facility] MEAN CORPUSCULAR HEMOGLOBIN 31.3 pg 27.0-31.0 H [facility] MEAN CORPUSCULAR HGB CONC 33.7 g/dl 32.0-36.0 [facility] RED CELL DISTRIBUTION WIDTH 13.6 % 10.0-14.5 [facility] PLATELET COUNT 111 K/mm3 172-450 L [facility] MEAN PLATELET VOLUME 11.0 fl 9.0-13.0 [facility] GRAN % 61.1 % 50-80.0 [facility] IG% 0.4 % 0.0-0.2 H [facility] LYMPH % 22.6 % 25.0-50.0 L [facility] MONO % 13.2 % 2.0-10.0 H [facility] EOS % 2.1 % 0-5.0 [facility] BASO % 0.6 % 0.0-2.0 [facility] GRAN # 2.9 K/mm3 2.0-8.00 [facility] IG# 0.0 K/mm3 0.0-0.2 [facility] LYMPH # 1.1 K/mm3 1.0-5.0 [facility] MONO # 0.6 K/mm3 0.10-1.20 [facility] EOS # 0.1 K/mm3 0.0-0.5 [facility] BASO # 0.0 K/mm3 0.0-0.2 [facility] ID Date Data Source [id number] 04/06/2021 10:25:00 AM EDT [facility] Name Value Range Interpretation Code Description Data Kamilla rce(s) Supporting Document(s) SARS-CoV-2 (COVID-19) RNA [Presence] in Respiratory specimen by ZACK with probe detection Not Detected [facility] This lab was ordered by [facility] and reported by [employer] ID Date Data Source [id number] 03/07/2021 05:41:00 AM EDT [facility] Name Value Range Interpretation Code Description Data Kamilla rce(s) Supporting Document(s) SARS-CoV-2 (COVID 19) NEGATIVE - SARS-CoV-2 (COVID19) [facility] This lab was ordered by [facility] a nd reported by [facility]. ID Date Data Source [id number] 02/21/2021 12:00:00 AM EDT eCW1 ([facility]) Name Value Range Interpretation Code Description Data Kamilla rce(s) Supporting Document(s) Hemoglobin A1c/Hemoglobin.total in Blood 5.9 HEMOGLOBIN A1c eCW1 ([facility]) ID Date Data Source FREE T4 & TSH PANEL 02/21/2021 12:00:00 AM EDT eCW1 ([facility]) Name Value Range Interpretation Code Description Data Kamilla rce(s) Supporting Document(s) 0.461 0.358-3.740 THYROID STIMULATING HORM ONE eCW1 ([facility]) 1.77 0.76-1.46 FREE T4 eCW1 ([facility]) ID Date Data Source [id number] 01/29/2021 03:36:00 PM EDT [facility] Name Value Range Interpretation Code Description Data Kamilla rce(s) Supporting Document(s) SARS coronavirus 2 RNA [Presence] in Res piratory specimen by ZACK with probe detection NEGATIVE [facility] This lab was ordered by [facility] a nd reported by [facility]. ID Date Data Source [id number] 12/27/2020 12:10:00 PM EDT [facility] ([facility], ) Name Value Range Interpretation Code Description Data Kamilla rce(s) Supporting Document(s) Surgical pathology study Laboratory test result MEDENT ([facility], ) FINAL DIAGNOSIS A - Esophageal biopsy: Intestinal metaplasia, negative for dysplasia. See note. NOTE: One biopsy fragment is submitted, entirely involved by intestinal metaplasia. No squamous mucosa is noted. B - Colon, polyps, polypectomy: Adenomatous polyp/tubular adenoma fragments. One hyperplastic polyp fragment is also noted. 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 One fragment of hyperplastic polyp is also noted. Correlation with clinical findings is recommended. 12/28/2020 - 1258 CLINICAL DIAGNOSIS Evaluate and treat varices and colon polyps 12/27/2020 - 1522 GROSS DIAGNOSIS A - Received in formalin labeled "esophageal biopsy" is a 0.2 x 0.2 x 0.2 cm portion of mucosa. All in one. B - Received in formalin labeled "colon polyps" is a 1 x 0.3 x 0.3 cm aggregate of polyp fragments. All in one. C - Received in formalin labeled "snare polyp sigmoid colon" is a 1 x 1 x 0.6 cm aggregate of polyps fragments. All in one. - 12/28/2020 - 1118 Signed Renee Roy MD 12/28/2020 1258 ID Date Data Source [id number] 12/22/2020 10:50:00 AM EDT [facility] Name Value Range Interpretation Code Description Data Kamilla rce(s) Supporting Document(s) SARS-CoV-2 (COVID-19) RNA [Presence] in Respiratory specimen by ZACK with probe detection Not Detected [facility] This lab was ordered by [facility] and reported by [employer] ID Date Data Source [id number] 07/14/2020 03:16:00 PM EST [facility] Name Value Range Interpretation Code Description Data Kamilla rce(s) Supporting Document(s) SARS-CoV-2 (COVID 19) NEGATIVE - SARS-CoV-2 (COVID19) [facility] This lab was ordered by [facility] a nd reported by [facility]. Procedure Social History Code Duration Value Status Description Data Source(s ) Smoking 04/20/2021 12:00:00 AM EDT Former Smoker completed Former Smoker eCW1 ([facility]) Smoking 04/20/2021 12:00:00 AM EDT Former Smoker completed Former Smoker eCW1 ([facility]) Smoking 04/20/2021 12:00:00 AM EDT Former Smoker completed Former Smoker eCW1 ([facility]) Smoking 03/24/2021 12:00:00 AM EDT Former Smoker completed Former Smoker eCW1 ([facility]) Smoking 03/24/2021 12:00:00 AM EDT Former Smoker completed Former Smoker eCW1 ([facility]) Smoking 03/24/2021 12:00:00 AM EDT Former Smoker completed Former Smoker eCW1 ([facility]) Smoking 03/24/2021 12:00:00 AM EDT Former Smoker completed Former Smoker eCW1 ([facility]) Smoking 02/15/2021 12:00:00 AM EDT Former Smoker completed Former Smoker eCW1 ([facility]) Smoking 02/15/2021 12:00:00 AM EDT Former Smoker completed Former Smoker eCW1 ([facility]) Smoking 02/15/2021 12:00:00 AM EDT Former Smoker completed Former Smoker eCW1 ([facility]) Smoking 02/15/2021 12:00:00 AM EDT Former Smoker completed Former Smoker eCW1 ([facility]) Smoking 02/15/2021 12:00:00 AM EDT Former Smoker completed Former Smoker eCW1 ([facility]) Smoking 02/15/2021 12:00:00 AM EDT Former Smoker completed Former Smoker eCW1 ([facility]) Smoking 02/15/2021 12:00:00 AM EDT Former Smoker completed Former Smoker eCW1 ([facility]) Smoking 02/15/2021 12:00:00 AM EDT Former Smoker completed Former Smoker eCW1 ([facility]) Smoking 02/15/2021 12:00:00 AM EDT Former Smoker completed Former Smoker eCW1 ([facility]) Smoking 02/15/2021 12:00:00 AM EDT Former Smoker completed Former Smoker eCW1 ([facility]) Smoking 01/24/2021 12:00:00 AM EDT Former Smoker completed Former Smoker eCW1 ([facility]) Smoking 01/24/2021 12:00:00 AM EDT Former Smoker completed Former Smoker eCW1 ([facility]) Smoking 01/24/2021 12:00:00 AM EDT Former Smoker completed Former Smoker eCW1 ([facility]) Smoking 01/24/2021 12:00:00 AM EDT Former Smoker completed Former Smoker eCW1 ([facility]) Smoking 01/24/2021 12:00:00 AM EDT Former Smoker completed Former Smoker eCW1 ([facility]) Smoking 09/26/2020 12:00:00 AM EDT Former Smoker completed Former Smoker eCW1 ([facility]) Smoking 09/26/2020 12:00:00 AM EDT Former Smoker completed Former Smoker eCW1 ([facility]) Smoking 09/26/2020 12:00:00 AM EDT Former Smoker completed Former Smoker eCW1 ([facility]) Smoking 09/26/2020 12:00:00 AM EDT Former Smoker completed Former Smoker eCW1 ([facility]) Smoking 09/26/2020 12:00:00 AM EDT Former Smoker completed Former Smoker eCW1 ([facility]) Smoking 09/26/2020 12:00:00 AM EDT Former Smoker completed Former Smoker eCW1 ([facility]) Smoking 09/26/2020 12:00:00 AM EDT Former Smoker completed Former Smoker eCW1 ([facility]) Smoking 09/26/2020 12:00:00 AM EDT Former Smoker completed Former Smoker eCW1 ([facility]) Smoking 09/06/2020 12:00:00 AM EST Former Smoker completed Former Smoker eCW1 ([facility]) Smoking 09/06/2020 12:00:00 AM EST Former Smoker completed Former Smoker eCW1 ([facility]) Smoking 08/25/2020 12:00:00 AM EST Former Smoker completed Former Smoker eCW1 ([facility]) Smoking 08/25/2020 12:00:00 AM EST Former Smoker completed Former Smoker eCW1 ([facility]) Smoking 08/04/2020 12:00:00 AM EST Former Smoker completed Former Smoker eCW1 ([facility]) Smoking 06/30/2020 12:00:00 AM EST Former Smoker completed Former Smoker eCW1 ([facility]) Smoking 06/30/2020 12:00:00 AM EST Former Smoker completed Former Smoker eCW1 ([facility]) Smoking 05/24/2020 12:00:00 AM EST Former Smoker completed Former Smoker eCW1 ([facility]) Smoking 05/24/2020 12:00:00 AM EST Former Smoker completed Former Smoker eCW1 ([facility]) Smoking 04/20/2020 12:00:00 AM EDT Former Smoker completed Former Smoker eCW1 ([facility]) Vital Signs ID Date Data Source UNK Name Value Range Interpretation Code Description Data Source(s) Respiratory rate 12 /min 12 /min [facility] ( [facility], ) Body height 66 [in_i] 66 [in_i] [facility] ([facility]) 5'6" Body weight 155.00 [lb_av] 155.00 [lb_av] MED[facility] T ([facility]) Body mass index (BMI) [Ratio] 25.0 kg/m2 25.0 k g/m2 [facility] ([facility]) [place] body weight 130 [lb_av] 130 [[facility]_av[facility] Body weight 152.6 [lb_av] 152.6 [lb_av] W1 ([facility]) Body weight 69.22 kg 69.22 kg [facility] ([facility]) Body height 65 [in_i] 65 [in_i] [facility] ([facility]) Body mass index (BMI) [Ratio] 25.39 kg/m2 25.39 kg/m2 [facility] ([facility]) Systolic blood pressure 138 mm[Hg] 138 mm[Hg] e CW1 ([facility]) Diastolic blood pressure 76 mm[Hg] 76 mm[Hg] W1 ([facility]) Body weight 143 [lb_av] 143 [lb_av] eCW1 ([facility]) Body weight 64.86 kg 64.86 kg eCW1 ([facility]) Body height 65 [in_i] 65 [in_i] eCW1 ([facility]) Body mass index (BMI) [Ratio] 23.79 kg/m2 23.79 kg/m2 eCW1 ([facility]) Heart rate 75 /min 75 /min eCW1 ([facility]) Respiratory rate 18 /min 18 /min eCW1 ([facility] Body temperature 4 [degF] 4 [degF] eCW1 ([facility]) Systolic blood pressure 130 mm[Hg] 130 mm[Hg] e CW1 ([facility]) Diastolic blood pressure 70 mm[Hg] 70 mm[Hg] eCW1 ([facility]) Respiratory rate 12 /min 12 /min [facility] ( [facility], ) Body height 66 [in_i] 66 [in_i] [facility] ([facility], ) 5'6" Body weight 155.00 [lb_av] 155.00 [lb_av] MEDEN T ([facility], ) Body mass index (BMI) [Ratio] 25.0 kg/m2 25.0 k g/m2 [facility] ([facility] ) [place] body weight 130 [lb_av] 130 [lb_av] MEDEN T ([facility], ) Respiratory rate 16 /min 16 /min [facility] Body height 167.[address] [facility] Body weight 63.[address] [facility] Body mass index (BMI) [Ratio] 22.76 kg/m2 22.76 kg/m2 [facility] Systolic blood pressure 104 mm[Hg] 104 mm[Hg] [facility] Diastolic blood pressure 70 mm[Hg] 70 mm[Hg] [facility] Heart rate 60 /min 60 /min [facility] Respiratory rate 16 /min 16 /min [facility] Body mass index (BMI) [Ratio] 21.79 kg/m2 21.79 kg/m2 [facility] Body height 167.[address] [facility] Body weight 61.[address] [facility] Diastolic blood pressure 74 mm[Hg] 74 mm[Hg] [facility] ([facility]) Body height 66 [in_i] 66 [in_i] [facility] ([facility]) 5'6" Body weight 136.00 [lb_av] 136.00 [lb_av] MED[facility] T ([facility]) Body mass index (BMI) [Ratio] 21.9 kg/m2 21.9 k g/m2 [facility] ([facility]) [place] body weight 130 [lb_av] 130 [lb_av] MED[facility] T ([facility]) Body weight 61.690 kg 61.690 kg [facility] ([facility]) Body surface area Derived from formula 1.70 m2 1.70 m2 [facility] ([facility]) Systolic blood pressure 120 mm[Hg] 120 mm[Hg] M EDENT ([facility]) Heart rate 62 /min 62 /min eCW1 ([facility]) Body mass index (BMI) [Ratio] 24.43 kg/m2 24.43 kg/m2 eCW1 ([facility]) Systolic blood pressure 136 mm[Hg] 136 mm[Hg] e CW1 ([facility]) Respiratory rate 18 /min 18 /min eCW1 ([facility]) Body temperature 97.5 [degF] 97.5 [degF] eCW1 ( [facility]) Diastolic blood pressure 86 mm[Hg] 86 mm[Hg] eCW1 ([facility]) Body weight 146.8 [lb_av] 146.8 [lb_av] eCW1 ([facility]) Body weight 66.59 kg 66.59 kg eCW1 ([facility]) Body height 65 [in_i] 65 [in_i] eCW1 ([facility]) Body mass index (BMI) [Ratio] 25.0 kg/m2 25.0 k g/m2 [facility] ([facility] ) [place] body weight 130 [lb_av] 130 [lb_av] MEDEN T ([facility], ) Respiratory rate 12 /min 12 /min [facility] ( [facility] ) Body height 66 [in_i] 66 [in_i] [facility] ([facility], ) 5'6" Body weight 155.00 [lb_av] 155.00 [lb_av] MEDEN T ([facility]) Body weight 147.6 [lb_av] 147.6 [lb_av] eCW1 ([facility]) Heart rate 62 /min 62 /min eCW1 ([facility]) Respiratory rate 18 /min 18 /min eCW1 ([facility]) Body height 65 [in_i] 65 [in_i] eCW1 ([facility]) Body temperature 97.9 [degF] 97.9 [degF] eCW1 ( [facility]) Systolic blood pressure 116 mm[Hg] 116 mm[Hg] e CW1 ([facility]) Body mass index (BMI) [Ratio] 24.56 kg/m2 24.56 kg/m2 eCW1 ([facility]) Diastolic blood pressure 72 mm[Hg] 72 mm[Hg] eCW1 ([facility]) Body mass index (BMI) [Ratio] 25.0 kg/m2 25.0 k g/m2 [facility] ([facility] ) Body weight 155.00 [lb_av] 155.00 [lb_av] MEDEN T ([facility] ) [place] body weight 130 [lb_av] 130 [lb_av] MEDEN T ([facility], ) Respiratory rate 12 /min 12 /min [facility] ( [facility], ) Body height 66 [in_i] 66 [in_i] [facility] ([facility], ) 5'6" [place] body weight 130 [lb_av] 130 [lb_av] MEDEN T ([facility], ) Body weight 70.762 kg 70.762 kg [facility] ([facility]) Body height 66 [in_i] 66 [in_i] [facility] ([facility]) 5'6" Body weight 156.00 [lb_av] 156.00 [lb_av] MEDEN T ([facility]) Body mass index (BMI) [Ratio] 25.2 kg/m2 25.2 k g/m2 [facility] ([facility]) Body surface area Derived from formula 1.80 m2 1.80 m2 [facility] ([facility]) [place] body weight 130 [lb_av] 130 [lb_av] MEDEN T ([facility]) Systolic blood pressure 118 mm[Hg] 118 mm[Hg] EDENT ([facility]) Diastolic blood pressure 78 mm[Hg] 78 mm[Hg] [facility] ([facility]) Body weight 70.762 kg 70.762 kg [facility] ([facility]) Body height 66 [in_i] 66 [in_i] [facility] ([facility]) 5'6" Body weight 156.00 [lb_av] 156.00 [lb_av] MEDEN T ([facility]) Body mass index (BMI) [Ratio] 25.2 kg/m2 25.2 k g/m2 [facility] ([facility]) Body surface area Derived from formula 1.80 m2 1.80 m2 [facility] ([facility]) Body weight 158.8 [lb_av] 158.8 [lb_av] eCW1 ([facility]) Body height 65 [in_i] 65 [in_i] eCW1 ([facility]) Body mass index (BMI) [Ratio] 26.42 kg/m2 26.42 kg/m2 eCW1 ([facility]) Heart rate 67 /min 67 /min eCW1 ([facility]) Respiratory rate 18 /min 18 /min eCW1 [facility] Body temperature 97.3 [degF] 97.3 [degF] eCW1 ( [facility]) Systolic blood pressure 116 mm[Hg] 116 mm[Hg] e CW1 ([facility]) Diastolic blood pressure 72 mm[Hg] 72 mm[Hg] eCW1 ([facility]) Body weight 164 [lb_av] 164 [lb_av] eCW1 ([facility]) Body height 65 [in_i] 65 [in_i] eCW1 ([facility]) Body mass index (BMI) [Ratio] 27.29 kg/m2 27.29 kg/m2 eCW1 ([facility]) Heart rate 69 /min 69 /min eCW1 ([facility]) Respiratory rate 18 /min 18 /min eCW1 ([facility]) Body temperature 96.0 [degF] 96.0 [degF] eCW1 ( [facility]) Systolic blood pressure 104 mm[Hg] 104 mm[Hg] e CW1 ([facility]) Diastolic blood pressure 74 mm[Hg] 74 mm[Hg] eCW1 ([facility]) Respiratory rate 12 /min 12 /min MEDENT ( [facility] ) Body height 66 [in_i] 66 [in_i] MEDENT ([facility], ) 5'6" Body weight 155.00 [lb_av] 155.00 [lb_av] MEDEN T ([facility], ) Body mass index (BMI) [Ratio] 25.0 kg/m2 25.0 k g/m2 MEDENT ([facility] ) [place] body weight 130 [lb_av] 130 [lb_av] MEDEN T ([facility] ) Body weight 164.0 [lb_av] 164.0 [lb_av] eCW1 ([facility]) Body height 65 [in_i] 65 [in_i] eCW1 ([facility]) Body mass index (BMI) [Ratio] 27.29 kg/m2 27.29 kg/m2 eCW1 ([facility]) Systolic blood pressure 122 mm[Hg] 122 mm[Hg] e CW1 ([facility]) Diastolic blood pressure 76 mm[Hg] 76 mm[Hg] eCW1 ([facility]) Body weight 165 [lb_av] 165 [lb_av] eCW1 ([facility]) Body height 65 [in_i] 65 [in_i] eCW1 ([facility]) Body mass index (BMI) [Ratio] 27.45 kg/m2 27.45 kg/m2 eCW1 ([facility]) Heart rate 70 /min 70 /min eCW1 ([facility]) Respiratory rate 18 /min 18 /min eCW1 ([facility]) Body temperature 96.9 [degF] 96.9 [degF] eCW1 ( [facility]) Systolic blood pressure 124 mm[Hg] 124 mm[Hg] e CW1 ([facility]) Diastolic blood pressure 78 mm[Hg] 78 mm[Hg] eCW1 ([facility]) Body weight 168 [lb_av] 168 [lb_av] eCW1 ([facility]) Body height 65 [in_i] 65 [in_i] eCW1 ([facility]) Body mass index (BMI) [Ratio] 27.95 kg/m2 27.95 kg/m2 eCW1 ([facility]) Heart rate 75 /min 75 /min eCW1 ([facility]) Respiratory rate 18 /min 18 /min eCW1 ([facility]) Body temperature 97.9 [degF] 97.9 [degF] eCW1 ( [facility]) Systolic blood pressure 130 mm[Hg] 130 mm[Hg] e CW1 ([facility]) Diastolic blood pressure 82 mm[Hg] 82 mm[Hg] eCW1 ([facility]) Body weight 168 [lb_av] 168 [lb_av] eCW1 ([facility]) Body height 65 [in_i] 65 [in_i] eCW1 ([facility]) Body mass index (BMI) [Ratio] 27.95 kg/m2 27.95 kg/m2 eCW1 ([facility]) Heart rate 70 /min 70 /min eCW1 ([facility]) Respiratory rate 18 /min 18 /min eCW1 ([facility]) Body temperature 97.8 [degF] 97.8 [degF] eCW1 ( [facility]) Systolic blood pressure 108 mm[Hg] 108 mm[Hg] e CW1 ([facility]) Diastolic blood pressure 64 mm[Hg] 64 mm[Hg] eCW1 ([facility]) Body weight 168 [lb_av] 168 [lb_av] eCW1 ([facility]) Body height 65 [in_i] 65 [in_i] eCW1 ([facility]) Body mass index (BMI) [Ratio] 27.95 kg/m2 27.95 kg/m2 [facility] ([facility]) Heart rate 72 /min 72 /min eCW1 ([facility]) Respiratory rate 17 /min 17 /min eCW1 ([facility]) Body temperature 98.2 [degF] 98.2 [degF] eCW1 ( [facility]) Systolic blood pressure 110 mm[Hg] 110 mm[Hg] e CW1 ([facility]) Diastolic blood pressure 58 mm[Hg] 58 mm[Hg] eCW1 ([facility]) Respiratory rate 12 /min 12 /min MEDENT ( [facility] ) Body height 66 [in_i] 66 [in_i] MEDENT ([facility] ) 5'6" Body weight 155.00 [lb_av] 155.00 [lb_av] MEDEN T ([facility] ) Body mass index (BMI) [Ratio] 25.0 kg/m2 25.0 k g/m2 MEDENT ([facility] ) [place] body weight 130 [lb_av] 130 [lb_av] MEDEN T ([facility] ) Patient Treatment Plan of Care Planned Activity Planned Date Details Description Data Source (s) Triamcinolone Acetonide 0.001 MG/MG Topical Ointment 021 12:00:00 AM EDT eCW1 ([facility]) Triamcinolone Acetonide 0.001 MG/MG Topical Ointment 021 12:00:00 AM EDT eCW1 ([facility]) Triamcinolone Acetonide 0.001 MG/MG Topical Ointment 021 12:00:00 AM EDT eCW1 ([facility]) OneTouch Verio - 03/24/2021 12:00:00 AM EDT eCW1 ([facility]) [facility] - 03/24/2021 12:00:00 AM EDT eCW1 ([facility]) OneTouch Verio - 03/24/2021 12:00:00 AM EDT eCW1 ([facility]) [facility] - 03/24/2021 12:00:00 AM EDT eCW1 [facility] 12:00:00 AM EDT eCW1 ([facility]) [facility] - 03/24/2021 12:00:00 AM EDT eCW1 [facility] 12:00:00 AM EDT eCW1 ([facility]) [facility] - 03/24/2021 12:00:00 AM EDT eCW1 ([facility]) empagliflozin 10 MG Oral Tablet [Jardiance] 02/26/2021 12:00:[address] [facility] pantoprazole 40 MG Delayed Release Oral Tablet 02/22/2021 12:00:[address] [facility] Lactulose 667 MG/ML Oral Solution [Constulose] 02/20/2021 12:00:[address] [facility] ramelteon 8 MG Oral Tablet 02/10/2021 12:00:00 AM EDT eCW1 ([facility]) ramelteon 8 MG Oral Tablet 02/10/2021 12:00:00 AM EDT eCW1 ([facility]) ramelteon 8 MG Oral Tablet 02/10/2021 12:00:00 AM EDT eCW1 ([facility]) Donepezil hydrochloride 10 MG Oral Tablet 02/08/2021 12:00:[address] [facility] Nitroglycerin 0.4 MG Sublingual Tablet 02/01/2021 12:00:[address] [facility] Nystatin [id number] UNT/ML Topical Cream 12/20/2020 12:00:[address] [facility] empagliflozin 10 MG Oral Tablet [Jardiance] 09/27/2020 12:00:00 AM EDT eCW1 ([facility]) empagliflozin 10 MG Oral Tablet [Jardiance] 09/27/2020 12:00:00 AM EDT eCW1 ([facility]) empagliflozin 10 MG Oral Tablet [Jardiance] 09/27/2020 12:00:00 AM EDT eCW1 ([facility]) empagliflozin 10 MG Oral Tablet [Jardiance] 09/27/2020 12:00:00 AM EDT eCW1 ([facility]) Dermasmoothe/FS 0.01% 08/25/2020 12:00:00 AM EST eCW1 ([facility]) Clobetasol Propionate 0.5 MG/ML Topical Solution 08/25/2020 12:00:0 0 AM EST eCW1 ([facility]) Clobetasol Propionate 0.5 MG/ML Topical Solution 08/25/2020 12:00:0 0 AM EST eCW1 ([facility]) Dermasmoothe/FS 0.01% 08/25/2020 12:00:00 AM EST eCW1 ([facility]) [facility] Glucose Meter Test Strips - 08/24/2020 12:00:00 AM EST eCW1 ([facility]) [facility] Glucose Meter Test Strips - 08/24/2020 12:00:00 AM EST eCW1 ([facility]) [facility] Glucose Meter Test Strips - 08/24/2020 12:00:00 AM EST eCW1 ([facility]) [facility] Glucose Meter Test Strips - 08/24/2020 12:00:00 AM EST eCW1 ([facility]) calcipotriene 0.01995 MG/MG Topical Ointment 05/30/2020 12:00:00 AM EST eCW1 ([facility]) calcipotriene 0.55542 MG/MG Topical Ointment 05/30/2020 12:00:00 AM EST eCW1 ([facility]) Betamethasone 0.0005 MG/MG / calcipotrie ne 0.32718 MG/MG Topical Ointment [Taclonex] 05/24/2020 12:00:00 AM EST eCW1 ([facility]) Betamethasone 0.0005 MG/MG / calcipotrie ne 0.77568 MG/MG Topical Ointment [Taclonex] 05/24/2020 12:00:00 AM EST eCW1 ([facility]) Calcium Carbonate (CALCIUM [address] PO) [facility] Vitamin B 12 0.[address] [facility] Cholecalciferol [address] [facility] Ascorbic Acid [address] [facility] FERROUS SULFATE PO [facility]
--- OUTSIDE RECORDS SUMMARY | 2021-06-09 16:59 | CCD ---
Author Author [facility] Organization [facility] Address Unknown Phone Unavailable Care Team Providers Care Manager Wealth Management Name Role Phone Kim, Shahid PA Unavailable [...] Unavailable Unavailable Kim, Shahid PA Unavailable [facility] Unavailable Unavailable [...] O Blanca OQUENDO Unavailable Unavailable Joelle O Blanca OQUENDO Unavailable Unavailable Joelle O Blanca OQUENDO Unavailable Unavailable Joelle O Moiseah Unavailable Unavailable Katja Lai MD Unavailable Unavailable Katja Lai MD Unavailable Unavailable Katja Lai MD Unavailable Unavailable Katja Lai MD Unavailable Unavailable Kataj Lai MD Unavailable Unavailable Katja Lai MD [...] Katja Lai MD Unavailable Unavailable Joelle O Samah Unavailable Unavailable Joelle, O Samah MD Unavailable Unavailable Joelle O Samah Unavailable Unavailable Joelle, O Samah Unavailable Unavailable Joelle O Samah Unavailable Unavailable Joelle, O Samah MD Unavailable Unavailable Joelle O Samah MD Unavailable Unavailable Joelle, O Samah MD Unavailable Unavailable Joelle O Samah Unavailable Unavailable Joelle O Samah Unavailable Unavailable Joelle O Samah Unavailable Unavailable Joelle, O Samah Unavailable Unavailable Joelle, O Samah MD Unavailable Unavailable Joelle O Samah Unavailable Unavailable Joelle O Samah Unavailable Unavailable Joelle O Samah Unavailable Unavailable Joelle O Samah Unavailable Unavailable Joelle O Samah MD Unavailable Unavailable Joelle O Moiseah Unavailable Unavailable Joelle O Moiseah Unavailable Unavailable Joelle O Blanca OQUENDO Unavailable Unavailable Joelle O Blanca OQUENDO Unavailable Unavailable Joelle O Samah Unavailable Unavailable [...] Unavailable Joelle O Samah MD Unavailable Unavailable Olga, N Ramon SENIOR COMMUNICATIONS SPECIALIST Unavailable Unavailable Olga, N Ramon SENIOR COMMUNICATIONS SPECIALIST Unavailable Unavailable Olga, N Ramon SENIOR COMMUNICATIONS SPECIALIST Unavailable Unavailable [place], N Ramon SENIOR COMMUNICATIONS SPECIALIST Unavailable Unavailable [place], N Ramon SENIOR COMMUNICATIONS SPECIALIST Unavailable Unavailable [place], N Ramon SENIOR COMMUNICATIONS SPECIALIST Unavailable Unavailable Olga, N Ramon SENIOR COMMUNICATIONS SPECIALIST Unavailable Unavailable [place], N Ramon SENIOR COMMUNICATIONS SPECIALIST Unavailable Unavailable Olga, N Raomn SENIOR COMMUNICATIONS SPECIALIST Unavailable Unavailable [place], N Ramon SENIOR COMMUNICATIONS SPECIALIST Unavailable Unavailable [place], N Ramon SENIOR COMMUNICATIONS SPECIALIST Unavailable Unavailable [place], N Ramon SENIOR COMMUNICATIONS SPECIALIST Unavailable Unavailable Olga, N Ramon SENIOR COMMUNICATIONS SPECIALIST Unavailable Unavailable [place], N Ramon SENIOR COMMUNICATIONS SPECIALIST Unavailable Unavailable [place], N Ramon SENIOR COMMUNICATIONS SPECIALIST Unavailable Unavailable [place], N Ramon SENIOR COMMUNICATIONS SPECIALIST Unavailable Unavailable Olga, N Ramon SENIOR COMMUNICATIONS SPECIALIST Unavailable Unavailable [place], N Ramon SENIOR COMMUNICATIONS SPECIALIST Unavailable Unavailable Olga, N Ramon SENIOR COMMUNICATIONS SPECIALIST Unavailable Unavailable [place], N Ramon SENIOR COMMUNICATIONS SPECIALIST Unavailable Unavailable Olga, N Ramon SENIOR COMMUNICATIONS SPECIALIST Unavailable Unavailable [place], N Ramon SENIOR COMMUNICATIONS SPECIALIST Unavailable Unavailable [place], N Ramon SENIOR COMMUNICATIONS SPECIALIST Unavailable Unavailable [place], N Ramon SENIOR COMMUNICATIONS SPECIALIST Unavailable Unavailable [place], N Ramon SENIOR COMMUNICATIONS SPECIALIST Unavailable Unavailable Olga, N Ramon SENIOR COMMUNICATIONS SPECIALIST Unavailable Unavailable Olga, N Ramon SENIOR COMMUNICATIONS SPECIALIST Unavailable Unavailable Olga, N Ramon SENIOR COMMUNICATIONS SPECIALIST Unavailable Unavailable [place], N Ramon SENIOR COMMUNICATIONS SPECIALIST Unavailable Unavailable Olga, N Ramon SENIOR COMMUNICATIONS SPECIALIST Unavailable Unavailable [place], N Ramon SENIOR COMMUNICATIONS SPECIALIST Unavailable Unavailable Olga, N Ramon SENIOR COMMUNICATIONS SPECIALIST Unavailable Unavailable Olga, N Ramon SENIOR COMMUNICATIONS SPECIALIST Unavailable Unavailable Cinthia MONDRAGON MD Unavailable Unavailable [...] K MICHELL OQUENDO Unavailable Unavailable CHANDRALA, Cinthia GLAARZA MD Unavailable Unavailable Kim, Shahid PA Unavailable [...] is protected by Article 27-F of the [facility] Public Health law. If you continue you may have access to information: Regarding HIV / AIDS; Provided by facilities licensed or operated by the [facility] Office of Mental Health; or Provided by the [facility] Office for People With Developmental Disabilities. If such information is present, then the following [facility] mandated warning applies: This information has [...] law may result in a fine or penitentiary sentence or both. A general authorization for the release of medical or other information is NOT sufficient authorization for further disc losure. Family History Family Member Name Family Member Gender Family Member Status Date o f Status Description Data Source(s) Unknown Unknown Problem MEDENT ([facility], ) Unknown Unknown Problem MEDENT ([facility]) Unknown Unknown Problem MEDENT (Satya Osoroi MD, ) Encounters Encounter Providers Location Date Indications Data Source(s ) Outpatient Attender: Blanca Lai MD Main office - [facility] 05/09/2021 12:30:00 PM EST MEDENT ([facility]) Unknown [address] [facility] [facility] [address] 04/27/2021 12:00:00 AM EDT eCW1 ([facility]) Outpatient [address] [facility] [place] [address] 04/20/2021 12:00:00 AM EDT eCW1 ([facility]) [place] [address] [facility] [place] [address] 04/19/2021 12:00:00 AM EDT eCW1 ([facility]) Unknown [address] [facility] [place] [address] 04/18/2021 12:00:00 AM EDT eCW1 ([facility]) Outpatient Attender: Shahid Kim PAConsultant: [facility] [id number] 04/14/2021 05:20:00 PM EDT [facility] Emergency Attender: Shahid Kim PAReferrer: Micheal Martin EMERGENCY ROOM-ER 04/14/2021 03:47:00 PM EDT - 04/15/2021 12:22:00 PM EDT [facility] Patient discharged. Unknown [address] [facility] [address] 04/14/2021 12:00:00 AM EDT eCW1 ([facility]) Unknown [address] [facility] [address] 03/27/2021 12:00:00 AM EDT eCW1 ([facility]) Out[place] [address] [facility] [address] 03/24/2021 12:00:00 AM EDT eCW1 ([facility]) Unknown [address] [facility] [address] 03/20/2021 12:00:00 AM EDT [facility]1 [facility] Outpatient Attender: Blanca Lai MD Main office [facility] 03/16/2021 10:45:00 AM EDT MEDENT ([facility]ulina, ) Outpatient Attender: Ramon WATERSP.[email or web address] 021 12:00:00 AM EDT - 03/14/2021 01:31:41 PM EDT [facility] [address] [facility] [address] 03/08/2021 12:00:00 AM EDT eCW1 ([facility]) Unknown [address] [facility] [address] 03/08/2021 12:00:00 AM EDT eCW1 ([facility]) Outpatient Attender: Ramon Espinoza NP [email or web address].[email or web address].RAS 021 12:00:00 AM EDT - 02/28/2021 09:17:18 AM EDT [facility] [address] [facility] [address] 02/28/2021 12:00:00 AM EDT [facility]CW1 [facility] [address] [facility] [address] [address] 02/27/2021 12:00:00 AM EDT eCW1 [facility]) Outpatient Attender: MICHELL Winkler/Sirena/Jasvir figueroa/Kelby 02/20/2021 02:10:00 PM EDT MEDENT ([facility]) Unknown [address] [facility] [address] 02/20/2021 12:00:00 AM EDT eCW1 ([facility]) Unknown [address] [facility] [address] 02/20/2021 12:00:00 AM EDT eCW1 ([facility]) (TCM) Transition of Care Visit [address] [place] [address] 02/15/2021 12:00:00 AM EDT [facility] Unknown [address] [facility] [address] 02/15/2021 12:00:00 AM EDT eCW1 ([facility]) Unknown [address] [facility] [address] 02/13/2021 12:00:00 AM EDT eCW1 ([facility]) Unknown [address] [facility] [address] 02/09/2021 12:00:00 AM EDT eCW1 ([facility]) Unknown [address] [facility] [address] 02/08/2021 12:00:00 AM EDT eCW1 ([facility]) Unknown [address] [facility] [address] 02/03/2021 12:00:00 AM EDT eCW1 ([facility]) Outpatient Attender: Blanca Lai MD [facility] office [facility] 01/31/2021 02:15:00 PM EDT MEDENT ([facility]) Unknown [address] [facility] [address] 01/31/2021 12:00:00 AM EDT eCW1 ([facility]) Outpatient [address] [facility] [address] 01/24/2021 12:00:00 AM EDT eCW1 ([facility]) Outpatient Attender: Blanca Lai MD [facility] office - [facility] 12/21/2020 03:00:00 PM EDT MEDENT ([facility]) Unknown [address] [facility] [address] 12/14/2020 12:00:00 AM EDT eCW1 ([facility]) Unknown [address] [facility] [address] 12/08/2020 12:00:00 AM EDT eCW1 ([facility]) Unknown [address] [facility] [address] 12/02/2020 12:00:00 AM EDT eCW1 ([facility]) Unknown [address] [facility] [address] 11/14/2020 12:00:00 AM EDT eCW1 [facility]) Outpatient Attender: MICHELL Winkler/Sirena/Jasvir figueroa/Kelby 11/10/2020 09:40:00 AM EDT MEDENT ([facility], ) Unknown [address] [facility] [address] 10/11/2020 12:00:00 AM EDT eCW1 ([facility]) Outpatient [address] [facility] [address] 09/27/2020 12:00:00 AM EDT eCW1 ([facility]) Unknown [address] [facility] [address] 09/23/2020 12:00:00 AM EDT eCW1 [facility]) Office Visit Attender: Blanca Lai MD Main office - [facility] 09/06/2020 09:15:00 AM EST MEDENT ([facility], ) Outpatient [address] [facility] [address] 09/06/2020 12:00:00 AM EST eCW1 [facility]) Office Visit, Est Pt., Level 4 [address] [place] [address] 08/25/2020 12:00:00 AM EST eCW1 ([facility]) Out[place] [address] [facility] [address] 08/23/2020 12:00:00 AM EST eCW1 ([facility]) Unknown [address] [facility] [address] 08/09/2020 12:00:00 AM EST eCW1 ([facility]) Out[place] [address] [facility] [address] 08/04/2020 12:00:00 AM EST eCW1 ([facility]) Out[place] [address] [facility] [address] 07/29/2020 12:00:00 AM EST eCW1 ([facility]) Unknown [address] [facility] [address] 07/04/2020 12:00:00 AM EST eCW1 ([facility]) Out[place] [address] [facility] [address] 06/28/2020 12:00:00 AM EST eCW1 ([facility]) Office Visit Attender: Blanca Lai MD Main office - [facility] 06/02/2020 10:15:00 AM EST MEDENT ([facility]) Unknown [address] [facility] [address] 05/30/2020 12:00:00 AM EST eCW1 ([facility]) Unknown [address] [facility] [address] 05/25/2020 12:00:00 AM EST eCW1 ([facility]) Unknown [address] [facility] [address] 04/27/2020 12:00:00 AM EDT eCW1 ([facility]) Immunizations Vaccine Date Status Description Data Source(s) COVID-19 VACCINE Moderna 08/29/2020 12:00:00 AM EST completed [facility] Vaccine Series Complete: YESThis Data wa s Submitted to [facility] Via [employer]. COVID-19 VACCINE Moderna 08/01/2020 12:00:00 AM EST completed [facility] Vaccine Series Complete: NOThis Data was Submitted to [facility] Via [employer]. Medications Medication Brand Name Start Date Product Form Dose Route Admi nistrative Instructions Pharmacy Instructions Status Indications Reaction Description Data Source(s) Triamcinolone Acetonide 0.001 MG/MG Topi demetris Ointment Triamcinolone Acetonide 0.1 % Triamcinolone Acetonide 0.1 % 04/20/2021 12:00:00 AM EDT 1.0 {application} active Triamcinolone Aceton logan 0.1 % eCW1 ([facility]) Triamcinolone Acetonide 0.001 MG/MG Topi demetris Ointment Triamcinolone Acetonide 0.1 % Triamcinolone Acetonide 0.1 % 04/20/2021 12:00:00 AM EDT 1.0 {application} active Triamcinolone Aceton logan 0.1 % eCW1 ([facility]) Triamcinolone Acetonide 0.001 MG/MG Topi demetris Ointment Triamcinolone Acetonide 0.1 % Triamcinolone Acetonide 0.1 % 04/20/2021 12:00:00 AM EDT 1.0 {application} active Triamcinolone Aceton logan 0.1 % eCW1 ([facility]) Ciprofloxacin 250 MG Oral Tablet CIPROFLOXACIN HCL [...] AM EDT active [facility]ocate Lancets - eCW1 ([facility]) OneTouch Verio - OneTouch Verio - 03/24/2021 12:00:00 AM EDT active OneTouch Verio - eCW1 ([facility]) Advocate Lancets - Advocate Lancets - 03/24/2021 12:00:00 AM EDT active Advocate Lancets - eCW1 ([facility]) Advocate Lancets - Advocate Lancets - 03/24/2021 12:00:00 AM EDT suspended [facility]ocate Lancets - eCW1 ([facility]) Advocate Lancets - Advocate Lancets - 03/24/2021 12:00:00 AM EDT suspended [facility] Lancets - eCW1 ([facility]) OneTouch Verio - OneTouch Verio - 03/24/2021 12:00:00 AM EDT active OneTouch Verio - eCW1 ([facility]) Advocate Lancets - Advocate Lancets - 03/24/2021 12:00:00 AM EDT active Advocate Lancets - eCW1 ([facility]) Advocate Lancets - Advocate Lancets - 03/24/2021 12:00:00 AM EDT active Advocate Lancets - eCW1 ([facility]) OneTouch Verio - OneTouch Verio - 03/24/2021 12:00:00 AM EDT active OneTouch Verio - eCW1 ([facility]) OneTouch Verio - OneTouch Verio - 03/24/2021 12:00:00 AM EDT suspended OneTouch Verio - eCW1 ([facility]) OneTouch Verio - OneTouch Verio - 03/24/2021 12:00:00 AM EDT active OneTouch Verio - eCW1 ([facility]) OneTouch Verio - OneTouch Verio - 03/24/2021 12:00:00 AM EDT suspended OneTouch Verio - eCW1 ([facility]) Advocate Lancets - Advocate Lancets - 03/24/2021 12:00:00 AM EDT suspended Advocate Lancets - eCW1 ([facility]) OneTouch Verio - OneTouch Verio - 03/24/2021 12:00:00 AM EDT suspended OneTouch Verio - eCW1 ([facility]) 100 mg/mL 03/19/2021 12:00:00 AM EDT suspension 1260 TAKE 10ML BY MOUTH THREE TIMES A DAY 1/2 HOUR BEFORE MEALS AND AT BEDTIME TAKE 10ML BY MOUTH THREE TIMES A DAY 1/2 HOUR BEFORE MEALS AND AT BEDTIME SOLD: 03/21/2021 [facility] empagliflozin 10 MG Oral Tablet [Jardiance] Jardiance 10 MG TABS Jardiance 10 MG TABS 02/26/2021 12:00:00 AM EDT active [facility] pantoprazole 40 MG Delayed Release Oral Tablet pantoprazole (PROTONIX) 40 MG tablet pantoprazole (PROTONIX) 40 MG tablet 02/22/2021 12:00:00 AM EDT active TAKE ONE TABLET BY MOUTH @8A M [facility] 10 gram/15 mL 02/20/2021 12:00:00 AM EDT solution 474 TAKE 15ML-30ML BY MOUTH ONCE DAILY IN THE MORNING OR AT NIGHT ADJUST TO HAVE AT LEAST 1 BOWEL MOVEMNT DAILY TAKE 15ML-30ML BY MOUTH ONCE DAILY IN E MORNING OR AT NIGHT ADJUST TO HAVE AT LEAST 1 BOWEL MOVEMNT DAILY SOLD: 02/21/2021 [facility] Lactulose 667 MG/ML Oral Solution [Constulose] Constul ose 10 GM/15ML solution Constulose 10 GM/15ML solution 02/20/2021 12:00:00 AM EDT active TAKE 15ML 30ML BY MOUTH ONCE DAILY IN THE MORNING OR AT NIGHT ADJUST TO HAVE AT LEAST 1 BOWEL MOVEMNT DAILY [facility] 10 gram/15 mL 02/20/2021 12:00:00 AM EDT solution 473 TAKE 15ML-30ML BY MOUTH ONCE DAILY IN THE MORNING OR AT NIGHT ADJUST TO HAVE AT LEAST 1 BOWEL MOVEMNT DAILY TAKE 15ML-30ML BY MOUTH ONCE DAILY IN TH E MORNING OR AT NIGHT ADJUST TO HAVE AT LEAST 1 BOWEL MOVEMNT DAILY SOLD: 05/26/2021 [facility] Lactulose 667 MG/ML Oral Solution Lactulose [...] 1.0 {tablet_at_bedtime_as_needed} suspended Ramelteon 8 MG eCW1 ([facility]) ramelteon 8 MG Oral Tablet Ramelteon 8 MG Ramelteon 8 MG 02/10/2021 12:00:00 AM EDT 1.0 {tablet_at_bedtime_as_needed} active Ramelteon 8 MG eCW1 ([facility]) ramelteon 8 MG Oral Tablet Ramelteon 8 MG Ramelteon 8 MG 02/10/2021 12:00:00 AM EDT 1.0 {tablet_at_bedtime_as_needed} active Ramelteon 8 MG eCW1 ([facility]) ramelteon 8 MG Oral Tablet Ramelteon 8 MG Ramelteon 8 MG 02/10/2021 12:00:00 AM EDT 1.0 {tablet_at_bedtime_as_needed} suspended Ramelteon 8 MG eCW1 ([facility]) ramelteon 8 MG Oral Tablet Ramelteon 8 MG Ramelteon 8 MG 02/10/2021 12:00:00 AM EDT 1.0 {tablet_at_bedtime_as_needed} suspended Ramelteon 8 MG eCW1 ([facility]) ramelteon 8 MG Oral Tablet Ramelteon 8 MG Ramelteon 8 MG 02/10/2021 12:00:00 AM EDT 1.0 {tablet_at_bedtime_as_needed} suspended Ramelteon 8 MG eCW1 ([facility]) ramelteon 8 MG Oral Tablet Ramelteon 8 MG Ramelteon 8 MG 02/10/2021 12:00:00 AM EDT 1.0 {tablet_at_bedtime_as_needed} suspended Ramelteon 8 MG eCW1 ([facility]) ramelteon 8 MG Oral Tablet Ramelteon 8 MG Ramelteon 8 MG 02/10/2021 12:00:00 AM EDT 1.0 {tablet_at_bedtime_as_needed} suspended Ramelteon 8 MG eCW1 ([facility]) ramelteon 8 MG Oral Tablet Ramelteon 8 MG Ramelteon 8 MG 02/10/2021 12:00:00 AM EDT 1.0 {tablet_at_bedtime_as_needed} suspended Ramelteon 8 MG eCW1 ([facility]) ramelteon 8 MG Oral Tablet Ramelteon 8 MG Ramelteon 8 MG 02/10/2021 12:00:00 AM EDT 1.0 {tablet_at_bedtime_as_needed} suspended Ramelteon 8 MG eCW1 ([facility]) ramelteon 8 MG Oral Tablet Ramelteon 8 MG Ramelteon 8 MG 02/10/2021 12:00:00 AM EDT 1.0 {tablet_at_bedtime_as_needed} active Ramelteon 8 MG eCW1 ([facility]) ramelteon 8 MG Oral Tablet Ramelteon 8 MG Ramelteon 8 MG 02/10/2021 12:00:00 AM EDT 1.0 {tablet_at_bedtime_as_needed} suspended Ramelteon 8 MG eCW1 ([facility]) ramelteon 8 MG Oral Tablet Ramelteon 8 MG Ramelteon 8 MG 02/10/2021 12:00:00 AM EDT 1.0 {tablet_at_bedtime_as_needed} suspended Ramelteon 8 MG eCW1 ([facility]) ramelteon 8 MG Oral Tablet Ramelteon 8 MG Ramelteon 8 MG 02/10/2021 12:00:00 AM EDT 1.0 {tablet_at_bedtime_as_needed} suspended Ramelteon 8 MG eCW1 ([facility]) ramelteon 8 MG Oral Tablet Ramelteon 8 MG Ramelteon 8 MG 02/10/2021 12:00:00 AM EDT 1.0 {tablet_at_bedtime_as_needed} suspended Ramelteon 8 MG eCW1 ([facility]) ramelteon 8 MG Oral Tablet Ramelteon 8 MG Ramelteon 8 MG 02/10/2021 12:00:00 AM EDT 1.0 {tablet_at_bedtime_as_needed} suspended Ramelteon 8 MG eCW1 ([facility]) ramelteon 8 MG Oral Tablet Ramelteon 8 MG Ramelteon 8 MG 02/10/2021 12:00:00 AM EDT 1.0 {tablet_at_bedtime_as_needed} suspended Ramelteon 8 MG eCW1 ([facility]) ramelteon 8 MG Oral Tablet Ramelteon 8 MG Ramelteon 8 MG 02/10/2021 12:00:00 AM EDT 1.0 {tablet_at_bedtime_as_needed} suspended Ramelteon 8 MG eCW1 ([facility]) ramelteon 8 MG Oral Tablet Ramelteon 8 MG Ramelteon 8 MG 02/10/2021 12:00:00 AM EDT 1.0 {tablet_at_bedtime_as_needed} suspended Ramelteon 8 MG eCW1 ([facility]) ramelteon 8 MG Oral Tablet Ramelteon 8 MG Ramelteon 8 MG 02/10/2021 12:00:00 AM EDT 1.0 {tablet_at_bedtime_as_needed} suspended Ramelteon 8 MG eCW1 ([facility]) Donepezil hydrochloride 10 MG Oral Tablet donepezil (A RICEPT) 10 MG tablet donepezil (ARICEPT) 10 MG tablet 02/08/2021 12:00:00 AM EDT active TAKE ONE HALF TABLET BY MOUTH AT BEDTIME FOR 2 WEEKS THEN INCREASE TO 1 TABLET ONCE DAILY [facility] 40 mg 02/03/2021 12:00:00 AM EDT tablet [...] IF CHEST PAIN STILL PERSISTS CONTACT 911 [facility] 0.4 mg 02/01/2021 12:00:00 AM EDT tablet, [...] 12/21/2020 12:00:00 AM EDT ORAL completed MEDENT ([facility]) 500 mg 12/20/2020 12:00:00 AM EDT tablet 14 TAKE ONE TABLET BY MOUTH EVERY 12 HOURS FOR 7 DAYS TAKE ONE TABLET BY MOUTH EVERY 12 HOURS FOR 7 DAYS [facility] Nystatin 038554 UNT/ML Topical Cream nystatin (MYCOSTA TIN) cream nystatin (MYCOSTATIN) cream 12/20/2020 12:00:00 AM EDT active APPLY TO AFFECTED AREA S TWICE A DAY FOR 7 DAYS [facility] 100,000 unit/gram 12/20/2020 12:00:00 AM EDT cream [...] 3350 105 MG/ML / Pot assium Chloride 0.07703 MEQ/ML / Sodium Bicarbonate 0.017 MEQ/ML / Sodium Chloride 0.0479 MEQ/ML Oral Solution [GaviLyte-N] Gavilyte-N With Flavor Pack 11/30/2020 12:00:00 AM EDT completed MEDENT ([facility], ) Clenpiq Clenpiq 11/30/2020 12:00:00 AM EDT complet ed MEDENT ([facility], ) Bisacodyl 5 MG Delayed Release Oral Tablet [Dulcolax] Dulcol ax 11/30/2020 12:00:00 AM EDT completed MEDENT ([facility], ) Sutab Sutab 11/30/2020 12:00:00 AM EDT completed MEDENT ([facility], ) 17 gram/dose 11/10/2020 12:00:00 AM [...] 11/10/2020 12:00:00 AM EDT active M EDENT ([facility], ) 17 gram/dose 11/10/2020 12:00:00 AM [...] 1.0 {tablet} active Jardiance 10 MG eCW1 ([facility]) 10 mg 09/27/2020 12:00:00 AM EDT tablet 30 TAKE ONE TABLET BY MOUTH EVERY DAY TAKE ONE TABLET BY MOUTH EVERY DAY SOLD: 09/28/2020 [facility] empagliflozin 10 MG Oral Tablet [Jardiance] Jardiance 10 MG Jardiance 10 MG 09/27/2020 12:00:00 AM EDT 1.0 {tablet} active Jardiance 10 MG eCW1 ([facility]) empagliflozin 10 MG Oral Tablet [Jardiance] Jardiance 10 MG Jardiance 10 MG 09/27/2020 12:00:00 AM EDT 1.0 {tablet} active Jardiance 10 MG eCW1 ([facility]) empagliflozin 10 MG Oral Tablet [Jardiance] Jardiance 10 MG Jardiance 10 MG 09/27/2020 12:00:00 AM EDT 1.0 {tablet} active Jardiance 10 MG eCW1 ([facility]) 25-100 mg 09/09/2020 12:00:00 AM EST tablet [...] 09/06/2020 12:00:00 AM EST ORAL completed MEDENT ([facility]) 25-100 mg 09/06/2020 12:00:00 AM [...] active Clobetaso l Propionate 0.05 % eCW1 ([facility]) BLOOD SUGAR DIAGNOSTIC 08/25/2020 12:00:00 AM EST strip 50 USE DIRECTED TWO TIMES A DAY BEFORE MEALS USE DIRECTED TWO TIMES A DAY BEFORE MEALS SOLD: 08/27/2020 [facility] Clobetasol Propionate 0.5 MG/ML Topical Solution Clobe tasol Propionate 0.05 % Clobetasol Propionate 0.05 % 08/25/2020 12:00:00 AM EST 1.0 {application_to_scalp} active Clobetaso l Propionate 0.05 % eCW1 ([facility]) 0.05 % 08/25/2020 12:00:00 AM EST solution 25 APPLY TO SCALP ONCE DAILY IN THE MORNING APPLY TO SCALP ONCE DAILY IN THE MORNING SOLD: 08/27/2020 [facility] Dermasmoothe/FS 0.01% UNK 08/25/2020 12:00:00 AM EST active Dermasmoothe/FS 0.01% eCW1 ([facility]) Clobetasol Propionate 0.5 MG/ML Topical Solution Clobe tasol Propionate 0.05 % Clobetasol Propionate 0.05 % 08/25/2020 12:00:00 AM EST 1.0 {application_to_scalp} active Clobetaso l Propionate 0.05 % eCW1 ([facility]) Clobetasol Propionate 0.5 MG/ML Topical Solution Clobe tasol Propionate 0.05 % Clobetasol Propionate 0.05 % 08/25/2020 12:00:00 AM EST 1.0 {application_to_scalp} active Clobetaso l Propionate 0.05 % eCW1 ([facility]) Dermasmoothe/FS 0.01% UNK 08/25/2020 12:00:00 AM EST active Dermasmoothe/FS 0.01% eCW1 ([facility]) Clobetasol Propionate 0.5 MG/ML Topical Solution Clobe tasol Propionate 0.05 % Clobetasol Propionate 0.05 % 08/25/2020 12:00:00 AM EST 1.0 {application_to_scalp} active Clobetaso l Propionate 0.05 % eCW1 ([facility]) Dermasmoothe/FS 0.01% UNK 08/25/2020 12:00:00 AM EST active Dermasmoothe/FS 0.01% eCW1 ([facility]) Clobetasol Propionate 0.5 MG/ML Topical Solution Clobe tasol Propionate 0.05 % Clobetasol Propionate 0.05 % 08/25/2020 12:00:00 AM EST 1.0 {application_to_scalp} active Clobetaso l Propionate 0.05 % eCW1 ([facility]) Dermasmoothe/FS 0.01% UNK 08/25/2020 12:00:00 AM EST active Dermasmoothe/FS 0.01% eCW1 ([facility]) Dermasmoothe/FS 0.01% UNK 08/25/2020 12:00:00 AM EST active Dermasmoothe/FS 0.01% eCW1 ([facility]) Dermasmoothe/FS 0.01% UNK 08/25/2020 12:00:00 AM EST active Dermasmoothe/FS 0.01% eCW1 ([facility]) Dermasmoothe/FS 0.01% UNK 08/25/2020 12:00:00 AM EST active Dermasmoothe/FS 0.01% eCW1 ([facility]) BLOOD SUGAR DIAGNOSTIC 08/25/2020 12:00:00 AM EST strip 50 USE DIRECTED TWO TIMES A DAY BEFORE MEALS USE DIRECTED TWO TIMES A DAY BEFORE MEALS SOLD: 02/21/2021 [facility] Clobetasol Propionate 0.5 MG/ML Topical Solution Clobe tasol Propionate 0.05 % Clobetasol Propionate 0.05 % 08/25/2020 12:00:00 AM EST 1.0 {application_to_scalp} active Clobetaso l Propionate 0.05 % eCW1 ([facility]) Dermasmoothe/FS 0.01% UNK 08/25/2020 12:00:00 AM EST active Dermasmoothe/FS 0.01% eCW1 ([facility]) Clobetasol Propionate 0.5 MG/ML Topical Solution Clobe tasol Propionate 0.05 % Clobetasol Propionate 0.05 % 08/25/2020 12:00:00 AM EST 1.0 {application_to_scalp} active Clobetaso l Propionate 0.05 % eCW1 ([facility]) Clobetasol Propionate 0.5 MG/ML Topical Solution Clobe tasol Propionate 0.05 % Clobetasol Propionate 0.05 % 08/25/2020 12:00:00 AM EST 1.0 {application_to_scalp} active Clobetaso l Propionate 0.05 % eCW1 ([facility]) BLOOD-GLUCOSE METER 08/25/2020 12:00:00 AM EST misc 1 USE DIRECTED TWO TIMES A DAY USE DIRECTED TWO TIMES A DAY SOLD: 08/27/2020 [facility] Dermasmoothe/FS 0.01% UNK 08/25/2020 12:00:00 AM EST active Dermasmoothe/FS 0.01% eCW1 ([facility]) Glucometer UNK 08/24/2020 12:00:00 AM EST active Glucometer eCW1 ([facility]) [facility]S Glucose Meter Test Strips - [facility] Glucose Meter Test Strip s 08/24/2020 12:00:00 AM EST active CVS Gluc ose Meter Test Strips - eCW1 ([facility]) CVS Glucose Meter Test Strips - CVS Glucose Meter Test Strip s 08/24/2020 12:00:00 AM EST active CVS Gluc ose Meter Test Strips - eCW1 ([facility]) Glucometer UNK 08/24/2020 12:00:00 AM EST active Glucometer eCW1 ([facility]) Glucometer UNK 08/24/2020 12:00:00 AM EST active Glucometer eCW1 ([facility]) Glucometer UNK 08/24/2020 12:00:00 AM EST active Glucometer eCW1 ([facility]) Glucometer UNK 08/24/2020 12:00:00 AM EST active Glucometer eCW1 ([facility]) CVS Glucose Meter Test Strips - [facility] Glucose Meter Test Strip s 08/24/2020 12:00:00 AM EST active CVS Gluc ose Meter Test Strips - eCW1 ([facility]) Glucometer UNK 08/24/2020 12:00:00 AM EST active Glucometer eCW1 ([facility]) CVS Glucose Meter Test Strips - CVS Glucose Meter Test Strip s 08/24/2020 12:00:00 AM EST active CVS Gluc ose Meter Test Strips - eCW1 ([facility]) CVS Glucose Meter Test Strips - CVS Glucose Meter Test Strip s 08/24/2020 12:00:00 AM EST active CVS Gluc ose Meter Test Strips - eCW1 ([facility]) Glucometer UNK 08/24/2020 12:00:00 AM EST active Glucometer eCW1 ([facility]) CVS Glucose Meter Test Strips - CVS Glucose Meter Test Strip s 08/24/2020 12:00:00 AM EST active CVS Gluc ose Meter Test Strips - eCW1 ([facility]) CVS Glucose Meter Test Strips - CVS Glucose Meter Test Strip s 08/24/2020 12:00:00 AM EST active CVS Gluc ose Meter Test Strips - eCW1 ([facility]) Glucometer UNK 08/24/2020 12:00:00 AM EST active Glucometer eCW1 ([facility]) CVS Glucose Meter Test Strips - CVS Glucose Meter Test Strip s 08/24/2020 12:00:00 AM EST active CVS Gluc ose Meter Test Strips - eCW1 ([facility]) Glucometer UNK 08/24/2020 12:00:00 AM EST active Glucometer eCW1 ([facility]) CVS Glucose Meter Test Strips - CVS Glucose Meter Test Strip 08/24/2020 12:00:00 AM EST active CVS Gluc ose Meter Test Strips - eCW1 ([facility]) CVS Glucose Meter Test Strips - CVS Glucose Meter Test Strip 08/24/2020 12:00:00 AM EST active CVS Gluc ose Meter Test Strips - eCW1 ([facility]) CVS Glucose Meter Test Strips - CVS Glucose Meter Test Strip s 08/24/2020 12:00:00 AM EST active CVS Gluc ose Meter Test Strips - eCW1 ([facility]) CVS Glucose Meter Test Strips - CVS Glucose Meter Test Strip s 08/24/2020 12:00:00 AM EST active CVS Gluc ose Meter Test Strips - eCW1 ([facility]) CVS Glucose Meter Test Strips - CVS Glucose Meter Test Strip s 08/24/2020 12:00:00 AM EST active CVS Gluc ose Meter Test Strips - eCW1 ([facility]) Glucometer UNK 08/24/2020 12:00:00 AM EST active Glucometer eCW1 ([facility]) CVS Glucose Meter Test Strips - CVS Glucose Meter Test Strip s 08/24/2020 12:00:00 AM EST active CVS Gluc ose Meter Test Strips - eCW1 ([facility]) CVS Glucose Meter Test Strips - CVS Glucose Meter Test Strip s 08/24/2020 12:00:00 AM EST suspended CVS G lucose Meter Test Strips - eCW1 ([facility]) CVS Glucose Meter Test Strips - CVS Glucose Meter Test Strip 08/24/2020 12:00:00 AM EST active CVS Gluc ose Meter Test Strips - eCW1 ([facility]) CVS Glucose Meter Test Strips - CVS Glucose Meter Test Strip 08/24/2020 12:00:00 AM EST suspended CVS G lucose Meter Test Strips - eCW1 ([facility]) CVS Glucose Meter Test Strips - CVS Glucose Meter Test Strip 08/24/2020 12:00:00 AM EST active CVS Gluc ose Meter Test Strips - eCW1 ([facility]) Glucometer UNK 08/24/2020 12:00:00 AM EST active Glucometer eCW1 ([facility]) CVS Glucose Meter Test Strips - CVS Glucose Meter Test Strip 08/24/2020 12:00:00 AM EST active CVS Gluc ose Meter Test Strips - eCW1 ([facility]) CVS Glucose Meter Test Strips - CVS Glucose Meter Test Strip 08/24/2020 12:00:00 AM EST active CVS Gluc ose Meter Test Strips - eCW1 ([facility]) Glucometer UNK 08/24/2020 12:00:00 AM EST active Glucometer eCW1 ([facility]) Glucometer UNK 08/24/2020 12:00:00 AM EST active Glucometer eCW1 ([facility]) Glucometer UNK 08/24/2020 12:00:00 AM EST active Glucometer eCW1 ([facility]) Glucometer UNK 08/24/2020 12:00:00 AM EST active Glucometer eCW1 ([facility]) CVS Glucose Meter Test Strips - CVS Glucose Meter Test Strip 08/24/2020 12:00:00 AM EST active CVS Gluc ose Meter Test Strips - eCW1 ([facility]) CVS Glucose Meter Test Strips - CVS Glucose Meter Test Strip s - 08/24/2020 12:00:00 AM EST active CVS Gluc ose Meter Test Strips - eCW1 ([facility]) CVS Glucose Meter Test Strips - CVS Glucose Meter Test Strip s 08/24/2020 12:00:00 AM EST active CVS Gluc ose Meter Test Strips - eCW1 ([facility]) CVS Glucose Meter Test Strips - CVS Glucose Meter Test Strip s 08/24/2020 12:00:00 AM EST active CVS Gluc ose Meter Test Strips - eCW1 ([facility]) Glucometer UNK 08/24/2020 12:00:00 AM EST active Glucometer eCW1 ([facility]) Glucometer UNK 08/24/2020 12:00:00 AM EST active Glucometer eCW1 ([facility]) Glucometer UNK 08/24/2020 12:00:00 AM EST active Glucometer eCW1 ([facility]) Glucometer UNK 08/24/2020 12:00:00 AM EST active Glucometer eCW1 ([facility]) Glucometer UNK 08/24/2020 12:00:00 AM EST active Glucometer eCW1 ([facility]) Glucometer UNK 08/24/2020 12:00:00 AM EST active Glucometer eCW1 ([facility]) CVS Glucose Meter Test Strips - CVS Glucose Meter Test Strip s 08/24/2020 12:00:00 AM EST active CVS Gluc ose Meter Test Strips - eCW1 ([facility]) Glucometer UNK 08/24/2020 12:00:00 AM EST active Glucometer eCW1 ([facility]) Glucometer UNK 08/24/2020 12:00:00 AM EST suspend ed Glucometer eCW1 ([facility]) Glucometer UNK 08/24/2020 12:00:00 AM EST active Glucometer eCW1 ([facility]) Glucometer UNK 08/24/2020 12:00:00 AM EST suspend ed Glucometer eCW1 ([facility]) CVS Glucose Meter Test Strips - CVS Glucose Meter Test Strip s 08/24/2020 12:00:00 AM EST active CVS Gluc ose Meter Test Strips - eCW1 ([facility]) CVS Glucose Meter Test Strips - CVS Glucose Meter Test Strip s 08/24/2020 12:00:00 AM EST active CVS Gluc ose Meter Test Strips - eCW1 ([facility]) CVS Glucose Meter Test Strips - CVS Glucose Meter Test Strip s 08/24/2020 12:00:00 AM EST active CVS Gluc ose Meter Test Strips - eCW1 ([facility]) CVS Glucose Meter Test Strips - CVS Glucose Meter Test Strip s 08/24/2020 12:00:00 AM EST active CVS Gluc ose Meter Test Strips - eCW1 ([facility]) CVS Glucose Meter Test Strips - CVS Glucose Meter Test Strip 08/24/2020 12:00:00 AM EST suspended CVS G lucose Meter Test Strips - eCW1 ([facility]) CVS Glucose Meter Test Strips - CVS Glucose Meter Test Strip 08/24/2020 12:00:00 AM EST active CVS Gluc ose Meter Test Strips - eCW1 ([facility]) Glucometer UNK 08/24/2020 12:00:00 AM EST active Glucometer eCW1 ([facility]) CVS Glucose Meter Test Strips - CVS Glucose Meter Test Strip s 08/24/2020 12:00:00 AM EST active CVS Gluc ose Meter Test Strips - eCW1 ([facility]) Glucometer UNK 08/24/2020 12:00:00 AM EST active Glucometer eCW1 ([facility]) Glucometer UNK 08/24/2020 12:00:00 AM EST active Glucometer eCW1 ([facility]) Glucometer UNK 08/24/2020 12:00:00 AM EST active Glucometer eCW1 ([facility]) Glucometer UNK 08/24/2020 12:00:00 AM EST active Glucometer eCW1 ([facility]) Glucometer UNK 08/24/2020 12:00:00 AM EST active Glucometer eCW1 ([facility]) Glucometer UNK 08/24/2020 12:00:00 AM EST active Glucometer eCW1 ([facility]) Glucometer UNK 08/24/2020 12:00:00 AM EST active Glucometer eCW1 ([facility]) CVS Glucose Meter Test Strips - CVS Glucose Meter Test Strip s - 08/24/2020 12:00:00 AM EST active CVS Gluc ose Meter Test Strips - eCW1 ([facility]) CVS Glucose Meter Test Strips - CVS Glucose Meter Test Strip s - 08/24/2020 12:00:00 AM EST active CVS Gluc ose Meter Test Strips - eCW1 ([facility]) Glucometer UNK 08/24/2020 12:00:00 AM EST suspend ed Glucometer eCW1 ([facility]) 25-100 mg 07/02/2020 12:00:00 AM EST tablet [...] A DAY SOLD: 06/02/2020 [facility] calcipotriene 0.31209 MG/MG Topical Ointment Calcipotr iene 0.005 % Calcipotriene 0.005 % 05/30/2020 12:00:00 AM EST 1.0 {application} active Calcipotriene 0.005 % eCW1 ([facility]) calcipotriene 0.68777 MG/MG Topical Ointment Calcipotr iene 0.005 % Calcipotriene 0.005 % 05/30/2020 12:00:00 AM EST 1.0 {application} active Calcipotriene 0.005 % eCW1 ([facility]) Betamethasone 0.0005 MG/MG / calcipotrie ne 0.44184 MG/MG Topical Ointment [Taclonex] Taclonex 0.005-0.064 % Taclonex 0.005-0.064 % 05/24/2020 12:00:00 AM EST 1.0 {application} active Taclon ex 0.005-0.064 % eCW1 ([facility]) Betamethasone 0.0005 MG/MG / calcipotrie ne 0.20984 MG/MG Topical Ointment [Taclonex] Taclonex 0.005-0.064 % Taclonex 0.005-0.064 % 05/24/2020 12:00:00 AM EST 1.0 {application} active Taclon ex 0.005-0.064 % eCW1 ([facility]) 0.5 % 05/14/2020 12:00:00 AM EST ointment [...] aborted Take 500 mg by mouth daily [facility] Cholecalciferol 2000 UNT Oral Tablet Cho lecalciferol (VITAMIN D3) 2000 units TABS Cholecalciferol (VITAMIN D3) 2000 units TABS 2000 U Oral aborted Take 2,000 Units by mouth daily [facility] FERROUS SULFATE PO drug or medication 65 mg Oral aborted Take 65 mg by mouth daily with breakfast [facility] Calcium Carbonate (CALCIUM 600 PO) drug or medication 1 {tbl} Oral aborted Take 1 tablet by mouth daily [facility] Vitamin B 12 0.5 MG Oral Tablet vitamin B-12 (CYANOCOB ALAMIN) 500 MCG tablet vitamin B-12 (CYANOCOBALAMIN) 500 MCG tablet 500 ug Oral aborted Take 500 mcg by mouth 2 (two) times a day [facility] Insurance Providers Payer name Policy type / Coverage type Policy ID Covered green party ID Covered green party's relationship to hough Policy Hough Plan Information MEDICARE [id number] Latisha [id number] [place]ISION [id number] S [id number] MEDICARE A [id number] Self [id number] MEDICARE [id number] MEDICARE [id number] SP [id number] [place]IC[place] - [place] [id number] S [id number] MEDICARE [id number] SP [id number] MEDICARE [id number] Latisha [id number] [id number] [place] Primary [id number] Self [id number] [place] [id number] Self [id number] Medicaid [place] [id number] Self [id number] [place] Medicare Primary [id number] Self [id number] [place] Primary [id number] Self [id number] [place] Primary [id number] Self [id number] Medicare [place] Medicare Primary [id number] Self [id number] [place] Primary [id number] Self [id number] Medicare [place] Primary [id number] Self [id number] MEDICAID [id number] SP [id number] MEDICAID [id number] SP [id number] MEDICAID [id number] SP [id number] MEDICAID [id number] SP [id number] [place] [id number] SP [id number] MEDICAID [id number] MEDICAID [id number] Latisha [id number] MEDICAID [id number] Latisha [id number] MEDICAID [id number] Self [id number] ANS-Medicaid [id number] ANS-Medicaid [id number] ANS-Medicare Part B [id number] ANS-Medicare Part B [id number] ANS-Medicaid [id number] ANS-Medicaid [id number] ANS-Medicare Part B [id number] ANSI-Medicaid [id number] ANSI-Medicare Part B [id number] ANSI-Medicare Part B [id number] ANSI-Medicaid [id number] MEDICARE PI PI MEDICAID PI PI ANSI-Medicare Part B [id number] ANSI-Medicaid [id number] [place] [id number] Self [id number] Medicare [place] Medicare Primary [id number] Self [id number] ANSI-Medicaid [id number] ANSI-Medicare Part B [id number] ANSI-Medicaid [id number] ANSI-Medicare Part B [id number] ANSI-Medicare Part B [id number] ANSI-Medicaid [id number] ANSI-Medicaid [id number] ANSI-Medicare Part B [id number] ANSI-Medicaid [id number] ANSI-Medicare Part B [id number] [place] [id number] Self [id number] Medicare [place] Medicare Primary [id number] Self [id number] ANSI-Medicare Part B [id number] ANSI-Medicaid [id number] ANSI-Medicaid [id number] ANSI-Medicare Part B [id number] ANSI-Medicare Part B [id number] ANSI-Medicaid [id number] ANSI-Medicaid [id number] ANSI-Medicare Part B [id number] ANSI-Medicaid [id number] ANSI-Medicare Part B [id number] ANSI-Medicaid [id number] ANSI-Medicare Part B [id number] ANSI-Medicare Part B [id number] ANSI-Medicaid [id number] ANSI-Medicare Part B [id number] ANSI-Medicaid [id number] ANSI-Medicare Part B [id number] ANSI-Medicaid [id number] ANSI-Medicaid [id number] ANSI-Medicare Part B [id number] ANSI-Medicare Part B [id number] ANSI-Medicaid [id number] ANSI-Medicaid [id number] ANSI-Medicare Part B [id number] [facility] [id number] Self [id number] Medicare [place]/[facility] Medicare Primary [id number] Self [id number] ANSI-Medicaid [id number] ANSI-Medicare Part B [id number] ANSI-Medicare Part B [id number] ANSI-Medicaid [id number] ANSI-Medicare Part B [id number] ANSI-Medicaid [id number] ANSI-Medicaid [id number] ANSI-Medicare Part B [id number] ANSI-Medicare Part B [id number] ANSI-Medicaid [id number] ANSI-Medicaid [id number] ANSI-Medicare Part B [id number] ANSI-Medicaid [id number] ANSI-Medicare Part B [id number] [facility] PART B [id number] ANSI-Medicaid [id number] ANSI-Medicare Part B [id number] ANSI-Medicaid [id number] ANSI-Medicare Part B [id number] MEDICARE [id number] ANSI-Medicaid [id number] ANSI-Medicare Part B [id number] ANSI-Medicare Part B [id number] ANSI-Medicaid [id number] ANSI-Medicare Part B [id number] ANSI-Medicaid [id number] ANSI-Medicare Part B [id number] ANSI-Medicaid [id number] ANS-Medicare Part B [id number] ANS-Medicaid [id number] ANS-Medicare Part B [id number] [facility]-Medicaid [id number] [facility]-Medicare Part B [id number] ANS-Medicaid [id number] MEDICARE C [id number] S [id number] MEDICAID [place]NA[place] B[place] [id number] [place] [id number] [place] [id number] [place] [id number] [place] [id number] SP [id number] J [id number] MEDICARE [id number] SP [id number] MEDICAID [id number] S [id number] [place] [id number] SP [id number] J EMEDNY [id number] SP [id number] MEDICAID [id number] SP [id number] MEDICARE C [id number] S [id number] MEDICAID M [id number] S [id number] MEDICAID [id number] SP [id number] ANSI-Medicaid [id number] ANSI-Medicare Part B [id number] Medicaid [place] [id number] Self [id number] [place] Medicare Primary [id number] Self [id number] ANSI-Medicaid [id number] ANSI-Medicare Part B [id number] ANSI-Medicaid [id number] ANSI-Medicare Part B [id number] SELF PAY ANSI-Medicaid [id number] ANSI-Medicare Part B [id number] [place] [facility] Part B [id number] Self [id number] Medicare [facility] Medicare Primary [id number] Self [id number] ANS-Medicaid [id number] ANSI-Medicare Part B [id number] ANSI-Medicare Part B [id number] Problems, Conditions, and Diagnoses Code Display Name Description Problem Type Effective Dates Data Source(s) Z87.891 Personal history of nicotine dependence PERSONAL HISTORY OF NICOTINE DEPENDENCE Diagnosis 04/14/2021 03:47:00 PM [facility] Z79.899 Other retirement (current) drug therapy O THER ALF (CURRENT) DRUG THERAPY Diagnosis 04/14/2021 03:47:00 PM [facility] G20 Parkinson's disease PARKINSON'S DISEASE Diagnosis 1 03:47:00 PM [facility] I10 Essential (primary) hypertension ESSENTIAL (PRIMARY) H YPERTENSION Diagnosis 04/14/2021 03:47:00 PM [facility] K72.00 Acute and subacute hepatic failure witho ut coma ACUTE AND SUBACUTE HEPATIC FAILURE WITHOUT COMA Diagnosis 04/14/2021 03:47:00 PM [facility] I25.10 Atherosclerotic heart diseas e of [place] coronary artery without angina pectoris ATHSCL HEART DISEASE OF [place] CORONARY ARTERY W/O Diagnosis 04/14/2021 03:47:00 PM [facility] K74.60 Unspecified cirrhosis of liver UNSPECIFIED CIRRHOSIS O F LIVER Diagnosis 04/14/2021 03:47:00 PM [facility] N30.90 Cystitis, unspecified without hematuria CYSTITIS, UNSPECIFIED WITHOUT HEMATURIA Diagnosis 04/14/2021 03:47:00 PM EDT [facility] R41.82 Altered mental status, unspecified ALTERED MENTA L STATUS, UNSPECIFIED Diagnosis 04/14/2021 03:47:00 PM [facility] I10 Essential (primary) hypertension Essential (primary) h ypertension Diagnosis 03/14/2021 01:00:31 PM EDT [facility] E78.2 Mixed hyperlipidemia Mixed hyperlipidemia Diagnosis 03/14/2021 01:00:31 PM EDT [facility] I25.10 Atherosclerotic heart diseas e of [place] coronary artery without angina pectoris Atherosclerotic heart disease of [place] Diagnosis 03/14/2021 01:00:31 PM EDT [facility] R06.00 Dyspnea, unspecified Dyspnea, unspecified Diagnosis 03/14/2021 01:00:31 PM EDT [facility] R06.00 Shortness of breath Shortness of breath [id number] 0 03/14/2021 12:00:00 AM EDT [facility] F32.9 [id number] Depression, unspecified depression type P roblem 02/15/2021 12:00:00 AM EDT [facility] ([facility]) G43.009 [id number] Migraine without aur a and without status migrainosus, not intractable Problem 01/24/2021 12:00:00 AM EDT eCW1 ([facility]) G89.29 [id number] Other chronic pain Problem 10/02/2020 12:00: 00 AM EDT eCW1 ([facility]) D22.30 [id number] Melanocytic nevi of face Problem 08/25/2020 12:00:00 AM EST eCW1 ([facility]) L82.1 [id number] Seborrheic keratoses Problem 08/25/2020 12:0 0:00 AM EST eCW1 ([facility]) D22.5 166917704 Melanocytic nevi of trunk Problem 08/25/2020 12:00:00 AM EST eCW1 ([facility]) L81.4 475670110 Lentigines Problem 08/25/2020 12:00:00 AM ES T eCW1 ([facility]) L60.8 07425145 Pitting of nails Problem 08/25/2020 12:00:00 AM EST eCW1 ([facility]) D22.72 [id number] Melanocytic nevus of left lower extrem ity Problem 08/25/2020 12:00:00 AM EST eCW1 ([facility]) D22.71 [id number] Melanocytic nevus of right lower extre mity Problem 08/25/2020 12:00:00 AM EST eCW1 ([facility]) D18.01 6090365 Post angioma Problem 08/25/2020 12:00:00 A M EST eCW1 ([facility]) M17.10 577131531 Osteoarthritis of knee, unilateral Proble m 08/04/2020 12:00:00 AM EST eCW1 ([facility]) F17.200 93258681 Smoking Problem 07/29/2020 12:00:00 AM ES T eCW1 ([facility]) M17.0 [id number] Osteoarthritis of winter th knees, unspecified osteoarthritis type Problem 05/24/2020 12:00:00 AM EST eCW1 ([facility]) K74.60 99143709 Cirrhosis of liver w [facility] ascites, unspecified hepatic cirrhosis type Problem 05/24/2020 12:00:00 AM EST eCW1 ([facility]) Surgeries/Procedures Procedure Description Date Indications Data Source(s) OFFICE OUTPATIENT VISIT 25 MINUTES 05/09/2021 12:00:00 AM EST [facility] ([facility], ) OFFICE OUTPATIENT VISIT 25 MINUTES 03/16/2021 12:00:00 AM EDT [facility] ([facility], ) ELECTROENCEPHALOGRAM W/REC AWAKE&ASLEEP 03/08/2021 12: 00:00 AM EDT [facility] ([facility] ) ELECTROENCEPHALOGRAM W/REC AWAKE&ASLEEP 03/08/2021 12: 00:00 AM EDT [facility] ([facility], ) POCT AMB EKG <td>POCT AMB EKG</td><td>Rou milad</td><td>02/28/2021 8:48 AM EDT</td><td> Coronary artery disease involving [place] coronary artery of [place] heart without angina pectoris</td><td> </td> 02/28/2021 08:48:00 AM EDT Coronary artery disease involving [place] coronary artery of [place] heart without angina pectoris [facility] Coronary artery disease involving [place] coronary artery of [place] heart without angina pectoris OFFICE OUTPATIENT VISIT 25 MINUTES 02/20/2021 12:00:00 AM EDT [facility] ([facility], ) OFFICE OUTPATIENT VISIT 25 MINUTES 01/31/2021 12:00:00 AM EDT [facility] ([facility], ) Endoscopy Upper GI Biopsy 12/27/2020 12:00:00 AM EDT [facility] ([facility], ) Endoscopy Upper GI W/Band Ligation Of Varices 12/28/19 12:00:00 AM EDT [facility] ([facility], ) Colonoscopy W/ Poly 12/27/2020 12:00:00 AM EDT [facility] ([facility], ) OFFICE OUTPATIENT VISIT 25 MINUTES 12/21/2020 12:00:00 AM EDT [facility] ([facility], ) OFFICE OUTPATIENT VISIT 25 MINUTES 11/10/2020 12:00:00 AM EDT [facility] ([facility], ) PHYSICIAN TELEPHONE EVALUATION 11-20 MIN 09/06/2020 12 :00:00 AM EST [facility] ([facility], ) Med: Rheum Kenalog 40mg/1mL IA Triamcinolone 12:00:00 AM EST eCW1 ([facility]) Medication: 1% Lidocaine Dilutent (xylocaine) 09/07/19 21 12:00:00 AM EST eCW1 ([facility]) Medication: 1% Lidocaine Dilutent (xylocaine) 02/04/20 21 12:00:00 AM EST eCW1 ([facility]) Medication: Kenalog 40mg/1mL IA (Triamcinolone) 2020 12:00:00 AM EST eCW1 ([facility]) Medication: Ethyl Chloride 100% topical spray 021 12:00:00 AM EST eCW1 ([facility]) TSTG ANS FUNCJ CARDIOVAGAL INNERVAJ PARASYMP 0 12:00:00 AM EST [facility] ([facility]) TSTG ANS FUNCJ CARDIOVAGAL INNERVAJ PARASYMP 0 12:00:00 AM EST [facility] ([facility] ) TESTING AUTONOMIC NERVOUS SYSTEM FUNCTION 05/25/2020 1 2:00:00 AM EST [facility] ([facility], ) TESTING AUTONOMIC NERVOUS SYSTEM FUNCTION 05/25/2020 1 2:00:00 AM EST [facility] ([facility], ) Results ID Date Data Source [id number] 04/15/2021 06:44:00 AM EDT [facility] l TSYSORDER [id number] Name Value Range Interpretation Code Description Data Kamilla rce(s) Supporting Document(s) GLUCOSE 107 mg/dL 74-106 H [facility] BLOOD UREA NITROGEN 9 mg/dL 7-18 [facility] ital CREATININE 0.63 mg/dl 0.55-1.02 [facility] SODIUM 146 mmol/L 136-145 H [facility] POTASSIUM 3.7 mmol/L 3.5-5.1 [facility] CHLORIDE 109 mmol/L 98-107 H [facility] CO2 25 mmol/L 21-32 [facility] CALCIUM 8.9 mg/dL 8.5-10.1 [facility] ANION GAP 12.0 mmol/L 5-12 [facility] GLOMERULAR FILTRATION RATE >90 mL/min [facility] GFR IS CALCULATED IN mL/min/1.73m2 JET L FUNCTION: >90MILDLY DECREASED: 60-89MILDY TO MODERATELY DECREASED: 45-59 MODERATELY TO SEVERELY DECREASED: 30-44SEVERELY DECREASED: 15-29RENAL FAILURE: <15 AST 23 U/L 15-37 [facility] ALT 28 U/L 14-59 [facility] ALKALINE PHOSPHATASE 71 U/L 46-116 [facility] TOTAL BILIRUBIN 0.7 mg/dL 0.2-1.0 [facility] TOTAL PROTEIN 7.8 g/dL 6.4-8.2 [facility] ALBUMIN 3.2 gm/dL 3.4-5.0 [facility] ID Date Data Source [id number] 04/14/2021 05:40:00 PM T [facility] DATE OF EXAMINATION: 04/14/2021 15:33 ED T [...] rce(s) Supporting Document(s) ID Date Data Source [id number] 04/14/2021 05:35:00 PM T [facility] DATE OF EXAMINATION: 04/14/2021 15:33 E DT [...] rce(s) Supporting Document(s) ID Date Data Source [id number] REFLEX 04/14/2021 05:11:00 PM EDT [facility] TSYSORDER [id number] Name Value Range Interpretation Code Description Data Kamilla rce(s) Supporting Document(s) URINE RBC 1-3 /hpf 0-3 [facility] URINE WBC 10-15 /hpf 0-5 H [facility] URINE EPITHELIAL CELLS 1+ /hpf [facility] UR[facility] TRANSITIONAL EPI CELLS 1+ /hpf R [facility] URINE BACTERIA 1+ NONE SEEN H [facility] URINE MUCUS 1+ NEGATIVE H [facility] ID Date Data Source [id number] REFLEX 04/14/2021 05:11:00 PM EDT [facility] ital TSYSORDER [id number] Name Value Range Interpretation Code Description Data Kamilla rce(s) Supporting Document(s) URINE COLOR. [facility] URINE APPEARANCE CLEAR [facility] l URINE GLUCOSE (UA) NEGATIVE mg/dL NEGATIVE [facility] URINE BILIRUBIN NEGATIVE NEGATIVE [facility] URINE KETONE NEGATIVE mg/dL NEGATIVE [facility] SPECIFIC GRAVITY,URINE 1.020 1.005-1.030 [facility] URINE BLOOD NEGATIVE NEGATIVE [facility] PH,URINE 7.5 5.0-9.0 [facility] URINE PROTEIN NEGATIVE mg/dL NEGATIVE [facility] URINE UROBILINOGEN 8 mg/dL 0-1 H [facility] sandrita URINE NITRATE NEGATIVE NEGATIVE [facility] URINE LEUKOCYTE ESTERASE 2+(MODERATE) NEGATIVE H [facility] ID Date Data Source [id number] 04/14/2021 05:07:00 PM EDT [facility] l TSYSORDER [id number] Name Value Range Interpretation Code Description Data Kamilla rce(s) Supporting Document(s) URINE AMPHETAMINES NEGATIVE <1000 ng/mL [facility] COCAINE, URINE NEGATIVE <300 ng/mL [facility] THC,URINE NEGATIVE <50 ng/mL [facility] URINE BENZODIAZEPINES NEGATIVE <300 ng/mL [facility] URINE,TCA NEGATIVE <1000 ng/mL [facility] IF A NEGATIVE RESULT IS OBTAINED AND ING ESTION OF TRICYCLICANTIDEPRESSANTS IS SUSPECTED, A SERUM SAMPLE SHOULD BEOBTAINED AND TESTED USING AN APPROPRIATE METHOD. URINE BARBITURATES NEGATIVE <300 ng/mL [facility] ital MDMA NEGATIVE <500 ng/mL [facility] URINE,OPIATES NEGATIVE <300 ng/mL [facility] PCP,URINE NEGATIVE <25 ng/mL [facility] OXYCODONE URINE NEGATIVE <100 ng/mL [facility] l PROPOXYPHENE NEGATIVE <300 ng/mL [facility] THESE TESTS ARE PERFORMED USING AN [employer] NOASSAY FOR THEQUALITATIVE DETERMINATION OF THE PRESENCE OF THE MAJORMETABOLITES OF DRUGS OF ABUSE. THESE TESTS ARE ONLY ASCREENING AND NOT CONFIRMATORY. CLINICAL CONSIDERATION ANDPROFESSIONAL JUDGMENT MUST BE APPLIED TO ANY DRUG OF ABUSETEST RESULT. ID Date Data Source [id number] 04/14/2021 05:49:00 PM EDT [facility] TSYSORDER [id number] Name Value Range Interpretation Code Description Data Kamilla rce(s) Supporting Document(s) ACETAMINOPHEN LEVEL < 2.0 mcg/mL 10-30 L [facility] ID Date Data Source [id number] 04/14/2021 04:15:00 PM EDT [facility] TSYSORDER [id number] Name Value Range Interpretation Code Description Data Kamilla rce(s) Supporting Document(s) AMMONIA 108 umol/L 11-32 H [facility] ID Date Data Source [id number] 04/14/2021 04:15:00 PM EDT [facility] T[facility] [id number] Name Value Range Interpretation Code Description Data Kamilla rce(s) Supporting Document(s) TROPONIN-HIGH SENSITIVITY 7.4 ng/L 0-60.4 [facility] ID Date Data Source [id number] 04/14/2021 04:15:00 PM EDT [facility] l TSYSORDER [id number] Name Value Range Interpretation Code Description Data Kamilla rce(s) Supporting Document(s) GLUCOSE 86 mg/dL 74-106 [facility] BLOOD UREA NITROGEN 13 mg/dL 7-18 [facility] ital CREATININE 0.78 mg/dl 0.55-1.02 [facility] SODIUM 146 mmol/L 136-145 H [facility] POTASSIUM 3.5 mmol/L 3.5-5.1 [facility] CHLORIDE 110 mmol/L 98-107 H [facility] CO2 26 mmol/L 21-32 [facility] CALCIUM 9.0 mg/dL 8.5-10.1 [facility] ANION GAP 10.0 mmol/L 5-12 [facility] GLOMERULAR FILTRATION RATE 72 mL/min [facility] GFR IS CALCULATED IN mL/min/1.73m2 JET L FUNCTION: >90MILDLY DECREASED: 60-89MILDY TO MODERATELY DECREASED: 45-59 MODERATELY TO SEVERELY DECREASED: 30-44SEVERELY DECREASED: 15-29RENAL FAILURE: <15 AST 22 U/L 15-37 [facility] ALT 15 U/L 14-59 [facility] ALKALINE PHOSPHATASE 70 U/L 46-116 [facility] TOTAL BILIRUBIN 0.6 mg/dL 0.2-1.0 [facility] TOTAL PROTEIN 7.6 g/dL 6.4-8.2 [facility] ALBUMIN 3.2 gm/dL 3.4-5.0 L [facility] ID Date Data Source [id number] 04/14/2021 03:52:00 PM EDT [facility] TSYSORDER [id number] Name Value Range Interpretation Code Description Data Kamilla rce(s) Supporting Document(s) WHITE BLOOD COUNT 4.7 K/mm3 4.0-10.0 [facility] RED BLOOD COUNT 4.03 M/mm3 4.00-5.50 [facility] HEMOGLOBIN 12.6 gm/dL 12.0-16.0 [facility] HEMATOCRIT 37.4 % 36.0-48.8 [facility] MEAN CELL VOLUME 92.8 fl 80-96 [facility] MEAN CORPUSCULAR HEMOGLOBIN 31.3 pg 27.0-31.0 H [facility] MEAN CORPUSCULAR HGB CONC 33.7 g/dl 32.0-36.0 [facility] RED CELL DISTRIBUTION WIDTH 13.6 % 10.0-14.5 [facility] PLATELET COUNT 111 K/mm3 172-450 L [facility] MEAN PLATELET VOLUME 11.0 fl 9.0-13.0 [facility] GRAN % 61.1 % 50-80.0 [facility] IG% 0.4 % 0.0-0.2 H [facility] LYMPH % 22.6 % 25.0-50.0 L [facility] MONO % 13.2 % 2.0-10.0 H [facility] EOS % 2.1 % 0-5.0 [facility] BASO % 0.6 % 0.0-2.0 [facility] GRAN # 2.9 K/mm3 2.0-8.00 [facility] IG# 0.0 K/mm3 0.0-0.2 [facility] LYMPH # 1.1 K/mm3 1.0-5.0 [facility] MONO # 0.6 K/mm3 0.10-1.20 [facility] EOS # 0.1 K/mm3 0.0-0.5 [facility] BASO # 0.0 K/mm3 0.0-0.2 [facility] ID Date Data Source [id number] 04/06/2021 10:25:00 AM EDT [facility] Name Value Range Interpretation Code Description Data Kamilla rce(s) Supporting Document(s) SARS-CoV-2 (COVID-19) RNA [Presence] in Respiratory specimen by ZACK with probe detection Not Detected [facility] This lab was ordered by [facility] and reported by [employer] ID Date Data Source [id number] 03/07/2021 05:41:00 AM EDT [facility] Name Value Range Interpretation Code Description Data Kamilla rce(s) Supporting Document(s) SARS-CoV-2 (COVID 19) NEGATIVE - SARS-CoV-2 (COVID19) [facility] This lab was ordered by [facility] a nd reported by [facility]. ID Date Data Source [id number] 02/21/2021 12:00:00 AM EDT eCW1 ([facility]) Name Value Range Interpretation Code Description Data Kamilla rce(s) Supporting Document(s) Hemoglobin A1c/Hemoglobin.total in Blood 5.9 HEMOGLOBIN A1c eCW1 ([facility]) ID Date Data Source FREE T4 & TSH PANEL 02/21/2021 12:00:00 AM EDT eCW1 ([facility]) Name Value Range Interpretation Code Description Data Kamilla rce(s) Supporting Document(s) 0.461 0.358-3.740 THYROID STIMULATING HORM ONE eCW1 ([facility]) 1.77 0.76-1.46 FREE T4 eCW1 ([facility]) ID Date Data Source [id number] 01/29/2021 03:36:00 PM EDT [facility] Name Value Range Interpretation Code Description Data Kamilla rce(s) Supporting Document(s) SARS coronavirus 2 RNA [Presence] in Res piratory specimen by ZACK with probe detection NEGATIVE [facility] This lab was ordered by [facility] a nd reported by [facility]. ID Date Data Source [id number] 12/27/2020 12:10:00 PM EDT [facility] ([facility] ) Name Value Range Interpretation Code Description Data Kamilla rce(s) Supporting Document(s) Surgical pathology study Laboratory test result [facility] ([facility], ) FINAL DIAGNOSIS A - Esophageal [...] MD 12/28/2020 [id number] ID Date Data Source [id number] 12/22/2020 10:50:00 AM EDT [facility] Name Value Range Interpretation Code Description Data Kamilla rce(s) Supporting Document(s) SARS-CoV-2 (COVID-19) RNA [Presence] in Respiratory specimen by ZACK with probe detection Not Detected [facility] This lab was ordered by [facility] and reported by [employer] ID Date Data Source [id number] 07/14/2020 03:16:00 PM EST [facility] Name Value Range Interpretation Code Description Data Kamilla rce(s) Supporting Document(s) SARS-CoV-2 (COVID 19) NEGATIVE - SARS-CoV-2 (COVID19) [facility] This lab was ordered by [facility] a nd reported by [facility]. Procedure Social History Code Duration Value Status Description Data Source(s ) Smoking 04/20/2021 12:00:00 AM EDT Former Smoker completed Former Smoker eCW1 ([facility]) Smoking 04/20/2021 12:00:00 AM EDT Former Smoker completed Former Smoker eCW1 ([facility]) Smoking 04/20/2021 12:00:00 AM EDT Former Smoker completed Former Smoker eCW1 ([facility]) Smoking 03/24/2021 12:00:00 AM EDT Former Smoker completed Former Smoker eCW1 ([facility]) Smoking 03/24/2021 12:00:00 AM EDT Former Smoker completed Former Smoker eCW1 ([facility]) Smoking 03/24/2021 12:00:00 AM EDT Former Smoker completed Former Smoker eCW1 ([facility]) Smoking 03/24/2021 12:00:00 AM EDT Former Smoker completed Former Smoker eCW1 ([facility]) Smoking 02/15/2021 12:00:00 AM EDT Former Smoker completed Former Smoker eCW1 ([facility]) Smoking 02/15/2021 12:00:00 AM EDT Former Smoker completed Former Smoker eCW1 ([facility]) Smoking 02/15/2021 12:00:00 AM EDT Former Smoker completed Former Smoker eCW1 ([facility]) Smoking 02/15/2021 12:00:00 AM EDT Former Smoker completed Former Smoker eCW1 ([facility]) Smoking 02/15/2021 12:00:00 AM EDT Former Smoker completed Former Smoker eCW1 ([facility]) Smoking 02/15/2021 12:00:00 AM EDT Former Smoker completed Former Smoker eCW1 ([facility]) Smoking 02/15/2021 12:00:00 AM EDT Former Smoker completed Former Smoker eCW1 ([facility]) Smoking 02/15/2021 12:00:00 AM EDT Former Smoker completed Former Smoker [email or web address] ([facility]) Smoking 02/15/2021 12:00:00 AM EDT Former Smoker completed Former Smoker [email or web address] ([facility]) Smoking 02/15/2021 12:00:00 AM EDT Former Smoker completed Former Smoker [email or web address] ([facility]) Smoking 01/24/2021 12:00:00 AM EDT Former Smoker completed Former Smoker [email or web address] ([facility]) Smoking 01/24/2021 12:00:00 AM EDT Former Smoker completed Former Smoker [email or web address] ([facility]) Smoking 01/24/2021 12:00:00 AM EDT Former Smoker completed Former Smoker [email or web address] ([facility]) Smoking 01/24/2021 12:00:00 AM EDT Former Smoker completed [email or web address] [facility]) Smoking 01/24/2021 12:00:00 AM EDT Former Smoker completed Former Smoker eCW1 ([facility]) Smoking 09/26/2020 12:00:00 AM EDT Former Smoker completed Former Smoker eCW1 ([facility]) Smoking 09/26/2020 12:00:00 AM EDT Former Smoker completed Former Smoker eCW1 ([facility]) Smoking 09/26/2020 12:00:00 AM EDT Former Smoker completed Former Smoker eCW1 ([facility]) Smoking 09/26/2020 12:00:00 AM EDT Former Smoker completed Former Smoker eCW1 ([facility]) Smoking 09/26/2020 12:00:00 AM EDT Former Smoker completed Former Smoker eCW1 ([facility]) Smoking 09/26/2020 12:00:00 AM EDT Former Smoker completed Former Smoker eCW1 ([facility]) Smoking 09/26/2020 12:00:00 AM EDT Former Smoker completed Former Smoker eCW1 ([facility]) Smoking 09/26/2020 12:00:00 AM EDT Former Smoker completed Former Smoker eCW1 ([facility]) Smoking 09/06/2020 12:00:00 AM EST Former Smoker completed Former Smoker eCW1 ([facility]) Smoking 09/06/2020 12:00:00 AM EST Former Smoker completed Former Smoker eCW1 ([facility]) Smoking 08/25/2020 12:00:00 AM EST Former Smoker completed Former Smoker eCW1 ([facility]) Smoking 08/25/2020 12:00:00 AM EST Former Smoker completed Former Smoker eCW1 ([facility]) Smoking 08/04/2020 12:00:00 AM EST Former Smoker completed Former Smoker eCW1 ([facility]) Smoking 06/30/2020 12:00:00 AM EST Former Smoker completed Former Smoker eCW1 ([facility]) Smoking 06/30/2020 12:00:00 AM EST Former Smoker completed Former Smoker eCW1 ([facility]) Smoking 05/24/2020 12:00:00 AM EST Former Smoker completed Former Smoker eCW1 ([facility]) Smoking 05/24/2020 12:00:00 AM EST Former Smoker completed Former Smoker eCW1 ([facility]) Smoking 04/20/2020 12:00:00 AM EDT Former Smoker completed Former Smoker eCW1 ([facility]) Vital Signs ID Date Data Source UNK Name Value Range Interpretation Code Description Data Source(s) Body height 66 [in_i] 66 [in_i] [facility] ([facility], ) 5'6" Respiratory rate 12 /min 12 /min [facility] ( [facility]) Body weight 155.00 [lb_av] 155.00 [lb_av] [facility] ([facility]) Body mass index (BMI) [Ratio] 25.0 kg/m2 25.0 k g/m2 [facility] ([facility]) [place] body weight 130 [lb_av] 130 [lb_av] [facility], [facility] Body weight 152.6 [lb_av] 152.6 [lb_av] W ([facility]) Body weight 69.22 kg 69.22 kg [facility] ([facility]) Body height 65 [in_i] 65 [in_i] [facility] ([facility]) Body mass index (BMI) [Ratio] 25.39 kg/m2 25.39 kg/m2 [facility] ([facility]) Systolic blood pressure 138 mm[Hg] 138 mm[Hg] e CW1 ([facility]) Diastolic blood pressure 76 mm[Hg] 76 mm[Hg] W1 ([facility]) Body weight 143 [lb_av] 143 [lb_av] eCW1 (Counts include 234 beds at the [facility]) Body weight 64.86 kg 64.86 kg eCW1 ([facility]) Body height 65 [in_i] 65 [in_i] eCW1 ([facility]) Body mass index (BMI) [Ratio] 23.79 kg/m2 23.79 kg/m2 eCW1 ([facility]) Heart rate 75 /min 75 /min eCW1 ([facility]) Respiratory rate 18 /min 18 /min eCW1 ([facility]) Body temperature 4 [degF] 4 [degF] eCW1 ([facility]) Systolic blood pressure 130 mm[Hg] 130 mm[Hg] e CW1 ([facility]) Diastolic blood pressure 70 mm[Hg] 70 mm[Hg] eCW1 ([facility]) Respiratory rate 12 /min 12 /min [facility] ( [facility], ) Body height 66 [in_i] 66 [in_i] [facility] ([facility], ) 5'6" Body weight 155.00 [lb_av] 155.00 [lb_av] [facility] T ([facility], ) Body mass index (BMI) [Ratio] 25.0 kg/m2 25.0 k g/m2 [facility] ([facility], ) [place] body weight 130 [lb_av] 130 [lb_av] [facility] T ([facility], ) Respiratory rate 16 /min 16 /min [facility] Body height 167.6 cm 167.6 cm [facility] Body weight 63.957 kg 63.957 kg [facility] Body mass index (BMI) [Ratio] 22.76 kg/m2 22.76 kg/m2 [facility] Systolic blood pressure 104 mm[Hg] 104 mm[Hg] [facility] Diastolic blood pressure 70 mm[Hg] 70 mm[Hg] [facility] Heart rate 60 /min 60 /min [facility] Respiratory rate 16 /min 16 /min [facility] Body height 167.6 cm 167.6 cm [facility] Body weight 61.236 kg 61.236 kg [facility] Body mass index (BMI) [Ratio] 21.79 kg/m2 21.79 kg/m2 [facility] Diastolic blood pressure 74 mm[Hg] 74 mm[Hg] [facility] ([facility]) Body height 66 [in_i] 66 [in_i] [facility] ([facility]) 5'6" Body weight 136.00 [lb_av] 136.00 [lb_av] [facility] T ([facility]) Body mass index (BMI) [Ratio] 21.9 kg/m2 21.9 k g/m2 [facility] ([facility]) [place] body weight 130 [lb_av] 130 [lb_av] [facility] T ([facility]) Body weight 61.690 kg 61.690 kg [facility] ([facility]) Body surface area Derived from formula 1.70 m2 1.70 m2 [facility] ([facility]) Systolic blood pressure 120 mm[Hg] 120 mm[Hg] M EDENT ([facility]) Body weight 146.8 [lb_av] 146.8 [lb_av] eCW1 ([facility]) Body mass index (BMI) [Ratio] 24.43 kg/m2 24.43 kg/m2 eCW1 ([facility]) Heart rate 62 /min 62 /min eCW1 ([facility]) Respiratory rate 18 /min 18 /min eCW1 ([facility]) Body temperature 97.5 [degF] 97.5 [degF] eCW1 ( [facility]) Systolic blood pressure 136 mm[Hg] 136 mm[Hg] e CW1 ([facility]) Diastolic blood pressure 86 mm[Hg] 86 mm[Hg] eCW1 ([facility]) Body weight 66.59 kg 66.59 kg eCW1 ([facility]) Body height 65 [in_i] 65 [in_i] eCW1 ([facility]) Respiratory rate 12 /min 12 /min [facility] ( [facility], ) Body mass index (BMI) [Ratio] 25.0 kg/m2 25.0 k g/m2 [facility] ([facility], ) Body height 66 [in_i] 66 [in_i] [facility] ([facility]) 5'6" [place] body weight 130 [lb_av] 130 [lb_av] [facility] T ([facility], ) Body weight 155.00 [lb_av] 155.00 [lb_av] [facility] T ([facility]) Heart rate 62 /min 62 /min eCW1 ([facility]) Diastolic blood pressure 72 mm[Hg] 72 mm[Hg] eCW1 ([facility]) Respiratory rate 18 /min 18 /min eCW1 ([facility]) Body temperature 97.9 [degF] 97.9 [degF] eCW1 ( [facility]) Systolic blood pressure 116 mm[Hg] 116 mm[Hg] e CW1 ([facility]) Body weight 147.6 [lb_av] 147.6 [lb_av] eCW1 ([facility]) Body height 65 [in_i] 65 [in_i] eCW1 ([facility]) Body mass index (BMI) [Ratio] 24.56 kg/m2 24.56 kg/m2 eCW1 ([facility]) Respiratory rate 12 /min 12 /min [facility] ( [facility]) Body mass index (BMI) [Ratio] 25.0 kg/m2 25.0 k g/m2 [facility] ([facility]) [place] body weight 130 [lb_av] 130 [lb_av] [facility] T ([facility], ) Body weight 155.00 [lb_av] 155.00 [lb_av] [facility] T ([facility], ) Body height 66 [in_i] 66 [in_i] [facility] ([facility], ) 5'6" [place] body weight 130 [lb_av] 130 [lb_av] [facility] T ([facility], ) Body weight 70.762 kg 70.762 kg [facility] ([facility]) Body height 66 [in_i] 66 [in_i] [facility] ([facility]) 5'6" Body weight 156.00 [lb_av] 156.00 [lb_av] [facility] T ([facility]) Body mass index (BMI) [Ratio] 25.2 kg/m2 25.2 k g/m2 [facility] ([facility]) Body surface area Derived from formula 1.80 m2 1.80 m2 [facility] ([facility]) Body surface area Derived from formula 1.80 m2 1.80 m2 [facility] ([facility]) Systolic blood pressure 118 mm[Hg] 118 mm[Hg] M EDENT ([facility]) Diastolic blood pressure 78 mm[Hg] 78 mm[Hg] [facility] ([facility]) [place] body weight 130 [lb_av] 130 [lb_av] [facility] T ([facility]) Body weight 70.762 kg 70.762 [facility] Body height 66 [in_i] 66 [in_i] [facility] ([facility]) 5'6" Body weight 156.00 [lb_av] 156.00 [lb_av] [facility] T ([facility]) Body mass index (BMI) [Ratio] 25.2 kg/m2 25.2 k g/m2 [facility] ([facility]) Body weight 158.8 [lb_av] 158.8 [lb_av] eCW1 ([facility]) Body height 65 [in_i] 65 [in_i] eCW1 ([facility]) Body mass index (BMI) [Ratio] 26.42 kg/m2 26.42 kg/m2 eCW1 ([facility]) Heart rate 67 /min 67 /min eCW1 ([facility]) Respiratory rate 18 /min 18 /min eCW1 ([facility]) Body temperature 97.3 [degF] 97.3 [degF] eCW1 ( [facility]) Systolic blood pressure 116 mm[Hg] 116 mm[Hg] e CW1 ([facility]) Diastolic blood pressure 72 mm[Hg] 72 mm[Hg] eCW1 ([facility]) Body weight 164 [lb_av] 164 [lb_av] eCW1 (Counts include 234 beds at the [facility]) Body height 65 [in_i] 65 [in_i] eCW1 ([facility]) Body mass index (BMI) [Ratio] 27.29 kg/m2 27.29 kg/m2 eCW1 ([facility]) Heart rate 69 /min 69 /min eCW1 ([facility]) Respiratory rate 18 /min 18 /min eCW1 ([facility]) Body temperature 96.0 [degF] 96.0 [degF] eCW1 ( [facility]) Systolic blood pressure 104 mm[Hg] 104 mm[Hg] e CW1 ([facility]) Diastolic blood pressure 74 mm[Hg] 74 mm[Hg] eCW1 ([facility]) Respiratory rate 12 /min 12 /min [facility] Body height 66 [in_i] 66 [in_i] [facility] 5'6" Body weight 155.00 [lb_av] 155.00 [lb_av] [facility] T ([facility], ) Body mass index (BMI) [Ratio] 25.0 kg/m2 25.0 k g/m2 [facility] ([facility], ) [place] body weight 130 [lb_av] 130 [lb_av] [facility] T ([facility], ) Body weight 164.0 [lb_av] 164.0 [lb_av] eCW1 ([facility]) Body height 65 [in_i] 65 [in_i] eCW1 ([facility]) Body mass index (BMI) [Ratio] 27.29 kg/m2 27.29 kg/m2 eCW1 ([facility]) Systolic blood pressure 122 mm[Hg] 122 mm[Hg] e CW1 ([facility]) Diastolic blood pressure 76 mm[Hg] 76 mm[Hg] eCW1 ([facility]) Body weight 165 [lb_av] 165 [lb_av] eCW1 (Counts include 234 beds at the [facility]) Body height 65 [in_i] 65 [in_i] eCW1 ([facility]) Body mass index (BMI) [Ratio] 27.45 kg/m2 27.45 kg/m2 eCW1 ([facility]) Heart rate 70 /min 70 /min eCW1 ([facility]) Respiratory rate 18 /min 18 /min eCW1 ([facility]) Body temperature 96.9 [degF] 96.9 [degF] eCW1 ( [facility]) Systolic blood pressure 124 mm[Hg] 124 mm[Hg] e CW1 ([facility]) Diastolic blood pressure 78 mm[Hg] 78 mm[Hg] eCW1 ([facility]) Body weight 168 [lb_av] 168 [lb_av] eCW1 (Counts include 234 beds at the [facility]) Body height 65 [in_i] 65 [in_i] eCW1 ([facility]) Body mass index (BMI) [Ratio] 27.95 kg/m2 27.95 kg/m2 eCW1 ([facility]) Heart rate 75 /min 75 /min eCW1 ([facility]) Respiratory rate 18 /min 18 /min eCW1 ([facility]) Body temperature 97.9 [degF] 97.9 [degF] eCW1 ( [facility]) Systolic blood pressure 130 mm[Hg] 130 mm[Hg] e CW1 ([facility]) Diastolic blood pressure 82 mm[Hg] 82 mm[Hg] eCW1 ([facility]) Body weight 168 [lb_av] 168 [lb_av] eCW1 (Counts include 234 beds at the [facility]) Body height 65 [in_i] 65 [in_i] eCW1 ([facility]) Body mass index (BMI) [Ratio] 27.95 kg/m2 27.95 kg/m2 eCW1 ([facility]) Heart rate 70 /min 70 /min eCW1 ([facility]) Respiratory rate 18 /min 18 /min eCW1 ([facility]) Body temperature 97.8 [degF] 97.8 [degF] eCW1 ( [facility]) Systolic blood pressure 108 mm[Hg] 108 mm[Hg] e CW1 ([facility]) Diastolic blood pressure 64 mm[Hg] 64 mm[Hg] eCW1 ([facility]) Body weight 168 [lb_av] 168 [lb_av] eCW1 (Counts include 234 beds at the [facility]) Body height 65 [in_i] 65 [in_i] eCW1 ([facility]) Body mass index (BMI) [Ratio] 27.95 kg/m2 27.95 kg/m2 [facility] ([facility]) Heart rate 72 /min 72 /min eCW1 ([facility]) Respiratory rate 17 /min 17 /min eCW1 ([facility]) Body temperature 98.2 [degF] 98.2 [degF] eCW1 ( [facility]) Systolic blood pressure 110 mm[Hg] 110 mm[Hg] e CW1 ([facility]) Diastolic blood pressure 58 mm[Hg] 58 mm[Hg] eCW1 ([facility]) Respiratory rate 12 /min 12 /min [facility] ( [facility], ) Body height 66 [in_i] 66 [in_i] [facility] ([facility], ) 5'6" Body weight 155.00 [lb_av] 155.00 [lb_av] [facility] T ([facility], ) Body mass index (BMI) [Ratio] 25.0 kg/m2 25.0 k g/m2 [facility] ([facility], ) [place] body weight 130 [lb_av] 130 [lb_av] [facility] T ([facility], ) Patient Treatment Plan of Care Planned Activity Planned Date Details Description Data Source (s) Triamcinolone Acetonide 0.001 MG/MG Topical Ointment 021 12:00:00 AM EDT eCW1 ([facility]) Triamcinolone Acetonide 0.001 MG/MG Topical Ointment 021 12:00:00 AM EDT eCW1 ([facility]) Triamcinolone Acetonide 0.001 MG/MG Topical Ointment 021 12:00:00 AM EDT eCW1 ([facility]) OneTouch Verio - 03/24/2021 12:00:00 AM EDT eCW1 ([facility]) Advocate Lancets - 03/24/2021 12:00:00 AM EDT eCW1 ([facility]) OneTouch Verio - 03/24/2021 12:00:00 AM EDT eCW1 ([facility]) Advocate Lancets - 03/24/2021 12:00:00 AM EDT eCW1 ([facility]) OneTouch Verio - 03/24/2021 12:00:00 AM EDT eCW1 ([facility]) Advocate Lancets - 03/24/2021 12:00:00 AM EDT eCW1 ([facility] 03/24/[facility]21 12:00:00 AM EDT eCW1 ([facility]) Advocate Lancets - 03/24/2021 12:00:00 AM EDT eCW1 ([facility]) empagliflozin 10 MG Oral Tablet [Jardiance] 02/26/2021 12:00:00 AM EDT [facility] pantoprazole 40 MG Delayed Release Oral Tablet 02/22/2021 12:00:00 AM EDT [facility] Lactulose 667 MG/ML Oral Solution [Constulose] 02/20/2021 12:00:00 AM EDT [facility] ramelteon 8 MG Oral Tablet 02/10/2021 12:00:00 AM EDT eCW1 ([facility]) ramelteon 8 MG Oral Tablet 02/10/2021 12:00:00 AM EDT eCW1 ([facility]) ramelteon 8 MG Oral Tablet 02/10/2021 12:00:00 AM EDT eCW1 ([facility]) Donepezil hydrochloride 10 MG Oral Tablet 02/08/2021 12:00:00 AM ED T [facility] Nitroglycerin 0.4 MG Sublingual Tablet 02/01/2021 12:00:00 AM EDT [facility] Nystatin 399588 UNT/ML Topical Cream 12/20/2020 12:00:00 AM EDT [facility] empagliflozin 10 MG Oral Tablet [Jardiance] 09/27/2020 12:00:00 AM EDT eCW1 ([facility]) empagliflozin 10 MG Oral Tablet [Jardiance] 09/27/2020 12:00:00 AM EDT eCW1 ([facility]) empagliflozin 10 MG Oral Tablet [Jardiance] 09/27/2020 12:00:00 AM EDT eCW1 ([facility]) empagliflozin 10 MG Oral Tablet [Jardiance] 09/27/2020 12:00:00 AM EDT eCW1 ([facility]) Dermasmoothe/FS 0.01% 08/25/2020 12:00:00 AM EST eCW1 ([facility]) Clobetasol Propionate 0.5 MG/ML Topical Solution 08/25/2020 12:00:0 0 AM EST eCW1 ([facility]) Clobetasol Propionate 0.5 MG/ML Topical Solution 08/25/2020 12:00:0 0 AM EST eCW1 ([facility]) Dermasmoothe/FS 0.01% 08/25/2020 12:00:00 AM EST eCW1 ([facility]) [facility] Glucose Meter Test Strips - 08/24/2020 12:00:00 AM EST eCW1 ([facility]) [facility] Glucose Meter Test Strips - 08/24/2020 12:00:00 AM EST eCW1 ([facility]) [facility] Glucose Meter Test Strips - 08/24/2020 12:00:00 AM EST eCW1 ([facility]) [facility] Glucose Meter Test Strips - 08/24/2020 12:00:00 AM EST eCW1 ([facility]) calcipotriene 0.74312 MG/MG Topical Ointment 05/30/2020 12:00:00 AM EST eCW1 ([facility]) calcipotriene 0.99809 MG/MG Topical Ointment 05/30/2020 12:00:00 AM EST eCW1 ([facility]) Betamethasone 0.0005 MG/MG / calcipotrie ne 0.35879 MG/MG Topical Ointment [Taclonex] 05/24/2020 12:00:00 AM EST eCW1 ([facility]) Betamethasone 0.0005 MG/MG / calcipotrie ne 0.11690 MG/MG Topical Ointment [Taclonex] 05/24/2020 12:00:00 AM EST eCW1 ([facility]) Calcium Carbonate (CALCIUM 600 PO) [facility] Vitamin B 12 0.5 MG Oral Tablet [facility] Cholecalciferol 2000 UNT Oral Tablet [facility] Ascorbic Acid 100 MG Oral Tablet [facility] FERROUS SULFATE PO [facility]
== END 2021-06-09 13:30 | disposition left against medical advice (07) ==
LOC: M ED 11:59
DX: Z53.21 Procedure and treatment not carried out due to patient leaving prior to being seen by health care provider (principal)

== ENCOUNTER 2021-06-28 16:38 | Inpatient (IN) | payer MEDICARE, MEDICAID ==
[~2021-06-28] VITALS: Ht 167.6 cm; Wt 66.4 kg
[~2021-06-28 16:38] MED LIST changes: -CARB25TA9; +CARB25TA9 PO
--- NOTE | 2021-06-28 17:20 | REP ---
INDICATION: cough, fever chills. COMPARISON: 03/07/2021 TECHNIQUE: Portable FINDINGS: The technique utilized in obtaining the radiograph has magnified the cardiac silhouette and accentuated the interstitial markings. Once again, there is a diffuse increase in the interstitial markings status quo. No patchy parenchymal opacities or pleural effusions have developed. The cardiomediastinal silhouette is stable. Note is again made of previous median sternotomy. There is no change in the osseous structures. IMPRESSION: Stable chest. Correlate clinically to rule out the possibility of acute disease superimposed upon chronic change. <Electronically signed by Leandro Pisano > 06/28/21 [id number]
[2021-06-28 17:35] LABS: BASO % 0.4 % (0.0-1.0); EOS # 0.1 10^3/uL (0.0-0.5); EOS % 2.9 % (0.0-3.0); HEMATOCRIT 39.7 % (36.0-47.0); HEMOGLOBIN 12.6 g/dl (12.0-15.5); LYMPH # 0.6 10^3/uL (1.5-5.0); LYMPH % 22.9 % (24.0-44.0); MEAN CORPUSCULAR HEMOGLOBIN 30.3 pg (27.0-33.0); MEAN CORPUSCULAR HGB CONC 31.7 g/dl (32.0-36.5); MEAN CORPUSCULAR VOLUME 95.4 fl (80.0-96.0); MONO # 0.4 10^3/uL (0.0-0.8); MONO % 12.5 % (2.0-8.0); NEUTROPHILS # 1.7 10^3/uL (1.5-8.5); NEUTROPHILS % 60.9 % (36.0-66.0); RED BLOOD COUNT 4.16 10^6/uL (4.00-5.40); WHITE BLOOD COUNT 2.8 10^3/uL (4.0-10.0)
[2021-06-28 17:42] LABS: PLATELET COUNT, AUTOMATED 97 10^3/uL (150-450)
[2021-06-28 17:47] LABS: INR 1.15; PARTIAL THROMBOPLASTIN TIME 36.5 SECONDS (25.9-37.0); PROTHROMBIN TIME 15.2 SECONDS (12.7-14.5)
[2021-06-28 17:57] LABS: D-DIMER QUANT 3818.9 ng/ml (<500)
[2021-06-28 18:05] LABS: ALBUMIN 3.5 GM/DL (3.2-5.2); ALT/SGPT 8 U/L (12-78); BILIRUBIN,DIRECT 0.2 MG/DL (0.0-0.2); BILIRUBIN,TOTAL 0.6 MG/DL (0.2-1.0); FERRITIN 35 NG/ML (8-252); LDH LACTATE DEHYDROGENASE 265 U/L (84-246); TOTAL PROTEIN 7.9 GM/DL (6.4-8.2)
[2021-06-28 18:31] LABS: RSV AMPLIFICATION NEGATIVE (NEGATIVE)
[2021-06-28 19:17] LABS: BLOOD UREA NITROGEN 12 MG/DL (7-18); CARBON DIOXIDE LEVEL 24 MEQ/L (21-32); CHLORIDE LEVEL 110 MEQ/L (98-107); CREATININE FOR GFR 0.73 MG/DL (0.55-1.30); GLOMERULAR FILTRATION RATE > 60.0 (>39); GLUCOSE, FASTING 96 MG/DL (70-100); POTASSIUM SERUM 3.7 MEQ/L (3.5-5.1); SODIUM LEVEL 142 MEQ/L (136-145)
[2021-06-28] MEDS ORDERED: ISOVUE-370 76% 100ML VIAL As Ordered ONE (19:35)
--- NOTE | 2021-06-28 20:49 | REPVR ---
PROCEDURE INFORMATION: Exam: CTA Chest With Contrast Exam date and time: 06/28/2021 7:39 PM Age: 75 years old Clinical indication: Other: RO pe; Additional info: Rule out pe TECHNIQUE: Imaging protocol: Computed tomographic angiography of the chest with contrast. 3D rendering (Not supervised by radiologist): MIP and/or 3D reconstructed images were created by the technologist. Radiation optimization: All CT scans at this facility use at least one of these dose optimization techniques: automated exposure control; mA and/or kV adjustment per patient size (includes targeted exams where dose is matched to clinical indication); or iterative reconstruction. Contrast material: ISOVUE 370; Contrast volume: 75 ml; Contrast route: INTRAVENOUS (IV); COMPARISON: CT ANGIO CHEST 05/06/2018 12:15 AM FINDINGS: Pulmonary arteries: No gross pulmonary emboli demonstrated with clear pulmonary arteries demonstrated proximally. Motion artifact degrades evaluation of small peripheral arteries as such peripheral emboli not excluded. Aorta: There is fusiform dilatation of the supravalvular ascending thoracic aorta which measures 3.7 cm. maximally. There is no dissection or saccular component. The thoracic aorta is diffusely ectatic. Lungs: There is interval development of a lobular mass in the superior segment of the left lower lobe measuring 2.5 x 1.8 x 1.2 cm. Findings highly suspect for a primary pulmonary parenchymal malignancy. Further evaluation with PET imaging suggested. Infiltrate in the posterior segment of the left upper lobe with cystic changes abutting the major fissure has evolved in comparison to the prior study. Clinical correlation to exclude an acute focus of pneumonitis suggested. Semi-solid parenchymal opacity abutting the left cardiac border in the lingular lobe measures 1.1 x 1.1 x 1.7 cm. There is a parenchymal opacity in the inferior aspect of the right middle lobe measuring 1.3 x 1.8 x 2.3 cm not fully characterized due to motion artifact. Pleural spaces: Unremarkable. No pneumothorax. No pleural effusion. Heart: There is moderate atherosclerotic calcification of the coronary arteries. Lymph nodes: Unremarkable. No enlarged lymph nodes. Diaphragm: A small to moderate hiatal hernia is present. Liver: Cirrhotic morphology redemonstrated in the liver. Spleen: Splenomegaly. Bones/joints: There are rib deformities right 2nd, 3rd and possibly 4th ribs may be related to age indeterminate fractures. Status post sternotomy. The spine demonstrates mild degenerative changes. Soft tissues: Unremarkable. IMPRESSION: 1. There is interval development of a lobular mass in the superior segment of the left lower lobe measuring 2.5 x 1.8 x 1.2 cm. Findings highly suspect for a primary pulmonary parenchymal malignancy. Further evaluation with PET imaging suggested. 2. Infiltrate in the posterior segment of the left upper lobe with cystic changes abutting the major fissure has evolved in comparison to the prior study. Clinical correlation to exclude an acute focus of pneumonitis suggested. 3. Semi-solid parenchymal opacity abutting the left cardiac border in the lingular lobe measures 1.1 x 1.1 x 1.7 cm. 4. There is a parenchymal opacity in the inferior aspect of the right middle lobe measuring 1.3 x 1.8 x 2.3 cm not fully characterized due to motion artifact. 5. There are rib deformities right 2nd, 3rd and possibly 4th ribs may be related to age indeterminate fractures. 6. There is fusiform dilatation of the supravalvular ascending thoracic aorta which measures 3.7 cm. maximally. There is no dissection or saccular component. The thoracic aorta is diffusely ectatic. 7. No gross pulmonary emboli demonstrated with clear pulmonary arteries demonstrated proximally. Motion artifact degrades evaluation of small peripheral arteries as such peripheral emboli not excluded. 8. A small to moderate hiatal hernia is present. Electronically signed by: Krish Pascual On 06/28/2021 20:48:51 PM
[2021-06-28] MEDS ORDERED: MORPHINE 2 MG/ML 1ML VIAL (J2270) IV ONE (21:10)
[2021-06-28] MEDS ORDERED: cefTRIAXone SOD 1 GM in D5W MINI-BAG PLUS 50 ML IV ONE (21:25)
[2021-06-28] MEDS ORDERED: AZITHROMYCIN INJ 500 MG, VIAL MATE ADAPTER 1 EACH in NS 250 ML IV ONE (21:25)
[2021-06-28] MEDS ORDERED: COMBIVENT RESPIMAT 100-20MCG INHALER 4GM INH ONE (21:25)
[2021-06-28] MEDS ORDERED: FURO20TA2 PO (22:12)
[2021-06-28] MEDS ORDERED: LACT10SO3 PO (22:12)
[2021-06-28] MEDS ORDERED: HOME MED LIST COMPLETE! XX SCH (22:15)
[2021-06-29] VITALS (14 sets, daily range): BP systolic 113–161; BP diastolic 67–85; O2SAT 92–95
--- NOTE | 2021-06-29 00:01 | HPEPDOC ---
[facility] Medical History & Physical Date of Admission Jun 29, 2021 Date of Service: Jun 29, 2021 Primary Care Physician: MARY WALDROP DO Attending Physician: BRYAN ZAVALA MD History and Physical CHIEF COMPLAINT: Difficulty breathing HISTORY OF PRESENT ILLNESS: Patient is a 75-year-old, female, who presented to the ED on 06/28/2021, after experiencing Covid-like symptoms since last . When asked if she could give a timeline of her symptoms, she said she could not. She says she has been experiencing fever, chills, diarrhea, shortness of breath. She is also Covid vaccinated. PAST MEDICAL HISTORY: CT in 1999. HTN, goal 140/90. Hyperlipidemia. Depression. Psoriasis. Left ankle, broken. CAD, stent x1. Parkinsons. Alcoholic cirrhosis. Panctyopenia. Macroglulinemia, oncology. Quadruple bypass 2018. DM, diet controlled. PAST SURGICAL HISTORY: Stent placement after CT 1999 Hip fx repair 05/2010 8 pins 1 plate, left ankle 07/08/2013 hardware removal L hip 05/2017 Lt hip replacement 10/2017 colonoscopy 07/20/2014 upper and lower GI 08/2018 quadruple bypass 10/24/18 SOCIAL HISTORY: Children: 2 sons Tobacco use: Former smoker ETOH: Denies Illicit drug use: Denies IV drug use: Denies Other relevant social factors: Has home health services for a couple days a week, but apparently is not able to consistently take care of herself due to pre-existing condition. FAMILY HISTORY: Father: 76 yrs, Stroke Mother: 56 yrs Siblings: 59 yrs, 1 brother -heart attack 1 brother alive - triple bypass Son(s): alive, Hemochromatosis 4 brother(s) , 1 sister(s) . 2 son(s) - healthy. All siblings except her sister have heart disease denies family hx of melanoma or pacreatic cancer. ALLERGIES: Please see below. REVIEW OF SYSTEMS: CONSTITUTIONAL: Reports fevers, chills. HEENT: Denies blurry. CARDIOVASCULAR: Denies chest pain. RESPIRATORY: For shortness of breath. GASTROINTESTINAL: Denies nausea, vomiting; reports diarrhea. GENITOURINARY: Denies pain with urination, hematuria. SKIN: Reports psoriasis. EXTREMITIES: Reports increased lower extremity swelling, left greater than right NEUROLOGICAL: Reports headache. ENDOCRINE: Reports increased thirst. HOME MEDICATIONS: Please see below. PHYSICAL EXAMINATION: VITAL SIGNS: Temperature 98 4, pulse 78, respiratory rate 18, blood pressure 156/83, pulse oximetry 94% on room air. GENERAL APPEARANCE: 75-year-old female, lying in bed, in mild distress due to having to go to the bathroom. CARDIOVASCULAR: Regular in rhythm. LUNGS: Crackles and wheezing appreciated bilaterally. ABDOMEN: Normoactive bowel sounds, nontender to palpation. EXTREMITIES: 1-2+ pitting edema in the lower extremities bilaterally, left greater than right SKIN: Psoriasis LABORATORY DATA: See below. IMAGING: CT angio 06/28/2021 1. There is interval development of a lobular mass in the superior segment of the left lower lobe measuring 2.5 x 1.8 x 1.2 cm. Findings highly suspect for a primary pulmonary parenchymal malignancy. Further evaluation with PET imaging suggested. 2. Infiltrate in the posterior segment of the left upper lobe with cystic changes abutting the major fissure has evolved in comparison to the prior study. Clinical correlation to exclude an acute focus of pneumonitis suggested. 3. Semi-solid parenchymal opacity abutting the left cardiac border in the lingular lobe measures 1.1 x 1.1 x 1.7 cm. 4. There is a parenchymal opacity in the inferior aspect of the right middle lobe measuring 1.3 x 1.8 x 2.3 cm not fully characterized due to motion artifact. 5. There are rib deformities right 2nd, 3rd and possibly 4th ribs may be related to age indeterminate fractures. 6. There is fusiform dilatation of the supravalvular ascending thoracic aorta which measures 3.7 cm. maximally. There is no dissection or saccular component. The thoracic aorta is diffusely ectatic. 7. No gross pulmonary emboli demonstrated with clear pulmonary arteries demonstrated proximally. Motion artifact degrades evaluation of small peripheral arteries as such peripheral emboli not excluded. 8. A small to moderate hiatal hernia is present. MICROBIOLOGY: Please see below. ASSESSMENT: Patient is a 75-year-old, female, who presented to the ED on 06/28/2021 after experiencing Covid symptoms since last . Incidentally, on a CT angio, a mass was found concerning for malignancy, and a thoracic aortic aneurysm. PLAN: #. COVID-19 pneumonia -Begin dexamethasone, remdesivir -Titrate oxygen to maintain sats greater than 90% -Encourage prone positioning #. Thoracic aortic aneurysm -Dr. Humphreys in the ED consulted with Dr. Romero with thoracic surgery. Dr. Romero advised symptomatic management at this time. -We will monitor for any changes. #. Left lung mass -Suspicious for malignancy -We will entertain the idea of biopsy after patient's acute illness resolves #. Parkinson's disease -Continue carbidopa levodopa #. Diastolic congestive heart failure -Continue furosemide 20 mg daily -We will give 40 mg furosemide once #. Cirrhosis -Continue lactulose 15 mL twice daily #. DVT prophylaxis -Lovenox 40 mg daily CODE STATUS: Full code Disposition: Patient to be admitted to [facility] for continued monitoring. Pending clinical improvement Vital Signs Vital Signs Date Time Temp Pulse Resp B/P (MAP) Pulse Ox O2 Delivery O2 Flow Rate FiO2 06/28/21 22:16 77 94 06/28/21 22:01 20 145/87 (106) Room Air 06/28/21 20:14 98.4 06/28/21 17:37 95 Laboratory Data Labs 24H Laboratory Tests 2 06/28/21 17:11: Immature Granulocyte % (Auto) 0.4, Neutrophils (%) (Auto) 60.9, Lymphocytes (%) (Auto) 22.9L, Monocytes (%) (Auto) 12.5H, Eosinophils (%) (Auto) 2.9, Basophils (%) (Auto) 0.4, Neutrophils # (Auto) 1.7, Lymphocytes # (Auto) 0.6L, Monocytes # (Auto) 0.4, Eosinophils # (Auto) 0.1, Basophils # (Auto) 0.0, Nucleated Red Blood Cells % (auto) 0.0, Immature Platelet Fraction 3.9, Prothrombin Time 15.2H, Prothromb Time International Ratio 1.15, Activated Partial Thromboplast Time 36.5, Fibrinogen 396, D-Dimer, Quantitative 3818.90H, Anion Gap 8, Glomerular Filtration Rate > 60.0, Calcium Level 9.0, Ferritin 35, Total Bilirubin 0.6, Direct Bilirubin 0.2, Aspartate Amino Transf (AST/SGOT) 35, Alanine Aminotransferase (ALT/SGPT) 8L, Alkaline Phosphatase 131H, Lactate Dehydrogenase 265H, Total Creatine Kinase 63, Troponin I High Sensitivity 6.0, C-Reactive Protein, Quantitative 1.00H, Total Protein 7.9, Albumin 3.5, Albumin/Globulin Ratio 0.8L, Procalcitonin <0.05, Coronavirus (COVID-19)(PCR) POSITIVEA, Influenza Type A (RT-PCR) NEGATIVE, Influenza Type B (RT-PCR) NEGATIVE, Respiratory Syncytial Virus (PCR) NEGATIVE CBC/BMP Laboratory Tests 06/28/21 17:11 Microbiology Microbiology 06/28/21 Blood Culture, Received Pending 06/28/21 Blood Culture, Received Pending Home Medications Scheduled Carbidopa/Levodopa (Carbidopa-Levodopa 25-100 Tab) 1 Each Tablet, 1 TAB PO 5XD 0700/1000/1300/1600/1900 Cholecalciferol (Vitamin D3) (Vitamin D3) 1,000 Unit Tablet, 1,000 UNITS PO DAILY Furosemide (Furosemide) 20 Mg Tablet, 20 MG PO DAILY Lactulose (Lactulose) 10 Gm/15 Ml Solution, 15 ML PO BID Pantoprazole Sodium (Pantoprazole Sodium) 40 Mg Tab, 40 MG PO DAILY Propranolol HCl (Propranolol HCl) 40 Mg Tab, 40 MG PO DAILY Allergies Coded Allergies: No Known Allergies (Verified , 03/30/21) GME ATTESTATION GME ATTESTATION My faculty preceptor for this patient encounter was physically present during the encounter and was fully available. All aspects of the patient interview, examination, medical decision making process, and medical care plan development were reviewed and approved by the faculty preceptor. The faculty preceptor is aware and concurs with the plan as stated in the body of this note and will attest to such by his/her cosignature. ATTENDING NOTE Agreed with the patient's plan of care assessment and plan done by resident. Patient was seen and examined at bedside with resident. Rajendra Lucia DO Jun 29, 2021 00:01 BRYAN ZAVALA MD Jun 29, 2021 00:23
[2021-06-29 00:44] LABS: MAGNESIUM LEVEL 2.1 MG/DL (1.8-2.4); NT-PRO BNP 227 PG/ML (<125)
[2021-06-29] MEDS ORDERED: FUROSEMIDE 40MG/4ML VIAL (J1940) IV ONE (01:00)
[2021-06-29] MEDS: RAMELTEON 8 MG TAB (ROZEREM) PO PRN ×2 (02:46→20:59)
[2021-06-29] MEDS: diphenhydrAMINE 50MG/ML VIAL (J1200) IV PRN ×2 (02:47→20:58)
[2021-06-29] MEDS ORDERED: REMDESIVIR 200 MG in NS 250 ML IV ONE (04:00)
[2021-06-29] MEDS: SINEMET 25-100 MG TAB PO SCH ×5 (05:13→20:58)
[2021-06-29 05:54] LABS: BASO % 0.2 % (0.0-1.0); EOS % 0.4 % (0.0-3.0); HEMATOCRIT 38.3 % (36.0-47.0); HEMOGLOBIN 12.5 g/dl (12.0-15.5); LYMPH # 0.6 10^3/uL (1.5-5.0); LYMPH % 12.2 % (24.0-44.0); MEAN CORPUSCULAR HEMOGLOBIN 30.4 pg (27.0-33.0); MEAN CORPUSCULAR HGB CONC 32.6 g/dl (32.0-36.5); MEAN CORPUSCULAR VOLUME 93.2 fl (80.0-96.0); MONO # 0.3 10^3/uL (0.0-0.8); MONO % 5.7 % (2.0-8.0); NEUTROPHILS # 3.9 10^3/uL (1.5-8.5); NEUTROPHILS % 80.1 % (36.0-66.0); RED BLOOD COUNT 4.11 10^6/uL (4.00-5.40); WHITE BLOOD COUNT 4.9 10^3/uL (4.0-10.0)
[2021-06-29 05:56] LABS: PLATELET COUNT, AUTOMATED 88 10^3/uL (150-450)
[2021-06-29] MEDS ORDERED: QUEtiapine FUMARATE 12.5 MG HALF-TAB PO ONE (06:00)
[2021-06-29 06:05] LABS: INR 1.17; PROTHROMBIN TIME 15.4 SECONDS (12.7-14.5)
[2021-06-29 06:06] LABS: PARTIAL THROMBOPLASTIN TIME 38.1 SECONDS (25.9-37.0)
[2021-06-29 06:17] LABS: ALBUMIN 3.1 GM/DL (3.2-5.2); ALT/SGPT 20 U/L (12-78); BILIRUBIN,DIRECT 0.3 MG/DL (0.0-0.2); BILIRUBIN,TOTAL 0.8 MG/DL (0.2-1.0); BLOOD UREA NITROGEN 11 MG/DL (7-18); CALCIUM LEVEL 8.7 MG/DL (8.8-10.2); CARBON DIOXIDE LEVEL 26 MEQ/L (21-32); CHLORIDE LEVEL 107 MEQ/L (98-107); CREATININE FOR GFR 0.79 MG/DL (0.55-1.30); GLOMERULAR FILTRATION RATE > 60.0 (>39); GLUCOSE, FASTING 120 MG/DL (70-100); MAGNESIUM LEVEL 1.7 MG/DL (1.8-2.4); POTASSIUM SERUM 3.2 MEQ/L (3.5-5.1); SODIUM LEVEL 141 MEQ/L (136-145); TOTAL PROTEIN 7.6 GM/DL (6.4-8.2)
[2021-06-29] MEDS ORDERED: SODIUM CHLORIDE 0.9% INJ 10 ML SYR IV ONE (07:00)
[2021-06-29] MEDS ORDERED: POTASSIUM CHLORIDE 10MEQ SR TABLET PO ONE (07:30)
[2021-06-29] MEDS ORDERED: MAG SULF 1GM/100ML (MAG RUN) 1 GM in IV 1 EA IV ONE (08:00)
[2021-06-29] MEDS: FUROSEMIDE 20 MG TAB PO SCH (08:15)
[2021-06-29] MEDS: PANTOPRAZOLE 40MG TAB (PROTONIX) PO SCH (08:15)
[2021-06-29] MEDS: LACTULOSE 20 GM/30 ML SYRUP UD PO SCH ×2 (08:15→20:58)
[2021-06-29] MEDS: VITAMIN D 1,000 INTERNATIONAL UNITS TABLET PO SCH (08:16)
[2021-06-29] MEDS: PROPRANOLOL 20 MG TAB PO SCH (08:16)
[2021-06-29] MEDS ORDERED: dexameTHASONE 4 MG/ML 1ML VIAL (J1100 PER 1MG) IV SCH (09:00)
[2021-06-29] MEDS ORDERED: ENOXAPARIN 40MG/0.4ML SYRINGE (J1650 PER 10MG) SC SCH (09:00)
--- NOTE | 2021-06-29 16:34 | IPNPDOC ---
Subjective Date Seen The patient was seen on 06/29/21. Subjective Chief Complaint/HPI Mrs. Brown is a 75-year-old female with alcoholic cirrhosis, pancytopenia, and CAD status post quadruple bypass who presents with shortness of breath. When I saw patient this morning, she was feeling better. Denied any chest pain or dyspnea. She tells that she had to use the toilet. PT and OT worked with patient. Recommending rehab. Objective Physical Examination General Exam: Positive: Alert, Cooperative Eye Exam: Negative: Sclera icteric ENT Exam: Positive: Atraumatic Neck Exam: Positive: Supple Chest Exam: Positive: Clear to auscultation Heart Exam: Positive: Rate Normal, Regular Rhythm Abdomen Exam: Positive: Normal bowel sounds, Soft; Negative: Tenderness Extremity Exam: Negative: Edema Neuro Exam: Positive: Normal Speech Psych Exam: Positive: Mood NL; Negative: Mental status NL Assessment /Plan Assessment Mrs. Brown is a 75-year-old female with alcoholic cirrhosis, pancytopenia, and CAD status post quadruple bypass who presents with shortness of breath. Started having Covid symptoms 06/22/2021. She came to the hospital for shortness of breath. When I saw patient, she was doing well at room air, but she was not moving well. PT and OT recommending rehab. Plan/VTE VTE Prophylaxis Ordered?: Yes Plan 1. Covid infection No hypoxia, will discontinue dexamethasone and remdesivir Supportive care Contact and droplet precautions 2. Debility Patient is very weak She lives home alone PT and OT recommending rehab 3. Parkinson's disease Continue Sinemet 4. Diastolic congestive heart failure Continue furosemide 5. CAD status post quadruple bypass Patient has pancytopenia and is not on aspirin Continue propanolol 6. Alcoholic cirrhosis Most likely cause for patient's pancytopenia Continue lactulose 7. DVT prophylaxis Patient has thrombocytopenia SCDs and teds Disposition: Patient will need rehab VS, I&O, 24H, Fishbone Vital Signs/I&O Vital Signs Date Time Temp Pulse Resp B/P (MAP) Pulse Ox O2 Delivery O2 Flow Rate FiO2 06/29/21 16:00 98.0 63 18 131/74 (93) 94 Room Air 06/29/21 08:00 95 I&O- Last 24 Hours up to 6 AM 06/29/21 06:00 Intake Total 305 ml Output Total 300 ml Balance 5 ml Laboratory Data 24H LABS Laboratory Tests 2 06/28/21 17:11: Immature Granulocyte % (Auto) 0.4, Neutrophils (%) (Auto) 60.9, Lymphocytes (%) (Auto) 22.9L, Monocytes (%) (Auto) 12.5H, Eosinophils (%) (Auto) 2.9, Basophils (%) (Auto) 0.4, Neutrophils # (Auto) 1.7, Lymphocytes # (Auto) 0.6L, Monocytes # (Auto) 0.4, Eosinophils # (Auto) 0.1, Basophils # (Auto) 0.0, Nucleated Red Blood Cells % (auto) 0.0, Immature Platelet Fraction 3.9, Prothrombin Time 15.2H, Prothromb Time International Ratio 1.15, Activated Partial Thromboplast Time 36.5, Fibrinogen 396, D-Dimer, Quantitative 3818.90H, Anion Gap 8, Glomerular Filtration Rate > 60.0, Calcium Level 9.0, Magnesium Level 2.1, Ernestine tin 35, Total Bilirubin 0.6, Direct Bilirubin 0.2, Aspartate Amino Transf (AST/SGOT) 35, Alanine Aminotransferase (ALT/SGPT) 8L, Alkaline Phosphatase 131H, Lactate Dehydrogenase 265H, Total Creatine Kinase 63, Troponin I High Sensitivity 6.0, C-Reactive Protein, Quantitative 1.00H, YU-Jov-[id number]-Type Jackelyn riuretic Peptide 227H, Total Protein 7.9, Albumin 3.5, Albumin/Globulin Ratio 0.8L, Procalcitonin <0.05, Coronavirus (COVID-19)(PCR) POSITIVEA, Influenza Type A (RT-PCR) NEGATIVE, Influenza Type B (RT-PCR) NEGATIVE, Respiratory Syncytial Virus (PCR) NEGATIVE 06/29/21 05:32: Immature Granulocyte % (Auto) 1.4, Neutrophils (%) (Auto) 80.1H, Lymphocytes (%) (Auto) 12.2L, Monocytes (%) (Auto) 5.7, Eosinophils (%) (Auto) 0.4, Basophils (%) (Auto) 0.2, Neutrophils # (Auto) 3.9, Lymphocytes # (Auto) 0.6L, Monocytes # (Auto) 0.3, Eosinophils # (Auto) 0.0, Basophils # (Auto) 0.0, Nucleated Red Blood Cells % (auto) 0.0, Prothrombin Time 15.4H, Prothromb Time International Ratio 1.17, Activated Partial Thromboplast Time 38.1, Fibrinogen 295, Anion Gap 8, Glomerular Filtration Rate > 60.0, Calcium Level 8.7L, Magnesium Level 1.7L, Total Bilirubin 0.8, Direct Bilirubin 0.3H, Aspartate Amino Transf (AST/SGOT) 30, Alanine Aminotransferase (ALT/SGPT) 20, Alkaline Phosphatase 117, Total Protein 7.6, Albumin 3.1L, Albumin/Globulin Ratio 0.7L, Ammonia 57H CBC/BMP Laboratory Tests 06/28/21 17:11 06/29/21 05:32 Microbiology Microbiology 06/28/21 Blood Culture, Received Pending 06/28/21 Blood Culture, Received Pending JOSE LUIS HERR DO Jun 29, 2021 16:34
[2021-06-30] VITALS: BP 155/78; O2SAT 97
[2021-06-30 04:00] VITALS: BP 151/83; O2SAT 94
[2021-06-30] MEDS ORDERED: ACETAMINOPHEN 500 MG TAB PO PRN (05:10)
[2021-06-30] MEDS: SINEMET 25-100 MG TAB PO SCH ×3 (05:20→13:15)
[2021-06-30] MEDS ORDERED: REMDESIVIR 100 MG in NS 250 ML IV SCH (06:00)
[2021-06-30 06:59] LABS: HEMATOCRIT 36.8 % (36.0-47.0); HEMOGLOBIN 11.8 g/dl (12.0-15.5); LYMPH # 0.5 10^3/uL (1.5-5.0); LYMPH % 15.2 % (24.0-44.0); MEAN CORPUSCULAR HEMOGLOBIN 30.3 pg (27.0-33.0); MEAN CORPUSCULAR HGB CONC 32.1 g/dl (32.0-36.5); MEAN CORPUSCULAR VOLUME 94.6 fl (80.0-96.0); MONO # 0.4 10^3/uL (0.0-0.8); MONO % 12.1 % (2.0-8.0); NEUTROPHILS # 2.3 10^3/uL (1.5-8.5); NEUTROPHILS % 72.4 % (36.0-66.0); RED BLOOD COUNT 3.89 10^6/uL (4.00-5.40); WHITE BLOOD COUNT 3.2 10^3/uL (4.0-10.0)
[2021-06-30] MEDS ORDERED: SODIUM CHLORIDE 0.9% INJ 10 ML SYR IV SCH (07:00)
[2021-06-30 07:05] LABS: PLATELET COUNT, AUTOMATED 94 10^3/uL (150-450)
[2021-06-30 07:07] LABS: INR 1.15; PROTHROMBIN TIME 15.1 SECONDS (12.7-14.5)
[2021-06-30 07:08] LABS: PARTIAL THROMBOPLASTIN TIME 36.4 SECONDS (25.9-37.0)
[2021-06-30 07:34] LABS: ALBUMIN 3.1 GM/DL (3.2-5.2); ALT/SGPT 8 U/L (12-78); BILIRUBIN,DIRECT 0.2 MG/DL (0.0-0.2); BILIRUBIN,TOTAL 0.5 MG/DL (0.2-1.0); BLOOD UREA NITROGEN 17 MG/DL (7-18); CALCIUM LEVEL 8.6 MG/DL (8.8-10.2); CARBON DIOXIDE LEVEL 28 MEQ/L (21-32); CHLORIDE LEVEL 107 MEQ/L (98-107); CHOLESTEROL LEVEL 143 MG/DL (<200); CHOLESTEROL RISK RATIO 3.666 (<5); CREATININE FOR GFR 0.75 MG/DL (0.55-1.30); FERRITIN 49 NG/ML (8-252); GLOMERULAR FILTRATION RATE > 60.0 (>39); GLUCOSE, FASTING 121 MG/DL (70-100); HDL CHOLESTEROL 39 MG/DL (>40); LDH LACTATE DEHYDROGENASE 254 U/L (84-246); LDL CHOLESTEROL 89 MG/DL (<100); MAGNESIUM LEVEL 2.4 MG/DL (1.8-2.4); NON-HDL-C 104 MG/DL; NT-PRO BNP 401 PG/ML (<125); POTASSIUM SERUM 3.5 MEQ/L (3.5-5.1); SODIUM LEVEL 141 MEQ/L (136-145); TOTAL PROTEIN 7.1 GM/DL (6.4-8.2); TRIGLYCERIDES LEVEL 74 MG/DL (<150)
[2021-06-30 08:00] VITALS: BP 144/72
[2021-06-30] MEDS: LACTULOSE 20 GM/30 ML SYRUP UD PO SCH (08:26)
[2021-06-30] MEDS: FUROSEMIDE 20 MG TAB PO SCH (08:27)
[2021-06-30] MEDS: PROPRANOLOL 20 MG TAB PO SCH (08:27)
[2021-06-30] MEDS: PANTOPRAZOLE 40MG TAB (PROTONIX) PO SCH (08:28)
[2021-06-30] MEDS: VITAMIN D 1,000 INTERNATIONAL UNITS TABLET PO SCH (08:28)
[2021-06-30 08:35] VITALS: O2SAT 96
--- NOTE | 2021-06-30 11:33 | REP ---
INDICATION: Pitting edema, worse on left, but would like both legs US COMPARISON: None. TECHNIQUE: López scale and color Doppler evaluation using linear high frequency transducer. FINDINGS: Ultrasound examination of the right and left lower extremity deep venous structures from the common femoral vein through the popliteal vein demonstrates normal compressibility, flow and wave patterns in response to respiration and augmentation. Evaluation of the calf veins demonstrates normal compressibility to the bilateral posterior tibial and peroneal veins. There is no evidence for deep venous thrombosis. IMPRESSION: No evidence for deep venous thrombosis. <Electronically signed by Sherman Cantu > 06/30/21 [id number]
[2021-06-30 12:00] VITALS: BP 130/75; O2SAT 96
--- NOTE | 2021-06-30 18:53 | DS.PDOC ---
Discharge Summary General Date of Admission Jun 28, 2021 at 23:42 Date of Discharge Jun 30, 2021 Discharge Summary PROCEDURES PERFORMED DURING STAY: None. ADMITTING DIAGNOSES: 1. Covid infection 2. Debility 3. Parkinson's disease 4. Diastolic congestive heart failure 5. CAD status post quadruple bypass 6. Alcoholic cirrhosis DISCHARGE DIAGNOSES: 1. Covid infection 2. Debility 3. Parkinson's disease 4. Diastolic congestive heart failure 5. CAD status post quadruple bypass 6. Alcoholic cirrhosis COMPLICATIONS/CHIEF COMPLAINT: COVID. HISTORY OF PRESENT ILLNESS: Copied from admitting providers H&P " Patient is a 75-year-old, female, who presented to the ED on 06/28/2021, after experiencing Covid-like symptoms since last . When asked if she could give a timeline of her symptoms, she said she could not. She says she has been experiencing fever, chills, diarrhea, shortness of breath. She is also Covid vaccinated. " HOSPITAL COURSE: During hospitalization, patient was put on all of her home meds including lactulose. Patient did have a mildly elevated ammonia level of 57. The initial day of hospitalization, patient did not do well with physical therapy and it looks like patient needed rehab. The following day, ammonia level dropped to 22, and she did well. She cleared physical therapy. During hospitalization, she was never hypoxic and thus has not needed remdesivir or dexamethasone. Procalcitonin was negative and has not required antibiotics. Patient felt ready for home and was discharged home today. DISCHARGE MEDICATIONS: Please see below. ALLERGIES: Please see below. PHYSICAL EXAMINATION ON DISCHARGE: VITAL SIGNS: Please see below. GENERAL: Comfortable, in no apparent distress. HEENT: EOMI, sclera clear. NECK: Supple,. RESPIRATORY: Lungs clear to auscultation bilaterally, no rales, wheeze or rhonchi. CARDIOVASCULAR: Regular rate and rhythm. ABDOMEN: Soft, nontender. Normal bowel sounds. PSYCHOLOGICAL: Normal mood and affect LABORATORY DATA: Please see below. IMAGING: Please see chart for radiology reports PROGNOSIS: Good ACTIVITY: As tolerated. DIET: Low-sodium diet DISCHARGE PLAN: Patient to return home with home health services. Patient should continue taking all of her medications. DISPOSITION: Home Health Service. DISCHARGE INSTRUCTIONS: 1. Follow-up with PCP in 1 to 2 weeks. ITEMS TO FOLLOWUP ON ON OUTPATIENT: 1. Ammonia level DISCHARGE CONDITION: Stable. Total time spent on discharge planning, discharge summary, and medication reconciliation: 45 minutes Vital Signs/I&Os Vital Signs Date Time Temp Pulse Resp B/P (MAP) Pulse Ox O2 Delivery O2 Flow Rate FiO2 06/30/21 12:00 97.6 60 16 130/75 (93) 95 Room Air 06/29/21 08:00 95 I&O- Last 24 Hours up to 6 AM 06/30/21 06:00 Intake Total 1220 ml Output Total 450 ml Balance 770 ml Laboratory Data Labs 24H Laboratory Tests 2 06/30/21 06:44: Immature Granulocyte % (Auto) 0.3, Neutrophils (%) (Auto) 72.4H, Lymphocytes (%) (Auto) 15.2L, Monocytes (%) (Auto) 12.1H, Eosinophils (%) (Auto) 0.0, Basophils (%) (Auto) 0.0, Neutrophils # (Auto) 2.3, Lymphocytes # (Auto) 0.5L, Monocytes # (Auto) 0.4, Eosinophils # (Auto) 0.0, Basophils # (Auto) 0.0, Nucleated Red Blood Cells % (auto) 0.0, Immature Platelet Fraction 3.6, Prothrombin Time 15.1H, Prothromb Time International Ratio 1.15, Activated Partial Thromboplast Time 36.4, Fibrinogen 376, Anion Gap 6L, Glomerular Filtration Rate > 60.0, Robel cium Level 8.6L, Magnesium Level 2.4, Ferritin 49, Total Bilirubin 0.5, Direct Bilirubin 0.2, Aspartate Amino Transf (AST/SGOT) 31, Alanine Aminotransferase (ALT/SGPT) 8L, Alkaline Phosphatase 102, Ammonia 22, Lactate Dehydrogenase 254H, Total Creatine Kinase 62, KE-Xrt-S-Type Natriuretic Peptide 401H, Total Protein 7.1, Albumin 3.1L, Albumin/Globulin Ratio 0.8L, Triglycerides Level 74, Total Cholesterol 143, LDL Cholesterol 89, Non-HDL Cholesterol (LDL + VLDL) 104, Total HDL Cholesterol 39L, Cholesterol/HDL Ratio 3.666, Procalcitonin 0.05 06/30/21 11:50: Urine Color YELLOW, Urine Appearance HAZY, Urine pH 5.0, Urine Specific [place] 1.014, Urine Protein NEGATIVE, Urine Glucose (UA) NEGATIVE, Urine Ketones TRACEH, Urine Blood 1+H, Urine Nitrite NEGATIVE, Urine Bilirubin NEGATIVE, Urine Urobilinogen 2.0H, Urine Leukocyte Esterase NEGATIVE, Urine WBC (Auto) 2, Urine RBC (Auto) 28H, Urine Hyaline Casts (Auto) 0, Urine Bacteria (Auto) 1+H, Urine Squamous Epithelial Cells 1, Urine Mucus (Auto) SMALL, Urine Sperm (Auto) CBC/BMP Laboratory Tests 06/30/21 06:44 Microbiology Microbiology 06/28/21 Blood Culture - Preliminary, Resulted No Growth after 48 hours. All Specime... 06/28/21 Blood Culture - Preliminary, Resulted No Growth after 48 hours. All Specime... Discharge Medications Scheduled Carbidopa/Levodopa (Carbidopa-Levodopa 25-100 Tab) 1 Each Tablet, 1 TAB PO 5XD, (Reported) 0700/1000/1300/1600/1900 Cholecalciferol (Vitamin D3) (Vitamin D3) 1,000 Unit Tablet, 1,000 UNITS PO DAILY, (Reported) Furosemide (Furosemide) 20 Mg Tablet, 20 MG PO DAILY, (Reported) Lactulose (Lactulose) 10 Gm/15 Ml Solution, 15 ML PO BID, (Reported) Pantoprazole Sodium (Pantoprazole Sodium) 40 Mg Tab, 40 MG PO DAILY, (Reported) Propranolol HCl (Propranolol HCl) 40 Mg Tab, 40 MG PO DAILY, (Reported) Allergies Coded Allergies: No Known Allergies (Verified , 03/30/21) JOSE LUIS HERR DO Jun 30, 2021 18:53
== END 2021-06-30 14:45 | disposition home health service (06) | DRG 178 ==
LOC: M ED 16:38 → M ED INP 23:42 → M 4MAIN 06-29 00:17
PROVIDERS: ADMIT Internal Medicine; ATTEND Internal Medicine
DX: U07.1 COVID-19 (principal); I50.32 Chronic diastolic (congestive) heart failure; D61.818 Other pancytopenia; K70.30 Alcoholic cirrhosis of liver without ascites; E11.9 Type 2 diabetes mellitus without complications; I11.0 Hypertensive heart disease with heart failure; G20 Parkinson's disease; R91.8 Other nonspecific abnormal finding of lung field; I25.10 Atherosclerotic heart disease of native coronary artery without angina pectoris; Z95.1 Presence of aortocoronary bypass graft; Z79.899 Other long term (current) drug therapy; L40.8 Other psoriasis; Z96.641 Presence of right artificial hip joint; Z87.891 Personal history of nicotine dependence; I25.2 Old myocardial infarction; Z95.2 Presence of prosthetic heart valve; F32.A Depression, unspecified; I71.2 Thoracic aortic aneurysm, without rupture; D69.6 Thrombocytopenia, unspecified

== ENCOUNTER 2021-07-17 12:55 | Inpatient (IN) | payer MEDICARE, MEDICAID ==
[~2021-07-17] VITALS: Ht 162.6 cm; Wt 68.2 kg
[~2021-07-17 12:55] MED LIST changes: -CITA40TA4 PO; +CITA40TA7 PO; +FURO20TA2 PO; +LACT10SO3 PO; -LISI-898 PO; +LISI5TAB11 PO
[2021-07-17] MEDS ORDERED: LIDOCAINE 2% 5ML JELLY UROJET TOP ONE ×2 (13:20→16:50)
[2021-07-17] MEDS ORDERED: dexameTHASONE 4 MG/ML 1ML VIAL (J1100 PER 1MG) IV ONE (13:20)
[2021-07-17] MEDS: COMBIVENT RESPIMAT 100-20MCG INHALER 4GM INH SCH ×3 (13:56→14:49)
[2021-07-17] MEDS ORDERED: TRIA1OI TOP (14:09)
[2021-07-17] MEDS ORDERED: CLOB0.057 TOP (14:09)
[2021-07-17] MEDS ORDERED: HOME MED LIST COMPLETE! XX SCH (14:10)
[2021-07-17 14:11] LABS: BASO % 0.3 % (0.0-1.0); EOS # 0.1 10^3/uL (0.0-0.5); EOS % 0.5 % (0.0-3.0); HEMATOCRIT 40.1 % (36.0-47.0); HEMOGLOBIN 13.1 g/dl (12.0-15.5); LYMPH # 0.6 10^3/uL (1.5-5.0); LYMPH % 6.5 % (24.0-44.0); MEAN CORPUSCULAR HEMOGLOBIN 30.5 pg (27.0-33.0); MEAN CORPUSCULAR HGB CONC 32.7 g/dl (32.0-36.5); MEAN CORPUSCULAR VOLUME 93.5 fl (80.0-96.0); MONO # 1.1 10^3/uL (0.0-0.8); MONO % 11.4 % (2.0-8.0); NEUTROPHILS % 80.5 % (36.0-66.0); PLATELET COUNT, AUTOMATED 148 10^3/uL (150-450); RED BLOOD COUNT 4.29 10^6/uL (4.00-5.40); WHITE BLOOD COUNT 9.9 10^3/uL (4.0-10.0)
[2021-07-17 14:46] LABS: AMPHETAMINES LEVEL URINE NEGATIVE (NEGATIVE); BARBITURATES URINE NEGATIVE (NEGATIVE); BENZODIAZEPINES URINE NEGATIVE (NEGATIVE); CANNABINOIDS URINE NEGATIVE (NEGATIVE); COCAINE METABOLITE URINE NEGATIVE (NEGATIVE); METHADONE URINE NEGATIVE (NEGATIVE); OPIATES URINE NEGATIVE (NEGATIVE); PHENCYCLIDINE URINE NEGATIVE (NEGATIVE)
[2021-07-17 14:49] LABS: ACETAMINOPHEN LEVEL < 2.0 UG/ML (10.0-30.0); ALBUMIN 3.2 GM/DL (3.2-5.2); ALT/SGPT 7 U/L (12-78); BILIRUBIN,DIRECT 0.4 MG/DL (0.0-0.2); BILIRUBIN,TOTAL 1.5 MG/DL (0.2-1.0); BLOOD UREA NITROGEN 11 MG/DL (7-18); CALCIUM LEVEL 9.5 MG/DL (8.8-10.2); CARBON DIOXIDE LEVEL 28 MEQ/L (21-32); CHLORIDE LEVEL 106 MEQ/L (98-107); CREATININE FOR GFR 1.08 MG/DL (0.55-1.30); ETHYL ALCOHOL (ETHANOL) < 0.003 % (0.000-0.010); GLOMERULAR FILTRATION RATE 52.9 (>39); GLUCOSE, FASTING 128 MG/DL (70-100); POTASSIUM SERUM 3.3 MEQ/L (3.5-5.1); SALICYLATE LEVEL < 1.7 MG/DL (5.0-30.0); SODIUM LEVEL 143 MEQ/L (136-145); TOTAL PROTEIN 8.4 GM/DL (6.4-8.2)
[2021-07-17] MEDS ORDERED: ISOVUE-370 76% 100ML VIAL As Ordered ONE (15:03)
[2021-07-17] MEDS ORDERED: cefTRIAXone SOD 2 GM in D5W MINI-BAG PLUS 50 ML IV ONE (16:15)
[2021-07-17] MEDS ORDERED: LACTULOSE 20 GM/30 ML SYRUP UD PO ONE (16:55)
[2021-07-17] MEDS ORDERED: NS 1,000 ML IV ONE (17:10)
[2021-07-17] MEDS ORDERED: POTASSIUM CHLORIDE 10MEQ SR TABLET PO ONE (18:50)
[2021-07-17 22:16] VITALS: BP 146/70
[2021-07-17] MEDS: LACTULOSE 20 GM/30 ML SYRUP UD PO SCH (23:13)
[2021-07-17] MEDS: SINEMET 25-100 MG TAB PO SCH (23:13)
[2021-07-18] MEDS: LACTULOSE 20 GM/30 ML SYRUP UD PO SCH ×6 (01:00→23:44)
[2021-07-18 04:00] VITALS: BP 158/79
[2021-07-18] MEDS: SINEMET 25-100 MG TAB PO SCH ×5 (06:40→17:54)
[2021-07-18 07:29] LABS: BASO % 0.1 % (0.0-1.0); HEMATOCRIT 36.5 % (36.0-47.0); HEMOGLOBIN 11.7 g/dl (12.0-15.5); LYMPH # 0.5 10^3/uL (1.5-5.0); MEAN CORPUSCULAR HEMOGLOBIN 30.5 pg (27.0-33.0); MEAN CORPUSCULAR HGB CONC 32.1 g/dl (32.0-36.5); MEAN CORPUSCULAR VOLUME 95.1 fl (80.0-96.0); MONO % 11.2 % (2.0-8.0); NEUTROPHILS % 82.1 % (36.0-66.0); PLATELET COUNT, AUTOMATED 103 10^3/uL (150-450); RED BLOOD COUNT 3.84 10^6/uL (4.00-5.40); WHITE BLOOD COUNT 8.6 10^3/uL (4.0-10.0)
[2021-07-18 08:10] LABS: CREATININE FOR GFR 0.97 MG/DL (0.55-1.30); GLOMERULAR FILTRATION RATE 59.9 (>39); POTASSIUM SERUM 2.8 MEQ/L (3.5-5.1)
[2021-07-18] MEDS ORDERED: POTASSIUM CHLORIDE 10MEQ SR TABLET PO ONE ×2 (09:00→15:30)
[2021-07-18] MEDS: FUROSEMIDE 40MG/4ML VIAL (J1940) IV SCH ×2 (09:16→16:55)
[2021-07-18] MEDS: PROPRANOLOL 20 MG TAB PO SCH (09:16)
[2021-07-18] MEDS: POTASSIUM CHLORIDE 10MEQ SR TABLET PO SCH (09:17)
[2021-07-18] MEDS: KCL 10MEQ/100ML SWI (KRUN) 10 MEQ in IV 1 EA IV SCH ×6 (09:18→18:34)
[2021-07-18] MEDS: PANTOPRAZOLE 40MG TAB (PROTONIX) PO SCH (09:19)
[2021-07-18 14:00] VITALS: BP 155/70
[2021-07-18] MEDS ORDERED: LIDOCAINE 1% MDV 20ML VIAL As Ordered ONE (15:40)
[2021-07-18] MEDS: dexameTHASONE 4 MG/ML 1ML VIAL (J1100 PER 1MG) IV SCH (16:59)
[2021-07-18] MEDS ORDERED: cefTRIAXone SOD 2 GM in D5W MINI-BAG PLUS 50 ML IV SCH ×2 (17:00→18:00)
[2021-07-18 17:03] LABS: CALCIUM LEVEL 9.8 MG/DL (8.8-10.2); CREATININE FOR GFR 1.09 MG/DL (0.55-1.30); GLOMERULAR FILTRATION RATE 52.4 (>39); POTASSIUM SERUM 3.6 MEQ/L (3.5-5.1)
[2021-07-18] MEDS ORDERED: REMDESIVIR 200 MG in NS 250 ML IV ONE (18:00)
[2021-07-18 20:00] VITALS: BP 171/88
[2021-07-18] MEDS ORDERED: SODIUM CHLORIDE 0.9% INJ 10 ML SYR IV ONE (20:00)
[2021-07-18] MEDS ORDERED: KCL 10MEQ/100ML SWI (KRUN) 10 MEQ in IV 1 EA IV SCH (23:25)
[2021-07-19] MEDS: LACTULOSE 20 GM/30 ML SYRUP UD PO SCH ×6 (01:43→20:06)
[2021-07-19] MEDS: KCL 10MEQ/100ML SWI (KRUN) 10 MEQ in IV 1 EA IV SCH (01:43)
[2021-07-19 04:00] VITALS: BP 130/66
[2021-07-19] MEDS: SINEMET 25-100 MG TAB PO SCH ×5 (06:06→20:06)
[2021-07-19 07:50] LABS: BASO % 0.1 % (0.0-1.0); HEMATOCRIT 40.5 % (36.0-47.0); HEMOGLOBIN 12.9 g/dl (12.0-15.5); LYMPH # 0.7 10^3/uL (1.5-5.0); LYMPH % 8.8 % (24.0-44.0); MEAN CORPUSCULAR HEMOGLOBIN 30.3 pg (27.0-33.0); MEAN CORPUSCULAR HGB CONC 31.9 g/dl (32.0-36.5); MEAN CORPUSCULAR VOLUME 95.1 fl (80.0-96.0); MONO # 1.1 10^3/uL (0.0-0.8); MONO % 13.1 % (2.0-8.0); NEUTROPHILS # 6.4 10^3/uL (1.5-8.5); PLATELET COUNT, AUTOMATED 114 10^3/uL (150-450); RED BLOOD COUNT 4.26 10^6/uL (4.00-5.40); WHITE BLOOD COUNT 8.3 10^3/uL (4.0-10.0)
[2021-07-19 08:07] LABS: INR 1.46; PROTHROMBIN TIME 18.2 SECONDS (12.7-14.5)
[2021-07-19 08:08] LABS: FIBRINOGEN 271 MG/DL (268-480); PARTIAL THROMBOPLASTIN TIME 37.5 SECONDS (25.9-37.0)
[2021-07-19 08:17] LABS: C REACTIVE PROTEIN QUANTITATIV 6.54 MG/DL (0.00-0.30); CALCIUM LEVEL 8.7 MG/DL (8.8-10.2); CREATININE FOR GFR 1.13 MG/DL (0.55-1.30); GLOMERULAR FILTRATION RATE 50.2 (>39); MAGNESIUM LEVEL 1.8 MG/DL (1.8-2.4); POTASSIUM SERUM 3.2 MEQ/L (3.5-5.1)
[2021-07-19 08:33] LABS: D-DIMER QUANT > 4000 ng/ml (<500)
[2021-07-19] MEDS: FUROSEMIDE 40MG/4ML VIAL (J1940) IV SCH (08:59)
[2021-07-19] MEDS: dexameTHASONE 4 MG/ML 1ML VIAL (J1100 PER 1MG) IV SCH (08:59)
[2021-07-19] MEDS: ENOXAPARIN 40MG/0.4ML SYRINGE (J1650 PER 10MG) SC SCH (08:59)
[2021-07-19 09:00] VITALS: BP 130/66
[2021-07-19] MEDS: PROPRANOLOL 20 MG TAB PO SCH (09:00)
[2021-07-19] MEDS: PANTOPRAZOLE 40MG TAB (PROTONIX) PO SCH (09:00)
[2021-07-19] MEDS: POTASSIUM CHLORIDE 10MEQ SR TABLET PO SCH (09:00)
[2021-07-19] MEDS ORDERED: CIPROFLOXACIN 500MG TABLET PO SCH (13:00)
[2021-07-19 14:00] VITALS: BP 118/60
[2021-07-19] MEDS: REMDESIVIR 100 MG in NS 250 ML IV SCH (17:32)
[2021-07-19] MEDS: FUROSEMIDE 40 MG TAB PO SCH (17:33)
[2021-07-19] MEDS ORDERED: SODIUM CHLORIDE 0.9% INJ 10 ML SYR IV SCH (19:00)
[2021-07-19 20:00] VITALS: BP 106/58
[2021-07-20] MEDS: LACTULOSE 20 GM/30 ML SYRUP UD PO SCH ×6 (00:59→20:11)
[2021-07-20 04:00] VITALS: BP 123/59
[2021-07-20] MEDS ORDERED: CIPROFLOXACIN 500MG TABLET PO SCH (06:00)
[2021-07-20] MEDS: SINEMET 25-100 MG TAB PO SCH ×5 (06:21→19:17)
[2021-07-20 06:58] LABS: BASO % 0.2 % (0.0-1.0); EOS % 0.2 % (0.0-3.0); HEMATOCRIT 36.4 % (36.0-47.0); HEMOGLOBIN 11.5 g/dl (12.0-15.5); LYMPH # 0.8 10^3/uL (1.5-5.0); LYMPH % 12.2 % (24.0-44.0); MEAN CORPUSCULAR HEMOGLOBIN 30.1 pg (27.0-33.0); MEAN CORPUSCULAR HGB CONC 31.6 g/dl (32.0-36.5); MEAN CORPUSCULAR VOLUME 95.3 fl (80.0-96.0); MONO # 0.7 10^3/uL (0.0-0.8); MONO % 11.3 % (2.0-8.0); NEUTROPHILS # 4.8 10^3/uL (1.5-8.5); NEUTROPHILS % 75.2 % (36.0-66.0); PLATELET COUNT, AUTOMATED 111 10^3/uL (150-450); RED BLOOD COUNT 3.82 10^6/uL (4.00-5.40); WHITE BLOOD COUNT 6.4 10^3/uL (4.0-10.0)
[2021-07-20 07:04] LABS: BLOOD UREA NITROGEN 23 MG/DL (7-18); CALCIUM LEVEL 8.4 MG/DL (8.8-10.2); CARBON DIOXIDE LEVEL 30 MEQ/L (21-32); CHLORIDE LEVEL 104 MEQ/L (98-107); CREATININE FOR GFR 0.95 MG/DL (0.55-1.30); GLOMERULAR FILTRATION RATE > 60.0 (>39); GLUCOSE, FASTING 136 MG/DL (70-100); POTASSIUM SERUM 3.4 MEQ/L (3.5-5.1); SODIUM LEVEL 140 MEQ/L (136-145)
[2021-07-20] MEDS ORDERED: POTASSIUM CHLORIDE 10MEQ SR TABLET PO ONE (08:00)
[2021-07-20] MEDS: PROPRANOLOL 20 MG TAB PO SCH (09:00)
[2021-07-20] MEDS: POTASSIUM CHLORIDE 10MEQ SR TABLET PO SCH (09:00)
[2021-07-20] MEDS: CIPROFLOXACIN 400 MG in IV 1 EA IV SCH ×2 (09:20→20:11)
[2021-07-20] MEDS: dexameTHASONE 4 MG/ML 1ML VIAL (J1100 PER 1MG) IV SCH (09:21)
[2021-07-20] MEDS: ENOXAPARIN 40MG/0.4ML SYRINGE (J1650 PER 10MG) SC SCH (09:21)
[2021-07-20] MEDS: PANTOPRAZOLE 40MG TAB (PROTONIX) PO SCH (09:22)
[2021-07-20] MEDS: FUROSEMIDE 40 MG TAB PO SCH ×2 (09:23→16:16)
[2021-07-20 14:00] VITALS: BP 136/73
[2021-07-20] MEDS ORDERED: SODIUM CHLORIDE 0.9% INJ 10 ML SYR IV PRN (15:45)
[2021-07-20] MEDS: REMDESIVIR 100 MG in NS 250 ML IV SCH (17:51)
[2021-07-20] MEDS ORDERED: SODIUM CHLORIDE 0.9% INJ 10 ML SYR IV SCH (18:00)
[2021-07-21] MEDS ORDERED: RAMELTEON 8 MG TAB (ROZEREM) PO ONE
[2021-07-21] MEDS: LACTULOSE 20 GM/30 ML SYRUP UD PO SCH ×6 (00:37→20:59)
[2021-07-21] MEDS: ACETAMINOPHEN TAB 650MG DOSE (2X325MG) PO PRN ×2 (03:08→09:48)
[2021-07-21] MEDS: CIPROFLOXACIN 500MG TABLET PO SCH ×2 (05:05→17:53)
[2021-07-21] MEDS: SINEMET 25-100 MG TAB PO SCH ×5 (06:14→18:51)
[2021-07-21] MEDS: POLYVINYL ALCOHOL OPHTH SOLN 15 ML(LIQUITEARS) OU PRN (06:14)
[2021-07-21 06:36] VITALS: BP 166/85
[2021-07-21 06:51] LABS: BASO % 0.2 % (0.0-1.0); EOS % 0.2 % (0.0-3.0); HEMATOCRIT 35.9 % (36.0-47.0); HEMOGLOBIN 11.8 g/dl (12.0-15.5); LYMPH # 0.7 10^3/uL (1.5-5.0); LYMPH % 12.7 % (24.0-44.0); MEAN CORPUSCULAR HEMOGLOBIN 30.3 pg (27.0-33.0); MEAN CORPUSCULAR HGB CONC 32.9 g/dl (32.0-36.5); MEAN CORPUSCULAR VOLUME 92.3 fl (80.0-96.0); MONO # 0.7 10^3/uL (0.0-0.8); MONO % 12.9 % (2.0-8.0); NEUTROPHILS # 3.8 10^3/uL (1.5-8.5); NEUTROPHILS % 72.8 % (36.0-66.0); RED BLOOD COUNT 3.89 10^6/uL (4.00-5.40); WHITE BLOOD COUNT 5.2 10^3/uL (4.0-10.0)
[2021-07-21 06:55] LABS: PLATELET COUNT, AUTOMATED 94 10^3/uL (150-450)
[2021-07-21 07:13] LABS: BLOOD UREA NITROGEN 17 MG/DL (7-18); CALCIUM LEVEL 8.5 MG/DL (8.8-10.2); CARBON DIOXIDE LEVEL 30 MEQ/L (21-32); CHLORIDE LEVEL 105 MEQ/L (98-107); CREATININE FOR GFR 0.81 MG/DL (0.55-1.30); GLOMERULAR FILTRATION RATE > 60.0 (>39); GLUCOSE, FASTING 149 MG/DL (70-100); MAGNESIUM LEVEL 2.1 MG/DL (1.8-2.4); POTASSIUM SERUM 3.5 MEQ/L (3.5-5.1); SODIUM LEVEL 139 MEQ/L (136-145)
[2021-07-21 09:43] VITALS: BP 126/67
[2021-07-21] MEDS: PROPRANOLOL 20 MG TAB PO SCH (09:46)
[2021-07-21] MEDS: FUROSEMIDE 40 MG TAB PO SCH ×2 (09:47→17:53)
[2021-07-21] MEDS: predniSONE 20 MG TAB PO SCH (09:47)
[2021-07-21] MEDS: PANTOPRAZOLE 40MG TAB (PROTONIX) PO SCH (09:47)
[2021-07-21] MEDS: POTASSIUM CHLORIDE 10MEQ SR TABLET PO SCH (09:47)
[2021-07-21] MEDS: ENOXAPARIN 40MG/0.4ML SYRINGE (J1650 PER 10MG) SC SCH (09:47)
[2021-07-21] MEDS ORDERED: GLUCAGON INJ 1MG VIAL SC PRN (14:20)
[2021-07-21] MEDS ORDERED: DEXTROSE 50% 50 ML SYRINGE IV PRN (14:20)
[2021-07-21] MEDS ORDERED: GLUCOSE 4GM CHEW TABLET PO PRN (14:20)
[2021-07-21] MEDS: HumaLOG INSULIN (NovoLOG) PER UNIT SC SCH ×2 (17:53→21:00)
[2021-07-21 22:00] VITALS: BP 116/58
[2021-07-22] MEDS: LACTULOSE 20 GM/30 ML SYRUP UD PO SCH ×6 (00:54→21:45)
[2021-07-22 04:00] VITALS: BP_SYST 129; BP_SYST 130; BP_DIAS 59; BP_DIAS 70
[2021-07-22] MEDS: ACETAMINOPHEN TAB 650MG DOSE (2X325MG) PO PRN ×3 (04:31→23:30)
[2021-07-22] MEDS: CIPROFLOXACIN 500MG TABLET PO SCH ×2 (05:02→17:38)
[2021-07-22] MEDS: SINEMET 25-100 MG TAB PO SCH ×5 (06:01→18:39)
[2021-07-22] MEDS: HumaLOG INSULIN (NovoLOG) PER UNIT SC SCH ×4 (07:30→21:45)
[2021-07-22 08:34] LABS: BASO # 0.1 10^3/uL (0.0-0.2); BASO % 0.7 % (0.0-1.0); EOS # 0.1 10^3/uL (0.0-0.5); EOS % 1.6 % (0.0-3.0); HEMATOCRIT 38.3 % (36.0-47.0); HEMOGLOBIN 12.4 g/dl (12.0-15.5); LYMPH % 14.2 % (24.0-44.0); MEAN CORPUSCULAR HGB CONC 32.4 g/dl (32.0-36.5); MEAN CORPUSCULAR VOLUME 92.7 fl (80.0-96.0); MONO % 14.8 % (2.0-8.0); NEUTROPHILS # 4.4 10^3/uL (1.5-8.5); NEUTROPHILS % 64.7 % (36.0-66.0); PLATELET COUNT, AUTOMATED 132 10^3/uL (150-450); RED BLOOD COUNT 4.13 10^6/uL (4.00-5.40); WHITE BLOOD COUNT 6.8 10^3/uL (4.0-10.0)
[2021-07-22 08:54] LABS: BLOOD UREA NITROGEN 18 MG/DL (7-18); CALCIUM LEVEL 8.3 MG/DL (8.8-10.2); CARBON DIOXIDE LEVEL 28 MEQ/L (21-32); CHLORIDE LEVEL 106 MEQ/L (98-107); CREATININE FOR GFR 0.69 MG/DL (0.55-1.30); GLOMERULAR FILTRATION RATE > 60.0 (>39); GLUCOSE, FASTING 85 MG/DL (70-100); POTASSIUM SERUM 3.7 MEQ/L (3.5-5.1); SODIUM LEVEL 141 MEQ/L (136-145)
[2021-07-22] MEDS: FUROSEMIDE 40 MG TAB PO SCH ×2 (09:46→16:33)
[2021-07-22] MEDS: predniSONE 20 MG TAB PO SCH (09:46)
[2021-07-22] MEDS: POTASSIUM CHLORIDE 10MEQ SR TABLET PO SCH (09:46)
[2021-07-22] MEDS: PANTOPRAZOLE 40MG TAB (PROTONIX) PO SCH (09:46)
[2021-07-22] MEDS: ENOXAPARIN 40MG/0.4ML SYRINGE (J1650 PER 10MG) SC SCH (09:46)
[2021-07-22] MEDS: PROPRANOLOL 20 MG TAB PO SCH (09:46)
[2021-07-23] MEDS: LACTULOSE 20 GM/30 ML SYRUP UD PO SCH ×6 (01:26→22:02)
[2021-07-23 05:20] VITALS: BP 129/59
[2021-07-23] MEDS: CIPROFLOXACIN 500MG TABLET PO SCH ×2 (06:04→17:07)
[2021-07-23] MEDS: SINEMET 25-100 MG TAB PO SCH ×5 (06:04→18:40)
[2021-07-23] MEDS: PANTOPRAZOLE 40MG TAB (PROTONIX) PO SCH (08:11)
[2021-07-23] MEDS: FUROSEMIDE 40 MG TAB PO SCH ×2 (08:12→17:07)
[2021-07-23] MEDS: HumaLOG INSULIN (NovoLOG) PER UNIT SC SCH ×4 (08:13→21:00)
[2021-07-23] MEDS: POTASSIUM CHLORIDE 10MEQ SR TABLET PO SCH (08:13)
[2021-07-23] MEDS: ENOXAPARIN 40MG/0.4ML SYRINGE (J1650 PER 10MG) SC SCH (08:13)
[2021-07-23] MEDS: predniSONE 20 MG TAB PO SCH (08:14)
[2021-07-23] MEDS: PROPRANOLOL 20 MG TAB PO SCH (08:14)
[2021-07-23 12:06] LABS: HEMATOCRIT 39.3 % (36.0-47.0); HEMOGLOBIN 12.7 g/dl (12.0-15.5); MEAN CORPUSCULAR HEMOGLOBIN 29.8 pg (27.0-33.0); MEAN CORPUSCULAR HGB CONC 32.3 g/dl (32.0-36.5); MEAN CORPUSCULAR VOLUME 92.3 fl (80.0-96.0); PLATELET COUNT, AUTOMATED 145 10^3/uL (150-450); RED BLOOD COUNT 4.26 10^6/uL (4.00-5.40); WHITE BLOOD COUNT 8.2 10^3/uL (4.0-10.0)
[2021-07-23] MEDS: MIRALAX *UNIT DOSE* 17GM PACKET PO PRN (12:06)
[2021-07-23] MEDS: SENOKOT S TAB PO PRN (12:06)
[2021-07-23 12:17] LABS: BLOOD UREA NITROGEN 19 MG/DL (7-18); CALCIUM LEVEL 8.5 MG/DL (8.8-10.2); CARBON DIOXIDE LEVEL 28 MEQ/L (21-32); CHLORIDE LEVEL 104 MEQ/L (98-107); CREATININE FOR GFR 0.87 MG/DL (0.55-1.30); GLOMERULAR FILTRATION RATE > 60.0 (>39); GLUCOSE, FASTING 217 MG/DL (70-100); MAGNESIUM LEVEL 2.2 MG/DL (1.8-2.4); POTASSIUM SERUM 3.9 MEQ/L (3.5-5.1); SODIUM LEVEL 138 MEQ/L (136-145)
[2021-07-23 12:34] LABS: ATYPICAL LYMPH 3 % (0-5); EOSINOPHILS 2 % (0-3); LYMPHOCYTES 8 % (16-44); MONOCYTES 8 % (0-5); MYELOCYTES 1 % (0-0); NEUTROPHILS 75 % (28-66)
[2021-07-23 12:35] LABS: PLATELET ESTIMATE NORMAL (NORMAL)
[2021-07-23] MEDS: ACETAMINOPHEN TAB 650MG DOSE (2X325MG) PO PRN (14:02)
[2021-07-23 15:21] VITALS: BP 155/67
[2021-07-23] MEDS: traMADol 50 MG TAB PO PRN (15:46)
[2021-07-24] MEDS: LACTULOSE 20 GM/30 ML SYRUP UD PO SCH ×6 (01:10→21:39)
[2021-07-24] MEDS: ONDANSETRON 4 MG ORAL DISINTEGRATING TAB PO PRN (01:11)
[2021-07-24] MEDS ORDERED: FLEET ENEMA PR PRN (02:40)
[2021-07-24] MEDS: BISACODYL 10 MG SUPP PR PRN (02:58)
[2021-07-24] MEDS: ACETAMINOPHEN TAB 650MG DOSE (2X325MG) PO PRN ×2 (04:06→18:57)
[2021-07-24] MEDS: CIPROFLOXACIN 500MG TABLET PO SCH ×2 (06:40→17:03)
[2021-07-24] MEDS: SINEMET 25-100 MG TAB PO SCH ×5 (06:40→18:57)
[2021-07-24 07:57] LABS: HEMATOCRIT 39.3 % (36.0-47.0); HEMOGLOBIN 12.7 g/dl (12.0-15.5); MEAN CORPUSCULAR HGB CONC 32.3 g/dl (32.0-36.5); MEAN CORPUSCULAR VOLUME 92.7 fl (80.0-96.0); PLATELET COUNT, AUTOMATED 151 10^3/uL (150-450); RED BLOOD COUNT 4.24 10^6/uL (4.00-5.40); WHITE BLOOD COUNT 8.9 10^3/uL (4.0-10.0)
[2021-07-24 08:27] LABS: BLOOD UREA NITROGEN 22 MG/DL (7-18); CALCIUM LEVEL 8.5 MG/DL (8.8-10.2); CARBON DIOXIDE LEVEL 28 MEQ/L (21-32); CHLORIDE LEVEL 103 MEQ/L (98-107); CREATININE FOR GFR 0.86 MG/DL (0.55-1.30); GLOMERULAR FILTRATION RATE > 60.0 (>39); GLUCOSE, FASTING 123 MG/DL (70-100); MAGNESIUM LEVEL 2.1 MG/DL (1.8-2.4); POTASSIUM SERUM 3.6 MEQ/L (3.5-5.1); SODIUM LEVEL 136 MEQ/L (136-145)
[2021-07-24 08:33] LABS: ATYPICAL LYMPH 5 % (0-5); EOSINOPHILS 1 % (0-3); HYPERSEGMENTED POLYS 2+; LYMPHOCYTES 14 % (16-44); METAMYELOCYTES 1 % (0-0); MONOCYTES 10 % (0-5); MYELOCYTES 3 % (0-0); NEUTROPHILS 66 % (28-66)
[2021-07-24] MEDS: ENOXAPARIN 40MG/0.4ML SYRINGE (J1650 PER 10MG) SC SCH (08:33)
[2021-07-24] MEDS: FUROSEMIDE 40 MG TAB PO SCH ×2 (08:33→17:05)
[2021-07-24] MEDS: POTASSIUM CHLORIDE 10MEQ SR TABLET PO SCH (08:33)
[2021-07-24] MEDS: PANTOPRAZOLE 40MG TAB (PROTONIX) PO SCH (08:33)
[2021-07-24 08:34] LABS: OVALOCYTES 2+; PLATELET ESTIMATE NORMAL (NORMAL)
[2021-07-24] MEDS: predniSONE 20 MG TAB PO SCH (08:34)
[2021-07-24] MEDS: PROPRANOLOL 20 MG TAB PO SCH (08:34)
[2021-07-24] MEDS: traMADol 50 MG TAB PO PRN (08:34)
[2021-07-24] MEDS: HumaLOG INSULIN (NovoLOG) PER UNIT SC SCH ×4 (08:35→21:00)
[2021-07-24 17:10] VITALS: BP 155/62
[2021-07-25] MEDS: LACTULOSE 20 GM/30 ML SYRUP UD PO SCH ×6 (01:00→21:17)
[2021-07-25] MEDS: traMADol 50 MG TAB PO PRN ×2 (01:24→12:35)
[2021-07-25 05:50] VITALS: BP 154/88
[2021-07-25] MEDS: POTASSIUM CHLORIDE 10MEQ SR TABLET PO SCH (08:35)
[2021-07-25] MEDS: SINEMET 25-100 MG TAB PO SCH ×5 (08:35→21:18)
[2021-07-25] MEDS: PANTOPRAZOLE 40MG TAB (PROTONIX) PO SCH (08:35)
[2021-07-25] MEDS: PROPRANOLOL 20 MG TAB PO SCH (08:35)
[2021-07-25] MEDS: ENOXAPARIN 40MG/0.4ML SYRINGE (J1650 PER 10MG) SC SCH (08:35)
[2021-07-25] MEDS: predniSONE 20 MG TAB PO SCH (08:35)
[2021-07-25] MEDS: HumaLOG INSULIN (NovoLOG) PER UNIT SC SCH ×4 (08:36→21:00)
[2021-07-25] MEDS: FUROSEMIDE 40 MG TAB PO SCH ×2 (08:36→17:27)
[2021-07-26] MEDS: LACTULOSE 20 GM/30 ML SYRUP UD PO SCH ×6 (00:57→20:53)
[2021-07-26 05:04] VITALS: BP 147/71
[2021-07-26] MEDS: HumaLOG INSULIN (NovoLOG) PER UNIT SC SCH ×4 (07:30→20:54)
[2021-07-26] MEDS: PANTOPRAZOLE 40MG TAB (PROTONIX) PO SCH (09:07)
[2021-07-26] MEDS: POTASSIUM CHLORIDE 10MEQ SR TABLET PO SCH (09:07)
[2021-07-26] MEDS: traMADol 50 MG TAB PO PRN ×2 (09:07→23:30)
[2021-07-26] MEDS: predniSONE 20 MG TAB PO SCH (09:07)
[2021-07-26] MEDS: SINEMET 25-100 MG TAB PO SCH ×5 (09:08→17:51)
[2021-07-26] MEDS: ENOXAPARIN 40MG/0.4ML SYRINGE (J1650 PER 10MG) SC SCH (09:08)
[2021-07-26] MEDS: FUROSEMIDE 40 MG TAB PO SCH ×2 (09:08→16:27)
[2021-07-26] MEDS: PROPRANOLOL 20 MG TAB PO SCH (09:08)
[2021-07-27] MEDS: LACTULOSE 20 GM/30 ML SYRUP UD PO SCH ×6 (00:18→20:15)
[2021-07-27] MEDS: RAMELTEON 8 MG TAB (ROZEREM) PO PRN ×2 (01:37→20:15)
[2021-07-27] MEDS ORDERED: hydrOXYzine 50 MG TAB PO ONE (02:00)
[2021-07-27 06:00] VITALS: BP 110/57
[2021-07-27] MEDS: SINEMET 25-100 MG TAB PO SCH ×5 (06:20→18:40)
[2021-07-27 08:06] LABS: BASO % 0.4 % (0.0-1.0); EOS # 0.1 10^3/uL (0.0-0.5); EOS % 0.5 % (0.0-3.0); HEMATOCRIT 43.9 % (36.0-47.0); HEMOGLOBIN 14.3 g/dl (12.0-15.5); LYMPH # 1.2 10^3/uL (1.5-5.0); LYMPH % 11.4 % (24.0-44.0); MEAN CORPUSCULAR HEMOGLOBIN 30.3 pg (27.0-33.0); MEAN CORPUSCULAR HGB CONC 32.6 g/dl (32.0-36.5); MONO # 1.1 10^3/uL (0.0-0.8); MONO % 10.5 % (2.0-8.0); NEUTROPHILS # 7.6 10^3/uL (1.5-8.5); NEUTROPHILS % 74.6 % (36.0-66.0); PLATELET COUNT, AUTOMATED 139 10^3/uL (150-450); RED BLOOD COUNT 4.72 10^6/uL (4.00-5.40); WHITE BLOOD COUNT 10.2 10^3/uL (4.0-10.0)
[2021-07-27 08:30] LABS: BLOOD UREA NITROGEN 23 MG/DL (7-18); CALCIUM LEVEL 9.2 MG/DL (8.8-10.2); CARBON DIOXIDE LEVEL 31 MEQ/L (21-32); CHLORIDE LEVEL 100 MEQ/L (98-107); CREATININE FOR GFR 0.88 MG/DL (0.55-1.30); GLOMERULAR FILTRATION RATE > 60.0 (>39); GLUCOSE, FASTING 118 MG/DL (70-100); POTASSIUM SERUM 3.4 MEQ/L (3.5-5.1); SODIUM LEVEL 137 MEQ/L (136-145)
[2021-07-27] MEDS: HumaLOG INSULIN (NovoLOG) PER UNIT SC SCH ×4 (09:36→20:15)
[2021-07-27] MEDS: PANTOPRAZOLE 40MG TAB (PROTONIX) PO SCH (09:37)
[2021-07-27] MEDS: ACETAMINOPHEN TAB 650MG DOSE (2X325MG) PO PRN ×2 (09:37→20:16)
[2021-07-27] MEDS: POTASSIUM CHLORIDE 10MEQ SR TABLET PO SCH (09:37)
[2021-07-27] MEDS: ENOXAPARIN 40MG/0.4ML SYRINGE (J1650 PER 10MG) SC SCH (09:37)
[2021-07-27] MEDS: FUROSEMIDE 40 MG TAB PO SCH ×2 (09:37→16:35)
[2021-07-27] MEDS: predniSONE 20 MG TAB PO SCH (09:37)
[2021-07-27] MEDS: PROPRANOLOL 20 MG TAB PO SCH (09:37)
[2021-07-27] MEDS: traMADol 50 MG TAB PO PRN (09:38)
[2021-07-27 21:00] VITALS: BP 96/55
[2021-07-28] MEDS: LACTULOSE 20 GM/30 ML SYRUP UD PO SCH ×6 (01:00→20:13)
[2021-07-28] MEDS: traMADol 50 MG TAB PO PRN (03:06)
[2021-07-28 04:00] VITALS: BP 123/65
[2021-07-28] MEDS: ACETAMINOPHEN TAB 650MG DOSE (2X325MG) PO PRN ×3 (04:41→23:24)
[2021-07-28] MEDS: ONDANSETRON 4 MG ORAL DISINTEGRATING TAB PO PRN (04:41)
[2021-07-28] MEDS: CALCIUM CARBONATE 500 MG CHEW U/D PO PRN (05:46)
[2021-07-28] MEDS: POLYVINYL ALCOHOL OPHTH SOLN 15 ML(LIQUITEARS) OU PRN (05:46)
[2021-07-28] MEDS: SINEMET 25-100 MG TAB PO SCH ×5 (05:47→18:41)
[2021-07-28] MEDS: HumaLOG INSULIN (NovoLOG) PER UNIT SC SCH ×4 (06:44→20:05)
[2021-07-28] MEDS: POTASSIUM CHLORIDE 10MEQ SR TABLET PO SCH (08:36)
[2021-07-28] MEDS: predniSONE 20 MG TAB PO SCH (08:36)
[2021-07-28] MEDS: PROPRANOLOL 20 MG TAB PO SCH (08:36)
[2021-07-28] MEDS: PANTOPRAZOLE 40MG TAB (PROTONIX) PO SCH (08:36)
[2021-07-28] MEDS: FUROSEMIDE 40 MG TAB PO SCH ×2 (08:37→17:09)
[2021-07-28] MEDS: ENOXAPARIN 40MG/0.4ML SYRINGE (J1650 PER 10MG) SC SCH (08:37)
[2021-07-28] MEDS: SENOKOT S TAB PO PRN (13:20)
[2021-07-28 16:35] VITALS: BP 116/79
[2021-07-28] MEDS: RAMELTEON 8 MG TAB (ROZEREM) PO PRN (20:13)
[2021-07-29] MEDS: LACTULOSE 20 GM/30 ML SYRUP UD PO SCH ×6 (00:16→20:42)
[2021-07-29] MEDS: traMADol 50 MG TAB PO PRN (02:56)
[2021-07-29 06:15] VITALS: BP 121/82
[2021-07-29] MEDS: HumaLOG INSULIN (NovoLOG) PER UNIT SC SCH ×4 (07:30→21:00)
[2021-07-29] MEDS: SINEMET 25-100 MG TAB PO SCH ×5 (07:53→18:22)
[2021-07-29] MEDS: ENOXAPARIN 40MG/0.4ML SYRINGE (J1650 PER 10MG) SC SCH (10:12)
[2021-07-29] MEDS: PROPRANOLOL 20 MG TAB PO SCH (10:13)
[2021-07-29] MEDS: FUROSEMIDE 40 MG TAB PO SCH ×2 (10:13→16:34)
[2021-07-29] MEDS: predniSONE 20 MG TAB PO SCH (10:13)
[2021-07-29] MEDS: POTASSIUM CHLORIDE 10MEQ SR TABLET PO SCH (10:13)
[2021-07-29] MEDS: PANTOPRAZOLE 40MG TAB (PROTONIX) PO SCH (10:15)
[2021-07-29] MEDS: ACETAMINOPHEN TAB 650MG DOSE (2X325MG) PO PRN ×2 (15:15→20:44)
[2021-07-30] MEDS: LACTULOSE 20 GM/30 ML SYRUP UD PO SCH ×6 (00:06→20:00)
[2021-07-30] MEDS: CALCIUM CARBONATE 500 MG CHEW U/D PO PRN (00:06)
[2021-07-30] MEDS: ACETAMINOPHEN TAB 650MG DOSE (2X325MG) PO PRN ×3 (01:19→15:00)
[2021-07-30] MEDS: SINEMET 25-100 MG TAB PO SCH ×5 (06:08→18:17)
[2021-07-30] MEDS: traMADol 50 MG TAB PO PRN ×2 (06:09→23:20)
[2021-07-30 06:34] VITALS: BP 125/80
[2021-07-30] MEDS: HumaLOG INSULIN (NovoLOG) PER UNIT SC SCH ×4 (08:15→19:59)
[2021-07-30] MEDS: PROPRANOLOL 20 MG TAB PO SCH (08:16)
[2021-07-30] MEDS: PANTOPRAZOLE 40MG TAB (PROTONIX) PO SCH (08:17)
[2021-07-30] MEDS: predniSONE 20 MG TAB PO SCH (08:17)
[2021-07-30] MEDS: POTASSIUM CHLORIDE 10MEQ SR TABLET PO SCH (08:17)
[2021-07-30] MEDS: FUROSEMIDE 40 MG TAB PO SCH ×2 (08:17→17:18)
[2021-07-30] MEDS: ENOXAPARIN 40MG/0.4ML SYRINGE (J1650 PER 10MG) SC SCH (08:17)
[2021-07-30 14:00] VITALS: BP 127/80
[2021-07-30] MEDS: POLYVINYL ALCOHOL OPHTH SOLN 15 ML(LIQUITEARS) OU PRN (23:20)
[2021-07-30 23:32] VITALS: BP 102/62
[2021-07-31] MEDS: LACTULOSE 20 GM/30 ML SYRUP UD PO SCH ×6 (00:31→20:54)
[2021-07-31] MEDS: BISACODYL 10 MG SUPP PR PRN ×2 (00:35→16:10)
[2021-07-31] MEDS: MIRALAX *UNIT DOSE* 17GM PACKET PO PRN ×2 (01:35→10:57)
[2021-07-31] MEDS: RAMELTEON 8 MG TAB (ROZEREM) PO PRN (01:35)
[2021-07-31] MEDS: ACETAMINOPHEN TAB 650MG DOSE (2X325MG) PO PRN ×2 (02:45→09:47)
[2021-07-31 04:57] VITALS: BP 134/80
[2021-07-31] MEDS: SINEMET 25-100 MG TAB PO SCH ×5 (06:13→17:37)
[2021-07-31] MEDS: HumaLOG INSULIN (NovoLOG) PER UNIT SC SCH ×2 (07:12→12:57)
[2021-07-31] MEDS: PANTOPRAZOLE 40MG TAB (PROTONIX) PO SCH (09:45)
[2021-07-31] MEDS: predniSONE 20 MG TAB PO SCH (09:45)
[2021-07-31] MEDS: FUROSEMIDE 40 MG TAB PO SCH ×2 (09:47→16:10)
[2021-07-31] MEDS: POTASSIUM CHLORIDE 10MEQ SR TABLET PO SCH (09:48)
[2021-07-31] MEDS: ENOXAPARIN 40MG/0.4ML SYRINGE (J1650 PER 10MG) SC SCH (09:49)
[2021-07-31] MEDS: PROPRANOLOL 20 MG TAB PO SCH (09:50)
[2021-07-31] MEDS: SENOKOT S TAB PO PRN (10:57)
[2021-07-31] MEDS: traMADol 50 MG TAB PO PRN ×2 (11:36→23:26)
[2021-07-31] MEDS: rifAXIMin 550 MG TAB (XIFAXAN) PO SCH (20:54)
[2021-07-31 22:00] VITALS: BP 113/65
[2021-08-01] MEDS: LACTULOSE 20 GM/30 ML SYRUP UD PO SCH ×6 (01:12→20:43)
[2021-08-01] MEDS: RAMELTEON 8 MG TAB (ROZEREM) PO PRN ×2 (02:25→20:47)
[2021-08-01] MEDS: ACETAMINOPHEN TAB 650MG DOSE (2X325MG) PO PRN ×2 (02:28→15:22)
[2021-08-01 06:00] VITALS: BP 143/86
[2021-08-01] MEDS: SINEMET 25-100 MG TAB PO SCH ×5 (06:31→18:33)
[2021-08-01 08:00] VITALS: BP 102/57
[2021-08-01] MEDS: PANTOPRAZOLE 40MG TAB (PROTONIX) PO SCH (10:34)
[2021-08-01] MEDS: traMADol 50 MG TAB PO PRN (10:35)
[2021-08-01] MEDS: POTASSIUM CHLORIDE 10MEQ SR TABLET PO SCH (10:36)
[2021-08-01] MEDS: FUROSEMIDE 40 MG TAB PO SCH ×2 (10:36→16:51)
[2021-08-01] MEDS: rifAXIMin 550 MG TAB (XIFAXAN) PO SCH ×2 (10:36→20:43)
[2021-08-01] MEDS: predniSONE 20 MG TAB PO SCH (10:37)
[2021-08-01] MEDS: PROPRANOLOL 20 MG TAB PO SCH ×2 (10:38→20:47)
[2021-08-01] MEDS: ENOXAPARIN 40MG/0.4ML SYRINGE (J1650 PER 10MG) SC SCH (10:38)
[2021-08-01] MEDS: SENOKOT S TAB PO PRN (10:47)
[2021-08-01] MEDS: MIRALAX *UNIT DOSE* 17GM PACKET PO PRN (10:47)
[2021-08-01 12:00] VITALS: BP 112/68
[2021-08-01 14:00] VITALS: BP 124/78
[2021-08-01] MEDS: ONDANSETRON 4 MG ORAL DISINTEGRATING TAB PO PRN (14:50)
[2021-08-01 22:00] VITALS: BP 110/64
[2021-08-02] MEDS: LACTULOSE 20 GM/30 ML SYRUP UD PO SCH ×6 (01:07→21:07)
[2021-08-02] MEDS: traMADol 50 MG TAB PO PRN ×3 (01:08→23:20)
[2021-08-02] MEDS: ONDANSETRON 4 MG ORAL DISINTEGRATING TAB PO PRN ×2 (04:51→16:14)
[2021-08-02] MEDS: SINEMET 25-100 MG TAB PO SCH ×5 (05:58→18:32)
[2021-08-02 06:00] VITALS: BP 121/64
[2021-08-02] MEDS: predniSONE 20 MG TAB PO SCH (08:35)
[2021-08-02] MEDS: rifAXIMin 550 MG TAB (XIFAXAN) PO SCH ×2 (08:35→21:07)
[2021-08-02] MEDS: ENOXAPARIN 40MG/0.4ML SYRINGE (J1650 PER 10MG) SC SCH (08:35)
[2021-08-02] MEDS: PANTOPRAZOLE 40MG TAB (PROTONIX) PO SCH (08:35)
[2021-08-02] MEDS: POTASSIUM CHLORIDE 10MEQ SR TABLET PO SCH (08:35)
[2021-08-02] MEDS: FUROSEMIDE 40 MG TAB PO SCH ×2 (08:36→16:14)
[2021-08-02] MEDS: PROPRANOLOL 20 MG TAB PO SCH ×2 (08:37→21:08)
[2021-08-02] MEDS: SENOKOT S TAB PO PRN (10:44)
[2021-08-02] MEDS: ACETAMINOPHEN TAB 650MG DOSE (2X325MG) PO PRN (10:45)
[2021-08-02] MEDS: MIRALAX *UNIT DOSE* 17GM PACKET PO PRN (10:48)
[2021-08-02] MEDS ORDERED: POTA-136 PO (12:36)
[2021-08-02] MEDS ORDERED: XIFA550T PO (12:36)
[2021-08-02] MEDS ORDERED: PROP20TA PO (12:36)
[2021-08-02] MEDS ORDERED: MIRA1POW3 PO (12:36)
[2021-08-02] MEDS ORDERED: LACT20EL PO (12:36)
[2021-08-02] MEDS ORDERED: FURO40TA2 PO (12:36)
[2021-08-02] MEDS ORDERED: RAME8TAB2 PO (12:36)
[2021-08-02] MEDS ORDERED: SENN-52 PO (12:36)
[2021-08-02 14:00] VITALS: BP 121/76
[2021-08-02 21:00] VITALS: BP 118/74
[2021-08-02 21:08] VITALS: BP 118/74
[2021-08-02] MEDS: RAMELTEON 8 MG TAB (ROZEREM) PO PRN (21:08)
[2021-08-02] MEDS ORDERED: hydrOXYzine 50 MG TAB PO ONE (23:25)
[2021-08-03 00:21] VITALS: BP 150/90
[2021-08-03] MEDS: LACTULOSE 20 GM/30 ML SYRUP UD PO SCH ×3 (01:00→09:00)
[2021-08-03 04:30] VITALS: BP 164/90
[2021-08-03] MEDS: SINEMET 25-100 MG TAB PO SCH ×2 (05:49→09:27)
[2021-08-03] MEDS: FUROSEMIDE 40 MG TAB PO SCH ×2 (09:00→09:28)
[2021-08-03] MEDS: PROPRANOLOL 20 MG TAB PO SCH (09:00)
[2021-08-03] MEDS: PANTOPRAZOLE 40MG TAB (PROTONIX) PO SCH (09:27)
[2021-08-03] MEDS: rifAXIMin 550 MG TAB (XIFAXAN) PO SCH (09:27)
[2021-08-03] MEDS: POTASSIUM CHLORIDE 10MEQ SR TABLET PO SCH (09:27)
[2021-08-03 09:30] VITALS: BP 98/54
[2021-08-03] MEDS: predniSONE 20 MG TAB PO SCH (09:30)
[2021-08-03] MEDS: ENOXAPARIN 40MG/0.4ML SYRINGE (J1650 PER 10MG) SC SCH (09:34)
[2021-08-03] MEDS: ACETAMINOPHEN TAB 650MG DOSE (2X325MG) PO PRN (09:38)
[2021-08-03 11:42] VITALS: BP 109/72
== END 2021-08-03 12:14 | DRG 698 ==
LOC: EDBD 12:55 → M ED 12:55 → M ED INP 17:28 → M 4MAIN 21:16 → M MSPAV 07-28 14:16
PROVIDERS: ADMIT Internal Medicine Nephrology; ATTEND Family Medicine
PROC: 02HV33Z Insertion of Infusion Device into Superior Vena Cava, Percutaneous Approach (ICD-10-PCS; principal; 2021-07-18 16:00)
DX: N32.0 Bladder-neck obstruction (principal); U07.1 COVID-19; N39.0 Urinary tract infection, site not specified; K76.6 Portal hypertension; I85.00 Esophageal varices without bleeding; R33.9 Retention of urine, unspecified; K72.90 Hepatic failure, unspecified without coma; K70.31 Alcoholic cirrhosis of liver with ascites; E11.9 Type 2 diabetes mellitus without complications; G20 Parkinson's disease; E87.6 Hypokalemia; I25.10 Atherosclerotic heart disease of native coronary artery without angina pectoris; Z95.1 Presence of aortocoronary bypass graft; I10 Essential (primary) hypertension; Z79.899 Other long term (current) drug therapy; I25.2 Old myocardial infarction; I71.2 Thoracic aortic aneurysm, without rupture; L40.8 Other psoriasis; F32.9 Major depressive disorder, single episode, unspecified; R91.8 Other nonspecific abnormal finding of lung field; Z96.642 Presence of left artificial hip joint

== ENCOUNTER → 2021-09-04 | Outpatient (CLI) | payer MEDICAID, MEDICARE ==
[~2021-09-04] MED LIST changes: +CLOB0.057 TOP; -D31000TA2 PO; +FURO40TA2 PO; +LACT20EL PO; +MIRA1POW3 PO; +POTA-136 PO; +PROP20TA PO; +RAME8TAB2 PO; +SENN-52 PO; +TRIA1OI TOP; +VITA100093 PO; +XIFA550T PO
== END ==
LOC: M PLARAD 14:30
PROVIDERS: ATTEND Family Medicine
DX: R91.8 Other nonspecific abnormal finding of lung field (principal); K44.9 Diaphragmatic hernia without obstruction or gangrene; R16.1 Splenomegaly, not elsewhere classified
CPT/HCPCS: 78815; A9552

== ENCOUNTER → 2021-09-27 | Outpatient (CLI) | payer MEDICARE, MEDICAID ==
[~2021-09-27] MED LIST changes: +ACETAMINOPHEN TAB 650MG DOSE (2X325MG) PO PRN; +LIDOCAINE 1% MDV 20ML VIAL As Ordered ONE
[2021-09-27 11:45] VITALS: BP 120/73
== END ==
LOC: M IRPRO 08:02
PROVIDERS: ATTEND Internal Medicine Pulmonary Disease
DX: C34.92 Malignant neoplasm of unspecified part of left bronchus or lung (principal)

== ENCOUNTER → 2021-10-12 | Outpatient (CLI) | payer MEDICARE, MEDICAID ==
[~2021-10-12] MED LIST changes: +ACET1TAB55 PO; -ACETAMINOPHEN TAB 650MG DOSE (2X325MG) PO PRN; +CIPR-249 PO; -LIDOCAINE 1% MDV 20ML VIAL As Ordered ONE
== END ==
LOC: M ONCR 09:10
PROVIDERS: ATTEND General Practice
DX: C34.32 Malignant neoplasm of lower lobe, left bronchus or lung (principal); Z87.891 Personal history of nicotine dependence

== ENCOUNTER 2021-10-18 07:43 | Outpatient (RCR) | payer MEDICAID, MEDICARE | END 2021-10-28 | LOC: M ONCR 07:43 | PROVIDERS: ATTEND General Practice | DX: C34.32 Malignant neoplasm of lower lobe, left bronchus or lung (principal) ==

== ENCOUNTER 2021-11-07 12:15 | Outpatient (RCR) | payer MEDICARE | END 2021-11-28 | LOC: M ONCR 12:15 | PROVIDERS: ATTEND General Practice | DX: C34.32 Malignant neoplasm of lower lobe, left bronchus or lung (principal) ==

== ENCOUNTER → 2022-02-07 | Outpatient (CLI) | payer MEDICARE | LOC: M ONCR 09:20 | PROVIDERS: ATTEND General Practice | DX: C34.32 Malignant neoplasm of lower lobe, left bronchus or lung (principal); Z87.891 Personal history of nicotine dependence; Z92.3 Personal history of irradiation; Z79.899 Other long term (current) drug therapy ==

== ENCOUNTER 2022-04-19 19:55 | Emergency (ER) | payer MEDICARE, MEDICAID ==
[2022-04-19 21:25] LABS: HEMOGLOBIN 11.8 g/dl (12.0-15.5); MEAN CORPUSCULAR HEMOGLOBIN 29.9 pg (27.0-33.0); MEAN CORPUSCULAR HGB CONC 31.9 g/dl (32.0-36.5); MEAN CORPUSCULAR VOLUME 93.9 fl (80.0-96.0); RED BLOOD COUNT 3.94 10^6/uL (4.00-5.40); WHITE BLOOD COUNT 3.3 10^3/uL (4.0-10.0)
[2022-04-19 21:34] LABS: PLATELET COUNT, AUTOMATED 71 10^3/uL (150-450)
[2022-04-19 22:00] LABS: RSV AMPLIFICATION NEGATIVE (NEGATIVE)
[2022-04-19 22:11] LABS: ACETAMINOPHEN LEVEL 10.8 UG/ML (10.0-30.0); ALBUMIN 3.4 GM/DL (3.2-5.2); ALT/SGPT 8 U/L (12-78); BILIRUBIN,DIRECT 0.2 MG/DL (0.0-0.2); BILIRUBIN,TOTAL 0.6 MG/DL (0.2-1.0); BLOOD UREA NITROGEN 15 MG/DL (7-18); CALCIUM LEVEL 8.7 MG/DL (8.8-10.2); CARBON DIOXIDE LEVEL 25 MEQ/L (21-32); CHLORIDE LEVEL 109 MEQ/L (98-107); CREATININE FOR GFR 0.68 MG/DL (0.55-1.30); ETHYL ALCOHOL (ETHANOL) < 0.003 % (0.000-0.010); GLOMERULAR FILTRATION RATE > 60.0 (>39); GLUCOSE, FASTING 120 MG/DL (70-100); POTASSIUM SERUM 3.4 MEQ/L (3.5-5.1); SALICYLATE LEVEL < 1.7 MG/DL (5.0-30.0); SODIUM LEVEL 140 MEQ/L (136-145); TOTAL PROTEIN 7.6 GM/DL (6.4-8.2)
[2022-04-19 23:38] VITALS: BP 167/81
== END 2022-04-19 23:52 | disposition home or self-care (01) ==
LOC: M ED 19:55 → EDBD 19:55 → M ED 23:52
DX: F43.0 Acute stress reaction (principal); E11.9 Type 2 diabetes mellitus without complications; I10 Essential (primary) hypertension; Z86.79 Personal history of other diseases of the circulatory system; Z79.82 Long term (current) use of aspirin; Z79.811 Long term (current) use of aromatase inhibitors; Z79.899 Other long term (current) drug therapy

== ENCOUNTER → 2022-08-10 | Outpatient (CLI) | payer MEDICARE ==
[~2022-08-10] MED LIST changes: +APRE30TA3 PO; -OTEZ1TAB3 PO
== END ==
LOC: M ONCR 09:08
PROVIDERS: ATTEND General Practice
DX: C34.32 Malignant neoplasm of lower lobe, left bronchus or lung (principal); F03.90 Unspecified dementia, unspecified severity, without behavioral disturbance, psychotic disturbance, mood disturbance, and anxiety; Z87.891 Personal history of nicotine dependence; Z79.899 Other long term (current) drug therapy; Z92.3 Personal history of irradiation

== ENCOUNTER → 2023-02-11 | Outpatient (CLI) | payer MEDICARE, MEDICAID ==
[~2023-02-11] MED LIST changes: +ACET500P3 PO; +ALDA25TA2 PO; +POTA-151 PO; +TRAZ-252 PO; +VITMTA PO
== END ==
LOC: M PLAIMG 08:49
PROVIDERS: ATTEND General Practice
DX: C34.32 Malignant neoplasm of lower lobe, left bronchus or lung (principal)

== ENCOUNTER → 2023-02-15 | Outpatient (CLI) | payer MEDICARE, MEDICAID | LOC: M ONCR 08:11 | PROVIDERS: ATTEND Specialist | DX: C34.32 Malignant neoplasm of lower lobe, left bronchus or lung (principal); L40.0 Psoriasis vulgaris; R21 Rash and other nonspecific skin eruption; R41.82 Altered mental status, unspecified; Z71.2 Person consulting for explanation of examination or test findings; Z79.899 Other long term (current) drug therapy; Z87.891 Personal history of nicotine dependence; Z92.3 Personal history of irradiation ==

== ENCOUNTER → 2023-02-15 | Outpatient (CLI) | payer MEDICARE, MEDICAID | LOC: M RAD 07:31 | PROVIDERS: ATTEND Internal Medicine Gastroenterology | DX: I85.00 Esophageal varices without bleeding (principal); C34.32 Malignant neoplasm of lower lobe, left bronchus or lung; L40.0 Psoriasis vulgaris; R21 Rash and other nonspecific skin eruption; R41.82 Altered mental status, unspecified; Z71.2 Person consulting for explanation of examination or test findings; Z79.899 Other long term (current) drug therapy; Z87.891 Personal history of nicotine dependence; Z92.3 Personal history of irradiation | CPT/HCPCS: 76705; G0463 ==

== ENCOUNTER → 2023-05-10 | Outpatient (CLI) | payer MEDICARE, MEDICAID ==
[~2023-05-10] MED LIST changes: +LIDOCAINE 1% MDV 20ML VIAL As Ordered ONE; +LORA-1041 PO; -LORA-674 PO
[2023-05-10 08:32] VITALS: TEMP 98
[2023-05-10 09:15] VITALS: BP 151/79; O2SAT 95
== END ==
LOC: M IRPRO 08:27
PROVIDERS: ATTEND Nurse Practitioner Adult Health
DX: N39.0 Urinary tract infection, site not specified (principal); B95.2 Enterococcus as the cause of diseases classified elsewhere
CPT/HCPCS: 36571; 76937; C1751